=== PATIENT | male | born 1975 ===

== ENCOUNTER 2020-07-14 18:36 | Emergency (ER) | payer MEDICAID, SELFPAY ==
[2020-07-14 19:15] VITALS: BP 135/77; PULSE 78; RESP 18; TEMP 36.6; O2SAT 95; BMI 36.4
[2020-07-14 19:41] VITALS: BP 116/76; PULSE 72; RESP 12; O2SAT 96
[2020-07-14 19:52] LABS: Glucose, Whole Blood 93 mg/dL (60-115)
--- NOTE | 2020-07-14 20:07 | ED.CHESTPAIN ---
HPI - Chest Pain General Chief Complaint: Chest Pain Stated Complaint: MULTIPLE COMPLAINTS Time Seen by Provider: 07/14/20 20:00 Source: patient Mode of arrival: ambulatory Limitations: no limitations History of Present Illness HPI narrative: His room complaining of 1 day dizziness, left arm numbness tingling. Patient states all day today he has been feeling ?dizzy?. Patient describes dizziness as not feeling well, denies near syncope, the room is not spinning. Patient states prior to arrival he checked his glucose which was 97. Patient denies any chest pain, no shortness of breath. Related Data Previous Rx's Medication Instructions Recorded omeprazole 40 mg capsule,delayed 40 mg PO BID #90 cap 07/04/20 release plecanatide 3 mg tablet 3 mg PO DAILY 90 Days #90 tab 07/04/20 Allergies Allergy/AdvReac Type Severity Reaction Status Date / Time Penicillins [PENICILLINS] Allergy Intermediate HIVES Verified 07/14/20 19:39 penicillin V Allergy Unknown Hives Verified 07/14/20 19:39 Review of Systems Review of Systems: Constitutional : No Weight loss, No Fever, occasional Chills, No Night Sweats, No Fatigue, No Malaise ENT/Mouth : No Hearing loss, No Ear Pain, No Nasal Congestion, No Sinus Pain, No Hoarseness, No sore throat, No Rhinorrhea, No Swallowing Difficulty Eyes: No Eye Pain, No Swelling, No Redness, No Foreign Body, No Discharge, No Vision Changes Cardiovascular : No Chest Pain, No SOB, No Dyspnea on Exertion, No Orthopnea, No Edema, No Palpitations. Complaining strange sensation in his chest Respiratory : No Cough, No Sputum, No Wheezing, No Smoke Exposure, No Dyspnea Gastrointestinal : No Nausea, No Vomiting, No Diarrhea, No Constipation, No abdominal Pain, No Hematochezia, No Melena Genitourinary : no irregular bleeding, No Dysuria, No Urinary Frequency, No Hematuria, No Urinary Incontinence, No Urgency, No Flank Pain, No Urinary Flow Changes, No Hesitancy Musculoskeletal : No joint pain, No Myalgias, No Joint Swelling Skin : No Skin Lesions, No rash Neuro : No Weakness, No Numbness, No Paresthesias, No Loss of Consciousness, Mild Dizziness, No Headache Psych : No Anxiety/Panic, No Depression, No SI/HI/AH/VH, No Social Issues, Heme/Lymph: No Bruising, No Bleeding,No Lymphadenopathy Endocrine : No Polyuria, No Polydipsia, No Temperature Intolerance COUNTS INCLUDE 234 BEDS AT THE [facility] Past Medical History Medical History Diabetes Sleep apnea Varicose vein of leg Social History Social History Alcohol intake: never Smoking Status: Never smoker Use of substances other than those prescribed or required for medical reasons: No Advance Directives: No Advance Directives Information Provided: Yes Physical Exam Vital Signs: Vital Signs: Vital Signs Temp Pulse Resp BP Pulse Ox 07/14/20 22:00 98.0 F 64 12 114/66 97 07/14/20 20:08 97.8 F 60 20 113/73 94 07/14/20 19:41 72 12 116/76 96 07/14/20 19:15 98 F 78 18 135/77 95 Body Mass Index 36.4 Appearance: Alert. Oriented X3. No acute distress. Eyes: Pupils equal, round and reactive to light. ENT: Pharynx normal. Neck: Normal inspection. Neck supple. No lymph nodes noted. No crepitus CVS: Normal heart rate and rhythm. Pulses normal. Normal S1 and S2 Respiratory: No respiratory distress. Breath sounds normal. No Wheezing. No rales Abdomen: Soft and nontender. No rigidity. No distention. good BS x4 Skin: Skin warm and dry. Normal skin color. Normal skin turgor. Extremities: No lower extremity edema. No lower extremity edema. No Lacerations. No Rash Neuro: Oriented X 3. No motor deficit. No sensory deficit. Moving all extermities. No slurred speech. Course Course Course Narrative: Patient's troponin is pending, patient denies any chest pain shortness of breath or dizziness at this time. Patient was assessed multiple times, patient stated that each time he was feeling much better and no longer having numbness/tingling in his left arm His prior to discharge, patient stated he felt a bit nauseous but otherwise well, no chest pain or shortness of breath MDM - Chest Pain Lab Data Result diagrams: 07/14/20 23:04 07/14/20 23:04 Labs: Lab Results 07/14/20 07/14/20 07/14/20 Range/Units 19:48 23:04 23:04 WBC 10.2 (4.8-10.8) X10*3/uL RBC 4.40 L (4.60-5.80) X10*6/uL Hgb 12.5 L (14.0-18.0) g/dl Hct 39.2 L (42-52) % MCV 89.1 (80-98) fL MCH 28.4 (27.0-33.0) pg MCHC 31.9 (31.0-36.0) g/dl RDW 12.5 (11.0-16.0) % Plt Count 331 (160-400) X10*3/uL MPV 10.3 (9.4-12.4) fL Immature Gran % (Auto) 0.3 (0.0-0.4) % Neut % (Auto) 69.6 (45-73) % Lymph % (Auto) 22.3 (20-40) % [place] % (Auto) 6.1 (2-11) % Eos % (Auto) 1.3 (0-4) % Baso % (Auto) 0.4 (0-2) % Lymph # (Auto) 2.3 (1.2-4.9) X10*3/uL [place] # (Auto) 0.6 (0.1-1.2) X10*3/uL Eos # (Auto) 0.1 (0.0-0.4) X10*3/uL Baso # (Auto) 0.0 (0.0-0.2) X10*3/uL Abs Immat Gran (auto) 0.03 (0.00-0.03) X10*3/uL Absolute Neuts (auto) 7.1 (2.0-8.3) X10*3/uL Absolute Nucleated RBC 0.000 (0.0-0.012) X10*3/uL Nucleated RBC % (auto) 0.0 (0.0-0.2) /100WBC Sodium 139 (135-145) mmol/L Potassium 4.2 (3.3-5.1) mmol/l Chloride 101 (96-108) mmol/L Carbon Dioxide 31 H (22-29) mmol/L Anion Gap 11 L (12-20) BUN 11 (9-16) mg/dL Creatinine 0.78 (0.5-1.4) mg/dL Estim Creat Clear Calc 156.8 Estimated GFR > 60 POC Glucose 93 (60-115) mg/dL Random Glucose 103 (60-115) mg/dL Calcium 9.6 (8.4-10.2) mg/dL Specimen Comment 07/14/20 Range/Units 23:04 WBC (4.8-10.8) X10*3/uL RBC (4.60-5.80) X10*6/uL Hgb (14.0-18.0) g/dl Hct (42-52) % MCV (80-98) fL MCH (27.0-33.0) pg MCHC (31.0-36.0) g/dl RDW (11.0-16.0) % Plt Count (160-400) X10*3/uL MPV (9.4-12.4) fL Immature Gran % (Auto) (0.0-0.4) % Neut % (Auto) (45-73) % Lymph % (Auto) (20-40) % [place] % (Auto) (2-11) % Eos % (Auto) (0-4) % Baso % (Auto) (0-2) % Lymph # (Auto) (1.2-4.9) X10*3/uL [place] # (Auto) (0.1-1.2) X10*3/uL Eos # (Auto) (0.0-0.4) X10*3/uL Baso # (Auto) (0.0-0.2) X10*3/uL Abs Immat Gran (auto) (0.00-0.03) X10*3/uL Absolute Neuts (auto) (2.0-8.3) X10*3/uL Absolute Nucleated RBC (0.0-0.012) X10*3/uL Nucleated RBC % (auto) (0.0-0.2) /100WBC Sodium (135-145) mmol/L Potassium (3.3-5.1) mmol/l Chloride (96-108) mmol/L Carbon Dioxide (22-29) mmol/L Anion Gap (12-20) BUN (9-16) mg/dL Creatinine (0.5-1.4) mg/dL Estim Creat Clear Calc Estimated GFR POC Glucose (60-115) mg/dL Random Glucose (60-115) mg/dL Calcium (8.4-10.2) mg/dL Specimen Comment DELAY ECG Data ECG #1: Attestation: I personally reviewed and interpreted this ECG as follows: (Sinus rhythm, heart rate 62, QTC 420, nonspecific T-wave inversions in lead 3, no ST segment depression or elevation) Discharge Plan Discharge Clinical Impression: Dizziness Patient Disposition: Home, Self-Care Instructions: Dizziness (ED) Additional Instructions: Please follow-up with your primary care physician tomorrow. If you have any worsening or new symptoms, please return to the emergency room or call 911 Prescriptions: No Action Trulance 3 mg tablet 3 mg PO DAILY 90 Days Qty: 90 RF: 1 omeprazole 40 mg capsule,delayed release(DR/EC) 40 mg PO BID Qty: 90 RF: 1
[2020-07-14 20:08] VITALS: BP 113/73; PULSE 60; RESP 20; TEMP 36.6; O2SAT 94
--- NOTE | 2020-07-14 21:32 | ECG_ITS ---
Test Reason : REPEAT Blood Pressure : / mmHG Vent. Rate : 062 BPM Atrial Rate : 062 BPM P-R Int : 130 ms QRS Dur : 104 ms QT Int : 414 ms P-R-T Axes : 041 -19 001 degrees QTc Int : 420 ms Normal sinus rhythm Incomplete right bundle branch block Nonspecific T wave abnormality Abnormal ECG When compared with ECG of 29-SEP-2019 00:47, Nonspecific T wave abnormality is new Referred By: Lea Alarcon Electronically Signed By:NAHID LEE MD
[2020-07-14 22:00] VITALS: BP 114/66; PULSE 64; RESP 12; TEMP 36.7; O2SAT 97
[2020-07-14 23:09] LABS: Basophils Percent Auto 0.4 % (0-2); Eosinophils Absolute Auto 0.1 X10*3/uL (0.0-0.4); Eosinophils Percent Auto 1.3 % (0-4); Hematocrit 39.2 % (42-52); Hemoglobin 12.5 g/dl (14.0-18.0); Imm Gran Abs Auto 0.03 X10*3/uL (0.00-0.03); Imm Gran Pct Auto 0.3 % (0.0-0.4); Lymphocytes Absolute Auto 2.3 X10*3/uL (1.2-4.9); Lymphocytes Percent Auto 22.3 % (20-40); Mean Corpuscular HGB Conc 31.9 g/dl (31.0-36.0); Mean Corpuscular Hemoglobin 28.4 pg (27.0-33.0); Mean Corpuscular Volume 89.1 fL (80-98); Mean Platelet Volume 10.3 fL (9.4-12.4); Monocytes Absolute Auto 0.6 X10*3/uL (0.1-1.2); Monocytes Percent Auto 6.1 % (2-11); Neutrophils Absolute Auto 7.1 X10*3/uL (2.0-8.3); Neutrophils Percent Auto 69.6 % (45-73); Platelet Count 331 X10*3/uL (160-400); Red Cell Distribution Width 12.5 % (11.0-16.0); White Blood Count 10.2 X10*3/uL (4.8-10.8)
[2020-07-14 23:10] LABS: MANUAL DIFF FLAG NO
[2020-07-14 23:16] LABS: Delay - Chemistry DELAY
[2020-07-14 23:52] LABS: Anion Gap 11 (12-20); Blood Urea Nitrogen 11 mg/dL (9-16); Carbon Dioxide 31 mmol/L (22-29); Chloride 101 mmol/L (96-108); Creatinine Clr Calc Pharmacy 156.8; Estimated Glomerular Filt Rate > 60; Glucose Random 103 mg/dL (60-115); Potassium 4.2 mmol/l (3.3-5.1); Sodium 139 mmol/L (135-145)
[2020-07-15] VITALS: BP 128/68; PULSE 66; RESP 16; TEMP 37.2; O2SAT 97
[2020-07-15 00:41] LABS: Calcium 9.6 mg/dL (8.4-10.2)
[2020-07-15 00:46] LABS: Troponin-I High Sensitivity < 3.5 ng/L (<3.5-35.0)
[2020-07-15] MEDS: Meclizine HCl 25 MG TABLET PO (01:00)
== END 2020-07-15 01:00 | disposition home or self-care (01) ==
PROVIDERS: Emergency Provider Emergency Medicine; PCP Family Medicine
DX: R42 Dizziness and giddiness (principal); E11.9 Type 2 diabetes mellitus without complications; Z79.899 Other long term (current) drug therapy
CPT/HCPCS: 36415; 80048; 82947; 84484; 85025; 93005; 99284; 99285

== ENCOUNTER → 2020-07-23 13:14 | Outpatient (BNVA) | payer MEDICAID, SELFPAY | PROVIDERS: PCP Internal Medicine Transplant Hepatology; Visit Provider Anesthesiology | DX: M17.12 Unilateral primary osteoarthritis, left knee (principal); M47.816 Spondylosis without myelopathy or radiculopathy, lumbar region; G89.4 Chronic pain syndrome | CPT/HCPCS: 99213 ==

== ENCOUNTER → 2020-08-03 13:01 | Outpatient (BNVA) | payer MEDICAID, SELFPAY | PROVIDERS: PCP Family Medicine; Referring Provider Family Medicine; Visit Provider Nurse Practitioner Family | DX: K21.9 Gastro-esophageal reflux disease without esophagitis (principal); E11.43 Type 2 diabetes mellitus with diabetic autonomic (poly)neuropathy; K31.84 Gastroparesis; Z79.84 Long term (current) use of oral hypoglycemic drugs | CPT/HCPCS: 99212 ==

== ENCOUNTER 2020-09-26 17:56 | Emergency (ER) | payer MEDICAID, SELFPAY ==
[2020-09-26 19:50] VITALS: BP 152/94; PULSE 76; RESP 18; TEMP 36.8; O2SAT 96; BMI 35.9
--- NOTE | 2020-09-26 20:06 | ED.EXTPRO ---
HPI - Extremity Problem General Chief complaint: Extremity Problem Stated complaint: hand swelling Time Seen by Provider: 09/26/20 20:06 Source: patient Mode of arrival: ambulatory Limitations: no limitations History of Present Illness MD Complaint: extremity pain and extremity swelling Onset (ago): day(s) (started 1am today) Pain Consistency: constant Location: right and upper extremity Quality: burning and aching Radiation: proximal Relieving factors: nothing Exacerbating factors: nothing Associated symptoms: denies other symptoms Context: history of gout and other (has open area on knuckle) Related Data Home Medications Medication Instructions Recorded Confirmed albuterol sulfate 90 mcg/actuation 2 puff INHALATION Q6H PRN 07/23/20 09/26/20 aerosol inhaler buprenorphine 8 mg-naloxone 2 mg 2 film BUCCAL DAILY 07/23/20 09/26/20 sublingual film fluticasone propionate 50 1 spray INTRANASAL DAILY 07/23/20 09/26/20 mcg/actuation nasal spray,suspension loratadine 10 mg tablet 10 mg PO DAILY 07/23/20 09/26/20 metformin 500 mg tablet 500 mg PO DAILY 07/23/20 09/26/20 metoclopramide HCl 5 mg tablet 5 mg PO QIDACHS 07/23/20 09/26/20 tamsulosin 0.4 mg capsule 0.4 mg PO DAILY 07/23/20 09/26/20 Previous Rx's Medication Instructions Recorded omeprazole 40 mg capsule,delayed 40 mg PO BID #90 cap 07/04/20 release plecanatide 3 mg tablet 3 mg PO DAILY 90 Days #90 tab 07/04/20 cephalexin 500 mg PO BID 7 Days #14 cap 09/26/20 doxycycline hyclate 100 mg PO BID 7 Days #14 tab 09/26/20 mupirocin 1 appl TOPICAL BID 7 Days #15 g 09/26/20 Allergies Allergy/AdvReac Type Severity Reaction Status Date / Time Penicillins [PENICILLINS] Allergy Intermediate HIVES Verified 07/14/20 19:39 Review of Systems Review of Systems: Constitutional : No Fever, No Chills ENT/Mouth : No sore throat, No Rhinorrhea Eyes: No Eye Pain, No Swelling, No Redness Cardiovascular : No Chest Pain, No SOB Respiratory : No Cough, No Sputum Gastrointestinal : No Nausea, No Vomiting, No Diarrhea, No abdominal Pain Genitourinary : No Dysuria, No Hematuria Musculoskeletal : No joint pain, No Myalgias, No Joint Swelling Skin : pos Skin Lesions, positive skin rash Neuro : No Weakness, No Numbness, No Headache Psych : No Anxiety, No Depression Heme/Lymph: No Bruising, No Bleeding,No Lymphadenopathy Endocrine : No Polyuria, No Polydipsia All other systems reviewed and are negative [facility] Past Medical History Attestation statement: The following information was validated with the patient. Medical History Chronic pain syndrome Diabetes Osteoarthritis of left knee Sleep apnea Spondylosis of lumbar region without myelopathy or radiculopathy Varicose vein of leg Surgical History History of back surgery History of colonoscopy Family History Family History (Updated 08/03/20 @ 13:04 by Chuyita Dalal CMA) Father No problems noted. Mother History of cancer Social History Social History Alcohol intake: never Smoking Status: Never smoker Use of substances other than those prescribed or required for medical reasons: No Advance Directives: No Advance Directives Information Provided: Yes Physical Exam Vital Signs: Vital Signs: Last Vital Signs Temp 98.2 F 09/26/20 19:50 Pulse 84 09/26/20 21:46 Resp 16 09/26/20 21:46 BP 140/81 H 09/26/20 21:46 Pulse Ox 97 09/26/20 21:46 Body Mass Index 35.9 Appearance: Alert. Oriented X3. No acute distress. Eyes: Pupils equal, round and reactive to light. ENT: Pharynx normal. Neck: Normal inspection. Neck supple. CVS: Normal heart rate and rhythm. Pulses normal. Respiratory: No respiratory distress. Breath sounds normal. Abdomen: Soft and non-tender. Skin: Skin warm and dry. Normal skin color. Normal skin turgor. Extremities: No lower extremity edema. No calf ttp RUE swelling with warmth and mild erythema from hand to elbow - lymphangitis to AC area, open crack on 3rd MCP no fluctuance, NV intact Neuro: Oriented X 3. No motor deficit. No sensory deficit. Course Course Course Narrative: on recheck the redness has improved, no fevers, no WBC count stable for DC MDM - Extremity (Nontraumatic) MDM Narrative Medical decision making narrative: 44 yo male with DM here with RUE cellulitis - no fluctuance, NV intact, infection likely from open dry knuckle, has lymphangitis to AC area will need labs, cultures, start antibiotics, dispo per findings and recheck of area Lab Data Result diagrams: 09/26/20 20:33 09/26/20 20:32 Labs: Lab Results 09/26/20 09/26/20 09/26/20 Range/Units 20:32 20:32 20:32 WBC 10.2 (4.8-10.8) X10*3/uL RBC 4.56 L (4.60-5.80) X10*6/uL Hgb 13.1 L (14.0-18.0) g/dl Hct 39.9 L (42-52) % MCV 87.5 (80-98) fL MCH 28.7 (27.0-33.0) pg MCHC 32.8 (31.0-36.0) g/dl RDW 12.3 (11.0-16.0) % Plt Count 311 (160-400) X10*3/uL MPV 11.1 (9.4-12.4) fL Immature Gran % (Auto) 0.3 (0.0-0.4) % Neut % (Auto) 77.8 H (45-73) % Lymph % (Auto) 14.9 L (20-40) % [place] % (Auto) 6.0 (2-11) % Eos % (Auto) 0.7 (0-4) % Baso % (Auto) 0.3 (0-2) % Lymph # (Auto) 1.5 (1.2-4.9) X10*3/uL [place] # (Auto) 0.6 (0.1-1.2) X10*3/uL Eos # (Auto) 0.1 (0.0-0.4) X10*3/uL Baso # (Auto) 0.0 (0.0-0.2) X10*3/uL Abs Immat Gran (auto) 0.03 (0.00-0.03) X10*3/uL Absolute Neuts (auto) 7.9 (2.0-8.3) X10*3/uL Absolute Nucleated RBC 0.000 (0.0-0.012) X10*3/uL Nucleated RBC % (auto) 0.0 (0.0-0.2) /100WBC Hold Blue Top Sodium 138 139 (135-145) mmol/L Potassium 4.2 4.3 (3.3-5.1) mmol/l Chloride 102 102 (96-108) mmol/L Carbon Dioxide 30 H 30 H (22-29) mmol/L Anion Gap 10 L 11 L (12-20) BUN 12 12 (9-16) mg/dL Creatinine 0.75 0.76 (0.5-1.4) mg/dL Estim Creat Clear Calc 161.8 159.6 Estimated GFR > 60 > 60 Random Glucose 115 116 H (60-115) mg/dL Lactic Acid (0.5-2.0) mmol/L Uric Acid 5.5 (3.4-7.0) mg/dL Calcium 9.2 9.0 (8.4-10.2) mg/dL Magnesium (1.6-2.6) mg/dL Total Bilirubin (0.0-1.0) mg/dL Direct Bilirubin (0.0-0.5) mg/dL AST (5-37) U/L ALT (0-40) U/L Alkaline Phosphatase (39-117) U/L Total Protein (6.5-8.0) g/dL Albumin (3.5-5.0) g/dL COVID-19 ([facility]) (Negative) COVID-19 Clin Com 09/26/20 09/26/20 09/26/20 Range/Units 20:32 20:32 20:33 WBC 9.8 (4.8-10.8) X10*3/uL RBC 4.60 (4.60-5.80) X10*6/uL Hgb 12.8 L (14.0-18.0) g/dl Hct 40.1 L (42-52) % MCV 87.2 (80-98) fL MCH 27.8 (27.0-33.0) pg MCHC 31.9 (31.0-36.0) g/dl RDW 12.2 (11.0-16.0) % Plt Count 311 (160-400) X10*3/uL MPV 11.0 (9.4-12.4) fL Immature Gran % (Auto) 0.3 (0.0-0.4) % Neut % (Auto) 78.0 H (45-73) % Lymph % (Auto) 14.8 L (20-40) % [place] % (Auto) 6.1 (2-11) % Eos % (Auto) 0.5 (0-4) % Baso % (Auto) 0.3 (0-2) % Lymph # (Auto) 1.5 (1.2-4.9) X10*3/uL [place] # (Auto) 0.6 (0.1-1.2) X10*3/uL Eos # (Auto) 0.1 (0.0-0.4) X10*3/uL Baso # (Auto) 0.0 (0.0-0.2) X10*3/uL Abs Immat Gran (auto) 0.03 (0.00-0.03) X10*3/uL Absolute Neuts (auto) 7.7 (2.0-8.3) X10*3/uL Absolute Nucleated RBC 0.000 (0.0-0.012) X10*3/uL Nucleated RBC % (auto) 0.0 (0.0-0.2) /100WBC Hold Blue Top Sodium (135-145) mmol/L Potassium (3.3-5.1) mmol/l Chloride (96-108) mmol/L Carbon Dioxide (22-29) mmol/L Anion Gap (12-20) BUN (9-16) mg/dL Creatinine (0.5-1.4) mg/dL Estim Creat Clear Calc Estimated GFR Random Glucose (60-115) mg/dL Lactic Acid 1.3 (0.5-2.0) mmol/L Uric Acid (3.4-7.0) mg/dL Calcium (8.4-10.2) mg/dL Magnesium 1.9 (1.6-2.6) mg/dL Total Bilirubin 0.6 (0.0-1.0) mg/dL Direct Bilirubin 0.3 (0.0-0.5) mg/dL AST 26 (5-37) U/L ALT 47 H (0-40) U/L Alkaline Phosphatase 96 (39-117) U/L Total Protein 7.6 (6.5-8.0) g/dL Albumin 4.6 (3.5-5.0) g/dL COVID-19 ([facility]) (Negative) COVID-19 Clin Com 09/26/20 09/26/20 Range/Units 20:33 20:33 WBC (4.8-10.8) X10*3/uL RBC (4.60-5.80) X10*6/uL Hgb (14.0-18.0) g/dl Hct (42-52) % MCV (80-98) fL MCH (27.0-33.0) pg MCHC (31.0-36.0) g/dl RDW (11.0-16.0) % Plt Count (160-400) X10*3/uL MPV (9.4-12.4) fL Immature Gran % (Auto) (0.0-0.4) % Neut % (Auto) (45-73) % Lymph % (Auto) (20-40) % [place] % (Auto) (2-11) % Eos % (Auto) (0-4) % Baso % (Auto) (0-2) % Lymph # (Auto) (1.2-4.9) X10*3/uL [place] # (Auto) (0.1-1.2) X10*3/uL Eos # (Auto) (0.0-0.4) X10*3/uL Baso # (Auto) (0.0-0.2) X10*3/uL Abs Immat Gran (auto) (0.00-0.03) X10*3/uL Absolute Neuts (auto) (2.0-8.3) X10*3/uL Absolute Nucleated RBC (0.0-0.012) X10*3/uL Nucleated RBC % (auto) (0.0-0.2) /100WBC Hold Blue Top SEE NOTE Sodium (135-145) mmol/L Potassium (3.3-5.1) mmol/l Chloride (96-108) mmol/L Carbon Dioxide (22-29) mmol/L Anion Gap (12-20) BUN (9-16) mg/dL Creatinine (0.5-1.4) mg/dL Estim Creat Clear Calc Estimated GFR Random Glucose (60-115) mg/dL Lactic Acid (0.5-2.0) mmol/L Uric Acid (3.4-7.0) mg/dL Calcium (8.4-10.2) mg/dL Magnesium (1.6-2.6) mg/dL Total Bilirubin (0.0-1.0) mg/dL Direct Bilirubin (0.0-0.5) mg/dL AST (5-37) U/L ALT (0-40) U/L Alkaline Phosphatase (39-117) U/L Total Protein (6.5-8.0) g/dL Albumin (3.5-5.0) g/dL COVID-19 ([facility]) Negative (Negative) COVID-19 Clin Com See Note Discharge Plan Discharge Clinical Impression: Cellulitis Qualifiers: Site of cellulitis: extremity Site of cellulitis of extremity: upper extremity Laterality: right Qualified Code(s): L03.113 - Cellulitis of right upper limb Arthralgia Qualifiers: Joint pain location: unspecified Qualified Code(s): M25.50 - Pain in unspecified joint Patient Disposition: Home, Self-Care Instructions: Cellulitis (ED), Arthralgia (ED) Additional Instructions: return to ED for any worsening symptoms or concerns Prescriptions: New doxycycline hyclate 100 mg tablet 100 mg PO BID 7 Days Qty: 14 RF: 0 cephalexin 500 mg capsule 500 mg PO BID 7 Days Qty: 14 RF: 0 mupirocin 2 % ointment 1 appl topical BID 7 Days Qty: 15 RF: 0 No Action Trulance 3 mg tablet 3 mg PO DAILY 90 Days Qty: 90 RF: 1 omeprazole 40 mg capsule,delayed release(DR/EC) 40 mg PO BID Qty: 90 RF: 1 tamsulosin 0.4 mg capsule 0.4 mg PO DAILY RF: 0 fluticasone propionate [Flonase Allergy Relief] 50 mcg/actuation spray,suspension 1 spray intranasal DAILY RF: 0 albuterol sulfate [ProAir HFA] 90 mcg/actuation HFA aerosol inhaler 2 puff inhalation Q6H PRN (Reason: Shortness Of Breath) RF: 0 buprenorphine-naloxone [Suboxone] 8-2 mg film 2 film buccal DAILY RF: 0 loratadine 10 mg tablet 10 mg PO DAILY RF: 0 metoclopramide HCl [Reglan] 5 mg tablet 5 mg PO QIDACHS RF: 0 metformin 500 mg tablet 500 mg PO DAILY RF: 0 Referrals: Daily Lopez MD [Physician] - 1 week
[2020-09-26 20:25] VITALS: BP 129/93; PULSE 84; RESP 16; O2SAT 98
[2020-09-26] MEDS: 0.9 % Sodium Chloride 500 ML IV (20:37)
[2020-09-26 20:42] VITALS: RESP 16
[2020-09-26 20:42] LABS: MANUAL DIFF FLAG NO
[2020-09-26 20:42] LABS: MANUAL DIFF FLAG NO
[2020-09-26] MEDS: Morphine Sulfate 4 MG/ML CARTRIDGE IVPUSH (20:42)
[2020-09-26] MEDS: cefEPime HCl 1 GM in 0.9 % Sodium Chloride 50 ML IV (20:42)
[2020-09-26] MEDS: ondansetron HCL 4 MG/2 ML VIAL IVPUSH (20:43)
[2020-09-26 20:51] LABS: Basophils Percent Auto 0.3 % (0-2); Eosinophils Absolute Auto 0.1 X10*3/uL (0.0-0.4); Eosinophils Percent Auto 0.7 % (0-4); Hematocrit 39.9 % (42-52); Hemoglobin 13.1 g/dl (14.0-18.0); Imm Gran Abs Auto 0.03 X10*3/uL (0.00-0.03); Imm Gran Pct Auto 0.3 % (0.0-0.4); Lymphocytes Absolute Auto 1.5 X10*3/uL (1.2-4.9); Lymphocytes Percent Auto 14.9 % (20-40); Mean Corpuscular HGB Conc 32.8 g/dl (31.0-36.0); Mean Corpuscular Hemoglobin 28.7 pg (27.0-33.0); Mean Corpuscular Volume 87.5 fL (80-98); Mean Platelet Volume 11.1 fL (9.4-12.4); Monocytes Absolute Auto 0.6 X10*3/uL (0.1-1.2); Neutrophils Absolute Auto 7.9 X10*3/uL (2.0-8.3); Neutrophils Percent Auto 77.8 % (45-73); Platelet Count 311 X10*3/uL (160-400); Red Blood Count 4.56 X10*6/uL (4.60-5.80); Red Cell Distribution Width 12.3 % (11.0-16.0); White Blood Count 10.2 X10*3/uL (4.8-10.8)
[2020-09-26 20:51] LABS: Basophils Percent Auto 0.3 % (0-2); Eosinophils Absolute Auto 0.1 X10*3/uL (0.0-0.4); Eosinophils Percent Auto 0.5 % (0-4); Hematocrit 40.1 % (42-52); Hemoglobin 12.8 g/dl (14.0-18.0); Imm Gran Abs Auto 0.03 X10*3/uL (0.00-0.03); Imm Gran Pct Auto 0.3 % (0.0-0.4); Lymphocytes Absolute Auto 1.5 X10*3/uL (1.2-4.9); Lymphocytes Percent Auto 14.8 % (20-40); Mean Corpuscular HGB Conc 31.9 g/dl (31.0-36.0); Mean Corpuscular Hemoglobin 27.8 pg (27.0-33.0); Mean Corpuscular Volume 87.2 fL (80-98); Monocytes Absolute Auto 0.6 X10*3/uL (0.1-1.2); Monocytes Percent Auto 6.1 % (2-11); Neutrophils Absolute Auto 7.7 X10*3/uL (2.0-8.3); Platelet Count 311 X10*3/uL (160-400); Red Cell Distribution Width 12.2 % (11.0-16.0); White Blood Count 9.8 X10*3/uL (4.8-10.8)
[2020-09-26 21:16] LABS: Anion Gap 11 (12-20); Blood Urea Nitrogen 12 mg/dL (9-16); Carbon Dioxide 30 mmol/L (22-29); Chloride 102 mmol/L (96-108); Creatinine Clr Calc Pharmacy 159.6; Estimated Glomerular Filt Rate > 60; Glucose Random 116 mg/dL (60-115); Potassium 4.3 mmol/l (3.3-5.1); Sodium 139 mmol/L (135-145)
[2020-09-26 21:17] LABS: Lactic Acid 1.3 mmol/L (0.5-2.0)
[2020-09-26 21:18] LABS: Alanine Aminotransferase 47 U/L (0-40); Albumin Level 4.6 g/dL (3.5-5.0); Alkaline Phosphatase 96 U/L (39-117); Aspartate Amino Transferase 26 U/L (5-37); Bilirubin Direct 0.3 mg/dL (0.0-0.5); Bilirubin Total 0.6 mg/dL (0.0-1.0); Magnesium 1.9 mg/dL (1.6-2.6); Total Protein 7.6 g/dL (6.5-8.0)
[2020-09-26 21:20] LABS: Anion Gap 10 (12-20); Blood Urea Nitrogen 12 mg/dL (9-16); Calcium 9.2 mg/dL (8.4-10.2); Carbon Dioxide 30 mmol/L (22-29); Chloride 102 mmol/L (96-108); Creatinine Clr Calc Pharmacy 161.8; Estimated Glomerular Filt Rate > 60; Glucose Random 115 mg/dL (60-115); Potassium 4.2 mmol/l (3.3-5.1); Sodium 138 mmol/L (135-145); Uric Acid 5.5 mg/dL (3.4-7.0)
[2020-09-26 21:26] LABS: COVID-19 Test Negative (Negative); IDNOW Serial# 9DD0AD1C
[2020-09-26 21:46] VITALS: BP 140/81; PULSE 84; RESP 16; O2SAT 97
== END 2020-09-26 23:22 | disposition home or self-care (01) ==
PROVIDERS: Emergency Provider Emergency Medicine; PCP Family Medicine
DX: L03.113 Cellulitis of right upper limb (principal); M25.50 Pain in unspecified joint; S60.511A Abrasion of right hand, initial encounter; X58.XXXA Exposure to other specified factors, initial encounter; Z20.828 Contact with and (suspected) exposure to other viral communicable diseases; Y93.9 Activity, unspecified; Y92.9 Unspecified place or not applicable; Y99.9 Unspecified external cause status; E11.9 Type 2 diabetes mellitus without complications; Z79.84 Long term (current) use of oral hypoglycemic drugs; Z79.899 Other long term (current) drug therapy
CPT/HCPCS: 36415; 80048; 80076; 83605; 83735; 84550; 85025; 87040; 87635; 96365; 96366; 96367; 96375; 99284; J0692; J2270; J2405; J3370

== ENCOUNTER → 2020-10-01 13:52 | Outpatient (BNVA) | payer MEDICAID, SELFPAY | PROVIDERS: PCP Family Medicine; Visit Provider Nurse Practitioner Family | DX: Z76.89 Persons encountering health services in other specified circumstances (principal) ==

== ENCOUNTER 2020-10-23 09:31 | Outpatient (REF) | payer MEDICAID, SELFPAY ==
--- NOTE | 2020-10-23 09:38 | US_ITS ---
EXAMINATION: US ABDOMEN COMPLETE CLINICAL INFORMATION: Husain. COMPARISON: Previous exam March 2020 TECHNIQUE: Real-time imaging of the abdominal viscera. FINDINGS: PANCREAS: The head of the pancreas is normal-appearing. The body and tail are not well visualized due to bowel gas. ABDOMINAL AORTA: Not well visualized due to bowel gas INFERIOR VENA CAVA: Not well visualized. LIVER: Liver echotexture is increased probably representing fatty infiltration. There is a hypoechoic area adjacent to the gallbladder, characteristic location of focal fatty sparing. No other focal hepatic lesion. The liver is normal in contour. There is no intrahepatic biliary duct dilatation seen. GALLBLADDER: Normal. The gallbladder is physiologically distended without evidence of stones, sludge, polyps, wall thickening or pericholecystic fluid. COMMON BILE DUCT: Normal in caliber measuring 0.4 cm in diameter. RIGHT KIDNEY: Normal. No hydronephrosis. No renal calculi or focal parenchymal lesions. The kidney measures 11.9 cm in maximum dimension. LEFT KIDNEY: Normal. No hydronephrosis. No renal calculi or focal parenchymal lesions. The kidney measures 12.9 cm in maximum dimension. SPLEEN: Normal. The spleen measures 12.3 cm in maximum dimension. FREE FLUID: None. US/US abdomen complete IMPRESSION: Echogenic liver suggestive of fatty infiltration. No focal liver lesion or evidence of cirrhosis. Limited visualization of the pancreas, aorta and IVC.
== END 2020-10-23 09:32 | disposition home or self-care (01) ==
LOC: HO.US 09:31
PROVIDERS: PCP Family Medicine; Visit Provider Physician Assistant
DX: K75.81 Nonalcoholic steatohepatitis (NASH) (principal)
CPT/HCPCS: 76700

== ENCOUNTER 2020-10-26 16:09 | Emergency (ER) | payer MEDICAID, SELFPAY ==
[2020-10-26 16:41] VITALS: BP 135/82; PULSE 75; RESP 18; TEMP 36.2; O2SAT 95; BMI 35.4
[2020-10-26 18:47] VITALS: BP 144/81; PULSE 80; RESP 16; TEMP 36.3; O2SAT 96
--- NOTE | 2020-10-26 19:01 | XR_ITS ---
EXAMINATION: XR CHEST CLINICAL INFORMATION: Dizziness. Low breath sounds. COMPARISON: Chest x-ray 09/27/2012 TECHNIQUE: 2 views of the chest were obtained. FINDINGS: No significant abnormality is noted involving the heart, lungs, mediastinum, bony thorax or soft tissues. XR/XR chest 2V IMPRESSION: Unremarkable examination.
[2020-10-26 19:02] VITALS: BP 132/70; PULSE 67
--- NOTE | 2020-10-26 19:02 | ECG_ITS ---
Test Reason : DIZZY Blood Pressure : / mmHG Vent. Rate : 067 BPM Atrial Rate : 067 BPM P-R Int : 130 ms QRS Dur : 094 ms QT Int : 410 ms P-R-T Axes : 050 -14 015 degrees QTc Int : 433 ms Normal sinus rhythm Normal ECG When compared with ECG of 14-JUL-2020 22:39, No significant change was found Referred By: Scarlet Quinn Electronically Signed By:Drew Valenzuela
[2020-10-26 20:02] LABS: MANUAL DIFF FLAG NO
[2020-10-26 20:04] LABS: Basophils Percent Auto 0.4 % (0-2); Eosinophils Absolute Auto 0.1 X10*3/uL (0.0-0.4); Eosinophils Percent Auto 0.8 % (0-4); Hematocrit 39.8 % (42-52); Hemoglobin 12.8 g/dl (14.0-18.0); Imm Gran Abs Auto 0.03 X10*3/uL (0.00-0.03); Imm Gran Pct Auto 0.3 % (0.0-0.4); Lymphocytes Absolute Auto 2.2 X10*3/uL (1.2-4.9); Lymphocytes Percent Auto 22.8 % (20-40); Mean Corpuscular HGB Conc 32.2 g/dl (31.0-36.0); Mean Corpuscular Hemoglobin 28.1 pg (27.0-33.0); Mean Corpuscular Volume 87.3 fL (80-98); Mean Platelet Volume 11.1 fL (9.4-12.4); Monocytes Absolute Auto 0.5 X10*3/uL (0.1-1.2); Monocytes Percent Auto 5.5 % (2-11); Neutrophils Absolute Auto 6.8 X10*3/uL (2.0-8.3); Neutrophils Percent Auto 70.2 % (45-73); Platelet Count 314 X10*3/uL (160-400); Red Blood Count 4.56 X10*6/uL (4.60-5.80); Red Cell Distribution Width 12.8 % (11.0-16.0); White Blood Count 9.8 X10*3/uL (4.8-10.8)
[2020-10-26 20:06] LABS: Glucose, Whole Blood 87 mg/dL (60-115)
[2020-10-26 20:17] LABS: INTERNATIONAL NORM RATIO 1.2 (0.9-1.1); Prothrombin Time 13.7 SEC (10.8-13.0)
[2020-10-26 20:28] LABS: Troponin-I High Sensitivity < 3.5 ng/L (<3.5-35.0)
[2020-10-26 20:41] LABS: Influenza A PCR NEGATIVE (Negative); Influenza B PCR NEGATIVE (Negative); Resp Syncy Virus RNA Qual PCR NEGATIVE (Negative); SARS COV2 PCR INHOUSE NEGATIVE (Negative)
[2020-10-26 20:42] LABS: Acetone, serum QL Negative (Negative)
--- NOTE | 2020-10-26 20:49 | ED_ITS ---
HPI - General Adult General Chief complaint: General Medical <JENNIFER Jimenez - Last Filed: 10/26/20 21:11> Stated complaint: low bs <JENNIFER Jimenez Last Filed: 10/26/20 21:11> Time Seen by Provider: 10/26/20 18:52 <JENNIFER Jimenez Last Filed: 10/26/20 21:11> Source: patient <JENNIFER Jimenez Last Filed: 10/26/20 21:11> Mode of arrival: ambulatory <JENNIFER Jimenez Last Filed: 10/26/20 21:11> Limitations: no limitations <JENNIFER Jimenez Last Filed: 10/26/20 21:11> History of Present Illness HPI narrative: 44yoM c PMHX of Type II DM only on 500 mg daily of metformin, HTN, GERD, sleep apnea, arthritis, varicose vein of left, kidney stones, gastroparesis, chronic idiopathic constipation and non alcoholic steatohepatitis presenting to the ED with complaints of low blood sugar this morning in the 80s and dizziness after waking up around 12 noon. He reports he ate breakfast at that time although despite eating breakfast about 15 minutes later he took his blood sugar and it was still in the 80s and then he started to take glucose gel and started to eat some more and his glucose finally went up to the 150s although he reports that he was still feeling dizzy especially with standing. Denies any headaches, changes in vision, nausea/vomiting, chest pain, shortness of breath, dyspnea on exertion, orthopnea, palpitations, weakness, abdominal pain or any symptoms or any other symptoms complaints or concerns at this time. <JENNIFER Jimenez - Last Filed: 10/26/20 21:11> Related Data Home medications: Home Medications Medication Instructions Recorded Confirmed albuterol sulfate 90 mcg/actuation 2 puff INHALATION Q6H PRN 07/23/20 10/01/20 aerosol inhaler buprenorphine 8 mg-naloxone 2 mg 2 film BUCCAL DAILY 07/23/20 10/01/20 sublingual film fluticasone propionate 50 1 spray INTRANASAL DAILY 07/23/20 10/01/20 mcg/actuation nasal spray,suspension loratadine 10 mg tablet 10 mg PO DAILY 10/26/20 01/04/21 metformin 500 mg tablet 500 mg PO DAILY 07/23/20 10/01/20 tamsulosin 0.4 mg capsule 0.4 mg PO DAILY 07/23/20 10/01/20 Previous Rx's Medication Instructions Recorded cephalexin 500 mg PO BID 7 Days #14 cap 09/26/20 doxycycline hyclate 100 mg PO BID 7 Days #14 tab 09/26/20 mupirocin 1 appl TOPICAL BID 7 Days #15 g 09/26/20 metoclopramide HCl 5 mg tablet 5 mg PO QIDACHS #120 tab 10/01/20 omeprazole 40 mg capsule,delayed 40 mg PO BID #90 cap 10/01/20 release plecanatide 3 mg tablet 3 mg PO DAILY 90 Days #90 tab 10/01/20 <JENNIFER Jimenez - Last Filed: 10/26/20 21:11> Allergies/adverse reactions: Allergies Allergy/AdvReac Type Severity Reaction Status Date / Time Penicillins [PENICILLINS] Allergy Intermediate HIVES Verified 07/14/20 19:39 <JENNIFER Jimenez - Last Filed: 10/26/20 21:11> Review of Systems Review of Systems: Constitutional : No Weight loss, No Fever, No Chills, No Night Sweats, No Fatigue, No Malaise ENT/Mouth : No Hearing loss, No Ear Pain, No Nasal Congestion, No Sinus Pain, No Hoarseness, No sore throat, No Rhinorrhea, No Swallowing Difficulty Eyes: No Eye Pain, No Swelling, No Redness, No Foreign Body, No Discharge, No Vision Changes Cardiovascular : No Chest Pain, No SOB, No Dyspnea on Exertion, No Orthopnea, No Edema, No Palpitations Respiratory : No Cough, No Sputum, No Wheezing, No Smoke Exposure, No Dyspnea Gastrointestinal : No Nausea, No Vomiting, No Diarrhea, No Constipation, No abdominal Pain, No Hematochezia, No Melena Genitourinary : no irregular bleeding, No Dysuria, No Urinary Frequency, No Hematuria, No Urinary Incontinence, No Urgency, No Flank Pain, No Urinary Flow Changes, No Hesitancy Musculoskeletal : No joint pain, No Myalgias, No Joint Swelling Skin : No Skin Lesions, No rash Neuro : + Dizziness, No Weakness, No Numbness, No Paresthesias, No Loss of Consciousness, No Headache Psych : No Anxiety/Panic, No Depression, No SI/HI/AH/VH, No Social Issues, Heme/Lymph: No Bruising, No Bleeding,No Lymphadenopathy Endocrine : + Low Blood Sugars, No Polyuria, No Polydipsia, No Temperature Intolerance <JENNIFER Jimenez - Last Filed: 10/26/20 21:11> Yes all other systems are reviewed and are negative <JENNIFER Jimenez - Last Filed: 10/26/20 21:11> [facility] Past Medical History Attestation statement: The following information was validated with the patient. <JENNIFER Jimeenz - Last Filed: 10/26/20 21:11> Medical History: Medical History Chronic pain syndrome Diabetes Osteoarthritis of left knee Sleep apnea Spondylosis of lumbar region without myelopathy or radiculopathy Varicose vein of leg <JENNIFER Jimenez - Last Filed: 10/26/20 21:11> Surgical History: Surgical History History of back surgery History of colonoscopy <JENNIFER Jimenez - Last Filed: 10/26/20 21:11> Family History Family History: Family History Father No problems noted. Mother History of cancer <JENNIFER Jimenez - Last Filed: 10/26/20 21:11> Social History Social History: Social History Alcohol intake: never Smoking Status: Never smoker Use of substances other than those prescribed or required for medical reasons: No Advance Directives: No Advance Directives Information Provided: No <JENNIFER Jimenez - Last Filed: 10/26/20 21:11> Physical Exam Vital Signs: Vital Signs: Last Vital Signs Temp 97.3 F 10/26/20 18:47 Pulse 67 10/26/20 19:02 Resp 16 10/26/20 18:47 BP 132/70 10/26/20 19:02 Pulse Ox 96 10/26/20 18:47 Body Mass Index 35.4 vital signs have been reviewed as normal and appeared to be correct. Blood pr essure normal. Heart rate normal. Respiration rate normal. Temperature normal. Oxygen saturation normal. <JENNIFER Jimenez - Last Filed: 10/26/20 21:11> Vital Signs: Last Vital Signs Temp 97.3 F 10/26/20 18:47 Pulse 67 10/26/20 19:02 Resp 16 10/26/20 18:47 BP 132/70 10/26/20 19:02 Pulse Ox 96 10/26/20 18:47 Body Mass Index 35.4 <Ramos Stone MD - Last Filed: 10/26/20 22:30> Appearance: Alert. Oriented X3. No acute distress. Head: Normal external exam. Normocephalic. Atraumatic. Able to rotate head bilaterally. Eyes: PERRLA. EOMI. No nystagmus noted. Conjunctiva and sclera normal. Eyelids normal. Corneal reflex normal. ENT: EAC normal. TM's Normal. Hearing normal. Pharynx normal. Uvula midline. tongue midline. Moist mucous membranes. Neck: Normal inspection. Neck supple. FROM. No adenopathy. Thyroid Normal. Trachea midline. No meningeal signs. No neck mass noted. CVS: Normal heart rate and rhythm. Heart sound normal. No murmurs noted. Pulses normal throughout. Respiratory: No respiratory distress. Painless inspiration. Breath sounds normal. No wheezes/rales/rhonchi noted. Chest nontender. No accessory muscle usage noted or decreased air movement noted. Back: No CVA tenderness. Full range of motion noted. Skin: Skin warm and dry. Normal skin color. Normal skin turgor. No rashes/lesions/lacerations noted. Extremities: No lower extremity edema. No calf tenderness noted. Extremities exhibit normal range of motion. Extremities nontender. Able to shrug shoulders bilaterally and keep up against resistance. Neuro: Oriented X 3. No motor deficit. No sensory deficit. Reflexes normal. Moving all extremities. No focal motor deficits. Cranial nerves II-XI intact bilaterally. Facial strength normal. Normal cognition. Speech normal. Gait normal. Strength 5/5 throughout. No pronator drift. No tremor noted. No fasciculations noted. Muscle tone normal throughout. No asterixis noted. Wpodct-[id number] test normal. Heel to rivas test normal. Tandem gait normal. Does not sway with eyes open. Romberg test negative. No rigidity noted. NIHSS score 0. <JENNIFER Jimenez - Last Filed: 10/26/20 21:11> Course Course Course Narrative: 19pm - 44yoM c PMHX of Type II DM only on 500 mg daily of metformin, HTN, GERD, sleep apnea, arthritis, varicose vein of left, kidney stones, gastroparesis, chronic idiopathic constipation and non alcoholic steatohepatitis presenting to the ED c c/o low blood sugar earlier today in the 80s and persistent dizziness with standing after waking up around 12 noon. - Concern for CVA vs ACS vs Hypoglycemia vs electrolyte abnormality - Plan: Labs, CXR, EKG, ORTHOSTATIC VITALS, CT SCAN OF BRAIN THEN RE-EVALUATE. <JENNIFER Jimenez - Last Filed: 10/26/20 21:11> Reevaluation(s) Reevaluation #1: - POC 87. - All other labs inclduing Trop WNL - CXR WNL no acute processes noted - EKG normal sinus rhythm no acute ischemic changes noted. - orthostatic vitals negative. - COVID/RSV/flu negative. - awaiting CT scan of brain sign on to [facility] at this time pending CT scan of brain. <JENNIFER Jimenez - Last Filed: 10/26/20 21:11> Time: 21:04 <JENNIFER Jimenez - Last Filed: 10/26/20 21:11> Medical Decision Making Medical Records Medical records reviewed: Yes I reviewed the patient's medical records. <JENNIFER Jimenez - Last Filed: 10/26/20 21:11> Lab Data Lab results reviewed: Yes I reviewed the patient's lab results. <JENNIFER Jimenez - Last Filed: 10/26/20 21:11> Result diagrams: : 10/26/20 19:51 10/26/20 19:51 <JENNIFER Jimenez - Last Filed: 10/26/20 21:11> Labs: Lab Results 10/26/20 10/26/20 10/26/20 Range/Units 19:51 19:51 19:51 WBC 9.8 (4.8-10.8) X10*3/uL RBC 4.56 L (4.60-5.80) X10*6/uL Hgb 12.8 L (14.0-18.0) g/dl Hct 39.8 L (42-52) % MCV 87.3 (80-98) fL MCH 28.1 (27.0-33.0) pg MCHC 32.2 (31.0-36.0) g/dl RDW 12.8 (11.0-16.0) % Plt Count 314 (160-400) X10*3/uL MPV 11.1 (9.4-12.4) fL Immature Gran % (Auto) 0.3 (0.0-0.4) % Neut % (Auto) 70.2 (45-73) % Lymph % (Auto) 22.8 (20-40) % Hinds % (Auto) 5.5 (2-11) % Eos % (Auto) 0.8 (0-4) % Baso % (Auto) 0.4 (0-2) % Lymph # (Auto) 2.2 (1.2-4.9) X10*3/uL Hinds # (Auto) 0.5 (0.1-1.2) X10*3/uL Eos # (Auto) 0.1 (0.0-0.4) X10*3/uL Baso # (Auto) 0.0 (0.0-0.2) X10*3/uL Abs Immat Gran (auto) 0.03 (0.00-0.03) X10*3/uL Absolute Neuts (auto) 6.8 (2.0-8.3) X10*3/uL Absolute Nucleated RBC 0.000 (0.0-0.012) X10*3/uL Nucleated RBC % (auto) 0.0 (0.0-0.2) /100WBC PT 13.7 H (10.8-13.0) SEC INR 1.2 H (0.9-1.1) Sodium 139 (135-145) mmol/L Potassium 4.3 (3.3-5.1) mmol/L Chloride 101 (96-108) mmol/L Carbon Dioxide 30 H (22-29) mmol/L Anion Gap 12 (12-20) BUN 11 (9-16) mg/dL Creatinine 0.71 (0.5-1.4) mg/dL Estim Creat Clear Calc 169.8 Estimated GFR > 60 POC Glucose (60-115) mg/dL Random Glucose 92 (60-115) mg/dL Calcium 9.4 (8.4-10.2) mg/dL Magnesium 2.0 (1.6-2.6) mg/dL Total Bilirubin 0.6 (0.0-1.0) mg/dL Direct Bilirubin 0.2 (0.0-0.5) mg/dL AST 31 (5-37) U/L ALT 48 H (0-40) U/L Alkaline Phosphatase 101 (39-117) U/L Troponin I High Sens (<3.5-35.0) ng/L Total Protein 7.8 (6.5-8.0) g/dL Albumin 4.7 (3.5-5.0) g/dL Urine Color Urine Appearance Urine pH (5.0-8.0) Ur Specific [place] (1.005-1.025) Urine Protein (NEG-TRACE) MG/DL Urine Glucose (UA) (NEG) MG/DL Urine Ketones (NEG) MG/DL Urine Blood (NEG) Urine Nitrite (NEG) Ur Leukocyte Esterase (NEG) Acetone, Qual Negative (Negative) Coronavirus (PCR) (Negative) Influenza Type A (PCR) (Negative) Influenza Type B (PCR) (Negative) RSV RNA Qual (PCR) (Negative) 10/26/20 10/26/20 10/26/20 Range/Units 19:51 19:52 20:01 WBC (4.8-10.8) X10*3/uL RBC (4.60-5.80) X10*6/uL Hgb (14.0-18.0) g/dl Hct (42-52) % MCV (80-98) fL MCH (27.0-33.0) pg MCHC (31.0-36.0) g/dl RDW (11.0-16.0) % Plt Count (160-400) X10*3/uL MPV (9.4-12.4) fL Immature Gran % (Auto) (0.0-0.4) % Neut % (Auto) (45-73) % Lymph % (Auto) (20-40) % Hinds % (Auto) (2-11) % Eos % (Auto) (0-4) % Baso % (Auto) (0-2) % Lymph # (Auto) (1.2-4.9) X10*3/uL [place] # (Auto) (0.1-1.2) X10*3/uL Eos # (Auto) (0.0-0.4) X10*3/uL Baso # (Auto) (0.0-0.2) X10*3/uL Abs Immat Gran (auto) (0.00-0.03) X10*3/uL Absolute Neuts (auto) (2.0-8.3) X10*3/uL Absolute Nucleated RBC (0.0-0.012) X10*3/uL Nucleated RBC % (auto) (0.0-0.2) /100WBC PT (10.8-13.0) SEC INR (0.9-1.1) Sodium (135-145) mmol/L Potassium (3.3-5.1) mmol/L Chloride (96-108) mmol/L Carbon Dioxide (22-29) mmol/L Anion Gap (12-20) BUN (9-16) mg/dL Creatinine (0.5-1.4) mg/dL Estim Creat Clear Calc Estimated GFR POC Glucose 87 (60-115) mg/dL Random Glucose (60-115) mg/dL Calcium (8.4-10.2) mg/dL Magnesium (1.6-2.6) mg/dL Total Bilirubin (0.0-1.0) mg/dL Direct Bilirubin (0.0-0.5) mg/dL AST (5-37) U/L ALT (0-40) U/L Alkaline Phosphatase (39-117) U/L Troponin I High Sens < 3.5 (<3.5-35.0) ng/L Total Protein (6.5-8.0) g/dL Albumin (3.5-5.0) g/dL Urine Color Urine Appearance Urine pH (5.0-8.0) Ur Specific [place] (1.005-1.025) Urine Protein (NEG-TRACE) MG/DL Urine Glucose (UA) (NEG) MG/DL Urine Ketones (NEG) MG/DL Urine Blood (NEG) Urine Nitrite (NEG) Ur Leukocyte Esterase (NEG) Acetone, Qual (Negative) Coronavirus (PCR) NEGATIVE (Negative) Influenza Type A (PCR) NEGATIVE (Negative) Influenza Type B (PCR) NEGATIVE (Negative) RSV RNA Qual (PCR) NEGATIVE (Negative) 10/26/20 Range/Units 20:43 WBC (4.8-10.8) X10*3/uL RBC (4.60-5.80) X10*6/uL Hgb (14.0-18.0) g/dl Hct (42-52) % MCV (80-98) fL MCH (27.0-33.0) pg MCHC (31.0-36.0) g/dl RDW (11.0-16.0) % Plt Count (160-400) X10*3/uL MPV (9.4-12.4) fL Immature Gran % (Auto) (0.0-0.4) % Neut % (Auto) (45-73) % Lymph % (Auto) (20-40) % Hinds % (Auto) (2-11) % Eos % (Auto) (0-4) % Baso % (Auto) (0-2) % Lymph # (Auto) (1.2-4.9) X10*3/uL Hinds # (Auto) (0.1-1.2) X10*3/uL Eos # (Auto) (0.0-0.4) X10*3/uL Baso # (Auto) (0.0-0.2) X10*3/uL Abs Immat Gran (auto) (0.00-0.03) X10*3/uL Absolute Neuts (auto) (2.0-8.3) X10*3/uL Absolute Nucleated RBC (0.0-0.012) X10*3/uL Nucleated RBC % (auto) (0.0-0.2) /100WBC PT (10.8-13.0) SEC INR (0.9-1.1) Sodium (135-145) mmol/L Potassium (3.3-5.1) mmol/L Chloride (96-108) mmol/L Carbon Dioxide (22-29) mmol/L Anion Gap (12-20) BUN (9-16) mg/dL Creatinine (0.5-1.4) mg/dL Estim Creat Clear Calc Estimated GFR POC Glucose (60-115) mg/dL Random Glucose (60-115) mg/dL Calcium (8.4-10.2) mg/dL Magnesium (1.6-2.6) mg/dL Total Bilirubin (0.0-1.0) mg/dL Direct Bilirubin (0.0-0.5) mg/dL AST (5-37) U/L ALT (0-40) U/L Alkaline Phosphatase (39-117) U/L Troponin I High Sens (<3.5-35.0) ng/L Total Protein (6.5-8.0) g/dL Albumin (3.5-5.0) g/dL Urine Color YELLOW Urine Appearance CLEAR Urine pH 7.0 (5.0-8.0) Ur Specific [place] 1.015 (1.005-1.025) Urine Protein NEG (NEG-TRACE) MG/DL Urine Glucose (UA) NEG (NEG) MG/DL Urine Ketones NEG (NEG) MG/DL Urine Blood NEG (NEG) Urine Nitrite NEG (NEG) Ur Leukocyte Esterase NEG (NEG) Acetone, Qual (Negative) Coronavirus (PCR) (Negative) Influenza Type A (PCR) (Negative) Influenza Type B (PCR) (Negative) RSV RNA Qual (PCR) (Negative) <JENNIFER Jimenez - Last Filed: 10/26/20 21:11> Lab Results 10/26/20 10/26/20 10/26/20 Range/Units 19:51 19:51 19:51 WBC 9.8 (4.8-10.8) X10*3/uL RBC 4.56 L (4.60-5.80) X10*6/uL Hgb 12.8 L (14.0-18.0) g/dl Hct 39.8 L (42-52) % MCV 87.3 (80-98) fL MCH 28.1 (27.0-33.0) pg MCHC 32.2 (31.0-36.0) g/dl RDW 12.8 (11.0-16.0) % Plt Count 314 (160-400) X10*3/uL MPV 11.1 (9.4-12.4) fL Immature Gran % (Auto) 0.3 (0.0-0.4) % Neut % (Auto) 70.2 (45-73) % Lymph % (Auto) 22.8 (20-40) % Hinds % (Auto) 5.5 (2-11) % Eos % (Auto) 0.8 (0-4) % Baso % (Auto) 0.4 (0-2) % Lymph # (Auto) 2.2 (1.2-4.9) X10*3/uL Hinds # (Auto) 0.5 (0.1-1.2) X10*3/uL Eos # (Auto) 0.1 (0.0-0.4) X10*3/uL Baso # (Auto) 0.0 (0.0-0.2) X10*3/uL Abs Immat Gran (auto) 0.03 (0.00-0.03) X10*3/uL Absolute Neuts (auto) 6.8 (2.0-8.3) X10*3/uL Absolute Nucleated RBC 0.000 (0.0-0.012) X10*3/uL Nucleated RBC % (auto) 0.0 (0.0-0.2) /100WBC PT 13.7 H (10.8-13.0) SEC INR 1.2 H (0.9-1.1) Sodium 139 (135-145) mmol/L Potassium 4.3 (3.3-5.1) mmol/L Chloride 101 (96-108) mmol/L Carbon Dioxide 30 H (22-29) mmol/L Anion Gap 12 (12-20) BUN 11 (9-16) mg/dL Creatinine 0.71 (0.5-1.4) mg/dL Estim Creat Clear Calc 169.8 Estimated GFR > 60 POC Glucose (60-115) mg/dL Random Glucose 92 (60-115) mg/dL Calcium 9.4 (8.4-10.2) mg/dL Magnesium 2.0 (1.6-2.6) mg/dL Total Bilirubin 0.6 (0.0-1.0) mg/dL Direct Bilirubin 0.2 (0.0-0.5) mg/dL AST 31 (5-37) U/L ALT 48 H (0-40) U/L Alkaline Phosphatase 101 (39-117) U/L Troponin I High Sens (<3.5-35.0) ng/L Total Protein 7.8 (6.5-8.0) g/dL Albumin 4.7 (3.5-5.0) g/dL Urine Color Urine Appearance Urine pH (5.0-8.0) Ur Specific [place] (1.005-1.025) Urine Protein (NEG-TRACE) MG/DL Urine Glucose (UA) (NEG) MG/DL Urine Ketones (NEG) MG/DL Urine Blood (NEG) Urine Nitrite (NEG) Ur Leukocyte Esterase (NEG) Acetone, Qual Negative (Negative) Coronavirus (PCR) (Negative) Influenza Type A (PCR) (Negative) Influenza Type B (PCR) (Negative) RSV RNA Qual (PCR) (Negative) 10/26/20 10/26/20 10/26/20 Range/Units 19:51 19:52 20:01 WBC (4.8-10.8) X10*3/uL RBC (4.60-5.80) X10*6/uL Hgb (14.0-18.0) g/dl Hct (42-52) % MCV (80-98) fL MCH (27.0-33.0) pg MCHC (31.0-36.0) g/dl RDW (11.0-16.0) % Plt Count (160-400) X10*3/uL MPV (9.4-12.4) fL Immature Gran % (Auto) (0.0-0.4) % Neut % (Auto) (45-73) % Lymph % (Auto) (20-40) % Hind[place] % (Auto) (2-11) % Eos % (Auto) (0-4) % Baso % (Auto) (0-2) % Lymph # (Auto) (1.2-4.9) X10*3/uL [place] # (Auto) (0.1-1.2) X10*3/uL Eos # (Auto) (0.0-0.4) X10*3/uL Baso # (Auto) (0.0-0.2) X10*3/uL Abs Immat Gran (auto) (0.00-0.03) X10*3/uL Absolute Neuts (auto) (2.0-8.3) X10*3/uL Absolute Nucleated RBC (0.0-0.012) X10*3/uL Nucleated RBC % (auto) (0.0-0.2) /100WBC PT (10.8-13.0) SEC INR (0.9-1.1) Sodium (135-145) mmol/L Potassium (3.3-5.1) mmol/L Chloride (96-108) mmol/L Carbon Dioxide (22-29) mmol/L Anion Gap (12-20) BUN (9-16) mg/dL Creatinine (0.5-1.4) mg/dL Estim Creat Clear Calc Estimated GFR POC Glucose 87 (60-115) mg/dL Random Glucose (60-115) mg/dL Calcium (8.4-10.2) mg/dL Magnesium (1.6-2.6) mg/dL Total Bilirubin (0.0-1.0) mg/dL Direct Bilirubin (0.0-0.5) mg/dL AST (5-37) U/L ALT (0-40) U/L Alkaline Phosphatase (39-117) U/L Troponin I High Sens < 3.5 (<3.5-35.0) ng/L Total Protein (6.5-8.0) g/dL Albumin (3.5-5.0) g/dL Urine Color Urine Appearance Urine pH (5.0-8.0) Ur Specific [place] (1.005-1.025) Urine Protein (NEG-TRACE) MG/DL Urine Glucose (UA) (NEG) MG/DL Urine Ketones (NEG) MG/DL Urine Blood (NEG) Urine Nitrite (NEG) Ur Leukocyte Esterase (NEG) Acetone, Qual (Negative) Coronavirus (PCR) NEGATIVE (Negative) Influenza Type A (PCR) NEGATIVE (Negative) Influenza Type B (PCR) NEGATIVE (Negative) RSV RNA Qual (PCR) NEGATIVE (Negative) 10/26/20 Range/Units 20:43 WBC (4.8-10.8) X10*3/uL RBC (4.60-5.80) X10*6/uL Hgb (14.0-18.0) g/dl Hct (42-52) % MCV (80-98) fL MCH (27.0-33.0) pg MCHC (31.0-36.0) g/dl RDW (11.0-16.0) % Plt Count (160-400) X10*3/uL MPV (9.4-12.4) fL Immature Gran % (Auto) (0.0-0.4) % Neut % (Auto) (45-73) % Lymph % (Auto) (20-40) % [place] % (Auto) (2-11) % Eos % (Auto) (0-4) % Baso % (Auto) (0-2) % Lymph # (Auto) (1.2-4.9) X10*3/uL [place] # (Auto) (0.1-1.2) X10*3/uL Eos # (Auto) (0.0-0.4) X10*3/uL Baso # (Auto) (0.0-0.2) X10*3/uL Abs Immat Gran (auto) (0.00-0.03) X10*3/uL Absolute Neuts (auto) (2.0-8.3) X10*3/uL Absolute Nucleated RBC (0.0-0.012) X10*3/uL Nucleated RBC % (auto) (0.0-0.2) /100WBC PT (10.8-13.0) SEC INR (0.9-1.1) Sodium (135-145) mmol/L Potassium (3.3-5.1) mmol/L Chloride (96-108) mmol/L Carbon Dioxide (22-29) mmol/L Anion Gap (12-20) BUN (9-16) mg/dL Creatinine (0.5-1.4) mg/dL Estim Creat Clear Calc Estimated GFR POC Glucose (60-115) mg/dL Random Glucose (60-115) mg/dL Calcium (8.4-10.2) mg/dL Magnesium (1.6-2.6) mg/dL Total Bilirubin (0.0-1.0) mg/dL Direct Bilirubin (0.0-0.5) mg/dL AST (5-37) U/L ALT (0-40) U/L Alkaline Phosphatase (39-117) U/L Troponin I High Sens (<3.5-35.0) ng/L Total Protein (6.5-8.0) g/dL Albumin (3.5-5.0) g/dL Urine Color YELLOW Urine Appearance CLEAR Urine pH 7.0 (5.0-8.0) Ur Specific [place] 1.015 (1.005-1.025) Urine Protein NEG (NEG-TRACE) MG/DL Urine Glucose (UA) NEG (NEG) MG/DL Urine Ketones NEG (NEG) MG/DL Urine Blood NEG (NEG) Urine Nitrite NEG (NEG) Ur Leukocyte Esterase NEG (NEG) Acetone, Qual (Negative) Coronavirus (PCR) (Negative) Influenza Type A (PCR) (Negative) Influenza Type B (PCR) (Negative) RSV RNA Qual (PCR) (Negative) <Ramos Stone MD - Last Filed: 10/26/20 22:30> Imaging Data Chest x-ray: Attestation: I personally reviewed and interpreted this imaging study as follows: <JENNIFER Jimenez - Last Filed: 10/26/20 21:11> Radiologist's impression: FINDINGS: No significant abnormality is noted involving the heart, lungs, mediastinum, bony thorax or soft tissues. XR/XR chest 2V IMPRESSION: Unremarkable examination. <JENNIFER Jimenez - Last Filed: 10/26/20 21:11> CT scan - head: Attestation: I personally reviewed and interpreted this imaging study as follows: <Ramos Stone MD - Last Filed: 10/26/20 22:30> Radiologist's impression: EXAMINATION: CT HEAD WITHOUT CONTRAST CLINICAL INFORMATION: Dizziness. COMPARISON: None TECHNIQUE: Contiguous axial imaging was performed from the skull base to vertex without intravenous administration of contrast. This CT examination was performed using dose optimization techniques as appropriate, variously including the following: *Automated exposure control *Adjustment of mA and/or kV according to patient size (this includes techniques or standardized protocols for targeted exams where dose is matched to indication/reason for exam; i.e. extremities or head) *Use of iterative reconstruction technique DLP: 753 mGy-cm FINDINGS: There is no evidence of acute intracranial hemorrhage or territorial infarction. No abnormal mass effect or midline shift is seen. [place] to white matter differentiation is well preserved. No extra-axial fluid collections are identified. The ventricles are normal in size. There are mild, nonspecific patchy areas of low-density change in the subcortical white matter of the frontoparietal lobes which are nonspecific. The osseous structures and soft tissues are normal. The mastoid air cells and visualized portions of the paranasal sinuses are fairly well aerated. CT/CT head/brain wo con IMPRESSION: Nonspecific mild patchy areas of low density change in the subcortical white matter of the frontoparietal lobes in both cerebral hemispheres. No acute territorial infarction or intracranial hemorrhage. <Ramos Stone MD - Last Filed: 10/26/20 22:30> ECG Data Attestation: I personally reviewed and interpreted this ECG as follows: <JENNIFER Jimenez - Last Filed: 10/26/20 21:11> Interpretation: Normal sinus rhythm with a ventricular rate of 67 with a normal TN interval normal QRS duration normal QT/QTC interval. No acute ischemic changes noted. Similar compared to prior EKG on 07/14/2020 <JENNIFER Jimenez - Last Filed: 10/26/20 21:11> Discharge Plan Discharge Clinical Impression: Hypoglycemia, Dizziness <JENNIFER Jimenez - Last Filed: 10/26/20 21:11> Patient Disposition: Home, Self-Care <JENNIFER Jimenez - Last Filed: 10/26/20 21:11> Instructions: Hypoglycemia in a Person with Diabetes (ED), Dizziness (ED) <JENNIFER Jimenez - Last Filed: 10/26/20 21:11> Additional Instructions: You were evaluated for low blood sugar. Please follow-up with your primary care physician for further workup. CT scan shows Nonspecific mild patchy areas of low density change in the subcortical white matter of the frontoparietal lobes in both cerebral hemispheres. No acute territorial infarction or intracranial hemorrhage. Please follow-up with neurology as outpatient. Thank you for seeing this emergency department. Please return immediately having new, concerning, or worsening symptoms. Please follow-up with the primary care physician. <JENNIFER Jimenez - Last Filed: 10/26/20 21:11> Prescriptions: No Action doxycycline hyclate 100 mg tablet 100 mg PO BID 7 Days Qty: 14 RF: 0 cephalexin 500 mg capsule 500 mg PO BID 7 Days Qty: 14 RF: 0 mupirocin 2 % ointment 1 appl topical BID 7 Days Qty: 15 RF: 0 tamsulosin 0.4 mg capsule 0.4 mg PO DAILY RF: 0 fluticasone propionate [Flonase Allergy Relief] 50 mcg/actuation spray,suspension 1 spray intranasal DAILY RF: 0 albuterol sulfate [ProAir HFA] 90 mcg/actuation HFA aerosol inhaler 2 puff inhalation Q6H PRN (Reason: Shortness Of Breath) RF: 0 buprenorphine-naloxone [Suboxone] 8-2 mg film 2 film buccal DAILY RF: 0 loratadine 10 mg tablet 10 mg PO DAILY RF: 0 metformin 500 mg tablet 500 mg PO DAILY RF: 0 omeprazole 40 mg capsule,delayed release(DR/EC) 40 mg PO BID Qty: 90 RF: 2 metoclopramide HCl [Reglan] 5 mg tablet 5 mg PO QIDACHS Qty: 120 RF: 3 Trulance 3 mg tablet 3 mg PO DAILY 90 Days Qty: 90 RF: 1 <JENNIFER Jimenez - Last Filed: 10/26/20 21:11> Referrals: January Love MD [Primary Care Provider] - 2 days Jostin Ortega MD [Physician] - 2 days (Nonspecific mild patchy areas of low density change in the subcortical white matter of the frontoparietal lobes in both cerebral hemispheres. No acute territorial infarction or intracranial hemorrhage.) <JENNIFER Jimenez - Last Filed: 10/26/20 21:11> Stand Alone Forms: Work/School Release <JENNIFER Jimenez - Last Filed: 10/26/20 21:11>
[2020-10-26 20:51] LABS: Alanine Aminotransferase 48 U/L (0-40); Albumin Level 4.7 g/dL (3.5-5.0); Alkaline Phosphatase 101 U/L (39-117); Anion Gap 12 (12-20); Aspartate Amino Transferase 31 U/L (5-37); Bilirubin Direct 0.2 mg/dL (0.0-0.5); Bilirubin Total 0.6 mg/dL (0.0-1.0); Blood Urea Nitrogen 11 mg/dL (9-16); Calcium 9.4 mg/dL (8.4-10.2); Carbon Dioxide 30 mmol/L (22-29); Chloride 101 mmol/L (96-108); Creatinine Clr Calc Pharmacy 169.8; Estimated Glomerular Filt Rate > 60; Glucose Random 92 mg/dL (60-115); Potassium 4.3 mmol/L (3.3-5.1); Sodium 139 mmol/L (135-145); Total Protein 7.8 g/dL (6.5-8.0)
--- NOTE | 2020-10-26 20:58 | CT_ITS ---
EXAMINATION: CT HEAD WITHOUT CONTRAST CLINICAL INFORMATION: Dizziness. COMPARISON: None TECHNIQUE: Contiguous axial imaging was performed from the skull base to vertex without intravenous administration of contrast. This CT examination was performed using dose optimization techniques as appropriate, variously including the following: *Automated exposure control *Adjustment of mA and/or kV according to patient size (this includes techniques or standardized protocols for targeted exams where dose is matched to indication/reason for exam; i.e. extremities or head) *Use of iterative reconstruction technique DLP: 753 mGy-cm FINDINGS: There is no evidence of acute intracranial hemorrhage or territorial infarction. No abnormal mass effect or midline shift is seen. [place] to white matter differentiation is well preserved. No extra-axial fluid collections are identified. The ventricles are normal in size. There are mild, nonspecific patchy areas of low-density change in the subcortical white matter of the frontoparietal lobes which are nonspecific. The osseous structures and soft tissues are normal. The mastoid air cells and visualized portions of the paranasal sinuses are fairly well aerated. CT/CT head/brain wo con IMPRESSION: Nonspecific mild patchy areas of low density change in the subcortical white matter of the frontoparietal lobes in both cerebral hemispheres. No acute territorial infarction or intracranial hemorrhage.
[2020-10-26 21:32] LABS: Glucose Urine UA NEG (NEG); Leukocyte Esterase Urine NEG (NEG); Nitrite Urine NEG (NEG); Specific Gravity - Urine 1.015 (1.005-1.025); Urine Blood NEG (NEG); Urine Ketones NEG (NEG); Urine Protein NEG (NEG-TRACE)
[2020-10-26 21:38] LABS: Appearance Urine CLEAR; Color Urine YELLOW
[2020-10-26 22:00] VITALS: BP 119/84; PULSE 79; RESP 16; TEMP 35.8; O2SAT 96
== END 2020-10-26 22:55 | disposition home or self-care (01) ==
PROVIDERS: Physician Assistant Medical; Emergency Provider Internal Medicine; PCP Family Medicine
DX: E11.649 Type 2 diabetes mellitus with hypoglycemia without coma (principal); R42 Dizziness and giddiness; Z20.822 Contact with and (suspected) exposure to COVID-19; Z79.899 Other long term (current) drug therapy
CPT/HCPCS: 0241U; 36415; 70450; 71046; 80048; 80076; 81003; 82009; 82947; 83735; 84484; 85025; 85610; 93005; 99284

== ENCOUNTER → 2020-11-07 15:36 | Outpatient (BNV) | payer MEDICAID, SELFPAY | PROVIDERS: PCP Family Medicine; Visit Provider Internal Medicine | DX: D64.9 Anemia, unspecified (principal) | CPT/HCPCS: 99212; 99213; 99214 ==

== ENCOUNTER → 2020-12-19 15:25 | Outpatient (BNVA) | payer MEDICAID, SELFPAY | PROVIDERS: PCP Family Medicine; Visit Provider Anesthesiology | DX: M47.816 Spondylosis without myelopathy or radiculopathy, lumbar region (principal); M17.12 Unilateral primary osteoarthritis, left knee; G89.4 Chronic pain syndrome | CPT/HCPCS: 99212 ==

== ENCOUNTER 2021-01-29 06:04 | Outpatient (REF) | payer MEDICAID, SELFPAY ==
--- NOTE | ~2021-01-29 | FL_ITS ---
EXAMINATION: XR FLUOROSCOPY WITH IMAGES CLINICAL INFORMATION: M17.12 - Unilateral primary osteoarthritis, left knee COMPARISON: None. TECHNIQUE: Fluoroscopy performed by Lea Fernandez NP. Fluoroscopy time: 0.1 minutes DAP: 0.830 Gycm2 Images: 1 FINDINGS: There is a needle overlying mid aspect proximal tibia. FL/FL guidance in treatment room IMPRESSION: Fluoroscopy for pain management procedure.
== END 2021-01-29 06:05 | disposition home or self-care (01) ==
LOC: HO.RADIR 06:04
PROVIDERS: Visit Provider Anesthesiology
DX: M17.12 Unilateral primary osteoarthritis, left knee (principal); M47.816 Spondylosis without myelopathy or radiculopathy, lumbar region; G89.4 Chronic pain syndrome
CPT/HCPCS: 64450

== ENCOUNTER → 2021-02-04 12:17 | Outpatient (BNVA) | payer MEDICAID, SELFPAY | PROVIDERS: PCP Family Medicine; Visit Provider Anesthesiology ==

== ENCOUNTER → 2021-03-13 15:39 | Outpatient (BNVA) | payer MEDICAID, SELFPAY | PROVIDERS: PCP Family Medicine; Visit Provider Student in an Organized Health Care Education/Training Program | DX: M47.816 Spondylosis without myelopathy or radiculopathy, lumbar region (principal) | CPT/HCPCS: 99212 ==

== ENCOUNTER → 2021-04-24 08:09 | Outpatient (BNVA) | payer MEDICAID, SELFPAY | PROVIDERS: PCP Family Medicine; Visit Provider Nurse Practitioner Family ==

== ENCOUNTER 2021-05-03 13:13 | Day surgery (SDC) | payer MEDICAID, SELFPAY ==
[2021-04-29 09:47] VITALS: BMI 35.9
--- NOTE | 2021-05-01 13:59 | P.CONAN_ITS ---
Documented by User: Senia Danielsney 05/01/21 14:00 HPI - Anesthesia Eval Consult details Narrative: 45yo M for Bilateral L3-DR-L5 Medial Branch Block RFA Suboxone daily PMFSH Active Problems Active Problems: All Active Problems (Updated 04/29/21 @ 09:53 by Staci Reaves) Chronic idiopathic constipation (Acute) Gastroparesis (Acute) [place] (nonalcoholic steatohepatitis) (Acute) GERD (gastroesophageal reflux disease) (Acute) Hypertension (Acute) Nephrolithiasis (Acute) Arthritis (Acute) Anemia (Chronic) Osteoarthritis of left knee (Acute) History of colonoscopy (Acute) History of back surgery (Acute) Varicose vein of leg (Acute) Sleep apnea (Acute) Diabetes (Acute) Chronic pain syndrome (Acute) Spondylosis of lumbar region without myelopathy or radiculopathy (Acute) Osteoarthritis of left knee (Acute) Past Medical History Medical History (Updated 05/03/21 @ 14:44 by Felicita Luna MD) Anxiety and depression Asthma Chest pain, atypical Chronic pain syndrome COVID-19 vaccine series completed Diabetes H/O head injury Migraines Osteoarthritis of left knee Osteoarthritis of left knee Scoliosis Sleep apnea Spondylosis of lumbar region without myelopathy or radiculopathy Varicose vein of leg Family History Family History Father No problems noted. Mother History of cancer Surgical History Surgical History History of back surgery History of colonoscopy Social History Social History Alcohol intake: never Patient Tobacco Use Status: Former Tobacco user Quit Date: 2011 Cigarettes Per Day: 45 Years Smoked: 10 Are you DNR?: No Advance Directives: No Advance Directives Information Provided: No Advance Directives on File: No Meds Allergies Allergy/AdvReac Type Severity Reaction Status Date / Time Penicillins [PENICILLINS] Allergy Intermediate HIVES Verified 04/24/21 08:10 Home Medications Medication Instructions Recorded Confirmed Last Taken Type albuterol sulfate 90 mcg/actuation 2 puff INHALATION Q6H PRN 07/23/20 04/29/21 05/03/21 06:00 History aerosol inhaler (ProAir HFA) buprenorphine 8 mg-naloxone 2 mg 2 film BUCCAL DAILY 07/23/20 04/29/21 05/03/21 06:00 History sublingual film (Suboxone) fluticasone propionate 50 1 spray INTRANASAL DAILY 07/23/20 04/29/21 09/23/20 History mcg/actuation nasal spray,suspension (Flonase Allergy Relief) loratadine 10 mg tablet 10 mg PO DAILY 07/23/20 04/29/21 09/25/20 History metformin 500 mg tablet 500 mg PO DAILY 07/23/20 04/29/21 09/26/20 History tamsulosin 0.4 mg capsule 0.4 mg PO DAILY 07/23/20 04/29/21 09/25/20 History allopurinol 300 mg tablet 300 mg PO DAILY 11/07/20 04/29/21 05/03/21 06:00 History cetirizine 10 mg chewable tablet 10 mg PO DAILY 03/13/21 04/29/21 Unknown History Exam Exam Date and Time: May 01, 2021 1359 Height,Weight and Vital Signs: Height 5 ft 10 in Weight 113.398 kg Assessment and Plan Assessment Anesthesia Assessment: Chart Reviewed Documented by User: Felicita Luna MD 05/03/21 14:46 REPLACED BY [facility] Past Medical History Medical History (Updated 05/03/21 @ 14:44 by Felicita Luna MD) Anxiety and depression Asthma Chest pain, atypical Chronic pain syndrome COVID-19 vaccine series completed Diabetes H/O head injury Migraines Osteoarthritis of left knee Osteoarthritis of left knee Scoliosis Sleep apnea Spondylosis of lumbar region without myelopathy or radiculopathy Varicose vein of leg Family History Family History Father No problems noted. Mother History of cancer Family history of problems with anesthesia: No Surgical History Surgical History History of back surgery History of colonoscopy History of Problems with Anesthesia: No Social History Social History Alcohol intake: never Patient Tobacco Use Status: Former Tobacco user Quit Date: 2011 Cigarettes Per Day: 45 Years Smoked: 10 Are you DNR?: No Advance Directives: No Advance Directives Information Provided: No Advance Directives on File: No Meds Allergies Allergy/AdvReac Type Severity Reaction Status Date / Time Penicillins [PENICILLINS] Allergy Intermediate HIVES Verified 04/24/21 08:10 Home Medications Medication Instructions Recorded Confirmed Last Taken Type albuterol sulfate 90 mcg/actuation 2 puff INHALATION Q6H PRN 07/23/20 04/29/21 05/03/21 06:00 History aerosol inhaler (ProAir HFA) buprenorphine 8 mg-naloxone 2 mg 2 film BUCCAL DAILY 07/23/20 04/29/21 05/03/21 06:00 History sublingual film (Suboxone) fluticasone propionate 50 1 spray INTRANASAL DAILY 07/23/20 04/29/21 09/23/20 History mcg/actuation nasal spray,suspension (Flonase Allergy Relief) loratadine 10 mg tablet 10 mg PO DAILY 07/23/20 04/29/21 09/25/20 History metformin 500 mg tablet 500 mg PO DAILY 07/23/20 04/29/21 09/26/20 History tamsulosin 0.4 mg capsule 0.4 mg PO DAILY 07/23/20 04/29/21 09/25/20 History allopurinol 300 mg tablet 300 mg PO DAILY 11/07/20 04/29/21 05/03/21 06:00 History cetirizine 10 mg chewable tablet 10 mg PO DAILY 03/13/21 04/29/21 Unknown History Exam Height,Weight and Vital Signs: Height 5 ft 10 in Weight 113.398 kg Vital Signs Temp Pulse Resp BP Pulse Ox 05/03/21 13:56 98.4 F 77 16 122/68 95 Pertinent Lab Results Pertinent Lab Results: Lab Results 05/03/21 Range/Units 13:54 POC Glucose 119 H (60-115) mg/dL Airway Mallampati Class: III (Small mouth) TM Dist: >3cm Neck ROM: Limited Heart: RRR Lungs: CTAB Assessment and Plan Final Anesthetic Review Family History of Problems with Anesthesia: No History of Problems with Anesthesia: No NPO: Yes (Apple juice around 12:30pm) ASA Class: III Final Preanesthetic Review: No Changes in Pt Med Stat, Meds/Allgs Chart Reviewed, Consent Obtained/Reviewed and Anes Risks/Benef Reviewed Patient Risk: Intermediate Procedure Risk: Low Assessment/Block/Sedation in SS: Assess/Block/Sedation-SS Anesthetic Plan Anesthetic Plan: MAC: Disposition: Standard PACU
[2021-05-03] VITALS (7 sets, daily range): BP systolic 97–122; BP diastolic 59–68; PULSE 62–81; RESP 12–17; TEMP 36.2–36.9; O2SAT 95–96
--- NOTE | ~2021-05-03 | FL_ITS ---
EXAMINATION: XR FLUOROSCOPY WITH IMAGES CLINICAL INFORMATION: Medial branch block COMPARISON: September 14, 2020 TECHNIQUE: Fluoroscopy performed by Dr. Guerrier. Fluoroscopy time: 1.1 minutes DAP: 15.9 Gycm2 FINDINGS: These are seen bilaterally adjacent to the L3, L4, and L5 neural foramina. FL/FL guidance in OR IMPRESSION: Bilateral medial branch block.
[2021-05-03 13:58] LABS: Glucose, Whole Blood 119 mg/dL (60-115)
--- NOTE | 2021-05-03 14:17 | PC.NURSE ---
[facility] bed [facility]. report given.
--- NOTE | 2021-05-03 14:39 | MHC.SHP ---
Pre-Procedural Eval Section A Date of Service: 05/03/21 The patient is an INPATIENT: No Changes since office visit: Yes Patient answered all questions Section B Chief Complaint: Spondylosis of Lumbar Region Details of Present Illness: as above Relevant Family History (Specify if Yes): No Relevant Social History: None Medical History: No relevant PMH History of Previous Operations: No relevant previous surgery Allergies: Allergies Allergy/AdvReac Type Severity Reaction Status Date / Time Penicillins [PENICILLINS] Allergy Intermediate HIVES Verified 04/24/21 08:10 Review of Systems Sugical H&P ROS: Negative: Constitution, Cardiovascular, Respiratory, Neurological, Psychiatric, Hem-Onc, Allergic/Immunologic, Gastrointestinal, Genitourinary, Musculoskeletal, Integumentary, Endocrine and Eyes/Ears/Nose/Throat Exam Surgical H&P Exam: Normal: HEENT, Normal: Heart, Normal: Lungs, Normal: Extremities, Normal: Abdomen, Normal: Skin and Normal: Neurological Plan Diagnosis/Plan: Unchanged I have reviewed the history and physical and performed a pertinent physical examination on my patient. No changes have occurred unless specified.
--- NOTE | 2021-05-03 14:40 | MHC.SHP ---
Pre-Procedural Eval Section A Date of Service: 05/03/21 Section B Chief Complaint: Spondylosis of Lumbar Region Details of Present Illness: As above, the patient is coming today for bilateral L3-L4 dorsal ramus L5 radiofrequency ablation Relevant Family History (Specify if Yes): No Relevant Social History: None Present Medications: see Short Stay Collaborative assessment Medical History: No relevant PMH History of Previous Operations: No relevant previous surgery Allergies: Allergies Allergy/AdvReac Type Severity Reaction Status Date / Time Penicillins [PENICILLINS] Allergy Intermediate HIVES Verified 04/24/21 08:10 Review of Systems Sugical H&P ROS: Negative: Constitution, Cardiovascular, Respiratory, Neurological, Psychiatric, Hem-Onc, Allergic/Immunologic, Gastrointestinal, Genitourinary, Musculoskeletal, Integumentary, Endocrine and Eyes/Ears/Nose/Throat Exam Surgical H&P Exam: Normal: HEENT, Normal: Heart, Normal: Lungs, Normal: Extremities, Normal: Abdomen, Normal: Skin and Normal: Neurological Plan Diagnosis/Plan: Unchanged I have reviewed the history and physical and performed a pertinent physical examination on my patient. No changes have occurred unless specified.
--- NOTE | 2021-05-03 15:46 | PM.OP ---
Brief Operative Note Date of Service: 05/03/21 Pre-op diagnosis: Spondylosis lumbar spine Post-op diagnosis: same Procedure: L3-L4 does ramus L5 bilateral medial branch RFA Implants: none Surgeon: Sebastian Haines MD Anesthesia: MAC Was an Paper Wood Cutter used for this Procedure?: No Estimated blood loss (mL): 6 Condition: stable Disposition: PACU
--- NOTE | 2021-05-03 15:47 | P.OP_ITS ---
Operative Note Operative Note Date of Service: 05/03/21 Narrative: Mr. Plata is very pleasant 45 years old gentleman who came to this office with lower back pain secondary to spondylosis of the lumbar spine and facet joint degeneration. He came today for bilateral L3-L4 Dorsal ramus L5 medial branch radiofrequency ablation. Informed consent was obtained and patient was brought to the operating room. He was positioned prone on operating table [place] [employer] monitors were applied and patient was deeply sedated. Time-out was performed delineating correct name and date of . Correct side of the procedure risk of fire need of DVT prophylaxis need of antibiotics were discussed. His lower back was prepped with ChloraPrep and draped with a utility towels. Sterilely draped C-arm was brought over the operating field and sq picture of L4 and L5 vertebra as well as sacral bone were demonstrated on the screen. The point of interest were delineated as connection of the superior articular process of L4 vertebra bilaterally of with transverse process of the same vertebra bilaterally, as well as connection of superior articular process of L5 vertebra bilaterally connected with transverse process bilaterally, as well as connection of superior articular process of S1 bilaterally with bilateral sacral alae. 22 gauge 1/2 inch needle was used to inject projection of the point interest into the skin, 100 mm radiofrequency cannulas were driven to point of interest in tunnel vision fashion 1st on the right and then left. When the radiofrequency cannulas gently contacted the bones the stylets were removed and nitinol electrodes were inserted. After that motor testing was performed at 2 mA on the right and after that on the left. There were no significant motor stimulation demonstrated. After that the cannulas were injected with small am ount of 2 of lidocaine mixture with Marcaine with trace amount of steroids the nitinol electrodes were reinserted and radiofrequency treatment was applied to the right side and then after that to the left side. The energy of application was 90? centigrade the time of the application was 90 seconds. Upon completion of 2nd round of treatment of the cannulas were rotated 180? and the treatment was repeated in the same very fashion. The treatment was performed 1st on the right and then the left. after that the cannulas were removed and sterile Band-Aids were applied. The patient tolerated procedure well, he was awaken and transferred to PACU for the recovery.
--- NOTE | 2021-05-03 15:54 | PM.OP ---
Brief Operative Note Date of Service: 05/03/21 Pre-op diagnosis: Spondylosis lumbar spine Procedure: bilateral L3 L4-5 radiofrequency ablation of the medial branches Implants: none Surgeon: Sebastian Haines MD Anesthesia: MAC Was an Environmental Quality Analyst used for this Procedure?: No Estimated blood loss (mL): 6 Condition: stable Disposition: PACU
== END 2021-05-03 17:12 | disposition home or self-care (01) ==
PROVIDERS: PCP Pediatrics; Visit Provider Anesthesiology
PROC: (CPT 64635; principal; 2021-05-03 14:40)
DX: M47.816 Spondylosis without myelopathy or radiculopathy, lumbar region (principal); M54.5 Low back pain; G89.4 Chronic pain syndrome; M41.9 Scoliosis, unspecified; M17.12 Unilateral primary osteoarthritis, left knee; I10 Essential (primary) hypertension; D64.9 Anemia, unspecified; G47.33 Obstructive sleep apnea (adult) (pediatric); E11.9 Type 2 diabetes mellitus without complications; Z79.84 Long term (current) use of oral hypoglycemic drugs; Z79.51 Long term (current) use of inhaled steroids; Z79.899 Other long term (current) drug therapy; Z88.0 Allergy status to penicillin; Z87.891 Personal history of nicotine dependence
CPT/HCPCS: 64635; 64636 ×2; 82947; J2250; J3010; J3300; Q9967

== ENCOUNTER 2021-05-21 08:14 | Outpatient (REF) | payer MEDICAID, SELFPAY ==
--- NOTE | ~2021-05-21 | US_ITS ---
EXAMINATION: US COMPLETE ABDOMEN WITH LIVER ELASTOGRAPHY CLINICAL INFORMATION: Abnormal LFTs. COMPARISON: 10/23/2020 abdominal ultrasound. TECHNIQUE: Real-time imaging of the abdominal viscera. Noninvasive ultrasound liver fibrosis assessment is performed using Cesar ElastPQ point quantification shear wave elastography (pSWE) with a C5-2 MHz transducer. Multiple elastography samples are obtained. FINDINGS: PANCREAS: Visualized portions unremarkable. ABDOMINAL AORTA: The proximal, middle, and distal aortic segments are normal in caliber. INFERIOR VENA CAVA: Visualized portions are normal. LIVER: Diffuse increased echotexture without focal abnormality. The right lobe measures 19.1 cm in length. The left lobe measures 11.9 cm in length. Portal flow is hepatopedal. Shear wave liver elastography median stiffness is 1.6 m/s (reference: normal median stiffness is 1.3 m/s or less). IQR/median stiffness to assess sampling precision is 0.08 (reference: good quality data set is IQR/median stiffness of 0.15 or less). GALLBLADDER: Unremarkable. COMMON BILE DUCT: Normal in caliber measuring 0.5 cm in diameter. RIGHT KIDNEY: 12.0. An interpolar echogenic focus measures 0.5 cm. LEFT KIDNEY: 12.0 cm. Unremarkable. SPLEEN: Normal. 12.0 cm. Unremarkable. FREE FLUID: None. US/US abdomen comp w elastography IMPRESSION: 1. Hepatic steatosis without focal abnormality. 2. Liver elastography: Compensated advanced chronic liver disease as well without with good sampling. REFERENCE: Society of Radiologists in Ultrasound Liver Stiffness Thresholds (2020): LIVER STIFFNESS THRESHOLDS: *Liver Stiffness equal or less than 1.3 m/s: High probability of being normal. *Liver Stiffness less than 1.7 m/s: In the absence of other known clinical signs, rules out compensated advanced chronic liver disease. *Liver Stiffness 1.7-2.1 m/s: Suggestive of compensated advanced chronic liver disease but need further test for confirmation. *Liver Stiffness over 2.1 m/s: Rules in compensated advanced chronic liver disease. *Liver Stiffness over 2.4 m/s: Suggestive of clinically significant portal hypertension. QUALITY OF DATA SET: *IQR/Median value equal or less than 0.15 implies a quality data set. *IQR/Median value over 0.15 implies a poor quality data set. SIGNIFICANT CHANGE FROM PRIOR EXAM: Significant change if liver stiffness measurement is 10% or greater from prior exam. OTHER CONSIDERATIONS: The stage of liver fibrosis may be overestimated in the setting of acute hepatitis, liver inflammation, elevated liver function tests, hepatic vascular congestion, obstructive cholestasis, non-fasting state, and infiltrative diseases such as amyloidosis and lymphoma. In some patients with NAFLD, the liver stiffness thresholds for compensated advanced chronic liver disease may be lower. In causes other than viral hepatitis and NAFLD, liver stiffness thresholds are not well established.
== END 2021-05-21 08:15 | disposition home or self-care (01) ==
LOC: HO.US 08:14
PROVIDERS: Visit Provider Nurse Practitioner Family
DX: R79.89 Other specified abnormal findings of blood chemistry (principal)
CPT/HCPCS: 76705; 76981

== ENCOUNTER → 2021-06-10 16:54 | Outpatient (BNVA) | payer MEDICAID, SELFPAY | PROVIDERS: PCP Family Medicine; Visit Provider Anesthesiology | DX: M17.12 Unilateral primary osteoarthritis, left knee (principal); M47.816 Spondylosis without myelopathy or radiculopathy, lumbar region; G89.4 Chronic pain syndrome; Z88.0 Allergy status to penicillin | CPT/HCPCS: 99212 ==

== ENCOUNTER → 2021-06-21 14:24 | Outpatient (BNVA) | payer MEDICAID, SELFPAY | PROVIDERS: PCP Family Medicine; Visit Provider Nurse Practitioner Family ==

== ENCOUNTER 2021-08-01 10:34 | Outpatient (REF) | payer MEDICAID, SELFPAY ==
--- NOTE | ~2021-08-01 | XR_ITS ---
EXAMINATION: XR ELBOW, LEFT CLINICAL INFORMATION: Left elbow pain. COMPARISON: None TECHNIQUE: AP, lateral, and oblique views of the left elbow. FINDINGS: No acute fracture or dislocation. No joint space narrowing or marginal osteophytes. No osseous erosion. No significant joint effusion. Small dorsal olecranon enthesophyte. XR/XR elbow LT min 3V IMPRESSION: No acute osseous abnormality. Dorsal olecranon spur.
== END 2021-08-01 10:35 | disposition home or self-care (01) ==
LOC: HO.XRAY 10:34
PROVIDERS: Visit Provider Family Medicine
DX: M25.522 Pain in left elbow (principal)
CPT/HCPCS: 73080

== ENCOUNTER → 2021-08-21 13:24 | Outpatient (BNVA) | payer MEDICAID, SELFPAY | PROVIDERS: PCP Family Medicine; Referring Provider Family Medicine; Visit Provider Nurse Practitioner Family | DX: K59.04 Chronic idiopathic constipation (principal); K75.81 Nonalcoholic steatohepatitis (NASH); K21.9 Gastro-esophageal reflux disease without esophagitis; E11.9 Type 2 diabetes mellitus without complications; F41.8 Other specified anxiety disorders; Z87.891 Personal history of nicotine dependence; Z88.0 Allergy status to penicillin | CPT/HCPCS: 99212 ==

== ENCOUNTER → 2021-08-26 14:48 | Outpatient (BNVA) | payer MEDICAID, SELFPAY | PROVIDERS: PCP Family Medicine; Visit Provider Anesthesiology | DX: M17.12 Unilateral primary osteoarthritis, left knee (principal); M47.816 Spondylosis without myelopathy or radiculopathy, lumbar region; G89.4 Chronic pain syndrome | CPT/HCPCS: 99212; J3300 ==

== ENCOUNTER → 2021-12-25 10:03 | Outpatient (BNVA) | payer MEDICAID, SELFPAY | PROVIDERS: PCP Family Medicine; Visit Provider Anesthesiology | DX: M17.12 Unilateral primary osteoarthritis, left knee (principal); M47.816 Spondylosis without myelopathy or radiculopathy, lumbar region; G89.4 Chronic pain syndrome | CPT/HCPCS: 20610; 99212; J3300 ==

== ENCOUNTER → 2022-02-18 13:09 | Outpatient (BNVA) | payer MEDICAID, SELFPAY | PROVIDERS: PCP Family Medicine; Referring Provider Family Medicine; Visit Provider Nurse Practitioner Family | DX: K59.04 Chronic idiopathic constipation (principal); K21.9 Gastro-esophageal reflux disease without esophagitis; K75.81 Nonalcoholic steatohepatitis (NASH); K31.84 Gastroparesis; Z79.899 Other long term (current) drug therapy | CPT/HCPCS: 99212 ==

== ENCOUNTER → 2022-07-22 13:38 | Outpatient (BNVA) | payer MEDICAID, SELFPAY | PROVIDERS: PCP Family Medicine; Referring Provider Family Medicine; Visit Provider Nurse Practitioner Family | DX: R10.32 Left lower quadrant pain (principal); K58.1 Irritable bowel syndrome with constipation; R14.0 Abdominal distension (gaseous); K21.9 Gastro-esophageal reflux disease without esophagitis | CPT/HCPCS: 99212 ==

== ENCOUNTER 2022-07-23 12:58 | Outpatient (REF) | payer MEDICAID, SELFPAY ==
[2022-07-23 13:53] LABS: MANUAL DIFF FLAG NO
[2022-07-23 14:03] LABS: Basophils Percent Auto 0.6 % (0-2); Eosinophils Absolute Auto 0.2 X10*3/uL (0.0-0.4); Eosinophils Percent Auto 3.7 % (0-4); Hematocrit 38.8 % (42.0-52.0); Hemoglobin 12.4 g/dl (14.0-18.0); Imm Gran Abs Auto 0.02 X10*3/uL (0.00-0.03); Imm Gran Pct Auto 0.3 % (0.0-0.4); Lymphocytes Absolute Auto 1.7 X10*3/uL (1.2-4.9); Lymphocytes Percent Auto 27.1 % (20-40); Mean Corpuscular Hemoglobin 28.1 pg (27.0-33.0); Mean Platelet Volume 10.7 fL (9.4-12.4); Monocytes Absolute Auto 0.5 X10*3/uL (0.1-1.2); Monocytes Percent Auto 8.6 % (2-11); Neutrophils Absolute Auto 3.7 x10*3/uL (2.0-8.3); Neutrophils Percent Auto 59.7 % (45-73); Platelet Count 282 X10*3/uL (160-400); Red Blood Count 4.41 X10*6/uL (4.60-5.80); Red Cell Distribution Width 12.7 % (11.0-16.0); White Blood Count 6.2 X10*3/uL (4.8-10.8)
[2022-07-23 14:26] LABS: Alanine Aminotransferase 52 U/L (0-40); Albumin Level 4.5 g/dL (3.5-5.0); Alkaline Phosphatase 99 U/L (39-117); Anion Gap 14 (12-20); Aspartate Amino Transferase 33 U/L (5-37); Bilirubin Direct 0.2 mg/dL (0.0-0.5); Bilirubin Total 0.4 mg/dL (0.0-1.0); Blood Urea Nitrogen 14 mg/dL (9-16); C Reactive Protein 2.14 mg/dL (< or = 0.50); Calcium 9.6 mg/dL (8.4-10.2); Carbon Dioxide 29 mmol/L (22-29); Chloride 103 mmol/L (96-108); Estimated Glomerular Filt Rate > 60; Glucose Random 93 mg/dL (60-115); Lipase 27 U/L (8-78); Potassium 4.7 mmol/L (3.3-5.1); Sodium 141 mmol/L (135-145); Total Protein 7.4 g/dL (6.5-8.0)
[2022-07-23 14:31] LABS: Uric Acid 3.2 mg/dL (3.4-7.0)
[2022-07-23 14:41] LABS: Erythrocyte Sedimentation Rate 27 MM/HR (0-15)
[2022-07-29 19:06] LABS: HLA B27 Negative (Negative)
== END 2022-07-23 12:59 | disposition home or self-care (01) ==
LOC: HO.10HDL 12:58
PROVIDERS: Nurse Practitioner Family; Visit Provider Student in an Organized Health Care Education/Training Program
DX: M51.36 Other intervertebral disc degeneration, lumbar region (principal); M47.816 Spondylosis without myelopathy or radiculopathy, lumbar region; M1A.09X0 Idiopathic chronic gout, multiple sites, without tophus (tophi); R10.9 Unspecified abdominal pain; Z79.899 Other long term (current) drug therapy
CPT/HCPCS: 36415; 80053; 80076; 82248; 83690; 84550; 85025; 85652; 86140; 86812; 99212

== ENCOUNTER 2022-07-24 12:39 | Outpatient (REF) | payer MEDICAID, SELFPAY ==
[2022-08-02 16:51] LABS: Pancreatic Elastase-1 >500 mcg/g
== END 2022-07-24 12:40 | disposition home or self-care (01) ==
LOC: HO.LNP 12:39
PROVIDERS: Visit Provider Nurse Practitioner Family
DX: R10.9 Unspecified abdominal pain (principal)
CPT/HCPCS: 82656

== ENCOUNTER 2022-08-14 13:16 | Outpatient (REF) | payer MEDICAID, SELFPAY ==
--- NOTE | 2022-08-14 08:15 | EMG_ITS ---
Bilateral median and ulnar motor and sensory studies were performed. Bilateral radial sensory studies were performed. Paraspinal muscles were tested. IMPRESSION: Mild bilateral ulnar neuropathy across cubital tunnel. There is no evidence of median neuropathy or cervical radiculopathy. MD LORETO Frederick/PATRICK / [phone]
== END 2022-08-14 13:17 | disposition home or self-care (01) ==
LOC: HO.NEURO 13:16
PROVIDERS: PCP Family Medicine; Visit Provider Registered Nurse
DX: E11.42 Type 2 diabetes mellitus with diabetic polyneuropathy (principal)
CPT/HCPCS: 95886; 95911

== ENCOUNTER → 2022-08-26 07:46 | Outpatient (REF) | payer MEDICAID, SELFPAY ==
--- NOTE | ~2022-08-26 | NM_ITS ---
EXAMINATION: IN RADIONUCLIDE SOLID FOOD GASTRIC EMPTYING 4-HOUR STUDY CLINICAL INFORMATION: Gastritis, unspecified, without bleeding. COMPARISON: Gastric emptying study done on 09/15/2019. TECHNIQUE: A standard meal consisting of 4 oz of Egg Beaters brand tagged with 900 microcuries Tc-99m Sulfur Colloid, 8 oz water and 2 slices of toast with jelly was administered orally to the patient. Images were obtained using a dual head gamma camera in the anterior and posterior projections over of the stomach immediately post ingestion and at hourly intervals up to 4 hours post ingestion. The anterior and posterior counts at each time interval were averaged using the geometric mean and expressed as percentage of the immediate post ingestion counts. FINDINGS: There is good visualization of activity in the stomach immediately post ingestion. As the study progresses, there is good clearance of activity from the stomach and visualization of progressively increasing small bowel activity. By the end of the study, there is almost no retention noted in the stomach. Retention in the stomach at each time interval was: 1 hour 100% (normal 37%-90%), previously 74%. 2 hours 85% (normal 30%-60%), previously 51%. 3 hours 31%, previously 28%. 4 hours 3% (normal 0%-10%), previously 14%. IN/IN gastric emptying study IMPRESSION: Normal 4-hour solid food gastric emptying study, shows significant interval improvement since the prior abnormal study done on 09/15/2019. (For solid meal, rapid gastric emptying is less than 30% at 60 minutes. Delayed gastric emptying criteria is more than 60% remaining at 120 minutes or more than 10% at 240 minutes. The 4-hour value is the best discriminator of a normal or abnormal result).
== END ==
LOC: HO.NUCMED 07:46
PROVIDERS: Visit Provider Nurse Practitioner Family
DX: K29.70 Gastritis, unspecified, without bleeding (principal); K31.84 Gastroparesis
CPT/HCPCS: 78264; A9541

== ENCOUNTER → 2022-09-02 11:55 | Outpatient (BNVA) | payer MEDICAID, SELFPAY | PROVIDERS: PCP Family Medicine; Referring Provider Family Medicine; Visit Provider Student in an Organized Health Care Education/Training Program | DX: M47.816 Spondylosis without myelopathy or radiculopathy, lumbar region (principal); M1A.09X0 Idiopathic chronic gout, multiple sites, without tophus (tophi); Z79.899 Other long term (current) drug therapy | CPT/HCPCS: 99212 ==

== ENCOUNTER 2022-09-16 16:50 | Outpatient (REF) | payer MEDICAID, SELFPAY | END 2022-09-16 16:51 | disposition home or self-care (01) | LOC: HO.MRI 16:50 | PROVIDERS: Visit Provider Student in an Organized Health Care Education/Training Program | DX: Z13.89 Encounter for screening for other disorder (principal) ==

== ENCOUNTER → 2022-10-10 13:56 | Outpatient (BNVA) | payer MEDICAID, SELFPAY | PROVIDERS: PCP Family Medicine; Visit Provider Student in an Organized Health Care Education/Training Program | DX: L40.50 Arthropathic psoriasis, unspecified (principal); M1A.09X0 Idiopathic chronic gout, multiple sites, without tophus (tophi); Z79.899 Other long term (current) drug therapy | CPT/HCPCS: 99212 ==

== ENCOUNTER → 2022-12-16 11:20 | Outpatient (BNVA) | payer MEDICAID, SELFPAY | PROVIDERS: PCP Family Medicine; Visit Provider Student in an Organized Health Care Education/Training Program | DX: L40.50 Arthropathic psoriasis, unspecified (principal); M1A.09X0 Idiopathic chronic gout, multiple sites, without tophus (tophi); R25.2 Cramp and spasm | CPT/HCPCS: 36415; 80053; 82164; 82550; 82784; 83036; 84165; 84550; 85025; 85652; 86021; 86140; 86200; 86334; 86431; 86481; 86704; 86706; 86709; 86803; 87340; 99212 ==

== ENCOUNTER 2022-12-16 12:09 | Outpatient (REF) | payer MEDICAID, SELFPAY ==
[2022-12-16 12:55] LABS: MANUAL DIFF FLAG NO
[2022-12-16 13:16] LABS: Basophils Percent Auto 0.7 % (0-2); Eosinophils Absolute Auto 0.2 X10*3/uL (0.0-0.4); Eosinophils Percent Auto 3.1 % (0-4); Hematocrit 38.8 % (42.0-52.0); Hemoglobin 12.7 g/dl (14.0-18.0); Imm Gran Abs Auto 0.01 X10*3/uL (0.00-0.03); Imm Gran Pct Auto 0.2 % (0.0-0.4); Lymphocytes Absolute Auto 1.9 X10*3/uL (1.2-4.9); Lymphocytes Percent Auto 30.7 % (20-40); Mean Corpuscular HGB Conc 32.7 g/dl (31.0-36.0); Mean Corpuscular Hemoglobin 28.8 pg (27.0-33.0); Mean Platelet Volume 10.9 fL (9.4-12.4); Monocytes Absolute Auto 0.5 X10*3/uL (0.1-1.2); Monocytes Percent Auto 8.5 % (2-11); Neutrophils Absolute Auto 3.5 x10*3/uL (2.0-8.3); Neutrophils Percent Auto 56.8 % (45-73); Platelet Count 260 X10*3/uL (160-400); Red Blood Count 4.41 X10*6/uL (4.60-5.80); White Blood Count 6.2 X10*3/uL (4.8-10.8)
[2022-12-16 13:48] LABS: Alanine Aminotransferase 51 U/L (0-40); Albumin Level 4.3 g/dL (3.5-5.0); Alkaline Phosphatase 108 U/L (39-117); Anion Gap 12 (12-20); Aspartate Amino Transferase 29 U/L (5-37); Bilirubin Total 0.3 mg/dL (0.0-1.0); Blood Urea Nitrogen 11 mg/dL (9-16); C Reactive Protein 1.22 mg/dL (< or = 0.50); Calcium 9.4 mg/dL (8.4-10.2); Carbon Dioxide 28 mmol/L (22-29); Chloride 106 mmol/L (96-108); Estimated Glomerular Filt Rate > 60; Glucose Random 117 mg/dL (60-115); Potassium 4.2 mmol/L (3.3-5.1); Rheumatoid Factor < 13.0 IU/mL (<15.0); Sodium 142 mmol/L (135-145); Uric Acid 3.3 mg/dL (3.4-7.0)
[2022-12-16 13:55] LABS: Erythrocyte Sedimentation Rate 21 MM/HR (0-15)
[2022-12-16 14:28] LABS: Estimated Average Glucose 140 mg/dL; Hemoglobin A1c % 6.5 %
[2022-12-17 06:04] LABS: HBc Num1 0.09 S/CO (0.00-0.79); Hepatitis A Antibody IgM 0.24 Index (0-0.79); Hepatitis B Core Antibody Nonreactive (Nonreactive); ~HepC Num1 0.17 S/CO (0.00-0.79); ~Hepatitis A Antibody IgM Nonreactive (Nonreactive); ~Hepatitis C Antibody Nonreactive (Nonreactive)
[2022-12-17 06:08] LABS: HBS Num1 > 1000.00 mIU/mL (0-7.99); HBsAGNum1 0.43 S/CO (0.00-0.99); Hepatitis B Surface Antigen Negative (Negative); ~Hepatitis B Surface Antibody REACTIVE (Nonreactive)
[2022-12-18 12:44] LABS: Myeloperoxidase Antibody <1.0 AI; Proteinase 3 PR3 Antibodies <1.0 AI
[2022-12-18 22:38] LABS: TS Negative Control Passed; TS Panel A 0; TS Panel B 0; TS Positive Control Passed; TSpotTB Negative (Negative)
[2022-12-18 23:08] LABS: Prot Elec - Albumin 4.1 g/dL (3.8-4.8); Prot Elec - Alpha1 0.2 g/dL (0.2-0.3); Prot Elec - Alpha2 0.8 g/dL (0.5-0.9); Prot Elec - Beta 1 0.4 g/dL (0.4-0.6); Prot Elec - Beta 2 0.5 g/dL (0.2-0.5); Prot Elec - Gamma 1.1 g/dL (0.8-1.7); Prot Elec - Total Protein 7.1 g/dL (6.1-8.1)
[2022-12-19 10:53] LABS: Cyclic Citrullinated Peptide <16 UNITS
[2022-12-19 12:53] LABS: IgA 298 mg/dL (47-310); IgG 1112 mg/dL (600-1640); IgM 67 mg/dL (50-300)
[2022-12-21 18:19] LABS: Angiotensin Converting Enzyme 48 U/L (9-67)
== END 2022-12-16 12:10 | disposition home or self-care (01) ==
LOC: HO.10HDL 12:09
PROVIDERS: Visit Provider Student in an Organized Health Care Education/Training Program
DX: M06.9 Rheumatoid arthritis, unspecified (principal); M10.9 Gout, unspecified; I77.6 Arteritis, unspecified; G72.9 Myopathy, unspecified; E11.9 Type 2 diabetes mellitus without complications; L40.50 Arthropathic psoriasis, unspecified; E87.8 Other disorders of electrolyte and fluid balance, not elsewhere classified; Z11.59 Encounter for screening for other viral diseases; Z11.7 Encounter for testing for latent tuberculosis infection
CPT/HCPCS: 36415; 80053; 82164; 82550; 82784; 83036; 84165; 84550; 85025; 85652; 86021; 86140; 86200; 86334; 86431; 86481; 86704; 86706; 86709; 86803; 87340

== ENCOUNTER → 2022-12-18 11:11 | Outpatient (BNVA) | payer MEDICAID, SELFPAY | PROVIDERS: PCP Family Medicine; Visit Provider Nurse Practitioner Family | DX: K59.04 Chronic idiopathic constipation (principal); K75.81 Nonalcoholic steatohepatitis (NASH); K21.9 Gastro-esophageal reflux disease without esophagitis | CPT/HCPCS: 99212 ==

== ENCOUNTER → 2023-01-21 11:06 | Outpatient (BNVA) | payer MEDICAID, SELFPAY | PROVIDERS: PCP Family Medicine; Visit Provider Nurse Practitioner Family | DX: K59.04 Chronic idiopathic constipation (principal); K21.9 Gastro-esophageal reflux disease without esophagitis | CPT/HCPCS: 99212 ==

== ENCOUNTER 2023-02-10 13:47 | Outpatient (REF) | payer MEDICAID, SELFPAY ==
[2023-02-10 14:27] LABS: MANUAL DIFF FLAG NO
[2023-02-10 14:38] LABS: Basophils Absolute Auto 0.1 X10*3/uL (0.0-0.2); Basophils Percent Auto 0.9 % (0-2); Eosinophils Absolute Auto 0.1 X10*3/uL (0.0-0.4); Eosinophils Percent Auto 2.6 % (0-4); Hematocrit 37.9 % (42.0-52.0); Hemoglobin 12.3 g/dl (14.0-18.0); Imm Gran Abs Auto 0.01 X10*3/uL (0.00-0.03); Imm Gran Pct Auto 0.2 % (0.0-0.4); Lymphocytes Absolute Auto 1.8 X10*3/uL (1.2-4.9); Lymphocytes Percent Auto 33.1 % (20-40); Mean Corpuscular HGB Conc 32.5 g/dl (31.0-36.0); Mean Corpuscular Hemoglobin 29.1 pg (27.0-33.0); Mean Corpuscular Volume 89.6 fL (80.0-98.0); Mean Platelet Volume 10.7 fL (9.4-12.4); Monocytes Absolute Auto 0.4 X10*3/uL (0.1-1.2); Monocytes Percent Auto 8.3 % (2-11); Neutrophils Absolute Auto 2.9 x10*3/uL (2.0-8.3); Neutrophils Percent Auto 54.9 % (45-73); Platelet Count 273 X10*3/uL (160-400); Red Blood Count 4.23 X10*6/uL (4.60-5.80); Red Cell Distribution Width 13.5 % (11.0-16.0); White Blood Count 5.3 X10*3/uL (4.8-10.8)
[2023-02-10 15:17] LABS: Erythrocyte Sedimentation Rate 21 MM/HR (0-15)
[2023-02-10 17:03] LABS: Alanine Aminotransferase 72 U/L (0-40); Albumin Level 4.4 g/dL (3.5-5.0); Alkaline Phosphatase 101 U/L (39-117); Anion Gap 11 (12-20); Aspartate Amino Transferase 42 U/L (5-37); Bilirubin Total 0.5 mg/dL (0.0-1.0); Blood Urea Nitrogen 13 mg/dL (9-16); C Reactive Protein 0.95 mg/dL (< or = 0.50); Calcium 9.5 mg/dL (8.4-10.2); Carbon Dioxide 28 mmol/L (22-29); Chloride 105 mmol/L (96-108); Estimated Glomerular Filt Rate > 60; Glucose Random 124 mg/dL (60-115); Potassium 4.2 mmol/L (3.3-5.1); Sodium 140 mmol/L (135-145); Total Protein 7.1 g/dL (6.5-8.0)
== END 2023-02-10 13:48 | disposition home or self-care (01) ==
LOC: HO.LAB 13:47
PROVIDERS: PCP Family Medicine; Visit Provider Student in an Organized Health Care Education/Training Program
DX: L40.50 Arthropathic psoriasis, unspecified (principal); M1A.09X0 Idiopathic chronic gout, multiple sites, without tophus (tophi)
CPT/HCPCS: 36415; 80053; 85025; 85652; 86140; 99212

== ENCOUNTER 2023-04-22 14:46 | Outpatient (AMB) | payer MEDICAID, SELFPAY ==
[2023-04-22 14:58] VITALS: BP 141/72; PULSE 73; BMI 33.9
--- NOTE | 2023-04-22 14:58 | MHC.OFFVIS ---
Intake Vital Signs 04/22/23 14:58 Height 5 ft 10 in Weight 236 lb 5.369 oz BMI 33.9 BP 141/72 H Blood Pressure Location Lt brachial Position Sitting Pulse 73 Intake Visit Reasons: 3 month follow up Intake Note: Franci presents in office as a est.patient for a 3month f/u for [facility] PT CC: pt reports having bloated , constipation, and periumbilical pain when pt uses Bathroom pt denies any other GI Issues Pruner Required: No Accompanied by: Self / Same As Patient Allergies Penicillins [PENICILLINS] Allergy (Intermediate, Verified 04/22/23 15:00) HIVES sulfasalazine Adverse Reaction (Intermediate, Verified 04/22/23 15:00) transaminitis HPI 3 month follow up HPI Details LAST VISIT: (1) GERD (gastroesophageal reflux disease): ?Code(s): K21.9 - Gastro-esophageal reflux disease without esophagitis ?Qualifiers: ?Esophagitis presence:?esophagitis presence not specified? Qualified Code(s):?K21.9 - Gastro-esophageal reflux disease without esophagitis ?Plan: Will change PPI to lansoprazole.? Omeprazole is not working (2) Chronic idiopathic constipation: ?Code(s): K59.04 - Chronic idiopathic constipation ?Plan: Increase Linzess 290 mcg daily.? Patient was also encouraged to increase activity and fluid intake to promote better bowel motility.? I will see patient in 3 months, sooner on as needed basis.? Patient is agreeable to this plan and verbalizes understanding of instructions.? He was given the opportunity to ask questions and all questions answered.? TODAY'S VISIT Patient is here today for follow-up and to discuss going for colonoscopy. Patient had colonoscopy in 2018 5 year screening due to family history of colorectal cancer. Patient denies melena, hematochezia, unintentional weight loss or ribbon like stools. Patient reports that he is moving his bowels better now, however occasionally he will have hard stool. Taking Linzess in the morning and Colace at night time. Patient reports that his pharmacy gave him different lansoprazole and he does not feel like it is working as good as his 's. Patient is requesting to have the medication sent to [facility] instead of his pharmacy. Patient denies any issues with anesthesia in the past. No history of sleep apnea. Not on any anticoagulation medication. COUNTS INCLUDE 234 BEDS AT THE [facility] Medical History Anxiety and depression Asthma Chest pain, atypical Chronic pain syndrome COVID-19 vaccine series completed Diabetes Gastroparesis H/O head injury Migraines Osteoarthritis of left knee Osteoarthritis of left knee Scoliosis Sleep apnea Spondylosis of lumbar region without myelopathy or radiculopathy Varicose vein of leg Surgical History History of back surgery History of colonoscopy Family History Father No problems noted. Mother History of cancer Social History Household Members: Spouse and Children Housing: House Are you a primary career resource specialist to a significant other at home: No Do you presently have visiting nurse or other home services: No Alcohol intake: former Patient Tobacco Use Status: Former Tobacco user Quit Date: 2011 Tobacco use type: Cigarette Cigarettes Per Day: 45 Years Smoked: 10 service: No Current occupational status: unemployed Review of Systems Const Denies weight gain and Denies weight loss ENT Reports no additional complaints, Denies dysphagia and Denies odynophagia Card Reports no additional complaints Resp Reports no additional complaints GI Denies abdominal pain, Denies belching, Denies melena, Denies bloating, Denies change in bowel habits, Reports constipation (Occasional), Denies dysphagia, Denies excessive flatus, Denies dyspepsia, Reports heartburn (Occasional), Denies diarrhea, Denies loose stools, Denies nausea, Denies odynophagia and Denies vomiting Reports no additional complaints Musc Reports no additional complaints Neuro Reports no additional complaints Psych Reports no additional complaints Endo Reports no additional complaints Physical Exam Vital Signs: Last Vital Signs Pulse 73 04/22/23 14:58 BP 141/72 H 04/22/23 14:58 BMI result Body Mass Index 33.9 Const General: healthy appearing, no acute distress and well developed Nutritional Appearance: well nourished Orientation/consciousness: patient oriented x3 HEENT Head: Yes normal to inspection, Yes normocephalic and Yes atraumatic Face and sinus: Yes normal facial exam Mouth: Normal oral and palatal mucosa present Throat: Yes posterior oropharynx normal, Yes tonsils normal and Yes uvula midline Eyes General: appearance normal, both eyes and all related structures Neck Neck: Yes normal visual inspection, Yes full ROM and Yes trachea midline Thyroid: Thyroid normal Resp Effort & Inspection: normal respiratory effort, able to speak in complete sentences, no tracheal deviation and symmetric chest movement Auscultation: clear to auscultation bilaterally Cardio Rate: regular rate Heart sounds: S1 normal heart sound present and S2 normal heart sound present GI Inspection: Yes normal to inspection and No distended Palpation (GI): Soft to palpation, not firm, nontender and No hepatosplenomegaly present Auscultation: normal bowel sounds General: Yes no CVA tenderness Back/Spine/Pelvis Back: no CVA tenderness Skin General skin exam: elasticity normal, turgor normal and dry skin Neuro General: patient oriented x3 Psych Appearance: grossly normal Mental Status: mental status grossly normal Speech and movement: Normal speech and movement present Assessment & Plan Assessment & Plan (1) Chronic idiopathic constipation: Code(s): K59.04 - Chronic idiopathic constipation Plan: Continue Linzess, patient can increase Colace to 2 capsule every evening. Patient was encouraged to increase fluid intake and activity to promote better bowel motility. (2) GERD (gastroesophageal reflux disease): Code(s): K21.9 - Gastro-esophageal reflux disease without esophagitis Qualifiers: Esophagitis presence: esophagitis presence not specified Qualified Code(s): K21.9 - Gastro-esophageal reflux disease without esophagitis Plan: Continue lansoprazole. Will send script to [facility] were patient's gets her medication. Patient reports that his 's medication is different and when he tried his 's medication it worked better. (3) Screen for colon cancer: Code(s): Z12.11 - Encounter for screening for malignant neoplasm of colon Plan: Patient will go for colorectal screening, will make appointment today. Family history of colorectal cancer and patient will knee every 5 year screening. Last screening in 2018. Patient denies melena, hematochezia, unintentional weight loss or ribbon like stools. Patient is not on any anticoagulation medication. History of sleep apnea. Discuss at length the importance good bowel prep. Patient will start Dulcolax tablets 7 days before the procedure. He will take 2 of the tablets every night except for the day before procedure he will take them at noon time. Will do split MiraLax prep at 5 and 10. Clear liquid diet explained. Patient is agreeable to plan of care and verbalizes understanding of instructions. He was given the opportunity to ask questions and all questions answered. Thank you for allowing me to participate in his care Medications: New bisacodyl (Dulcolax (bisacodyl)) Start taking 2 tablet every night 7 days before the procedure and 1 day before procedure take 2 tablets at noon time followed by MiraLax prep 10 mg (2 x 5 mg) PO BEDTIME 14 tabs 0RF Z12.11 - Encounter for screening for malignant neoplasm of colon polyethylene glycol 3350 (Miralax) As directed by gastroenterology department at [facility] 238 grams PO ONCE 238 grams 0RF Z12.11 - Encounter for screening for malignant neoplasm of colon bisacodyl (Dulcolax (bisacodyl)) Start taking 2 tablet every night 7 days before the procedure and 1 day before procedure take 2 tablets at noon time followed by MiraLax prep 10 mg (2 x 5 mg) PO BEDTIME 14 tabs 0RF Z12.11 - Encounter for screening for malignant neoplasm of colon Changed From docusate sodium 100 mg PO BEDTIME 90 caps 3RF K59.00 - Constipation, unspecified To docusate sodium 200 mg (2 x 100 mg) PO BEDTIME 180 caps 3RF K59.00 - Constipation, unspecified Refilled lansoprazole 30 mg PO DAILY 30 caps 3RF K21.9 - Gastro-esophageal reflux disease without esophagitis Coding Level of Care Code Est Pt Level 4 (39620) Diagnoses Chronic idiopathic constipation K59.04 GERD (gastroesophageal reflux disease) K21.9 Esophagitis presence: esophagitis presence not specified Screen for colon cancer Z12.11 Time Spent (min) 40 Comment 25 minute spent with patient and additional 15 minutes spent reviewing his records
== END 2023-04-22 15:59 | disposition home or self-care (01) ==
PROVIDERS: PCP Family Medicine; Visit Provider Nurse Practitioner Family
DX: K59.04 Chronic idiopathic constipation (principal); K21.9 Gastro-esophageal reflux disease without esophagitis; Z12.11 Encounter for screening for malignant neoplasm of colon
CPT/HCPCS: 99214

== ENCOUNTER → 2023-04-22 14:46 | Outpatient (BNVA) | payer MEDICAID, SELFPAY | PROVIDERS: PCP Family Medicine; Visit Provider Nurse Practitioner Family | DX: Z12.11 Encounter for screening for malignant neoplasm of colon (principal); K59.04 Chronic idiopathic constipation; K21.9 Gastro-esophageal reflux disease without esophagitis | CPT/HCPCS: 99214 ==

== ENCOUNTER 2023-05-12 14:52 | Outpatient (AMB) | payer MEDICAID, SELFPAY ==
--- NOTE | 2023-05-12 14:57 | MHC.OFFVIS ---
Intake Vital Signs 05/12/23 14:59 Height 5 ft 10 in Weight 236 lb 5 oz BMI 33.9 BP 130/72 Blood Pressure Location Rt brachial Position Sitting Pulse 74 Pulse Source Pulse Oximeter Pulse Oximetry (%) 95 Oxygen Delivery Method Room Air Intake Visit Reasons: PsA Intake Note: Patient presents for follow up Allergies Penicillins [PENICILLINS] Allergy (Intermediate, Verified 05/12/23 14:59) HIVES sulfasalazine Adverse Reaction (Intermediate, Verified 05/12/23 14:59) transaminitis Medication List - Last Reconciled 05/13/23 by Mansi White MD acetaminophen ER 650 mg PO Q8H PRN albuterol sulfate 90 mcg/actuation (ProAir HFA) 2 puffs inhalation Q6H PRN allopurinol 300 mg PO DAILY bisacodyl (Dulcolax (bisacodyl)) 10 mg (2 x 5 mg) PO BEDTIME buprenorphine-naloxone 8-2 mg (Suboxone) 2 film buccal DAILY cetirizine 10 mg PO BEDTIME docusate sodium 200 mg (2 x 100 mg) PO BEDTIME epinephrine (EpiPen) 0.03 mL IM DIRECTED etanercept (Enbrel SureClick) 50 mg subcut QWEEK famotidine 40 mg PO BEDTIME fluticasone propionate 50 mcg/actuation (Flonase Allergy Relief) 1 spray intranasal DAILY fluticasone propionate 110 mcg/actuation (Flovent HFA) 1 puff inhalation BID hydroxyzine HCl 25 mg PO Q6H PRN lansoprazole 30 mg PO DAILY 90 days linaclotide (Linzess) 290 mcg PO QAM loratadine 10 mg PO DAILY meloxicam 15 mg PO DAILY metformin ER 500 mg PO QPM methylcellulose (laxative) (Citrucel) 500 mg PO DAILY 30 days polyethylene glycol 3350 (Miralax) 238 grams PO ONCE tamsulosin 0.4 mg PO DAILY HPI HPI Comments History of Present Illness Details 47-year-old male with psoriatic arthritis returns for follow-up. Has been using Enbrel weekly for the last 2 months. States that Enbrel provide significant relief for 3-4 days then he starts getting pain again. His elbow pain is improved. States that he can do more work around the house now. Recently has been having some left knee pain. Worse with walking. A noticed a patch of skin on his right shoulder that started a few days ago. He thinks it is psoriasis. Initial history: This is a 46-year-old male with a past medical history of anxiety, gout, type 2 diabetes mellitus, degenerative disc disease of his lumbar spine s/p multiple procedures by pain management presents for evaluation of low back pain. Patient was previously evaluated by Dr. Chantelle Geronimo for low back pain. He had MRI of his sacral iliac joints which were negative for sacroiliitis. MRI lumbar spine also showed no signs of spondyloarthropathy. Patient continues to have low back pain, worse in the morning associated with 2 hours of morning stiffness. Pain is also worse with walking improves with sitting down. He states he was diagnosed with gout in 2012. He has pain and swelling of his feet and his hands, he also has intermittent swelling of his ears in lips that he attributes to gout. He has been on allopurinol 300 mg by his PCP. His most recent gout flare was in the summer with swelling of his hands. Denies any history of kidney stones or family history of gout. He states that the last year of high school he had significant psoriasis affecting his legs and his entire body. He was prescribed creams with resolution. Recently he has been having itchy rashes on his ankles, he is being evaluated by an director of respiratory therapy. He also showed me pictures of rashes involving his face, neck and ears.? He is following up with director of respiratory therapy Dr. Garcia he was prescribed hydroxyzine and another antihistaminic and he states that those are helping.? States that as a child he spent a lot of time at the hospital for arthritis [facility] Medical History Anxiety and depression Asthma Chest pain, atypical Chronic pain syndrome COVID-19 vaccine series completed Diabetes Gastroparesis H/O head injury Migraines Osteoarthritis of left knee Osteoarthritis of left knee Scoliosis Sleep apnea Spondylosis of lumbar region without myelopathy or radiculopathy Varicose vein of leg Surgical History History of back surgery History of colonoscopy Family History Father No problems noted. Mother History of cancer Social History Household Members: Spouse and Children Housing: House Are you a primary child care worker to a significant other at home: No Do you presently have visiting nurse or other home services: No Alcohol intake: former Patient Tobacco Use Status: Former Tobacco user Quit Date: 2011 Tobacco use type: Cigarette Cigarettes Per Day: 45 Years Smoked: 10 service: No Current occupational status: unemployed Review of Systems Const All systems reviewed & are unremarkable except as noted in HPI and below Musc Reports back pain, Reports arthralgias and Reports stiffness Neuro Reports no additional complaints Physical Exam Vital Signs: Last Vital Signs Pulse 74 05/12/23 14:59 BP 130/72 05/12/23 14:59 Pulse Ox 95 05/12/23 14:59 Oxygen Delivery Method Room Air 05/12/23 14:59 BMI result Body Mass Index 33.9 Const General: cooperative, healthy appearing, comfortable and no acute distress Nutritional Appearance: obese Orientation/consciousness: patient oriented x3 Limitations: no limitations HEENT Head: Yes normocephalic and Yes atraumatic Resp Effort & Inspection: normal respiratory effort and able to speak in complete sentences Skin Other: A small reddish patch of skin on his right shoulder anteriorly, potentially a psoriasis patch Neuro General: patient oriented x3 Extrem Other: No swelling or tenderness to palpation in both elbows, hands, wrists, MCPs, PIPs Normal range of motion of both elbows without pain Left knee pain with full flexion Some osteoarthritic changes of his hands with Heberden's nodes Normal nailfold capillaroscopy Results Reviewed Results Reviewed: [facility] MRI PELVIS WO CONT 06/2019 [id number] SYMPTOMS,HX? INFLAMMATORY BACK PAIN, EVALUATE FOR SACROILITIS EXAMINATION: MR PELVIS WITHOUT CONTRAST CLINICAL INFORMATION: Inflammatory back pain. Evaluate for sacroiliitis. COMPARISON: Previous CT of the abdomen and pelvis May 2010. TECHNIQUE: Sagittal axial and coronal sequences through the pelvis tailored to the sacroiliac joints. FINDINGS: The sacroiliac joints are normal appearing. No evidence of sacroiliitis is seen. There is a disc-space narrowing and small disc herniation L5-S1. There is reactive endplate signal seen at L5-S1. Bone marrow signal is otherwise normal. No fracture, dislocation or bone lesion is seen. The hip joints are unremarkable. Soft tissues of the pelvis are unremarkable. There is a small left inguinal hernia containing fat. Visualized bowel is unremarkable. The bladder and prostate gland are unremarkable. No ascites or adenopathy is seen. IMPRESSION: Normal-appearing sacroiliac joints. Right elbow MRI? 08/2022? Impression Partial tear/peritendinitis of the proximal common extensor tendon no joint effusion or intra-articular synovitis Labs 08/2022 CMP unremarkable except for ALT 50 (0-41) CBC unremarkable except for mild anemia hemoglobin 12.7 (12.7-17.1) CRP 1.6 (<0.5) ESR 41 RF/CCP negative Zohaib normal? Uric acid 3.6 A1c 6.8% SPEP and immunofixation normal T spot negative Hepatitis panel negative Assessment & Plan Assessment & Plan (1) Psoriatic arthritis: Comment: dx 09/2022 SSZ 12/18 partially effective DC 02/17 due to transaminitis Enbrel 02/17 effective Code(s): L40.50 - Arthropathic psoriasis, unspecified Plan: 47-year-old male with psoriatic arthritis returns for follow-up. Has been on Enbrel last 2 months with significant improvement but it only lasts around 4 days. There is a small patch of a skin rash that is potentially psoriasis on his right shoulder. Patient complaining of left knee pain. Check bilateral knee x-rays. Advised patient to take meloxicam 50 mg as needed for pain. Continue Enbrel 50 mg once weekly. Will re-evaluate patient in 3 months, might consider switching to Humira or switching to an IL 17 inhibitor Infectious screening hepatitis panel and T spot -ve 08/2022 Labs today and before next visit in 3 months (2) Gout: Code(s): M10.9 - Gout, unspecified Qualifiers: Gout site: multiple sites Gout etiology: unspecified cause Chronicity: chronic Qualified Code(s): M1A.09X0 - Idiopathic chronic gout, multiple sites, without tophus (tophi) Plan: Had gout since 2011. He is on allopurinol 300 mg daily by his PCP. Uric acid level is below 6. Continue allopurinol 300 mg daily Plan I spent 26 minutes reviewing patient's chart, evaluating patient, ordering diagnostic workup, counseling patient and documenting in the chart Orders: Orders XR knee standing BI 05/12/23 L40.50 - Arthropathic psoriasis, unspecified Complete Blood Count Auto Diff 3 Months L40.50 - Arthropathic psoriasis, unspecified Comprehensive Met. Panel 3 Months L40.50 - Arthropathic psoriasis, unspecified Erythrocyte Sedimentation Rate 3 Months L40.50 - Arthropathic psoriasis, unspecified C Reactive Protein 3 Months L40.50 - Arthropathic psoriasis, unspecified Complete Blood Count Auto Diff 05/12/23 L40.50 - Arthropathic psoriasis, unspecified Comprehensive Met. Panel 05/12/23 L40.50 - Arthropathic psoriasis, unspecified C Reactive Protein 05/12/23 L40.50 - Arthropathic psoriasis, unspecified Erythrocyte Sedimentation Rate 05/12/23 L40.50 - Arthropathic psoriasis, unspecified Medications: Refilled meloxicam 15 mg PO DAILY 30 tabs 2RF L40.50 - Arthropathic psoriasis, unspecified Coding Level of Care Code Est Pt Level 4 (44754) Diagnoses Psoriatic arthritis L40.50 Gout M1A.09X0 Gout site: multiple sites Gout etiology: unspecified cause Chronicity: chronic
[2023-05-12 14:59] VITALS: BP 130/72; PULSE 74; O2SAT 95; BMI 33.9
== END 2023-05-12 15:21 | disposition home or self-care (01) ==
PROVIDERS: PCP Family Medicine; Visit Provider Student in an Organized Health Care Education/Training Program
DX: L40.50 Arthropathic psoriasis, unspecified (principal); M1A.09X0 Idiopathic chronic gout, multiple sites, without tophus (tophi)
CPT/HCPCS: 99214

== ENCOUNTER 2023-05-12 14:52 | Outpatient (REF) | payer MEDICAID, SELFPAY ==
--- NOTE | ~2023-05-12 | XR_ITS ---
STUDY: Bilateral knees INDICATION: Arthropathic psoriasis COMPARISON: 01/25/2019 TECHNIQUE: 4 views each knee FINDINGS: Right knee: No significant joint space narrowings. No fracture, dislocation or joint effusion. Left knee: No fracture, dislocation or joint effusion. Joint spaces are maintained. Quadriceps enthesopathy. XR/XR knee LT 4V IMPRESSION: No acute bony pathology bilateral knees.
--- NOTE | ~2023-05-12 | XR_ITS ---
STUDY: Bilateral knees INDICATION: Arthropathic psoriasis COMPARISON: 01/25/2019 TECHNIQUE: 4 views each knee FINDINGS: Right knee: No significant joint space narrowings. No fracture, dislocation or joint effusion. Left knee: No fracture, dislocation or joint effusion. Joint spaces are maintained. Quadriceps enthesopathy. XR/XR knee RT 4V IMPRESSION: No acute bony pathology bilateral knees.
[2023-05-12 15:45] LABS: MANUAL DIFF FLAG NO
[2023-05-12 17:17] LABS: Basophils Absolute Auto 0.1 X10*3/uL (0.0-0.2); Basophils Percent Auto 0.9 % (0-2); Eosinophils Absolute Auto 0.2 X10*3/uL (0.0-0.4); Eosinophils Percent Auto 3.7 % (0-4); Hematocrit 38.8 % (42.0-52.0); Hemoglobin 12.5 g/dl (14.0-18.0); Imm Gran Abs Auto 0.01 X10*3/uL (0.00-0.03); Imm Gran Pct Auto 0.2 % (0.0-0.4); Lymphocytes Absolute Auto 2.2 X10*3/uL (1.2-4.9); Lymphocytes Percent Auto 38.9 % (20-40); Mean Corpuscular HGB Conc 32.2 g/dl (31.0-36.0); Mean Corpuscular Hemoglobin 28.5 pg (27.0-33.0); Mean Corpuscular Volume 88.6 fL (80.0-98.0); Monocytes Absolute Auto 0.5 X10*3/uL (0.1-1.2); Monocytes Percent Auto 9.3 % (2-11); Neutrophils Absolute Auto 2.7 x10*3/uL (2.0-8.3); Platelet Count 274 X10*3/uL (160-400); Red Blood Count 4.38 X10*6/uL (4.60-5.80); Red Cell Distribution Width 12.2 % (11.0-16.0); White Blood Count 5.7 X10*3/uL (4.8-10.8)
[2023-05-12 17:54] LABS: Alanine Aminotransferase 51 U/L (0-40); Albumin Level 4.3 g/dL (3.5-5.0); Alkaline Phosphatase 96 U/L (39-117); Anion Gap 10 (12-20); Aspartate Amino Transferase 31 U/L (5-37); Bilirubin Total 0.5 mg/dL (0.0-1.0); Blood Urea Nitrogen 17 mg/dL (9-16); C Reactive Protein 1.29 mg/dL (< or = 0.50); Calcium 9.4 mg/dL (8.4-10.2); Carbon Dioxide 29 mmol/L (22-29); Chloride 106 mmol/L (96-108); Estimated Glomerular Filt Rate > 60; Glucose Random 93 mg/dL (60-115); Potassium 4.1 mmol/L (3.3-5.1); Sodium 141 mmol/L (135-145); Total Protein 7.6 g/dL (6.5-8.0)
[2023-05-12 18:04] LABS: Erythrocyte Sedimentation Rate 16 MM/HR (0-15)
== END 2023-05-12 14:53 | disposition home or self-care (01) ==
LOC: HO.LAB 14:52
PROVIDERS: Absent Provider Student in an Organized Health Care Education/Training Program; PCP Family Medicine; Visit Provider Student in an Organized Health Care Education/Training Program
DX: L40.50 Arthropathic psoriasis, unspecified (principal); M1A.09X0 Idiopathic chronic gout, multiple sites, without tophus (tophi)
CPT/HCPCS: 36415; 73564; 80053; 85025; 85652; 86140; 99212

== ENCOUNTER 2023-06-11 09:48 | Day surgery (SDC) | payer MEDICAID, SELFPAY ==
[2023-06-09 11:40] VITALS: BMI 33.9
--- NOTE | 2023-06-10 12:55 | P.CONAN_ITS ---
Documented by User: Senia Allen NP 06/10/23 12:56 HPI - Anesthesia Eval Consult details Narrative: 47yo M for Upper Endoscopy and Colonoscopy Suboxone daily PMFSH Active Problems Active Problems: All Active Problems (Updated 06/09/23 @ 11:55 by [employer] [place]) Cramp in muscle (Acute) Psoriatic arthritis (Acute) Low back pain, unspecified (Acute) Gout (Acute) H/O head injury (Acute) Migraines (Acute) Scoliosis (Acute) Anxiety and depression (Acute) Asthma (Acute) Chronic idiopathic constipation (Acute) [place] (nonalcoholic steatohepatitis) (Acute) GERD (gastroesophageal reflux disease) (Acute) Hypertension (Acute) Nephrolithiasis (Acute) Arthritis (Acute) Anemia (Chronic) Osteoarthritis of left knee (Acute) History of colonoscopy (Acute) History of back surgery (Acute) Varicose vein of leg (Acute) Sleep apnea (Acute) Diabetes (Acute) Chronic pain syndrome (Acute) Spondylosis of lumbar region without myelopathy or radiculopathy (Acute) Osteoarthritis of left knee (Acute) Past Medical History Medical History Anxiety and depression Asthma Chest pain, atypical Chronic pain syndrome COVID-19 vaccine series completed Diabetes Gastroparesis H/O head injury Migraines Osteoarthritis of left knee Osteoarthritis of left knee Scoliosis Sleep apnea Spondylosis of lumbar region without myelopathy or radiculopathy Varicose vein of leg Family History Family History Father No problems noted. Mother History of cancer Family history of problems with anesthesia: No Surgical History Surgical History History of back surgery History of colonoscopy History of Problems with Anesthesia: No Social History Social History Household Members: Spouse and Children Housing: House Are you a primary critical care rn to a significant other at home: No Do you presently have visiting nurse or other home services: No Alcohol intake: former Patient Tobacco Use Status: Former Tobacco user Quit Date: 2011 Tobacco use type: Cigarette Cigarettes Per Day: 45 Years Smoked: 10 service: No Current occupational status: unemployed Meds Allergies Allergy/AdvReac Type Severity Reaction Status Date / Time Penicillins [PENICILLINS] Allergy Intermediate HIVES Verified 05/12/23 14:59 sulfasalazine AdvReac Intermediate transaminit Verified 05/12/23 14:59 is Home Medications Medication Instructions Recorded Confirmed Last Taken Type albuterol sulfate 90 mcg/actuation 2 puff inhalation Q6H PRN 07/23/20 12/16/22 05/03/21 06:00 History aerosol inhaler (ProAir HFA) Shortness Of Breath buprenorphine 8 mg-naloxone 2 mg 2 film buccal DAILY 07/23/20 12/16/22 06/11/23 05:00 History sublingual film (Suboxone) fluticasone propionate 50 1 spray intranasal DAILY 07/23/20 12/16/22 09/23/20 H istory mcg/actuation nasal spray,suspension (Flonase Allergy Relief) loratadine 10 mg tablet 10 mg PO DAILY 07/23/20 12/16/22 09/25/20 History tamsulosin 0.4 mg capsule 0.4 mg PO DAILY 07/23/20 12/16/22 09/25/20 History allopurinol 300 mg tablet 300 mg PO DAILY 11/07/20 12/16/22 05/03/21 06:00 History acetaminophen 650 mg 650 mg PO Q8H PRN pain 07/23/22 12/16/22 Unknown History tablet,extended release cetirizine 10 mg tablet 10 mg PO BEDTIME 09/02/22 12/16/22 Unknown History fluticasone propionate 110 1 puff inhalation BID 09/02/22 12/16/22 Unknown History mcg/actuation HFA aerosol inhaler (Flovent HFA) hydroxyzine HCl 25 mg tablet 25 mg PO Q6H PRN gout 09/02/22 12/16/22 Unknown History metformin 500 mg tablet,extended 500 mg PO QPM 09/02/22 12/16/22 Unknown History release 24 hr epinephrine 0.3 mg/0.3 mL 0.03 ml IM DIRECTED 11/27/22 12/16/22 Unknown History injection, auto-injector (EpiPen) Exam Exam Date and Time: June 10, 2023 1255 Height,Weight and Vital Signs: Height 5 ft 10 in Weight 107.048 kg Pertinent Lab Results Pertinent Lab Results: Laboratory Tests 05/12/23 15:43 WBC 5.7 Hgb 12.5 L Hct 38.8 L Plt Count 274 Sodium 141 Potassium 4.1 Chloride 106 Carbon Dioxide 29 BUN 17 H Creatinine 0.78 Assessment and Plan Assessment Anesthesia Assessment: Chart Reviewed Final Anesthetic Review Family History of Problems with Anesthesia: No History of Problems with Anesthesia: No Documented by User: Jose Andrews MD 06/11/23 16:38 [facility] Past Medical History Medical History Anxiety and depression Asthma Chest pain, atypical Chronic pain syndrome COVID-19 vaccine series completed Diabetes Gastroparesis H/O head injury Migraines Osteoarthritis of left knee Osteoarthritis of left knee Scoliosis Sleep apnea Spondylosis of lumbar region without myelopathy or radiculopathy Varicose vein of leg Family History Family History Father No problems noted. Mother History of cancer Surgical History Surgical History History of back surgery History of colonoscopy Social History Social History Household Members: Spouse and Children Housing: House Are you a primary critical care rn to a significant other at home: No Do you presently have visiting nurse or other home services: No Alcohol intake: former Patient Tobacco Use Status: Former Tobacco user Quit Date: 2011 Tobacco use type: Cigarette Cigarettes Per Day: 45 Years Smoked: 10 service: No Current occupational status: unemployed Meds Allergies Allergy/AdvReac Type Severity Reaction Status Date / Time Penicillins [PENICILLINS] Allergy Intermediate HIVES Verified 05/12/23 14:59 sulfasalazine AdvReac Intermediate transaminit Verified 05/12/23 14:59 is Home Medications Medication Instructions Recorded Confirmed Last Taken Type albuterol sulfate 90 mcg/actuation 2 puff inhalation Q6H PRN 07/23/20 12/16/22 05/03/21 06:00 History aerosol inhaler (ProAir HFA) Shortness Of Breath buprenorphine 8 mg-naloxone 2 mg 2 film buccal DAILY 07/23/20 12/16/22 06/11/23 05:00 History sublingual film (Suboxone) fluticasone propionate 50 1 spray intranasal DAILY 07/23/20 12/16/22 09/23/20 History mcg/actuation nasal spray,suspension (Flonase Allergy Relief) loratadine 10 mg tablet 10 mg PO DAILY 07/23/20 12/16/22 09/25/20 History tamsulosin 0.4 mg capsule 0.4 mg PO DAILY 07/23/20 12/16/22 09/25/20 History allopurinol 300 mg tablet 300 mg PO DAILY 11/07/20 12/16/22 05/03/21 06:00 History acetaminophen 650 mg 650 mg PO Q8H PRN pain 07/23/22 12/16/22 Unknown History tablet,extended release cetirizine 10 mg tablet 10 mg PO BEDTIME 09/02/22 12/16/22 Unknown History fluticasone propionate 110 1 puff inhalation BID 09/02/22 12/16/22 Unknown History mcg/actuation HFA aerosol inhaler (Flovent HFA) hydroxyzine HCl 25 mg tablet 25 mg PO Q6H PRN gout 09/02/22 12/16/22 Unknown History metformin 500 mg tablet,extended 500 mg PO QPM 09/02/22 12/16/22 Unknown History release 24 hr epinephrine 0.3 mg/0.3 mL 0.03 ml IM DIRECTED 11/27/22 12/16/22 Unknown History injection, auto-injector (EpiPen) Exam Airway Mallampati Class: IV Loose/Missing/Broken Teeth: Yes Assessment and Plan Assessment Anesthesia Assessment: Anesthesia Plan Discussed Final Anesthetic Review NPO: Yes ASA Class: II Final Preanesthetic Review: Meds/Allgs Chart Reviewed, Consent Obtained/Reviewed and Anes Risks/Benef Reviewed Patient Risk: Intermediate Procedure Risk: Intermediate Anesthetic Plan Anesthetic Plan: MAC: and Agree w/ Assess. and Plan Disposition: Standard PACU
[2023-06-11 10:03] VITALS: BP 122/88; PULSE 78; RESP 20; TEMP 36.1; O2SAT 97
[2023-06-11 10:05] LABS: Glucose, Whole Blood 110 mg/dL (60-115)
[2023-06-11] MEDS: Lactated Ringers 1,000 ML 100 ML IVCONT (11:00)
--- NOTE | 2023-06-11 11:31 | MHC.SHP ---
Pre-Procedural Eval Section A Date of Service: 06/11/23 Section B Chief Complaint: GERD, screening for malignant neoplasm of colon Relevant Family History (Specify if Yes): No Relevant Social History: None Present Medications: see Short Stay Collaborative assessment Medical History: Significant History (Anxiety and depression Asthma Chest pain, atypical Chronic pain syndrome COVID-19 vaccine series completed Diabetes Gastroparesis H/O head injury Migraines Osteoarthritis of left knee Osteoarthritis of left knee Scoliosis Sleep apnea Spondylosis of lumbar region without myelopathy or radiculopathy V) History of Previous Operations: Relevant previous surgery/procedure and date(s) (History of back surgery History of colonoscopy) Allergies: Allergies Allergy/AdvReac Type Severity Reaction Status Date / Time Penicillins [PENICILLINS] Allergy Intermediate HIVES Verified 05/12/23 14:59 sulfasalazine AdvReac Intermediate transaminit Verified 05/12/23 14:59 is Review of Systems Sugical H&P ROS: Negative: Constitution, Cardiovascular, Respiratory, Neurological, Psychiatric, Hem-Onc, Allergic/Immunologic, Gastrointestinal, Genitourinary, Musculoskeletal, Integumentary, Endocrine and Eyes/Ears/Nose/Throat Exam Surgical H&P Exam: Normal: HEENT, Normal: Heart, Normal: Lungs, Normal: Extremities, Normal: Abdomen, Normal: Skin and Normal: Neurological Plan Diagnosis/Plan: Unchanged I have reviewed the history and physical and performed a pertinent physical examination on my patient. No changes have occurred unless specified. Time Spent With Patient Time: Total time managing care of this patient today ____ minutes.
--- NOTE | 2023-06-11 11:32 | P.OP_ITS ---
Operative Note Operative Note Date of Service: 06/11/23 Narrative: Operative Information Procedure Description: EGD, Colonoscopy Indication: GERD, screening Anesthesia: MAC FLEXIBLE TRANSORAL UPPER GASTROINTESTINAL ENDOSCOPY AND COLONOSCOPY PROCEDURE NOTE UPPER ENDOSCOPY Consent: Indications for the procedure and potential complications of bleeding, perforation, reaction to medications and missed diagnosis were discussed with the patient and informed consent was obtained. Instrument: Olympus GIF H 190 J mid size upper endoscope Monitoring: Vital signs and clinical assessment, continuous EKG monitoring, Pulse oximetry, Carbon Dioxide monitoring and blood pressure monitoring were done throughout the procedure. Procedure: The patient was placed in the left lateral decubitis position and pre-procedure medications were administered and a bite block was placed. The endoscope was inserted into the mouth and advanced under direct vision to the third part of duodenum. A careful inspection was made as the upper endoscope was withdrawn including a retroflexed examination of the proximal stomach; Findings and interventions are described below. Findings: Larynx:normal Esophagus: GE junction at 40 cm, diaphragm hiatus at 40 cm, normal mucosa--bx taken from GEJ, distal and proximal esophagus Stomach: Patchy erythema. Biopsies were obtained. Grade 2 flap valve on retroflexed examination of the cardia. Duodenum: Normal bulb and descending duodenum, bx taken Intervention: Biopsies as noted above COLONOSCOPY Instrument: Olympus variable stiffness pediatric scope 190L Colonoscopy Monitoring: Vital signs and clinical assessment, continuous EKG monitoring, Pulse oximetry, Carbon Dioxide monitoring and blood pressure monitoring were done throughout the procedure. Colon withdrawal time was 8 minutes. Procedure: The patient was placed in the left lateral decubitis position and pre-procedure medications were administered. After a digital rectal examination of the ano-rectum, the video colonoscope was inserted into the rectum and advanced through the colon to the cecum/TI. The colonoscope was slowly withdrawn in a retrograde panoramic fashion and the colon mucosa was carefully examined including a retroflexed view of the rectum. Findings and interventions are described below. Procedure Difficulty:easy Findings: Terminal Ileum-normal Cecum:normal Ascending Colon: normal Transverse Colon -normal Descending Colon:normal Sigmoid Colon: normal Rectum: Retroflexion with medium sized internal hemorrhoids, grade II Anorectum - normal Colon preparation: [place] Bowel Preparation Scale Right colon; 2 Transverse colon: 2 Left colon; 2 (0 = Unprepared colon segment with mucosa not seen due to solid stool that cannot be cleared. 1 = Portion of mucosa of the colon segment seen, but other areas of the colon segment not well seen due to staining, residual stool and/or opaque liquid. 2 = Minor amount of residual staining, small fragments of stool and/or opaque liquid, but mucosa of colon segment seen well. 3 = Entire mucosa of colon segment seen well with no residual staining, small fragments of stool or opaque liquid) Impression and Post Procedure Diagnosis: Endoscopy Findings: mild gastritis Colonoscopy Findings: internal hemorrhoids Plan: Await Pathology results Repeat Colonoscopy in 5 years due to FH of CRC or earlier if clinically indicated High fiber diet leaflet avoid straining at stool, epsom salts and sitz bath, anusol supps or cream if H pylori pos then treat Above findings were reviewed with the patient and relevant handouts were provided if indicated.
[2023-06-11 12:22] VITALS: BP 105/70; PULSE 88; RESP 16; TEMP 36.2; O2SAT 95
[2023-06-11 12:37] VITALS: BP 102/65; PULSE 79; RESP 16; TEMP 36.2; O2SAT 95
== END 2023-06-11 13:40 | disposition home or self-care (01) ==
PROVIDERS: PCP Family Medicine; Visit Provider Internal Medicine Gastroenterology
PROC: (CPT 45378; principal; 2023-06-11 12:30)
DX: Z12.11 Encounter for screening for malignant neoplasm of colon (principal); K64.1 Second degree hemorrhoids; K21.9 Gastro-esophageal reflux disease without esophagitis; K22.4 Dyskinesia of esophagus; K29.50 Unspecified chronic gastritis without bleeding; K31.84 Gastroparesis; E11.9 Type 2 diabetes mellitus without complications; R07.89 Other chest pain; G89.4 Chronic pain syndrome; J45.909 Unspecified asthma, uncomplicated; F41.8 Other specified anxiety disorders; Z79.84 Long term (current) use of oral hypoglycemic drugs; Z79.51 Long term (current) use of inhaled steroids; Z79.899 Other long term (current) drug therapy; Z88.0 Allergy status to penicillin; Z88.2 Allergy status to sulfonamides; Z87.891 Personal history of nicotine dependence
CPT/HCPCS: 45378; 43239; 82947; 88305; 88342

== ENCOUNTER → 2023-06-11 09:48 | Outpatient (BNV) | payer MEDICAID, SELFPAY | PROVIDERS: PCP Family Medicine; Visit Provider Internal Medicine Gastroenterology | DX: Z12.11 Encounter for screening for malignant neoplasm of colon (principal); K64.8 Other hemorrhoids; K29.70 Gastritis, unspecified, without bleeding; K31.89 Other diseases of stomach and duodenum; K21.9 Gastro-esophageal reflux disease without esophagitis | CPT/HCPCS: 43239; 45378 ==

== ENCOUNTER 2023-08-07 10:12 | Outpatient (AMB) | payer MEDICAID, SELFPAY ==
[2023-08-07 10:17] VITALS: BP 108/62; PULSE 65; TEMP 36.4; O2SAT 95; BMI 35.4
--- NOTE | 2023-08-07 10:17 | MHC.OFFVIS ---
Intake Vital Signs 08/07/23 10:17 Height 5 ft 10 in Weight 246 lb 7.629 oz BMI 35.4 BP 108/62 Blood Pressure Location Rt brachial Position Sitting Pulse 65 Pulse Source Pulse Oximeter Temp 97.5 F Temp Source Skin Pulse Oximetry (%) 95 Intake Visit Reasons: PsA Intake Note: Pt last seen 05/12/23, presents today for follow up and test results. C/o bilateral shoulder pain started approx 3 weeks ago. 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 Required: No Accompanied by: Self / Same As Patient Allergies Penicillins [PENICILLINS] Allergy (Intermediate, Verified 08/07/23 10:21) HIVES sulfasalazine Adverse Reaction (Intermediate, Verified 08/07/23 10:21) transaminitis Medication List - Last Reconciled 08/07/23 by Mansi White MD acetaminophen ER 650 mg PO Q8H PRN albuterol sulfate 90 mcg/actuation (ProAir HFA) 2 puffs inhalation Q6H PRN allopurinol 300 mg PO DAILY bisacodyl (Dulcolax (bisacodyl)) 10 mg (2 x 5 mg) PO BEDTIME buprenorphine-naloxone 8-2 mg (Suboxone) 2 film buccal DAILY cetirizine 10 mg PO BEDTIME docusate sodium 200 mg (2 x 100 mg) PO BEDTIME epinephrine (EpiPen) 0.03 mL IM DIRECTED etanercept (Enbrel SureClick) 50 mg subcut QWEEK famotidine 40 mg PO BEDTIME fluticasone propionate 50 mcg/actuation (Flonase Allergy Relief) 1 spray intranasal DAILY fluticasone propionate 110 mcg/actuation (Flovent HFA) 1 puff inhalation BID hydroxyzine HCl 25 mg PO Q6H PRN lansoprazole 30 mg PO DAILY 90 days linaclotide (Linzess) 290 mcg PO QAM loratadine 10 mg PO DAILY meloxicam 15 mg PO DAILY metformin ER 500 mg PO QPM methylcellulose (laxative) (Citrucel) 500 mg PO DAILY 30 days polyethylene glycol 3350 (Miralax) 238 grams PO ONCE tamsulosin 0.4 mg PO DAILY HPI HPI Comments History of Present Illness Details 47-year-old male with psoriatic arthritis returns for follow-up. Compliant with Enbrel weekly. States that rash on his left arm has resolved. States that he has been getting an itchy skin rash every few days. It self-resolved. States that his joint pain is overall much better since starting the Enbrel. He is able to be much more active around the house. States that has been having bilateral elbow pain, worse on the right, especially with lifting any objects. Recently has been having bilateral shoulder pain, worse on the left. Initial history: This is a 46-year-old male with a past medical history of anxiety, gout, type 2 diabetes mellitus, degenerative disc disease of his lumbar spine s/p multiple procedures by pain management presents for evaluation of low back pain. Patient was previously evaluated by Dr. Chantelle Geronimo for low back pain. He had MRI of his sacral iliac joints which were negative for sacroiliitis. MRI lumbar spine also showed no signs of spondyloarthropathy. Patient continues to have low back pain, worse in the morning associated with 2 hours of morning stiffness. Pain is also worse with walking improves with sitting down. He states he was diagnosed with gout in 2011. He has pain and swelling of his feet and his hands, he also has intermittent swelling of his ears in lips that he attributes to gout. He has been on allopurinol 300 mg by his PCP. His most recent gout flare was in the summer with swelling of his hands. Denies any history of kidney stones or family history of gout. He states that the last year of high school he had significant psoriasis affecting his legs and his entire body. He was prescribed creams with resolution. Recently he has been having itchy rashes on his ankles, he is being evaluated by an glass blowing lathe operator. He also showed me pictures of rashes involving his face, neck and ears.? He is following up with glass blowing lathe operator Dr. Garcia he was prescribed hydroxyzine and another antihistaminic and he states that those are helping.? States that as a child he spent a lot of time at the hospital for arthritis [facility] Medical History H/O head injury Migraines Scoliosis Anxiety and depression Asthma Chest pain, atypical COVID-19 vaccine series completed Osteoarthritis of left knee Chronic pain syndrome Spondylosis of lumbar region without myelopathy or radiculopathy Osteoarthritis of left knee Sleep apnea Varicose vein of leg Diabetes Gastroparesis Surgical History History of back surgery History of colonoscopy Family History Father No problems noted. Mother History of cancer Social History Household Members: Spouse and Children Housing: House Are you a primary respite care provider to a significant other at home: No Do you presently have visiting nurse or other home services: No Alcohol intake: former Patient Tobacco Use Status: Former Tobacco user Quit Date: 2011 Tobacco use type: Cigarette Cigarettes Per Day: 45 Years Smoked: 10 service: No Current occupational status: unemployed Review of Systems Const All systems reviewed & are unremarkable except as noted in HPI and below Musc Reports arthralgias Skin/Breast Reports rash Neuro Reports no additional complaints Physical Exam Vital Signs: Last Vital Signs Temp 97.5 F 08/07/23 10:17 Pulse 65 08/07/23 10:17 BP 108/62 08/07/23 10:17 Pulse Ox 95 08/07/23 10:17 BMI result Body Mass Index 35.4 Const General: cooperative, healthy appearing, comfortable and no acute distress Nutritional Appearance: obese Orientation/consciousness: patient oriented x3 Limitations: no limitations HEENT Head: Yes normocephalic and Yes atraumatic Resp Effort & Inspection: normal respiratory effort and able to speak in complete sentences Skin Other: Erythematous raised rash on extensor surface of left forearm. Likely eczema Neuro General: patient oriented x3 Extrem Other: Tenderness on palpation of the common extensor tendon on the lateral epicondyle bilaterally Normal range of motion of both shoulders without pain. Negative rotator cuff provocative maneuvers bilaterally Neck pain rotation to the left. Taught tender band on the left trapezius muscle, upon palpation the pain radiates to the left shoulder and head Some osteoarthritic changes of his hands with Heberden's nodes Normal nailfold capillaroscopy Office Procedures Joint Injection/Drain Joint Injection/Drain Details: Left trapezius trigger point Prep: site was prepped using sterile technique and ethochloride spray was applied Injected: other (4 mL of 1% lidocaine) Procedure: The patient tolerated the procedure well Coding Details: The area over the myofascial spasm over the left trapezius muscle was prepped with ChloraPrep utilizing sterile technique. After isolating it between two palpating fingertips a 25-gauge needle was placed in the center of the myofascial tenderness and a negative aspiration was performed. Then 4 cc of 1% lidocaine was injected. The patient tolerated the procedure well without any apparent difficulties or complications. Additional procedure code (CPT) needed (Trigger point injection) Results Reviewed Results Reviewed: [facility] MRI PELVIS WO CONT 06/2019 [id number] SYMPTOMS,HX? INFLAMMATORY BACK PAIN, EVALUATE FOR SACROILITIS EXAMINATION: MR PELVIS WITHOUT CONTRAST CLINICAL INFORMATION: Inflammatory back pain. Evaluate for sacroiliitis. COMPARISON: Previous CT of the abdomen and pelvis May 2010. TECHNIQUE: Sagittal axial and coronal sequences through the pelvis tailored to the sacroiliac joints. FINDINGS: The sacroiliac joints are normal appearing. No evidence of sacroiliitis is seen. There is a disc-space narrowing and small disc herniation L5-S1. There is reactive endplate signal seen at L5-S1. Bone marrow signal is otherwise normal. No fracture, dislocation or bone lesion is seen. The hip joints are unremarkable. Soft tissues of the pelvis are unremarkable. There is a small left inguinal hernia containing fat. Visualized bowel is unremarkable. The bladder and prostate gland are unremarkable. No ascites or adenopathy is seen. IMPRESSION: Normal-appearing sacroiliac joints. Right elbow MRI? 08/2022? Impression Partial tear/peritendinitis of the proximal common extensor tendon no joint effusion or intra-articular synovitis Labs 08/2022 CMP unremarkable except for ALT 50 (0-41) CBC unremarkable except for mild anemia hemoglobin 12.7 (12.7-17.1) CRP 1.6 (<0.5) ESR 41 RF/CCP negative Zohaib normal? Uric acid 3.6 A1c 6.8% SPEP and immunofixation normal T spot negative Hepatitis panel negative Assessment & Plan Assessment & Plan (1) Psoriatic arthritis: Comment: dx 09/2022 SSZ 12/18 partially effective DC 02/17 due to transaminitis Enbrel 02/17 effective Code(s): L40.50 - Arthropathic psoriasis, unspecified Plan: 47-year-old male with psoriatic arthritis returns for follow-up. Symptoms much improved since Enbrel was started. He continues to have some pain however in both elbows. Has a known partial tear of the common extensor tendon on the right. Will refer patient to occupational therapy. Continue Enbrel 50 mg weekly. Can use meloxicam 15 mg once daily as needed for joint pain Infectious screening hepatitis panel and T spot -ve 08/2022 Labs today and before next visit in 3 months (2) Gout: Code(s): M10.9 - Gout, unspecified Qualifiers: Gout site: multiple sites Gout etiology: unspecified cause Chronicity: chronic Qualified Code(s): M1A.09X0 - Idiopathic chronic gout, multiple sites, without tophus (tophi) Plan: Had gout since 2011. He is on allopurinol 300 mg daily by his PCP. Uric acid level is below 6. Continue allopurinol 300 mg daily (3) Trigger point of left shoulder region: Code(s): M25.512 - Pain in left shoulder Plan: Injected in clinic today Advised patient that if he does not improved in a couple of days, he can start taking Flexeril. Advised patient that it can cause dizziness/grogginess and he should not drive or operate heavy machinery he feels any side effects (4) Immunization counseling: Code(s): Z71.85 - Encounter for immunization safety counseling Plan: Discussed ACR vaccination guidelines for adults with autoimmune rheumatic disease. Patient is up-to-date with his new COVID booster and flu vaccine for this season. Plan I spent 36 minutes reviewing patient's chart, evaluating patient, ordering diagnostic workup, counseling patient and documenting in the chart Orders: Orders Complete Blood Count Auto Diff 3 Months L40.50 - Arthropathic psoriasis, unspecified Comprehensive Met. Panel 3 Months L40.50 - Arthropathic psoriasis, unspecified Erythrocyte Sedimentation Rate 3 Months L40.50 - Arthropathic psoriasis, unspecified OT Evaluation and Treatment Today M77.11 - Lateral epicondylitis, right elbow AMB Joint Injection/Aspiration Today M25.512 - Pain in left shoulder C Reactive Protein 3 Months L40.50 - Arthropathic psoriasis, unspecified Medications: New cyclobenzaprine Take 1 tab 3 times a day for 3 days then take 1 tab nightly as needed for muscle spasm 20 tabs 0RF hydrocortisone 1% 1 appl topical BEDTIME PRN 28.35 grams 1RF rash Coding Level of Care Code Est Pt Level 5 (22748) Diagnoses Psoriatic arthritis L40.50 Chronic gout of multiple sites, unspecified cause M1A.09X0 Gout site: multiple sites Gout etiology: unspecified cause Chronicity: chronic Trigger point of left shoulder region M25.512 Immunization counseling Z71.85
== END 2023-08-07 10:45 | disposition home or self-care (01) ==
PROVIDERS: PCP Family Medicine; Visit Provider Student in an Organized Health Care Education/Training Program
DX: L40.50 Arthropathic psoriasis, unspecified (principal); M1A.09X0 Idiopathic chronic gout, multiple sites, without tophus (tophi); M25.512 Pain in left shoulder; Z71.85 Encounter for immunization safety counseling
CPT/HCPCS: 99214

== ENCOUNTER → 2023-08-07 10:12 | Outpatient (BNVA) | payer MEDICAID, SELFPAY | PROVIDERS: PCP Family Medicine; Visit Provider Student in an Organized Health Care Education/Training Program | DX: L40.50 Arthropathic psoriasis, unspecified (principal); M1A.09X0 Idiopathic chronic gout, multiple sites, without tophus (tophi); M25.512 Pain in left shoulder; Z71.85 Encounter for immunization safety counseling | CPT/HCPCS: 99212 ==

== ENCOUNTER 2023-08-12 11:39 | Outpatient (AMB) | payer MEDICAID, SELFPAY ==
--- NOTE | 2023-08-12 11:42 | MHC.OFFVIS ---
Intake Vital Signs 08/12/23 11:44 Height 5 ft 10 in Weight 246 lb 0.574 oz BMI 35.3 BP 114/67 Blood Pressure Location Lt brachial Position Sitting Pulse 77 Intake Visit Reasons: s/p egd/kemal- Oneil Intake Note: Franci presents in follow up of EGD and colonoscopy follow up. CC: Patient c/o acid reflux, nausea, upset stomach, constipation, and abdominal sharp stabbing pain. Denies other GI symptoms today. Patient underwent colonoscopy and EGD on 06/11/[address] Riggs. Circulation Tender Required: No Accompanied by: Self / Same As Patient Allergies Penicillins [PENICILLINS] Allergy (Intermediate, Verified 08/12/23 11:46) HIVES sulfasalazine Adverse Reaction (Intermediate, Verified 08/12/23 11:46) transaminitis HPI s/p egd/johnna Riggs HPI Details LAST VISIT: Chronic idiopathic constipation Continue Linzess, patient can increase Colace to 2 capsule every evening. Patient was encouraged to increase fluid intake and activity to promote better bowel motility. GERD (gastroesophageal reflux disease) Continue lansoprazole. Will send script to [facility] were patient's gets her medication. Patient reports that his 's medication is different and when he tried his 's medication it worked better. Screen for colon cancer Patient will go for colorectal screening, will make appointment today. Family history of colorectal cancer and patient will knee every 5 year screening. Last screening in 2018. Patient denies melena, hematochezia, unintentional weight loss or ribbon like stools. Patient is not on any anticoagulation medication. History of sleep apnea. Discuss at length the importance good bowel prep. Patient will start Dulcolax tablets 7 days before the procedure. He will take 2 of the tablets every night except for the day before procedure he will take them at noon time. Will do split MiraLax prep at 5 and 10. Clear liquid diet explained. Patient is agreeable to plan of care and verbalizes understanding of instructions. He was given the opportunity to ask questions and all questions answered. ? Thank you for allowing me to participate in his care Plan Medications New bisacodyl (Dulcolax (bisacodyl)) Start taking 2 tablet every night 7 days before the procedure and 1 day before procedure take 2 tablets at noon time followed by MiraLax prep 10 mg (2 x 5 mg) PO BEDTIME 14 tabs 0RF Z12.11 - Encounter for screening for malignant neoplasm of colon polyethylene glycol 3350 (Miralax) As directed by gastroenterology department at [facility] 238 grams PO ONCE 238 grams 0RF Z12.11 - Encounter for screening for malignant neoplasm of colon bisacodyl (Dulcolax (bisacodyl)) Start taking 2 tablet every night 7 days before the procedure and 1 day before procedure take 2 tablets at noon time followed by MiraLax prep 10 mg (2 x 5 mg) PO BEDTIME 14 tabs 0RF Z12.11 - Encounter for screening for malignant neoplasm of colon Changed From docusate sodium 100 mg PO BEDTIME 90 caps 3RF K59.00 - Constipation, unspecified To docusate sodium 200 mg (2 x 100 mg) PO BEDTIME 180 caps 3RF K59.00 - Constipation, unspecified Refilled lansoprazole 30 mg PO DAILY 30 caps 3RF K21.9 - Gastro-esophageal reflux disease without esophagitis UPPER ENDOSCOPY AND COLONOSCOPY: Findings: Larynx:normal Esophagus: GE junction at 40 cm, diaphragm hiatus at 40 cm, normal mucosa--bx taken from GEJ, distal and proximal esophagus Stomach: Patchy erythema. Biopsies were obtained. Grade 2 flap valve on retroflexed examination of the cardia. Duodenum: Normal bulb and descending duodenum, bx taken Findings: Terminal Ileum-normal Cecum:normal Ascending Colon: normal Transverse Colon -normal Descending Colon:normal Sigmoid Colon: normal Rectum: Retroflexion with medium sized internal hemorrhoids, grade II Anorectum - normal Colon preparation: [place] Bowel Preparation Scale Right colon; 2 Transverse colon: 2 Left colon; 2 (0 = Unprepared colon segment with mucosa not seen due to solid stool that cannot be cleared. 1 = Portion of mucosa of the colon segment seen, but other areas of the colon segment not well seen due to staining, residual stool and/or opaque liquid. 2 = Minor amount of residual staining, small fragments of stool and/or opaque liquid, but mucosa of colon segment seen well. 3 = Entire mucosa of colon segment seen well with no residual staining, small fragments of stool or opaque liquid) Impression and Post Procedure Diagnosis: Endoscopy Findings: mild gastritis Colonoscopy Findings: internal hemorrhoids Plan: Await Pathology results Repeat Colonoscopy in 5 years due to FH of CRC or earlier if clinically indicated High fiber diet leaflet avoid straining at stool, epsom salts and sitz bath, anusol supps or cream if H pylori pos then treat TODAY'S VISIT: Patient is here today for follow-up and to discuss upper endoscopy and colonoscopy results. Patient denies any ill effects from the prep, anesthesia procedure itself. Patient reports that for the most part he has been doing better. Occasional acid reflux, for the most part suppressed with lansoprazole. Patient is also taking famotidine at bedtime with good effect. Patient reports that for the most part he is avoiding eating late at night. Patient reports that Linzess is helping him and he is able to move his bowels better. Patient reports that he is also taking Colace at bedtime. Patient denies any melena, hematochezia, unintentional weight loss or ribbon like stools. Upper endoscopy and colonoscopy results discussed with patient. Patient reports occasional abdominal bloating sometimes no matter what he eats. Patient reports that bloating sometimes even if he feels like he empties his bowels completely. [facility] Medical History H/O head injury Migraines Scoliosis Anxiety and depression Asthma Chest pain, atypical COVID-19 vaccine series completed Osteoarthritis of left knee Chronic pain syndrome Spondylosis of lumbar region without myelopathy or radiculopathy Osteoarthritis of left knee Sleep apnea Varicose vein of leg Diabetes Gastroparesis Surgical History History of back surgery History of colonoscopy Family History Father No problems noted. Mother History of cancer Household Members: Spouse and Children Housing: House Are you a primary manager critical care to a significant other at home: No Do you presently have visiting nurse or other home services: No Alcohol intake: former Patient Tobacco Use Status: Former Tobacco user Quit Date: 2011 Tobacco use type: Cigarette Cigarettes Per Day: 45 Years Smoked: 10 service: No Current occupational status: unemployed Review of Systems Const Denies weight gain and Denies weight loss ENT Reports no additional complaints, Denies dysphagia and Denies odynophagia Card Reports no additional complaints Resp Reports no additional complaints GI Reports abdominal pain, Denies belching, Denies melena, Reports bloating, Denies change in bowel habits, Reports constipation (Occasional), Denies dysphagia, Denies excessive flatus, Denies dyspepsia, Reports heartburn (Occasional), Denies diarrhea, Denies loose stools, Denies nausea, Denies odynophagia and Denies vomiting Reports no additional complaints Musc Reports no additional complaints Neuro Reports no additional complaints Psych Reports no additional complaints Endo Reports no additional complaints Physical Exam Vital Signs: Last Vital Signs Pulse 77 08/12/23 11:44 BP 114/67 08/12/23 11:44 BMI result Body Mass Index 35.3 Const General: healthy appearing, no acute distress and well developed Nutritional Appearance: well nourished and obese Orientation/consciousness: patient oriented x3 HEENT Head: Yes normal to inspection, Yes normocephalic and Yes atraumatic Face and sinus: Yes normal facial exam Mouth: Normal oral and palatal mucosa present Throat: Yes posterior oropharynx normal, Yes tonsils normal and Yes uvula midline Eyes General: appearance normal, both eyes and all related structures Neck Neck: Yes normal visual inspection, Yes full ROM and Yes trachea midline Thyroid: Thyroid normal Resp Effort & Inspection: normal respiratory effort, able to speak in complete sentences, no tracheal deviation and symmetric chest movement Auscultation: clear to auscultation bilaterally Cardio Rate: regular rate Heart sounds: S1 normal heart sound present and S2 normal heart sound present GI Inspection: Yes normal to inspection, No distended and Yes obesity Palpation (GI): Soft to palpation, not firm, nontender and No hepatosplenomegaly present Auscultation: normal bowel sounds General: Yes no CVA tenderness Back/Spine/Pelvis Back: no CVA tenderness Skin General skin exam: elasticity normal, turgor normal and dry skin Neuro General: patient oriented x3 Psych Appearance: grossly normal Mental Status: mental status grossly normal Affect: normal affect Assessment & Plan Assessment & Plan (1) Chronic idiopathic constipation: Code(s): K59.04 - Chronic idiopathic constipation (2) MONTES DE OCA (nonalcoholic steatohepatitis): Code(s): K75.81 - Nonalcoholic steatohepatitis (MONTES DE OCA) (3) GERD (gastroesophageal reflux disease): Code(s): K21.9 - Gastro-esophageal reflux disease without esophagitis Qualifiers: Esophagitis presence: esophagitis presence not specified Qualified Code(s): K21.9 - Gastro-esophageal reflux disease without esophagitis (4) Gastritis: Code(s): K29.70 - Gastritis, unspecified, without bleeding Qualifiers: Gastritis type: superficial Chronicity: chronic Gastritis bleeding: without bleeding Qualified Code(s): K29.30 - Chronic superficial gastritis without bleeding Plan Patient was diagnosed with gastritis, continue taking lansoprazole in the morning and famotidine at bedtime. Patient was also encouraged to avoid dietary triggers and like back pocket. Colonoscopy showed no polyps. Patient does have a family history of CRC and will return for colorectal screening in 5 years. Patient denies any melena, hematochezia, unintentional weight loss or ribbon like stools. Patient to continue taking Linzess daily. Patient also can take stool softener at bedtime. Patient does report occasional postprandial abdominal bloating. Will give him script for Creon to take with meals. Patient was also encouraged to eat smaller meals and more often. I will see him in 6 months, sooner on as needed basis. Patient is agreeable to this plan and verbalizes understanding of instructions. She was given the opportunity to ask questions and all questions answered. Thank you for allowing me to participate in his care Medications: New aajaay-qbhhaemg-qdqobgh 36,000-114,000- 180,000 unit (Creon) administer with meals and/or snacks 1 cap PO QID 120 caps 3RF K86.89 - Other specified diseases of pancreas Refilled famotidine 40 mg PO BEDTIME 90 tabs 3RF K21.9 - Gastro-esophageal reflux disease without esophagitis docusate sodium 200 mg (2 x 100 mg) PO BEDTIME 180 caps 3RF K59.00 - Constipation, unspecified lansoprazole 30 mg PO DAILY 90 caps 3RF 90 days K21.9 - Gastro-esophageal reflux disease without esophagitis linaclotide (Linzess) 290 mcg PO QAM 90 caps 4RF K59.00 - Constipation, unspecified Discontinued bisacodyl Start taking 2 tablet every night 7 days before the procedure with exception 1 day before procedure take 2 tablets at noon time followed by MiraLax prep Discontinued Reason: Doctor's Order 10 mg (2 x 5 mg) PO BEDTIME 14 tabs 0RF Z12.11 - Encounter for screening for malignant neoplasm of colon Coding Level of Care Code Est Pt Level 4 (15840) Diagnoses Chronic idiopathic constipation K59.04 MONTES DE OCA (nonalcoholic steatohepatitis) K75.81 Gastroesophageal reflux disease, unspecified whether esophagitis present K21.9 Esophagitis presence: esophagitis presence not specified Chronic superficial gastritis without bleeding K29.30 Gastritis type: superficial Chronicity: chronic Gastritis bleeding: without bleeding Time Spent (min) 35 Comment 25 minutes spent with patient and additional 10 minutes spent reviewing his records
[2023-08-12 11:44] VITALS: BP 114/67; PULSE 77; BMI 35.3
== END 2023-08-12 12:29 | disposition home or self-care (01) ==
PROVIDERS: PCP Family Medicine; Visit Provider Nurse Practitioner Family
DX: K59.04 Chronic idiopathic constipation (principal); K75.81 Nonalcoholic steatohepatitis (NASH); K21.9 Gastro-esophageal reflux disease without esophagitis; K29.30 Chronic superficial gastritis without bleeding
CPT/HCPCS: 99214

== ENCOUNTER → 2023-08-12 11:39 | Outpatient (BNVA) | payer MEDICAID, SELFPAY | PROVIDERS: PCP Family Medicine; Visit Provider Nurse Practitioner Family | DX: K29.30 Chronic superficial gastritis without bleeding (principal); K21.9 Gastro-esophageal reflux disease without esophagitis; K75.81 Nonalcoholic steatohepatitis (NASH); K59.04 Chronic idiopathic constipation | CPT/HCPCS: 99212 ==

== ENCOUNTER 2023-08-13 13:41 | Outpatient (RCR) | payer MEDICAID, SELFPAY ==
--- NOTE | 2023-08-13 14:57 | MHC.OT.EP ---
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 White. 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 Upon assessment pt reports shooting pain and numbness when sleeping. He has R shoulder/elbow pain with movement; ROM WFL but decreased gross grasp and pain w/ supervisor lens generating, extension and resisted wrist extension. Signs/symptoms consistent w lateral epicondylitis and possible thoracic outlet syndrome. He would benefit from OT services to address pain, sleep, activity modifications and joint protection techniques. Frequency and Duration: The patient will be seen 2xwk/4wks Short Term Goals: Pain <2 with home activities Ind with HEP Ind with heat/ice for pain mgmnt Biomed Tech Goals: QuickDash score<20 Pain free with home activities Pt reported improved sleep Treatment Plan: Therapeutic Exercise Therapeutic Activity Home Exercise Program Splinting Patient Education Edema Control ADL Training Ultrasound Paraffin Fluidotherapy MHP Cold Packs Joint Mobilization Soft Tissue Mobilization Kinesiotaping Electronically Signed By: Genia Anand OT/s Therapist's Signature: Yanelis Samayoa OTR/L CHT Please Sign and return to therapist. Thank you once again for your referral.
--- NOTE | 2023-09-11 08:36 | MHC.OT.DC ---
[address] [phone] F: [phone] Occupational Therapy Discharge Note Patient Name: Franci Plata Provider: Dr Mnasi White Diagnosis: R Tennis Elbow Date of Evaluation: 08/13/23 Date of Discharge: 09/11/23 Treatments to Date: 1 Cancellations to Date: 7 No Shows to Date: 1 Discharge Status: Patient Elected to Stop Visit Non-compliance Discharge Summary: Franci was referred to OT for right tennis elbow. He was seen for initial OT eval but did not follow up for any further appointments. We will be discharging from services at this time. Electronically Signed By: Genia Anand OT/s Reviewed/agree with student documentation: Yes Therapist: JURGEN Ambriz/L CHT Please Sign and return to therapist, thank you for your referral.
== END 2023-09-11 08:36 | disposition home or self-care (01) ==
LOC: HO.OT 13:41
PROVIDERS: PCP Family Medicine; Visit Provider Student in an Organized Health Care Education/Training Program
DX: M77.11 Lateral epicondylitis, right elbow (principal)
CPT/HCPCS: 97110; 97166

== ENCOUNTER 2023-09-01 09:56 | Outpatient (AMB) | payer MEDICAID, SELFPAY ==
[2023-09-01 09:57] VITALS: BP 116/70; PULSE 72; O2SAT 93; BMI 35.1
--- NOTE | 2023-09-01 09:57 | A.OFFVIS_ITS ---
Intake Vital Signs 09/01/23 09:57 Height 5 ft 10 in Weight 244 lb 14.937 oz BMI 35.1 BP 116/70 Blood Pressure Location Rt brachial Position Sitting Pulse 72 Pulse Source Pulse Oximeter Pulse Oximetry (%) 93 Oxygen Delivery Method Room Air Intake Visit Reasons: Joint Pain Intake Note: Patient present today for increase joint pain. Patient was unable to continue with physical therapy due to pain. Police Magistrate Required: No Accompanied by: Self / Same As Patient Allergies Penicillins [PENICILLINS] Allergy (Intermediate, Verified 09/01/23 10:04) HIVES sulfasalazine Adverse Reaction (Intermediate, Verified 09/01/23 10:04) transaminitis Medication List - Last Reconciled 09/01/23 by Mansi White MD acetaminophen ER 650 mg PO Q8H PRN albuterol sulfate 90 mcg/actuation (ProAir HFA) 2 puffs inhalation Q6H PRN allopurinol 300 mg PO DAILY buprenorphine-naloxone 8-2 mg (Suboxone) 2 film buccal DAILY cetirizine 10 mg PO BEDTIME cyclobenzaprine Take 1 tab 3 times a day for 3 days then take 1 tab nightly as needed for muscle spasm docusate sodium 200 mg (2 x 100 mg) PO BEDTIME epinephrine (EpiPen) 0.03 mL IM DIRECTED etanercept (Enbrel SureClick) 50 mg subcut QWEEK famotidine 40 mg PO BEDTIME fluticasone propionate 50 mcg/actuation (Flonase Allergy Relief) 1 spray intranasal DAILY fluticasone propionate 110 mcg/actuation (Flovent HFA) 1 puff inhalation BID hydrocortisone 1% 1 appl topical BEDTIME PRN hydroxyzine HCl 25 mg PO Q6H PRN lansoprazole 30 mg PO DAILY 90 days linaclotide (Linzess) 290 mcg PO QAM geiunn-eivltecr-vfcvioi 36,000-114,000- 180,000 unit (Creon) 1 cap PO QID loratadine 10 mg PO DAILY meloxicam 15 mg PO DAILY metformin ER 500 mg PO QPM methylcellulose (laxative) (Citrucel) 500 mg PO DAILY 30 days polyethylene glycol 3350 (Miralax) 238 grams PO ONCE tamsulosin 0.4 mg PO DAILY HPI HPI Comments History of Present Illness Details 47-year-old male with psoriatic arthriti s returns for follow-up. Compliant with Enbrel weekly. States that over the last 2 weeks has been having increasing joint pain everywhere especially the elbows, wrists, fingers, knees, ankles. Feels that he gets shooting pain from his tendons and joints. He takes the meloxicam daily. He believes his symptoms are due to the cold weather. Initial history: This is a 46-year-old male with a past medical history of anxiety, gout, type 2 diabetes mellitus, degenerative disc disease of his lumbar spine s/p multiple procedures by pain management presents for evaluation of low back pain. Patient was previously evaluated by Dr. Chantelle Geronimo for low back pain. He had MRI of his sacral iliac joints which were negative for sacroiliitis. MRI lumbar spine also showed no signs of spondyloarthropathy. Patient continues to have low back pain, worse in the morning associated with 2 hours of morning stiffness. Pain is also worse with walking improves with sitting down. He states he was diagnosed with gout in 2011. He has pain and swelling of his feet and his hands, he also has intermittent swelling of his ears in lips that he attributes to gout. He has been on allopurinol 300 mg by his PCP. His most recent gout flare was in the summer with swelling of his hands. Denies any history of kidney stones or family history of gout. He states that the last year of high school he had significant psoriasis affecting his legs and his entire body. He was prescribed creams with resolution. Recently he has been having itchy rashes on his ankles, he is being evaluated by an waiter/waitress informal. He also showed me pictures of rashes involving his face, neck and ears.? He is following up with waiter/waitress informal Dr. Garcia he was prescribed hydroxyzine and another antihistaminic and he states that those are helping.? States that as a child he spent a lot of time at the hospital for arthritis [facility] Medical History H/O head injury Migraines Scoliosis Anxiety and depression Asthma Chest pain, atypical COVID-19 vaccine series completed Osteoarthritis of left knee Chronic pain syndrome Spondylosis of lumbar region without myelopathy or radiculopathy Osteoarthritis of left knee Sleep apnea Varicose vein of leg Diabetes Gastroparesis Surgical History History of back surgery History of colonoscopy Family History Father No problems noted. Mother History of cancer Social History Household Members: Spouse and Children Housing: House Are you a primary inpatient care manager rn to a significant other at home: No Do you presently have visiting nurse or other home services: No Alcohol intake: former Patient Tobacco Use Status: Former Tobacco user Quit Date: 2011 Tobacco use type: Cigarette Cigarettes Per Day: 45 Years Smoked: 10 service: No Current occupational status: unemployed Review of Systems Const All systems reviewed & are unremarkable except as noted in HPI and below Musc Reports arthralgias Neuro Reports no additional complaints Physical Exam Vital Signs: Last Vital Signs Pulse 72 09/01/23 09:57 BP 116/70 09/01/23 09:57 Pulse Ox 93 09/01/23 09:57 Oxygen Delivery Method Room Air 09/01/23 09:57 BMI result Body Mass Index 35.1 Const General: cooperative, healthy appearing, comfortable and no acute distress Nutritional Appearance: obese Orientation/consciousness: patient oriented x3 Limitations: no limitations HEENT Head: Yes normocephalic and Yes atraumatic Resp Effort & Inspection: normal respiratory effort and able to speak in complete sentences Auscultation: clear to auscultation bilaterally Cardio Rate: regular rate Rhythm: regular rhythm Neuro General: patient oriented x3 Extrem Other: Tenderness on palpation of the common extensor tendon on the lateral epicondyles bilaterally Bilateral tender wrists and tenderness along the MCPs bilaterally Bilateral ankle tenderness and few tender MTPs bilaterally Some osteoarthritic changes of his hands with Heberden's nodes Normal nailfold capillaroscopy Results Reviewed Results Reviewed: [facility] MRI PELVIS WO CONT 06/2019 72093 SYMPTOMS,HX? INFLAMMATORY BACK PAIN, EVALUATE FOR SACROILITIS EXAMINATION: MR PELVIS WITHOUT CONTRAST CLINICAL INFORMATION: Inflammatory back pain. Evaluate for sacroiliitis. COMPARISON: Previous CT of the abdomen and pelvis May 2010. K TECHNIQUE: Sagittal axial and coronal sequences through the pelvis tailored to the sacroiliac joints. FINDINGS: The sacroiliac joints are normal appearing. No evidence of sacroiliitis is seen. There is a disc-space narrowing and small disc herniation L5-S1. There is reactive endplate signal seen at L5-S1. Bone marrow signal is otherwise normal. No fracture, dislocation or bone lesion is seen. The hip joints are unremarkable. Soft tissues of the pelvis are unremarkable. There is a small left inguinal hernia containing fat. Visualized bowel is unremarkable. The bladder and prostate gland are unremarkable. No ascites or adenopathy is seen. IMPRESSION: Normal-appearing sacroiliac joints. Right elbow MRI? 08/2022? Impression Partial tear/peritendinitis of the proximal common extensor tendon no joint effusion or intra-articular synovitis Labs 08/2022 CMP unremarkable except for ALT 50 (0-41) CBC unremarkable except for mild anemia hemoglobin 12.7 (12.7-17.1) CRP 1.6 (<0.5) ESR 41 RF/CCP negative Zohaib normal? Uric acid 3.6 A1c 6.8% SPEP and immunofixation normal T spot negative Hepatitis panel negative Assessment & Plan Assessment & Plan (1) Psoriatic arthritis: Comment: dx 09/2022 SSZ 12/18 partially effective DC 02/17 due to transaminitis Enbrel 02/17 effective Code(s): L40.50 - Arthropathic psoriasis, unspecified Plan: 47-year-old male with psoriatic arthritis returns for follow-up. Not doing well for the last 2 weeks with increased generalized joint pain. Patient has multiple tender joints on exam. Continue Enbrel 50 mg weekly. Discontinue meloxicam and start naproxen 500 mg Twice daily Infectious screening hepatitis panel and T spot -ve 08/2022 Labs before next visit in 6 weeks (2) Gout: Code(s): M10.9 - Gout, unspecified Qualifiers: Chronicity: chronic Gout etiology: unspecified cause Gout site: multiple sites Qualified Code(s): M1A.09X0 - Idiopathic chronic gout, multiple sites, without tophus (tophi) Plan: Had gout since 2011. He is on allopurinol 300 mg daily by his PCP. Uric acid level is below 6. Continue allopurinol 300 mg daily Plan I spent 26 minutes reviewing patient's chart, evaluating patient, ordering diagnostic workup, counseling patient and documenting in the chart Orders: Orders Complete Blood Count Auto Diff 6 Weeks L40.50 - Arthropathic psoriasis, unspecified Comprehensive Met. Panel 6 Weeks L40.50 - Arthropathic psoriasis, unspecified C Reactive Protein 6 Weeks L40.50 - Arthropathic psoriasis, unspecified Erythrocyte Sedimentation Rate 6 Weeks L40.50 - Arthropathic psoriasis, unspecified Medications: New naproxen 500 mg PO BID PRN 60 tabs 1RF pain Discontinued meloxicam Discontinued Reason: Doctor's Order 15 mg PO DAILY 30 tabs 2RF L40.50 - Arthropathic psoriasis, unspecified Coding Level of Care Code Est Pt Level 4 (59879) Diagnoses Psoriatic arthritis L40.50 Chronic gout of multiple sites, unspecified cause M1A.09X0 Chronicity: chronic Gout etiology: unspecified cause Gout site: multiple sites
== END 2023-09-01 10:18 | disposition home or self-care (01) ==
LOC: HO.RHE 09:56
PROVIDERS: PCP Family Medicine; Visit Provider Student in an Organized Health Care Education/Training Program
DX: L40.50 Arthropathic psoriasis, unspecified (principal); M1A.09X0 Idiopathic chronic gout, multiple sites, without tophus (tophi)
CPT/HCPCS: 99214

== ENCOUNTER → 2023-09-01 09:56 | Outpatient (BNVA) | payer MEDICAID, SELFPAY | PROVIDERS: PCP Family Medicine; Visit Provider Student in an Organized Health Care Education/Training Program | DX: L40.50 Arthropathic psoriasis, unspecified (principal); M1A.09X0 Idiopathic chronic gout, multiple sites, without tophus (tophi) | CPT/HCPCS: 99212 ==

== ENCOUNTER 2023-10-09 15:26 | Outpatient (REF) | payer MEDICAID, SELFPAY ==
[2023-10-09 15:38] LABS: MANUAL DIFF FLAG NO
[2023-10-09 15:57] LABS: Basophils Absolute Auto 0.1 X10*3/uL (0.0-0.2); Eosinophils Absolute Auto 0.3 X10*3/uL (0.0-0.4); Eosinophils Percent Auto 3.7 % (0-4); Hematocrit 39.6 % (42.0-52.0); Hemoglobin 12.9 g/dl (14.0-18.0); Imm Gran Abs Auto 0.02 X10*3/uL (0.00-0.03); Imm Gran Pct Auto 0.3 % (0.0-0.4); Lymphocytes Absolute Auto 1.7 X10*3/uL (1.2-4.9); Lymphocytes Percent Auto 25.2 % (20-40); Mean Corpuscular HGB Conc 32.6 g/dl (31.0-36.0); Mean Corpuscular Hemoglobin 28.7 pg (27.0-33.0); Mean Corpuscular Volume 88.2 fL (80.0-98.0); Mean Platelet Volume 11.2 fL (9.4-12.4); Monocytes Absolute Auto 0.5 X10*3/uL (0.1-1.2); Monocytes Percent Auto 7.8 % (2-11); Neutrophils Absolute Auto 4.2 x10*3/uL (2.0-8.3); Platelet Count 248 X10*3/uL (160-400); Red Blood Count 4.49 X10*6/uL (4.60-5.80); Red Cell Distribution Width 12.6 % (11.0-16.0); White Blood Count 6.7 X10*3/uL (4.8-10.8)
[2023-10-09 16:36] LABS: Erythrocyte Sedimentation Rate 12 MM/HR (0-15)
[2023-10-09 18:09] LABS: Alanine Aminotransferase 35 U/L (0-40); Albumin Level 4.4 g/dL (3.5-5.0); Alkaline Phosphatase 117 U/L (39-117); Anion Gap 11 (12-20); Aspartate Amino Transferase 26 U/L (5-37); Bilirubin Total 0.3 mg/dL (0.0-1.0); Blood Urea Nitrogen 18 mg/dL (9-16); C Reactive Protein 1.04 mg/dL (< or = 0.50); Calcium 9.6 mg/dL (8.4-10.2); Carbon Dioxide 29 mmol/L (22-29); Chloride 105 mmol/L (96-108); Estimated Glomerular Filt Rate > 60; Glucose Random 129 mg/dL (60-115); Potassium 3.6 mmol/L (3.3-5.1); Sodium 141 mmol/L (135-145); Total Protein 7.5 g/dL (6.5-8.0)
== END 2023-10-09 15:27 | disposition home or self-care (01) ==
LOC: HO.LAB 15:26
PROVIDERS: PCP Family Medicine; Visit Provider Student in an Organized Health Care Education/Training Program
DX: L40.50 Arthropathic psoriasis, unspecified (principal)
CPT/HCPCS: 36415; 80053; 85025; 85652; 86140

== ENCOUNTER 2023-11-25 12:58 | Outpatient (AMB) | payer MEDICAID, SELFPAY ==
--- NOTE | 2023-11-25 12:56 | A.OFFVIS_ITS ---
Intake Vital Signs 11/25/23 12:58 Height 5 ft 10 in Weight 246 lb 7.629 oz BMI 35.4 BP 124/76 Blood Pressure Location Rt brachial Position Sitting Pulse 77 Pulse Source Pulse Oximeter Temp Source Skin Pulse Oximetry (%) 97 Oxygen Delivery Method Room Air Intake Visit Reasons: PsA Intake Note: Pt last seen 09/01/23 presents today for follow up and test results. Feels better, states the medication seems to be working. Deoiling Machine Operator Required: No Accompanied by: Self / Same As Patient Allergies Penicillins [PENICILLINS] Allergy (Intermediate, Verified 11/25/23 13:02) HIVES sulfasalazine Adverse Reaction (Intermediate, Verified 11/25/23 13:02) transaminitis Medication List - Last Reconciled 11/25/23 by Mansi White MD acetaminophen ER 650 mg PO Q8H PRN albuterol sulfate 90 mcg/actuation (ProAir HFA) 2 puffs inhalation Q6H PRN allopurinol 300 mg PO DAILY buprenorphine-naloxone 8-2 mg (Suboxone) 2 film buccal DAILY cetirizine 10 mg PO BEDTIME cyclobenzaprine Take 1 tab 3 times a day for 3 days then take 1 tab nightly as needed for muscle spasm docusate sodium 200 mg (2 x 100 mg) PO BEDTIME epinephrine (EpiPen) 0.03 mL IM DIRECTED etanercept (Enbrel SureClick) 50 mg subcut QWEEK famotidine 40 mg PO BEDTIME fluticasone propionate 50 mcg/actuation (Flonase Allergy Relief) 1 spray intranasal DAILY fluticasone propionate 110 mcg/actuation (Flovent HFA) 1 puff inhalation BID hydrocortisone 1% 1 appl topical BEDTIME PRN hydroxyzine HCl 25 mg PO Q6H PRN lansoprazole 30 mg PO DAILY 90 days linaclotide (Linzess) 290 mcg PO QAM [id number] 36,000-114,000- 180,000 unit (Creon) 1 cap PO QID loratadine 10 mg PO DAILY metformin ER 500 mg PO QPM methylcellulose (laxative) (Citrucel) 500 mg PO DAILY 30 days naproxen 500 mg PO BID PRN polyethylene glycol 3350 (Miralax) 238 grams PO ONCE tamsulosin 0.4 mg PO DAILY HPI HPI Comments History of Present Illness Details 48-year-old male with psoriatic arthriti s returns for follow-up. Compliant with Enbrel weekly. Patient started naproxen 500 mg Twice daily last visit and states that it is helping significantly. He continues to have aches and pains but much less than before. Able to do much more around the house. States that last he started having gout flare-ups alternating between both feet. He had significant swelling of both his feet. It resolved in about 2 days. He can not think of any triggering factors such as alcohol consumption. He is compliant with allopurinol 300 mg daily Initial history: This is a 46-year-old male with a past medical history of anxiety, gout, type 2 diabetes mellitus, degenerative disc disease of his lumbar spine s/p multiple procedures by pain management presents for evaluation of low back pain. Patient was previously evaluated by Dr. Chantelle Geronimo for low back pain. He had MRI of his sacral iliac joints which were negative for sacroiliitis. MRI lumbar spine also showed no signs of spondyloarthropathy. Patient continues to have low back pain, worse in the morning associated with 2 hours of morning stiffness. Pain is also worse with walking improves with sitting down. He states he was diagnosed with gout in 2012. He has pain and swelling of his feet and his hands, he also has intermittent swelling of his ears in lips that he attributes to gout. He has been on allopurinol 300 mg by his PCP. His most recent gout flare was in the summer with swelling of his hands. Denies any history of kidney stones or family history of gout. He states that the last year of high school he had significant psoriasis affecting his legs and his entire body. He was prescribed creams with resolution. Recently he has been having itchy rashes on his ankles, he is being evaluated by an technician terminal and repeater. He also showed me pictures of rashes involving his face, neck and ears.? He is following up with technician terminal and repeater Dr. Garica he was prescribed hydroxyzine and another antihistaminic and he states that those are helping.? States that as a child he spent a lot of time at the hospital for arthritis [facility] Medical History H/O head injury Migraines Scoliosis Anxiety and depression Asthma Chest pain, atypical COVID-19 vaccine series completed Osteoarthritis of left knee Chronic pain syndrome Spondylosis of lumbar region without myelopathy or radiculopathy Osteoarthritis of left knee Sleep apnea Varicose vein of leg Diabetes Gastroparesis Surgical History History of back surgery History of colonoscopy Family History Father No problems noted. Mother History of cancer Social History Household Members: Spouse and Children Housing: House Are you a primary director of home care hospice to a significant other at home: No Do you presently have visiting nurse or other home services: No Alcohol intake: former Patient Tobacco Use Status: Former Tobacco user Quit Date: 2011 Tobacco use type: Cigarette Cigarettes Per Day: 45 Years Smoked: 10 service: No Current occupational status: unemployed Review of Systems Const All systems reviewed & are unremarkable except as noted in HPI and below Musc Reports arthralgias Neuro Reports no additional complaints Physical Exam Vital Signs: Last Vital Signs Pulse 77 11/25/23 12:58 BP 124/76 11/25/23 12:58 Pulse Ox 97 11/25/23 12:58 Oxygen Delivery Method Room Air 11/25/23 12:58 BMI result Body Mass Index 35.4 Const General: cooperative, healthy appearing, comfortable and no acute distress Nutritional Appearance: obese Orientation/consciousness: patient oriented x3 Limitations: no limitations HEENT Head: Yes normocephalic and Yes atraumatic Resp Effort & Inspection: normal respiratory effort and able to speak in complete sentences Auscultation: clear to auscultation bilaterally Cardio Rate: regular rate Rhythm: regular rhythm Neuro General: patient oriented x3 Extrem Other: No tender joints today Some osteoarthritic changes of his hands with Heberden's nodes Normal nailfold capillaroscopy Results Reviewed Results Reviewed: MAGNETIC RESONANCE IMAGING MRI PELVIS WO CONT 06/2019 [id number] SYMPTOMS,HX? INFLAMMATORY BACK PAIN, EVALUATE FOR SACROILITIS EXAMINATION: MR PELVIS WITHOUT CONTRAST CLINICAL INFORMATION: Inflammatory back pain. Evaluate for sacroiliitis. COMPARISON: Previous CT of the abdomen and pelvis May 2010. TECHNIQUE: Sagittal axial and coronal sequences through the pelvis tailored to the sacroiliac joints. FINDINGS: The sacroiliac joints are normal appearing. No evidence of sacroiliitis is seen. There is a disc-space narrowing and small disc herniation L5-S1. There is reactive endplate signal seen at L5-S1. Bone marrow signal is otherwise normal. No fracture, dislocation or bone lesion is seen. The hip joints are unremarkable. Soft tissues of the pelvis are unremarkable. There is a small left inguinal hernia containing fat. Visualized bowel is unremarkable. The bladder and prostate gland are unremarkable. No ascites or adenopathy is seen. IMPRESSION: Normal-appearing sacroiliac joints. Right elbow MRI? 08/2022? Impression Partial tear/peritendinitis of the proximal common extensor tendon no joint effusion or intra-articular synovitis Labs 08/2022 CMP unremarkable except for ALT 50 (0-41) CBC unremarkable except for mild anemia hemoglobin 12.7 (12.7-17.1) CRP 1.6 (<0.5) ESR 41 RF/CCP negative Zohaib normal? Uric acid 3.6 A1c 6.8% SPEP and immunofixation normal T spot negative Hepatitis panel negative Assessment & Plan Assessment & Plan (1) Psoriatic arthritis: Comment: dx 09/2022 SSZ 12/18 partially effective DC 02/17 due to transaminitis Enbrel 02/17 effective Code(s): L40.50 - Arthropathic psoriasis, unspecified Plan: 48-year-old male with psoriatic arthritis returns for follow-up. On Enbrel 50 mg weekly. Doing better since naproxen 500 mg Twice daily was added last visit. Advised patient to take naproxen 500 mg daily as a standing dose and take another tablet only as needed Continue Enbrel 50 mg weekly Infectious screening hepatitis panel and T spot -ve 11/2022 Labs before next visit in 10 weeks (2) Gout: Code(s): M10.9 - Gout, unspecified Qualifiers: Gout site: multiple sites Gout etiology: unspecified cause Chronicity: chronic Qualified Code(s): M1A.09X0 - Idiopathic chronic gout, multiple sites, without tophus (tophi) Plan: Had gout since 2011. He is on allopurinol 300 mg daily by his PCP. Has not had any gout flare-ups in a long time. Mentioned an episode of gout flare-up affecting both feet this past weekend that self-resolved. Advised patient to take pictures whenever he has such attacks. Call the office if the pain is unbearable. Continue with allopurinol 200 mg daily. Will check uric acid level before next visit Plan I spent 26 minutes reviewing patient's chart, evaluating patient, ordering diagnostic workup, counseling patient and documenting in the chart Orders: Orders Erythrocyte Sedimentation Rate 10 Weeks L40.50 - Arthropathic psoriasis, unspecified Uric Acid 10 Weeks M10.9 - Gout, unspecified Complete Blood Count Auto Diff 10 Weeks L40.50 - Arthropathic psoriasis, unspecified Comprehensive Met. Panel 10 Weeks L40.50 - Arthropathic psoriasis, unspecified C Reactive Protein 10 Weeks L40.50 - Arthropathic psoriasis, unspecified Medications: Refilled naproxen 500 mg PO BID PRN 135 tabs 0RF pain Coding Level of Care Code Est Pt Level 4 (73912) Diagnoses Psoriatic arthritis L40.50 Chronic gout of multiple sites, unspecified cause M1A.09X0 Gout site: multiple sites Gout etiology: unspecified cause Chronicity: chronic
[2023-11-25 12:58] VITALS: BP 124/76; PULSE 77; O2SAT 97; BMI 35.4
== END 2023-11-25 13:10 | disposition home or self-care (01) ==
LOC: HO.RHE 12:58
PROVIDERS: PCP Family Medicine; Visit Provider Student in an Organized Health Care Education/Training Program
DX: L40.50 Arthropathic psoriasis, unspecified (principal); M1A.09X0 Idiopathic chronic gout, multiple sites, without tophus (tophi)
CPT/HCPCS: 99214

== ENCOUNTER → 2023-11-25 12:58 | Outpatient (BNVA) | payer MEDICAID, SELFPAY | PROVIDERS: PCP Family Medicine; Visit Provider Student in an Organized Health Care Education/Training Program | DX: L40.50 Arthropathic psoriasis, unspecified (principal); M1A.09X0 Idiopathic chronic gout, multiple sites, without tophus (tophi) | CPT/HCPCS: 99212 ==

== ENCOUNTER 2024-01-19 14:32 | Outpatient (REF) | payer MEDICAID, SELFPAY ==
--- NOTE | ~2024-01-19 | US_ITS ---
EXAMINATION: US VENOUS ULTRASOUND WITH DOPPLER LOWER EXTREMITY, LEFT CLINICAL INFORMATION: An with question of superficial thrombophlebitis COMPARISON: None available. TECHNIQUE: Ultrasound of the deep veins is performed from the hip to the calf with compression sonography and color and pulse Doppler assessment. Spectral analysis with color-flow imaging is performed. FINDINGS: There is normal venous compression and respiratory variation and augmented flow. The visualized common femoral vein, superficial femoral vein, profunda femoral vein, popliteal vein, and the trifurcation region shows no evidence of deep venous thrombosis. There is no significant popliteal fossa cyst. There are distal thigh varicosities seen which are compressible and not thrombosed. If the patient's symptoms persist, followup ultrasound in 5 days 7 days might be of value to exclude proximal propagation from a non-visualized calf vein. US/US venous duplex LE IMPRESSION: No DVT demonstrated in the left lower extremity.
== END 2024-01-19 14:33 | disposition home or self-care (01) ==
LOC: HO.US 14:32
PROVIDERS: Visit Provider Internal Medicine
DX: I83.90 Asymptomatic varicose veins of unspecified lower extremity (principal); R52 Pain, unspecified
CPT/HCPCS: 93971

== ENCOUNTER 2024-02-05 14:58 | Outpatient (REF) | payer MEDICAID, SELFPAY ==
[2024-02-05 15:11] LABS: MANUAL DIFF FLAG NO
[2024-02-05 15:46] LABS: Basophils Absolute Auto 0.1 X10*3/uL (0.0-0.2); Basophils Percent Auto 1.2 % (0-2); Eosinophils Absolute Auto 0.2 X10*3/uL (0.0-0.4); Eosinophils Percent Auto 3.7 % (0-4); Hematocrit 36.7 % (42.0-52.0); Hemoglobin 12.2 g/dl (14.0-18.0); Imm Gran Abs Auto 0.01 X10*3/uL (0.00-0.03); Imm Gran Pct Auto 0.2 % (0.0-0.4); Lymphocytes Absolute Auto 2.5 X10*3/uL (1.2-4.9); Lymphocytes Percent Auto 48.1 % (20-40); Mean Corpuscular HGB Conc 33.2 g/dl (31.0-36.0); Mean Corpuscular Volume 87.2 fL (80.0-98.0); Mean Platelet Volume 10.9 fL (9.4-12.4); Monocytes Absolute Auto 0.5 X10*3/uL (0.1-1.2); Monocytes Percent Auto 9.5 % (2-11); Neutrophils Absolute Auto 1.9 x10*3/uL (2.0-8.3); Neutrophils Percent Auto 37.3 % (45-73); Platelet Count 248 X10*3/uL (160-400); Red Blood Count 4.21 X10*6/uL (4.60-5.80); Red Cell Distribution Width 12.8 % (11.0-16.0); White Blood Count 5.2 X10*3/uL (4.8-10.8)
[2024-02-05 16:19] LABS: Alanine Aminotransferase 52 U/L (0-40); Albumin Level 4.3 g/dL (3.5-5.0); Alkaline Phosphatase 98 U/L (39-117); Anion Gap 14 (12-20); Aspartate Amino Transferase 35 U/L (5-37); Bilirubin Total 0.4 mg/dL (0.0-1.0); Blood Urea Nitrogen 16 mg/dL (9-16); C Reactive Protein 0.82 mg/dL (< or = 0.50); Calcium 9.4 mg/dL (8.4-10.2); Carbon Dioxide 26 mmol/L (22-29); Chloride 103 mmol/L (96-108); Estimated Glomerular Filt Rate > 60; Glucose Random 106 mg/dL (60-115); Potassium 4.3 mmol/L (3.3-5.1); Sodium 139 mmol/L (135-145); Total Protein 7.7 g/dL (6.5-8.0); Uric Acid 2.9 mg/dL (3.4-7.0)
[2024-02-05 16:33] LABS: Erythrocyte Sedimentation Rate 16 MM/HR (0-15)
== END 2024-02-05 14:59 | disposition home or self-care (01) ==
LOC: HO.LAB 14:58
PROVIDERS: PCP Family Medicine; Visit Provider Student in an Organized Health Care Education/Training Program
DX: L40.50 Arthropathic psoriasis, unspecified (principal); M10.9 Gout, unspecified
CPT/HCPCS: 36415; 80053; 84550; 85025; 85652; 86140

== ENCOUNTER 2024-02-10 13:44 | Outpatient (AMB) | payer MEDICAID, SELFPAY ==
--- NOTE | 2024-02-10 13:54 | MHC.OFFVIS ---
Vital Signs 02/10/24 14:00 Height 5 ft 10 in Weight 245 lb 5.992 oz BMI 35.2 BP 120/64 Blood Pressure Location Rt brachial Position Sitting Pulse 95 Pulse Source Pulse Oximeter Pulse Oximetry (%) 96 Oxygen Delivery Method Room Air Intake Visit Reasons: PsA Intake Note: Patient last seen 11/25/23 presents today for follow up and test results. Reports flare up in bl feet Beef Ribber Required: No Accompanied by: Self / Same As Patient Allergies Penicillins [PENICILLINS] Allergy (Intermediate, Verified 02/10/24 14:01) HIVES sulfasalazine Adverse Reaction (Intermediate, Verified 02/10/24 14:01) transaminitis Medication List - Last Reconciled 02/10/24 by Mansi White MD acetaminophen ER 650 mg PO Q8H PRN albuterol sulfate 90 mcg/actuation (ProAir HFA) 2 puffs inhalation Q6H PRN allopurinol 300 mg PO DAILY buprenorphine-naloxone 8-2 mg (Suboxone) 2 film buccal DAILY cetirizine 10 mg PO BEDTIME cyclobenzaprine Take 1 tab 3 times a day for 3 days then take 1 tab nightly as needed for muscle spasm docusate sodium 200 mg (2 x 100 mg) PO BEDTIME epinephrine (EpiPen) 0.03 mL IM DIRECTED etanercept (Enbrel SureClick) 50 mg subcut QWEEK famotidine 40 mg PO BEDTIME fluticasone propionate 50 mcg/actuation (Flonase Allergy Relief) 1 spray intranasal DAILY fluticasone propionate 110 mcg/actuation (Flovent HFA) 1 puff inhalation BID hydrocortisone 1% 1 appl topical BEDTIME PRN hydroxyzine HCl 25 mg PO Q6H PRN lansoprazole 30 mg PO DAILY 90 days linaclotide (Linzess) 290 mcg PO QAM [id number] 36,000-114,000- 180,000 unit (Creon) 1 cap PO QID loratadine 10 mg PO DAILY metformin ER 500 mg PO QPM methylcellulose (laxative) (Citrucel) 500 mg PO DAILY 30 days naproxen 500 mg PO BID PRN polyethylene glycol 3350 (Miralax) 238 grams PO ONCE tamsulosin 0.4 mg PO DAILY HPI Comments Details: 48-year-old male with psoriatic arthritis returns for follow-up. Compliant with Enbrel weekly. On naproxen 500 mg Twice daily. States that doing much better overall since Enbrel was started. He is able to do more around the house. States that he had short-lived pain and swelling of both feet that rapidly resolved in 1 day. He said he has been getting intermittent rashes on the back of his scalp and on his right rivas posteriorly. He applies topical [id number]-osk-[id number] cortisone cream with very slow improvement. Initial history: This is a 46-year-old male with a past medical history of anxiety, gout, type 2 diabetes mellitus, degenerative disc disease of his lumbar spine s/p multiple procedures by pain management presents for evaluation of low back pain. Patient was previously evaluated by Dr. Chantelle Geronimo for low back pain. He had MRI of his sacral iliac joints which were negative for sacroiliitis. MRI lumbar spine also showed no signs of spondyloarthropathy. Patient continues to have low back pain, worse in the morning associated with 2 hours of morning stiffness. Pain is also worse with walking improves with sitting down. He states he was diagnosed with gout in 2011. He has pain and swelling of his feet and his hands, he also has intermittent swelling of his ears in lips that he attributes to gout. He has been on allopurinol 300 mg by his PCP. His most recent gout flare was in the summer with swelling of his hands. Denies any history of kidney stones or family history of gout. He states that the last year of high school he had significant psoriasis affecting his legs and his entire body. He was prescribed creams with resolution. Recently he has been having itchy rashes on his ankles, he is being evaluated by an electrical repairer. He also showed me pictures of rashes involving his face, neck and ears.? He is following up with electrical repairer Dr. Garcia he was prescribed hydroxyzine and another antihistaminic and he states that those are helping.? States that as a child he spent a lot of time at the hospital for arthritis [facility] Medical History H/O head injury Migraines Scoliosis Anxiety and depression Asthma Chest pain, atypical COVID-19 vaccine series completed Osteoarthritis of left knee Chronic pain syndrome Spondylosis of lumbar region without myelopathy or radiculopathy Osteoarthritis of left knee Sleep apnea Varicose vein of leg Diabetes Gastroparesis Surgical History History of back surgery History of colonoscopy Family History Father No problems noted. Mother History of cancer Social History Household Members: Spouse and Children Housing: House Are you a primary palliative care coordinator to a significant other at home: No Do you presently have visiting nurse or other home services: No Alcohol intake: former Patient Tobacco Use Status: Former Tobacco user Quit Date: 2011 Tobacco use type: Cigarette Cigarettes Per Day: 45 Years Smoked: 10 service: No Current occupational status: unemployed Review of Systems Const All systems reviewed & are unremarkable except as noted in HPI and below Musc Reports arthralgias Skin/Breast Reports pruritus and Reports rash Neuro Reports no additional complaints Physical Exam Vital Signs: Last Vital Signs Pulse 95 02/10/24 14:00 BP 120/64 02/10/24 14:00 Pulse Ox 96 02/10/24 14:00 Oxygen Delivery Method Room Air 02/10/24 14:00 BMI result Body Mass Index 35.2 Const General: cooperative, healthy appearing, comfortable and no acute distress Nutritional Appearance: obese Orientation/consciousness: patient oriented x3 Limitations: no limitations HEENT Head: Yes normocephalic and Yes atraumatic Resp Effort & Inspection: normal respiratory effort and able to speak in complete sentences Auscultation: clear to auscultation bilaterally Cardio Rate: regular rate Rhythm: regular rhythm Skin Other: Rashes that patient has been complaining of have almost resolved Neuro General: patient oriented x3 Extrem Other: No active synovitis today Some osteoarthritic changes of his hands with Heberden's nodes Normal nailfold capillaroscopy Results Reviewed Results Reviewed: MAGNETIC RESONANCE IMAGING MRI PELVIS WO CONT 06/2019 [id number] SYMPTOMS,HX? INFLAMMATORY BACK PAIN, EVALUATE FOR SACROILITIS EXAMINATION: MR PELVIS WITHOUT CONTRAST CLINICAL INFORMATION: Inflammatory back pain. Evaluate for sacroiliitis. COMPARISON: Previous CT of the abdomen and pelvis May 2010. TECHNIQUE: Sagittal axial and coronal sequences through the pelvis tailored to the sacroiliac joints. FINDINGS: The sacroiliac joints are normal appearing. No evidence of sacroiliitis is seen. There is a disc-space narrowing and small disc herniation L5-S1. There is reactive endplate signal seen at L5-S1. Bone marrow signal is otherwise normal. No fracture, dislocation or bone lesion is seen. The hip joints are unremarkable. Soft tissues of the pelvis are unremarkable. There is a small left inguinal hernia containing fat. Visualized bowel is unremarkable. The bladder and prostate gland are unremarkable. No ascites or adenopathy is seen. IMPRESSION: Normal-appearing sacroiliac joints. Right elbow MRI? 08/2022? Impression Partial tear/peritendinitis of the proximal common extensor tendon no joint effusion or intra-articular synovitis Labs 08/2022 CMP unremarkable except for ALT 50 (0-41) CBC unremarkable except for mild anemia hemoglobin 12.7 (12.7-17.1) CRP 1.6 (<0.5) ESR 41 RF/CCP negative Zohaib normal? Uric acid 3.6 A1c 6.8% SPEP and immunofixation normal T spot negative Hepatitis panel negative Assessment & Plan Assessment & Plan (1) Psoriatic arthritis: Comment: dx 09/2022 SSZ 12/18 partially effective DC 02/17 due to transaminitis Enbrel 02/17 effective Code(s): L40.50 - Arthropathic psoriasis, unspecified Category: Medical Plan: 48-year-old male with psoriatic arthritis returns for follow-up. On Enbrel 50 mg weekly and naproxen 500 mg Twice daily. Doing well overall. Advised patient to take naproxen 500 mg daily as a standing dose and take another tablet only as needed Continue Enbrel 50 mg weekly Infectious screening hepatitis panel and T spot -ve 11/2022 Labs before next visit in 3 months (2) Gout: Code(s): M10.9 - Gout, unspecified Category: Medical Qualifiers: Gout site: multiple sites Gout etiology: unspecified cause Chronicity: chronic Qualified Code(s): M1A.09X0 - Idiopathic chronic gout, multiple sites, without tophus (tophi) Plan: Had gout since 2011. He is on allopurinol 300 mg daily by his PCP. Has not had any gout flare-ups in a long time. Continue with allopurinol 300 mg daily. His uric acid level is 2.9. (3) Psoriasis: Code(s): L40.9 - Psoriasis, unspecified Category: Medical Plan: Patient stated that he was diagnosed with psoriasis since he was a child. Over the last few months he has been having worsening psoriasis especially in the back of his scalp and rivas. He uses [id number] topical steroid cream with slow improvement. I prescribed him triamcinolone cream. This patient not to use it on face, axilla, groin If rashes continue to get worse, can consider switching him to Taltz or Humira Plan I spent 26 minutes reviewing patient's chart, evaluating patient, ordering diagnostic workup, counseling patient and documenting in the chart Orders: Orders C Reactive Protein 3 Months L40.50 - Arthropathic psoriasis, unspecified Erythrocyte Sedimentation Rate 3 Months L40.50 - Arthropathic psoriasis, unspecified Complete Blood Count Auto Diff 3 Months L40.50 - Arthropathic psoriasis, unspecified Comprehensive Met. Panel 3 Months L40.50 - Arthropathic psoriasis, unspecified Medications: New triamcinolone acetonide 0.1% Do not apply on face, axilla, groin 1 appl topical BID 15 grams 1RF Refilled naproxen 500 mg PO BID PRN 180 tabs 0RF pain Discontinued hydrocortisone 1% Discontinued Reason: Doctor's Order 1 appl topical BEDTIME PRN 28.35 grams 1RF rash Coding Level of Care Code Est Pt Level 4 (57240) Diagnoses Psoriatic arthritis L40.50 Chronic gout of multiple sites, unspecified cause M1A.09X0 Gout site: multiple sites Gout etiology: unspecified cause Chronicity: chronic Psoriasis L40.9
[2024-02-10 14:00] VITALS: BP 120/64; PULSE 95; O2SAT 96; BMI 35.2
== END 2024-02-10 14:13 | disposition home or self-care (01) ==
PROVIDERS: PCP Family Medicine; Referring Provider Family Medicine; Visit Provider Student in an Organized Health Care Education/Training Program
DX: L40.50 Arthropathic psoriasis, unspecified (principal); M1A.09X0 Idiopathic chronic gout, multiple sites, without tophus (tophi); L40.9 Psoriasis, unspecified
CPT/HCPCS: 99214

== ENCOUNTER → 2024-02-10 13:44 | Outpatient (BNVA) | payer MEDICAID, SELFPAY | PROVIDERS: PCP Family Medicine; Visit Provider Student in an Organized Health Care Education/Training Program | DX: L40.50 Arthropathic psoriasis, unspecified (principal); L40.9 Psoriasis, unspecified; M1A.09X0 Idiopathic chronic gout, multiple sites, without tophus (tophi) | CPT/HCPCS: 99212 ==

== ENCOUNTER 2024-02-12 11:44 | Outpatient (AMB) | payer MEDICAID, SELFPAY ==
--- NOTE | 2024-02-12 11:48 | MHC.OFFVIS ---
Vital Signs 02/12/24 11:51 Height 5 ft 10 in Weight 243 lb BMI 34.9 BP 120/64 Blood Pressure Location Lt brachial Position Sitting Pulse 70 Intake Visit Reasons: 6 month follow up GERD, IBS, constipation Intake Note: Patient 6 month follow up for GERD, IBS, Constipation. Patient cc: abdominal pain with bloating and air, chronic painful constipation on and off, acid reflex with burning sensation. 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 Patient was also encouraged to avoid dietary triggers and like back pocket. Colonoscopy showed no polyps. Patient does have a family history of CRC and will return for colorectal screening in 5 years. Patient denies any melena, hematochezia, unintentional weight loss or ribbon like stools. Patient to continue taking Linzess daily. Patient also can take stool softener at bedtime. Patient does report occasional postprandial abdominal bloating. Will give him script for Creon to take with meals. Patient was also encouraged to eat smaller meals and more often. I will see him in 6 months, sooner on as needed basis. Patient is agreeable to this plan and verbalizes understanding of instructions. She was given the opportunity to ask questions and all questions answered. ? Thank you for allowing me to participate in his care Medications New [id number]-[id number]-[id number] 36,000-114,000- 180,000 unit (Creon) administer with meals and/or snacks 1 cap PO QID 120 caps 3RF K86.89 Refilled famotidine 40 mg PO BEDTIME 90 tabs 3RF K21.9 docusate sodium 200 mg (2 x 100 mg) PO BEDTIME 180 caps 3RF K59.00 lansoprazole 30 mg PO DAILY 90 caps 3RF 90 days K21.9 linaclotide (Linzess) 290 mcg PO QAM 90 caps 4RF K59.00 Discontinued bisacodyl Start taking 2 tablet every night 7 days before the procedure with exception 1 day before procedure take 2 tablets at noon time followed by MiraLax prep Discontinued Reason: Doctor's Order 10 mg (2 x 5 mg) PO BEDTIME 14 tabs 0RF Z12.11 TODAY'S VISIT: Patient is here today for follow-up. Patient reports that he has good days and bad days. when he is able to have a bowel movement without any trouble after taking Linzess and then when he will feel very constipated and bloated. Patient will experience cramping in the left lower quadrant at that time. Takes Colace in the evening and it has not helping. Patient states that he drinks plenty fluids. Patient is frustrated and wants to get off Suboxone or at least decrease it because he has a feeling that his bowels are like this because of it. Patient denies any melena, hematochezia, unintentional weight loss or ribbon like stools. States that his acid reflux is controlled with lansoprazole in the morning and famotidine at bedtime. Patient denies any nausea or vomiting. Denies any dyspepsia, dysphagia or odynophagia. Patient is trying to eat healthy [facility] Medical History H/O head injury Migraines Scoliosis Anxiety and depression Asthma Chest pain, atypical COVID-19 vaccine series completed Osteoarthritis of left knee Chronic pain syndrome Spondylosis of lumbar region without myelopathy or radiculopathy Osteoarthritis of left knee Sleep apnea Varicose vein of leg Diabetes Gastroparesis Surgical History History of back surgery History of colonoscopy Family History Father No problems noted. Mother History of cancer Social History Household Members: Spouse and Children Housing: House Are you a primary insurance healthcare representative to a significant other at home: No Do you presently have visiting nurse or other home services: No Alcohol intake: former Patient Tobacco Use Status: Former Tobacco user Quit Date: 2011 Tobacco use type: Cigarette Cigarettes Per Day: 45 Years Smoked: 10 service: No Current occupational status: unemployed Review of Systems Const Denies weight gain and Denies weight loss ENT Reports no additional complaints, Denies dysphagia and Denies odynophagia Card Reports no additional complaints Resp Reports no additional complaints GI Reports abdominal pain, Denies belching, Denies melena, Reports bloating, Denies change in bowel habits, Reports constipation, Denies dysphagia, Denies excessive flatus, Denies dyspepsia, Reports heartburn, Denies diarrhea, Denies loose stools, Denies nausea, Denies odynophagia and Denies vomiting Reports no additional complaints Musc Reports no additional complaints Neuro Reports no additional complaints Psych Reports no additional complaints Endo Reports no additional complaints Physical Exam Vital Signs: Last Vital Signs Pulse 70 02/12/24 11:51 BP 120/64 02/12/24 11:51 BMI result Body Mass Index 34.9 Const General: healthy appearing, no acute distress and well developed Nutritional Appearance: well nourished and obese Orientation/consciousness: patient oriented x3 Resp Effort & Inspection: normal respiratory effort, able to speak in complete sentences, no tracheal deviation and symmetric chest movement Auscultation: clear to auscultation bilaterally Cardio Rate: regular rate GI Inspection: Yes normal to inspection, No distended and Yes obesity Palpation (GI): Soft to palpation, not firm, nontender and No hepatosplenomegaly present Auscultation: normal bowel sounds General: Yes no CVA tenderness Back/Spine/Pelvis Back: no CVA tenderness Skin General skin exam: elasticity normal, turgor normal and dry skin Neuro General: patient oriented x3 Psych Appearance: grossly normal Mental Status: mental status grossly normal Affect: normal affect Assessment & Plan Assessment & Plan (1) Chronic idiopathic constipation: Code(s): K59.04 - Chronic idiopathic constipation Category: Medical (2) MONTES DE OCA (nonalcoholic steatohepatitis): Code(s): K75.81 - Nonalcoholic steatohepatitis (MONTES DE OCA) Category: Medical (3) GERD (gastroesophageal reflux disease): Code(s): K21.9 - Gastro-esophageal reflux disease without esophagitis Category: Medical Qualifiers: Esophagitis presence: esophagitis presence not specified Qualified Code(s): K21.9 - Gastro-esophageal reflux disease without esophagitis (4) Gastritis: Code(s): K29.70 - Gastritis, unspecified, without bleeding Qualifiers: Gastritis type: unspecified gastritis Chronicity: chronic Gastritis bleeding: without bleeding Qualified Code(s): K29.50 - Unspecified chronic gastritis without bleeding Plan Patient will continue taking lansoprazole in the morning and famotidine at bedtime. Patient was encouraged to increase fluid intake, continue Linzess in the morning. Will add Dulcolax in the evening, however patient was encouraged to drink plenty fluids. Continue taking Creon. Patient states that he feels like it is helping. Avoid dietary triggers and late night snacking. Continue low FODMAP diet and follow the list that was provided to him in the past. I will see him in 6 months, sooner on as needed basis. He is agreeable to this plan and verbalizes understanding of instructions. He was given the opportunity to ask questions and all questions answered. Thank you for allowing me to participate in his care Medications: New bisacodyl (Dulcolax (bisacodyl)) 10 mg (2 x 5 mg) PO BEDTIME 180 tabs 4RF Refilled famotidine 40 mg PO BEDTIME 90 tabs 3RF K21.9 - Gastro-esophageal reflux disease without esophagitis linaclotide (Linzess) 290 mcg PO QAM 90 caps 4RF K59.00 - Constipation, unspecified lansoprazole 30 mg PO DAILY 90 days 90 caps 3RF K21.9 - Gastro-esophageal reflux disease without esophagitis vutyoi-enopyihv-abafdit 36,000-114,000- 180,000 unit (Creon) administer with meals and/or snacks 1 cap PO QID 120 caps 3RF K86.89 - Other specified diseases of pancreas Coding Level of Care Code Est Pt Level 3 (08611) Diagnoses Chronic idiopathic constipation K59.04 MONTES DE OCA (nonalcoholic steatohepatitis) K75.81 Gastroesophageal reflux disease, unspecified whether esophagitis present K21.9 Esophagitis presence: esophagitis presence not specified Chronic gastritis without bleeding, unspecified gastritis type K29.50 Gastritis type: unspecified gastritis Chronicity: chronic Gastritis bleeding: without bleeding Time Spent (min) 30 Comment 20 minutes spent with patient and additional 10 minutes spent reviewing her records
[2024-02-12 11:51] VITALS: BP 120/64; PULSE 70; BMI 34.9
== END 2024-02-12 12:06 | disposition home or self-care (01) ==
PROVIDERS: PCP Family Medicine; Visit Provider Nurse Practitioner Family
DX: K59.04 Chronic idiopathic constipation (principal); K75.81 Nonalcoholic steatohepatitis (NASH); K21.9 Gastro-esophageal reflux disease without esophagitis; K29.50 Unspecified chronic gastritis without bleeding
CPT/HCPCS: 99213

== ENCOUNTER → 2024-02-12 11:44 | Outpatient (BNVA) | payer MEDICAID, SELFPAY | PROVIDERS: PCP Family Medicine; Visit Provider Nurse Practitioner Family | DX: K59.04 Chronic idiopathic constipation (principal); K75.81 Nonalcoholic steatohepatitis (NASH); K21.9 Gastro-esophageal reflux disease without esophagitis; K29.50 Unspecified chronic gastritis without bleeding | CPT/HCPCS: 99212 ==

== ENCOUNTER 2024-04-06 10:36 | Outpatient (REF) | payer MEDICAID, SELFPAY ==
[2024-04-06 13:42] LABS: Estimated Average Glucose 151 mg/dL; Hemoglobin A1c % 6.9 % (<6.0)
[2024-04-06 14:04] LABS: Ferritin 84 ng/mL (20-250); Iron 64 mcg/dL (45-160); Percent Iron Saturation 24 % (15-50); TSH reflex Free T4 2.51 uIU/mL (0.32-4.0); Total Iron Binding Capacity 264 mcg/dL (228-428); Unsaturated Iron Binding 200 ug/dL
[2024-04-06 14:33] LABS: Folate 9.3 ng/mL (> or = 4.0); Vitamin B12 554 pg/mL (200-900)
[2024-04-07 08:23] LABS: HBS Num1 > 1000.00 mIU/mL (0-7.99); HBc Num1 0.12 S/CO (0.00-0.79); HIV AB/AG Nonreactive (Nonreactive); HIV Num 1 0.05 S/CO (0.00-0.99); Hepatitis B Core Antibody Nonreactive (Nonreactive); ~HepC Num1 0.14 S/CO (0.00-0.79); ~Hepatitis B Surface Antibody REACTIVE (Nonreactive); ~Hepatitis C Antibody Nonreactive (Nonreactive)
[2024-04-07 08:24] LABS: Hepatitis A Antibody IgG REACTIVE (Nonreactive); ~Hepatitis A Antibody IgG 11.84 S/CO (0.00-0.99)
== END 2024-04-06 10:37 | disposition home or self-care (01) ==
LOC: HO.HHCL 10:36
PROVIDERS: Visit Provider Family Medicine
DX: D64.9 Anemia, unspecified (principal); F11.20 Opioid dependence, uncomplicated; E11.9 Type 2 diabetes mellitus without complications
CPT/HCPCS: 36415; 82607; 82728; 82746; 83036; 83540; 84443; 86704; 86706; 86708; 86803; 87389

== ENCOUNTER 2024-05-04 10:38 | Outpatient (REF) | payer MEDICAID, SELFPAY ==
[2024-05-04 10:54] LABS: MANUAL DIFF FLAG NO
[2024-05-04 11:42] LABS: Basophils Absolute Auto 0.1 X10*3/uL (0.0-0.2); Basophils Percent Auto 0.9 % (0-2); Eosinophils Absolute Auto 0.2 X10*3/uL (0.0-0.4); Eosinophils Percent Auto 3.9 % (0-4); Hematocrit 38.7 % (42.0-52.0); Hemoglobin 12.7 g/dl (14.0-18.0); Imm Gran Abs Auto 0.03 X10*3/uL (0.00-0.03); Imm Gran Pct Auto 0.5 % (0.0-0.4); Lymphocytes Absolute Auto 2.4 X10*3/uL (1.2-4.9); Lymphocytes Percent Auto 42.4 % (20-40); Mean Corpuscular HGB Conc 32.8 g/dl (31.0-36.0); Mean Corpuscular Hemoglobin 28.9 pg (27.0-33.0); Mean Corpuscular Volume 88.2 fL (80.0-98.0); Mean Platelet Volume 10.8 fL (9.4-12.4); Monocytes Absolute Auto 0.5 X10*3/uL (0.1-1.2); Monocytes Percent Auto 9.3 % (2-11); Neutrophils Absolute Auto 2.4 x10*3/uL (2.0-8.3); Platelet Count 259 X10*3/uL (160-400); Red Blood Count 4.39 X10*6/uL (4.60-5.80); Red Cell Distribution Width 12.5 % (11.0-16.0); White Blood Count 5.7 X10*3/uL (4.8-10.8)
[2024-05-04 12:12] LABS: Alanine Aminotransferase 47 U/L (0-40); Albumin Level 4.4 g/dL (3.5-5.0); Alkaline Phosphatase 92 U/L (39-117); Anion Gap 11 (12-20); Aspartate Amino Transferase 33 U/L (5-37); Bilirubin Total 0.6 mg/dL (0.0-1.0); Blood Urea Nitrogen 18 mg/dL (9-16); C Reactive Protein 1.17 mg/dL (< or = 0.50); Calcium 9.7 mg/dL (8.4-10.2); Carbon Dioxide 30 mmol/L (22-29); Chloride 102 mmol/L (96-108); Estimated Glomerular Filt Rate > 60; Glucose Random 131 mg/dL (60-115); Potassium 4.1 mmol/L (3.3-5.1); Sodium 139 mmol/L (135-145); Total Protein 7.4 g/dL (6.5-8.0)
[2024-05-04 12:28] LABS: Erythrocyte Sedimentation Rate 14 MM/HR (0-15)
== END 2024-05-04 10:39 | disposition home or self-care (01) ==
LOC: HO.LAB 10:38
PROVIDERS: PCP Family Medicine; Visit Provider Student in an Organized Health Care Education/Training Program
DX: L40.50 Arthropathic psoriasis, unspecified (principal)
CPT/HCPCS: 36415; 80053; 85025; 85652; 86140

== ENCOUNTER 2024-05-12 14:47 | Outpatient (AMB) | payer MEDICAID, SELFPAY ==
--- NOTE | 2024-05-12 14:50 | A.OFFVIS_ITS ---
Vital Signs 05/12/24 14:58 Height 5 ft 10 in Weight 243 lb 9.773 oz BMI 35.0 BP 124/80 Blood Pressure Location Rt brachial Position Sitting Pulse 71 Pulse Source Pulse Oximeter Pulse Oximetry (%) 95 Oxygen Delivery Method Room Air Intake Visit Reasons: PsA/CM Intake Note: Patient presents for PsA. Allergies Penicillins [PENICILLINS] Allergy (Intermediate, Verified 05/12/24 14:57) HIVES sulfasalazine Adverse Reaction (Intermediate, Verified 05/12/24 14:57) transaminitis Medication List - Last Reconciled 05/12/24 by Mansi White MD acetaminophen ER 650 mg PO Q8H PRN albuterol sulfate 90 mcg/actuation (ProAir HFA) 2 puffs inhalation Q6H PRN allopurinol 300 mg PO DAILY bisacodyl (Dulcolax (bisacodyl)) 10 mg (2 x 5 mg) PO BEDTIME buprenorphine-naloxone 8-2 mg (Suboxone) 2 film buccal DAILY cetirizine 10 mg PO BEDTIME cyclobenzaprine Take 1 tab 3 times a day for 3 days then take 1 tab nightly as needed for muscle spasm docusate sodium 200 mg (2 x 100 mg) PO BEDTIME Enbrel SureClick (etanercept) 50 mg subcut QWEEK NS epinephrine (EpiPen) 0.03 mL IM DIRECTED famotidine 40 mg PO BEDTIME fluticasone propionate 50 mcg/actuation (Flonase Allergy Relief) 1 spray intranasal DAILY fluticasone propionate 110 mcg/actuation (Flovent HFA) 1 puff inhalation BID hydroxyzine HCl 25 mg PO Q6H PRN lansoprazole 30 mg PO DAILY 90 days linaclotide (Linzess) 290 mcg PO QAM xxcrmj-grlkgagj-uuyilyj 36,000-114,000- 180,000 unit (Creon) 1 cap PO QID loratadine 10 mg PO DAILY metformin ER 500 mg PO QPM methylcellulose (laxative) (Citrucel) 500 mg PO DAILY 30 days naproxen 500 mg PO BID PRN polyethylene glycol 3350 (Miralax) 238 grams PO ONCE tamsulosin 0.4 mg PO DAILY triamcinolone acetonide 0.1% 1 appl topical BID HPI Comments Details: 48-year-old male with psoriatic arthritis returns for follow-up. Compliant with Enbrel weekly. On naproxen 500 mg Twice daily. He states that for many years he would have episodes of feeling that his body is called on the inside, his bones are cold and painful. He has to wear a jacket at home. He also urinates large amounts and frequently. Despite not drinking much. He states that these episodes happen 3 to 8 times a month and last 24 hours. He states that he was prescribed tamsulosin for that purpose. He takes the tamsulosin daily. He states that even as a child he would drink at least 16 bottles of water daily. As a child he was on multiple medicines for health disorders. He has not been seen for such disorder since. He states that recently has been having rashes on his ankles and feet but they improved with a steroid cream. He denies any swollen joints today. Initial history: This is a 46-year-old male with a past medical history of anxiety, gout, type 2 diabetes mellitus, degenerative disc disease of his lumbar spine s/p multiple procedures by pain management presents for evaluation of low back pain. Patient was previously evaluated by Dr. Chantelle Geronimo for low back pain. He had MRI of his sacral iliac joints which were negative for sacroiliitis. MRI lumbar spine also showed no signs of spondyloarthropathy. Patient continues to have low back pain, worse in the morning associated with 2 hours of morning stiffness. Pain is also worse with walking improves with sitting down. He states he was diagnosed with gout in 2011. He has pain and swelling of his feet and his hands, he also has intermittent swelling of his ears in lips that he attributes to gout. He has been on allopurinol 300 mg by his PCP. His most recent gout flare was in the summer with swelling of his hands. Denies any history of kidney stones or family history of gout. He states that the last year of high school he had significant psoriasis affecting his legs and his entire body. He was prescribed creams with resolution. Recently he has been having itchy rashes on his ankles, he is being evaluated by an director of instrumental music. He also showed me pictures of rashes involving his face, neck and ears.? He is following up with director of instrumental music Dr. Garcia he was prescribed hydroxyzine and another antihistaminic and he states that those are helping.? States that as a child he spent a lot of time at the hospital for arthritis [facility] Medical History H/O head injury Migraines Scoliosis Anxiety and depression Asthma Chest pain, atypical COVID-19 vaccine series completed Osteoarthritis of left knee Chronic pain syndrome Spondylosis of lumbar region without myelopathy or radiculopathy Osteoarthritis of left knee Sleep apnea Varicose vein of leg Diabetes Gastroparesis Surgical History History of back surgery History of colonoscopy Family History Father No problems noted. Mother History of cancer Social History Household Members: Spouse and Children Housing: House Are you a primary healthcare management consultant to a significant other at home: No Do you presently have visiting nurse or other home services: No Alcohol intake: former Patient Tobacco Use Status: Former Tobacco user Tobacco use type: Cigarette Cigarettes Per Day: 45 Years Smoked: 10 service: No Current occupational status: unemployed Review of Systems Const All systems reviewed & are unremarkable except as noted in HPI and below Reports urinary frequency and Reports urinary urgency Musc Reports arthralgias Skin/Breast Reports rash Neuro Reports no additional complaints Physical Exam Vital Signs: Last Vital Signs Pulse 71 05/12/24 14:58 BP 124/80 05/12/24 14:58 Pulse Ox 95 05/12/24 14:58 Oxygen Delivery Method Room Air 05/12/24 14:58 BMI result Body Mass Index 35.0 Const General: cooperative, healthy appearing, comfortable, no acute distress and anxious Nutritional Appearance: obese Orientation/consciousness: patient oriented x3 Limitations: no limitations HEENT Head: Yes normocephalic and Yes atraumatic Resp Effort & Inspection: normal respiratory effort and able to speak in complete sentences Auscultation: clear to auscultation bilaterally Cardio Rate: regular rate Rhythm: regular rhythm Skin Other: Rashes that patient has been complaining of have resolved Neuro General: patient oriented x3 Extrem Other: No active synovitis today Some osteoarthritic changes of his hands with Heberden's nodes Normal nailfold capillaroscopy Results Reviewed Results Reviewed: [facility] MRI PELVIS WO CONT 06/2019 [id number] SYMPTOMS,HX? INFLAMMATORY BACK PAIN, EVALUATE FOR SACROILITIS EXAMINATION: MR PELVIS WITHOUT CONTRAST CLINICAL INFORMATION: Inflammatory back pain. Evaluate for sacroiliitis. COMPARISON: Previous CT of the abdomen and pelvis May 2010. TECHNIQUE: Sagittal axial and coronal sequences through the pelvis tailored to the sacroiliac joints. FINDINGS: The sacroiliac joints are normal appearing. No evidence of sacroiliitis is seen. There is a disc-space narrowing and small disc herniation L5-S1. There is reactive endplate signal seen at L5-S1. Bone marrow signal is otherwise normal. No fracture, dislocation or bone lesion is seen. The hip joints are unremarkable. Soft tissues of the pelvis are unremarkable. There is a small left inguinal hernia containing fat. Visualized bowel is unremarkable. The bladder and prostate gland are unremarkable. No ascites or adenopathy is seen. IMPRESSION: Normal-appearing sacroiliac joints. Right elbow MRI? 08/2022? Impression Partial tear/peritendinitis of the proximal common extensor tendon no joint effusion or intra-articular synovitis Labs 08/2022 CMP unremarkable except for ALT 50 (0-41) CBC unremarkable except for mild anemia hemoglobin 12.7 (12.7-17.1) CRP 1.6 (<0.5) ESR 41 RF/CCP negative Zohaib normal? Uric acid 3.6 A1c 6.8% SPEP and immunofixation normal T spot negative Hepatitis panel negative Assessment & Plan Assessment & Plan (1) Psoriatic arthritis: Comment: dx 09/2022 SSZ 12/18 partially effective DC 02/17 due to transaminitis Enbrel 02/17 effective Code(s): L40.50 - Arthropathic psoriasis, unspecified Category: Medical Plan: 48-year-old male with psoriatic arthritis returns for follow-up. On Enbrel 50 mg weekly and naproxen 500 mg Twice daily. Doing well overall. Advised patient to take naproxen 500 mg daily as a standing dose and take another tablet only as needed Continue Enbrel 50 mg weekly Infectious screening hepatitis panel and T spot -ve 11/2022 Labs before next visit in 3 months (2) Gout: Code(s): M10.9 - Gout, unspecified Category: Medical Qualifiers: Gout site: multiple sites Gout etiology: unspecified cause Chronicity: chronic Qualified Code(s): M1A.09X0 - Idiopathic chronic gout, multiple sites, without tophus (tophi) Plan: Had gout since 2011. He is on allopurinol 300 mg daily by his PCP. Has not had any gout flare-ups in a long time. Continue with allopurinol 300 mg daily. His most recent uric acid level is 2.9. (3) Psoriasis: Code(s): L40.9 - Psoriasis, unspecified Category: Medical Plan: Psoriasis is well controlled with topical creams (4) Anxiety: Code(s): F41.9 - Anxiety disorder, unspecified Category: Medical Plan: Patient states that he had mental health disorders as a child. And was on different meds. They were discontinued. Advised patient to seek evaluation by a psychologist Plan I spent 26 minutes reviewing patient's chart, evaluating patient, ordering diagnostic workup, counseling patient and documenting in the chart Orders: Orders Complete Blood Count Auto Diff 3 Months L40.50 - Arthropathic psoriasis, unspecified Comprehensive Met. Panel 3 Months L40.50 - Arthropathic psoriasis, unspecified C Reactive Protein 3 Months L40.50 - Arthropathic psoriasis, unspecified Erythrocyte Sedimentation Rate 3 Months L40.50 - Arthropathic psoriasis, unspecified T Spot TB 3 Months Z11.7 - Encounter for testing for latent tuberculosis infection Medications: Changed From naproxen 500 mg PO BID PRN 180 tabs 0RF pain To naproxen 500 mg PO DAILY PRN 30 tabs 2RF pain Coding Level of Care Code Est Pt Level 4 (64248) Diagnoses Psoriatic arthritis L40.50 Chronic gout of multiple sites, unspecified cause M1A.09X0 Gout site: multiple sites Gout etiology: unspecified cause Chronicity: chronic Psoriasis L40.9 Anxiety F41.9
[2024-05-12 14:58] VITALS: BP 124/80; PULSE 71; O2SAT 95; BMI 35.0
== END 2024-05-12 15:34 | disposition home or self-care (01) ==
PROVIDERS: PCP Family Medicine; Visit Provider Student in an Organized Health Care Education/Training Program
DX: L40.50 Arthropathic psoriasis, unspecified (principal); M1A.09X0 Idiopathic chronic gout, multiple sites, without tophus (tophi); L40.9 Psoriasis, unspecified; F41.9 Anxiety disorder, unspecified
CPT/HCPCS: 99214

== ENCOUNTER → 2024-05-12 14:47 | Outpatient (BNVA) | payer MEDICAID, SELFPAY | PROVIDERS: PCP Family Medicine; Visit Provider Student in an Organized Health Care Education/Training Program | DX: L40.50 Arthropathic psoriasis, unspecified (principal); M1A.09X0 Idiopathic chronic gout, multiple sites, without tophus (tophi); L40.9 Psoriasis, unspecified; F41.9 Anxiety disorder, unspecified; Z79.899 Other long term (current) drug therapy | CPT/HCPCS: 99212 ==

== ENCOUNTER 2024-08-12 14:08 | Outpatient (REF) | payer MEDICAID, SELFPAY ==
[2024-08-12 14:31] LABS: MANUAL DIFF FLAG NO
[2024-08-12 14:50] LABS: Basophils Absolute Auto 0.1 X10*3/uL (0.0-0.2); Eosinophils Absolute Auto 0.2 X10*3/uL (0.0-0.4); Eosinophils Percent Auto 3.1 % (0-4); Hematocrit 39.2 % (42.0-52.0); Hemoglobin 12.9 g/dl (14.0-18.0); Imm Gran Abs Auto 0.02 X10*3/uL (0.00-0.03); Imm Gran Pct Auto 0.4 % (0.0-0.4); Lymphocytes Percent Auto 40.4 % (20-40); Mean Corpuscular HGB Conc 32.9 g/dl (31.0-36.0); Mean Corpuscular Hemoglobin 28.5 pg (27.0-33.0); Mean Corpuscular Volume 86.5 fL (80.0-98.0); Mean Platelet Volume 10.9 fL (9.4-12.4); Monocytes Absolute Auto 0.4 X10*3/uL (0.1-1.2); Monocytes Percent Auto 7.8 % (2-11); Neutrophils Absolute Auto 2.3 x10*3/uL (2.0-8.3); Neutrophils Percent Auto 47.3 % (45-73); Platelet Count 228 X10*3/uL (160-400); Red Blood Count 4.53 X10*6/uL (4.60-5.80); Red Cell Distribution Width 12.5 % (11.0-16.0); White Blood Count 4.9 X10*3/uL (4.8-10.8)
[2024-08-12 14:53] LABS: Estimated Average Glucose 160 mg/dL; Hemoglobin A1C 191.1078 umol/L; Hemoglobin A1c % 7.2 % (<6.0); Total Hemoglobin (HGBA1C) 3452.7726 umol/L
[2024-08-12 15:10] LABS: Alanine Aminotransferase 50 U/L (0-40); Albumin Level 4.4 g/dL (3.5-5.0); Anion Gap 12 (12-20); Aspartate Amino Transferase 39 U/L (5-37); Bilirubin Total 0.4 mg/dL (0.0-1.0); Blood Urea Nitrogen 16 mg/dL (9-16); C Reactive Protein 1.34 mg/dL (< or = 0.50); Calcium 9.9 mg/dL (8.4-10.2); Carbon Dioxide 28 mmol/L (22-29); Chloride 104 mmol/L (96-108); Cholesterol 141 mg/dL (<200); Estimated Glomerular Filt Rate > 60; Glucose Random 121 mg/dL (60-115); HDL Cholesterol 55 mg/dL (>40); LDL Cholesterol Calculated 77 mg/dL (<100); Potassium 4.2 mmol/L (3.3-5.1); Sodium 140 mmol/L (135-145); Total Protein 7.6 g/dL (6.5-8.0); Triglycerides 48 mg/dL (<150)
[2024-08-12 15:22] LABS: Alkaline Phosphatase 103 U/L (39-117)
[2024-08-12 15:30] LABS: Erythrocyte Sedimentation Rate 14 MM/HR (0-15)
[2024-08-12 15:49] LABS: Creatinine Urine 160.54 mg/dL; Microalbum/Creatinine Ratio Ur 4.9 ug/mg cr (<30)
[2024-08-12 17:21] LABS: Reflex LDLD? No
[2024-08-15 19:39] LABS: TS Negative Control Passed; TS Panel A 0; TS Panel B 0; TS Positive Control Passed; TSpotTB Negative (Negative)
== END 2024-08-12 14:09 | disposition home or self-care (01) ==
LOC: HO.LAB 14:08
PROVIDERS: PCP Family Medicine; Referring Provider Family Medicine; Visit Provider Student in an Organized Health Care Education/Training Program
DX: L40.50 Arthropathic psoriasis, unspecified (principal); E11.9 Type 2 diabetes mellitus without complications; Z11.7 Encounter for testing for latent tuberculosis infection
CPT/HCPCS: 36415; 80053; 80061; 82043; 82570; 83036; 85025; 85652; 86140; 86481

== ENCOUNTER 2024-08-18 16:06 | Outpatient (AMB) | payer MEDICAID, SELFPAY ==
--- NOTE | 2024-08-18 16:08 | A.OFFVIS_ITS ---
Vital Signs 08/18/24 16:12 Height 5 ft 1 in Weight 244 lb 7.882 oz BMI 46.2 BP 115/74 Blood Pressure Location Lt brachial Position Sitting Pulse 71 Pulse Source Pulse Oximeter Pulse Oximetry (%) 98 Oxygen Delivery Method Room Air Intake Visit Reasons: PsA/CM APT Intake Note: Patient presents for PsA. Allergies Penicillins [PENICILLINS] Allergy (Intermediate, Verified 08/18/24 16:11) HIVES sulfasalazine Adverse Reaction (Intermediate, Verified 08/18/24 16:11) transaminitis Medication List - Last Reconciled 08/18/24 by Mansi White MD acetaminophen ER 650 mg PO Q8H PRN albuterol sulfate 90 mcg/actuation (ProAir HFA) 2 puffs inhalation Q6H PRN allopurinol 300 mg PO DAILY bisacodyl (Dulcolax (bisacodyl)) 10 mg (2 x 5 mg) PO BEDTIME buprenorphine-naloxone 8-2 mg (Suboxone) 2 film buccal DAILY cetirizine 10 mg PO BEDTIME cyclobenzaprine Take 1 tab 3 times a day for 3 days then take 1 tab nightly as needed for muscle spasm docusate sodium 200 mg (2 x 100 mg) PO BEDTIME duloxetine Take 1 tab nightly for 2 weeks then remain on 2 tabs nightly Enbrel SureClick (etanercept) 50 mg subcut QWEEK NS epinephrine (EpiPen) 0.03 mL IM DIRECTED famotidine 40 mg PO BEDTIME fluticasone propionate 50 mcg/actuation (Flonase Allergy Relief) 1 spray intranasal DAILY fluticasone propionate 110 mcg/actuation (Flovent HFA) 1 puff inhalation BID hydroxyzine HCl 25 mg PO Q6H PRN lansoprazole 30 mg PO DAILY 90 days linaclotide (Linzess) 290 mcg PO QAM eywxor-qkfqofpa-stwmchw 36,000-114,000- 180,000 unit (Creon) 1 cap PO QID loratadine 10 mg PO DAILY metformin ER 500 mg PO QPM methylcellulose (laxative) (Citrucel) 500 mg PO DAILY 30 days naproxen 500 mg PO DAILY PRN polyethylene glycol 3350 (Miralax) 238 grams PO ONCE tamsulosin 0.4 mg PO DAILY triamcinolone acetonide 0.1% 1 appl topical BID HPI Comments Details: 48-year-old male with psoriatic arthritis returns for follow-up. Compliant with Enbrel weekly. He also takes naproxen 500 mg daily. Sometimes twice daily. He states that he gets joint pains and significant fatigue when he does any work at home. Gets intermittent chill sensation in his bones, this has been worse since it has been colder. He has tingling and numbness of his arms and hands especially at night. Initial history: This is a 46-year-old male with a past medical history of anxiety, gout, type 2 diabetes mellitus, degenerative disc disease of his lumbar spine s/p multiple procedures by pain management presents for evaluation of low back pain. Patient was previously evaluated by Dr. Chantelle Geronimo for low back pain. He had MRI of his sacral iliac joints which were negative for sacroiliitis. MRI lumbar spine also showed no signs of spondyloarthropathy. Patient continues to have low back pain, worse in the morning associated with 2 hours of morning stiffness. Pain is also worse with walking improves with sitting down. He states he was diagnosed with gout in 2011. He has pain and swelling of his feet and his hands, he also has intermittent swelling of his ears in lips that he attributes to gout. He has been on allopurinol 300 mg by his PCP. His most recent gout flare was in the summer with swelling of his hands. Denies any history of kidney stones or family history of gout. He states that the last year of high school he had significant psoriasis affecting his legs and his entire body. He was prescribed creams with resolution. Recently he has been having itchy rashes on his ankles, he is being evaluated by an quality assurance monitor chassis. He also showed me pictures of rashes involving his face, neck and ears.? He is following up with quality assurance monitor [employer] Dr. Garcia he was prescribed hydroxyzine and another antihistaminic and he states that those are helping.? States that as a child he spent a lot of time at the hospital for arthritis [facility] Medical History H/O head injury Migraines Scoliosis Anxiety and depression Asthma Chest pain, atypical COVID-19 vaccine series completed Osteoarthritis of left knee Chronic pain syndrome Spondylosis of lumbar region without myelopathy or radiculopathy Osteoarthritis of left knee Sleep apnea Varicose vein of leg Diabetes Gastroparesis Surgical History History of back surgery History of colonoscopy Family History Father No problems noted. Mother History of cancer Social History Household Members: Spouse and Children Housing: House Are you a primary home care aide to a significant other at home: No Do you presently have visiting nurse or other home services: No Alcohol intake: former Patient Tobacco Use Status: Former Tobacco user Tobacco use type: Cigarette Cigarettes Per Day: 45 Years Smoked: 10 service: No Current occupational status: unemployed Review of Systems Musc Reports arthralgias, Reports muscle weakness, Reports numbness and Reports tingling Neuro Reports no additional complaints, Reports numbness and Reports tingling Physical Exam Vital Signs: Last Vital Signs Pulse 71 08/18/24 16:12 BP 115/74 08/18/24 16:12 Pulse Ox 98 08/18/24 16:12 Oxygen Delivery Method Room Air 08/18/24 16:12 BMI result Body Mass Index 46.2 Const General: cooperative, healthy appearing, comfortable, no acute distress and anxious Nutritional Appearance: obese Orientation/consciousness: patient oriented x3 Limitations: no limitations HEENT Head: Yes normocephalic and Yes atraumatic Resp Effort & Inspection: normal respiratory effort and able to speak in complete sentences Auscultation: clear to auscultation bilaterally Cardio Rate: regular rate Rhythm: regular rhythm Neuro General: patient oriented x3 Extrem Other: No active synovitis today Some osteoarthritic changes of his hands with Heberden's nodes Normal nailfold capillaroscopy Assessment & Plan Assessment & Plan (1) Psoriatic arthritis: Comment: dx 09/2022 SSZ 12/18 partially effective DC 02/17 due to transaminitis Enbrel 02/17 effective Code(s): L40.50 - Arthropathic psoriasis, unspecified Category: Medical Plan: 48-year-old male with psoriatic arthritis returns for follow-up. On Enbrel 50 mg weekly and naproxen 500 mg Twice daily. Doing well overall. Advised patient to take naproxen 500 mg daily as a standing dose and take another tablet only as needed Continue Enbrel 50 mg weekly Infectious screening hepatitis panel and T spot -ve 11/2022 Labs before next visit in 4 months (2) Gout: Code(s): M10.9 - Gout, unspecified Category: Medical Qualifiers: Gout site: multiple sites Gout etiology: unspecified cause Chronicity: chronic Qualified Code(s): M1A.09X0 - Idiopathic chronic gout, multiple sites, without tophus (tophi) Plan: Had gout since 2011. He is on allopurinol 300 mg daily by his PCP. Has not had any gout flare-ups in a long time. Continue with allopurinol 300 mg daily. (3) Psoriasis: Code(s): L40.9 - Psoriasis, unspecified Category: Medical Plan: Psoriasis is well controlled with topical creams (4) Fibromyalgia, primary: Code(s): M79.7 - Fibromyalgia Plan: Start duloxetine 30 mg nightly for 2 weeks then remain on 60 mg nightly (5) Bilateral hand numbness: Code(s): R20.0 - Anesthesia of skin Category: Medical Plan: Bilateral upper extremity EMG/NCV in 2021 showed mild bilateral cubital tunnel syndrome. Referred to hand surgeon Plan I spent 26 minutes reviewing patient's chart, evaluating patient, ordering diagnostic workup, counseling patient and documenting in the chart Orders: Orders C Reactive Protein 4 Months L40.50 - Arthropathic psoriasis, unspecified Erythrocyte Sedimentation Rate 4 Months L40.50 - Arthropathic psoriasis, unspecified Complete Blood Count Auto Diff 4 Months L40.50 - Arthropathic psoriasis, unspecified Comprehensive Met. Panel 4 Months L40.50 - Arthropathic psoriasis, unspecified Referrals Hand Surgery Referral G56.23 - Lesion of ulnar nerve, bilateral upper limbs Medications: New duloxetine Take 1 tab nightly for 2 weeks then remain on 2 tabs nightly 60 caps 0RF Coding Level of Care Code Est Pt Level 4 (98576) Complex EM visit Add On G2211 Diagnoses Psoriatic arthritis L40.50 Chronic gout of multiple sites, unspecified cause M1A.09X0 Gout site: multiple sites Gout etiology: unspecified cause Chronicity: chronic Psoriasis L40.9 Fibromyalgia, primary M79.7 Bilateral hand numbness R20.0
[2024-08-18 16:12] VITALS: BP 115/74; PULSE 71; O2SAT 98; BMI 46.2
== END 2024-08-18 16:36 | disposition home or self-care (01) ==
PROVIDERS: PCP Family Medicine; Visit Provider Student in an Organized Health Care Education/Training Program
DX: L40.50 Arthropathic psoriasis, unspecified (principal); M1A.09X0 Idiopathic chronic gout, multiple sites, without tophus (tophi); L40.9 Psoriasis, unspecified; M79.7 Fibromyalgia; R20.0 Anesthesia of skin
CPT/HCPCS: 99214

== ENCOUNTER → 2024-08-18 16:06 | Outpatient (BNVA) | payer MEDICAID, SELFPAY | PROVIDERS: PCP Family Medicine; Visit Provider Student in an Organized Health Care Education/Training Program | DX: L40.50 Arthropathic psoriasis, unspecified (principal); L40.9 Psoriasis, unspecified; M1A.09X0 Idiopathic chronic gout, multiple sites, without tophus (tophi); M79.7 Fibromyalgia; R20.0 Anesthesia of skin | CPT/HCPCS: 99212 ==

== ENCOUNTER 2024-08-19 11:21 | Outpatient (AMB) | payer MEDICAID, SELFPAY ==
[2024-08-19 11:26] VITALS: BP 140/78; PULSE 64; O2SAT 93; BMI 34.8
--- NOTE | 2024-08-19 11:26 | MHC.OFFVIS ---
Vital Signs 08/19/24 11:26 Height 5 ft 10 in Weight 242 lb 8.136 oz BMI 34.8 BP 140/78 H Blood Pressure Location Rt brachial Position Sitting Pulse 64 Pulse Source Pulse Oximeter Pulse Oximetry (%) 93 Oxygen Delivery Method Room Air Intake Visit Reasons: 6 month follow up Intake Note: PRESCRIPTIONS LAST GENERATED famotidine 40 mg tablet?40 mg PO BEDTIME 90 tabs 3RF Jo,Shannan D 02/12/24 12:03 (Transmitted) lansoprazole 30 mg capsule,delayed release?30 mg PO DAILY 90 caps 3RF 90 days Jo,Shannan D 02/12/24 12:03 (Transmitted) bisacodyl 5 mg tablet,delayed release?(Dulcolax (bisacodyl))?10 mg (2 x 5 mg) PO BEDTIME 180 tabs 4RF Jo,Shannan D 02/12/24 12:03 (Transmitted) linaclotide 290 mcg capsule?(Linzess)?290 mcg PO QAM 90 caps 4RF Jo,Shannan D 02/12/24 12:03 (Transmitted) mefsfi-rrkfjwgc-puaizcr 36,000-114,000-180,000 unit capsule,delay rel?(Creon)?1 cap PO QID 120 caps 3RF Jo,Shannan D 02/12/24 12:03 (Transmitted) Pt is still taking all of the above medications without difficulty. Relevant Flags or Indicators ? 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 Ruma Franci presents in office today for a scheduled 6 mos FUV. CC; No recent labs, diagnostics Relevant GI Sx as reported per pt? Nausea ? Reflux ? Fecal abnormalities o?? Constipation - Pt does report intermittent, mild hematochezia. Pt has not seen it as much over the last 2 mos. ? Abdominal Pain - Cramping o?? Upper B/L ? Early satiety ? Bloating ? Abdominal distention ? Hx of any recent surgeries? None Allergies Penicillins [PENICILLINS] Allergy (Intermediate, Verified 08/19/24 11:26) HIVES sulfasalazine Adverse Reaction (Intermediate, Verified 08/19/24 11:26) transaminitis HPI HPI 6 month follow up: Details: LAST VISIT: Chronic idiopathic constipation MONTES DE OCA (nonalcoholic steatohepatitis) GERD (gastroesophageal reflux disease) Gastritis Plan Patient will continue taking lansoprazole in the morning and famotidine at bedtime. Patient was encouraged to increase fluid intake, continue Linzess in the morning. Will add Dulcolax in the evening, however patient was encouraged to drink plenty fluids. Continue taking Creon. Patient states that he feels like it is helping. Avoid dietary triggers and late night snacking. Continue low FODMAP diet and follow the list that was provided to him in the past. I will see him in 6 months, sooner on as needed basis. He is agreeable to this plan and verbalizes understanding of instructions. He was given the opportunity to ask questions and all questions answered. ? Thank you for allowing me to participate in his care Medications New bisacodyl (Dulcolax (bisacodyl)) 10 mg (2 x 5 mg) PO BEDTIME 180 tabs 4RF Refilled famotidine 40 mg PO BEDTIME 90 tabs 3RF K21.9 linaclotide (Linzess) 290 mcg PO QAM 90 caps 4RF K59.00 lansoprazole 30 mg PO DAILY 90 days 90 caps 3RF K21.9 bpqaar-cmxcpmiv-amogtms 36,000-114,000- 180,000 unit (Creon) administer with meals and/or snacks 1 cap PO QID 120 caps 3RF K86.89 TODAY'S VISIT Patient is here today for follow-up. Patient reports that he has been feeling fairl for the most part, however he does reports that occasionally he will have epigastric pain postprandially, occasional nausea in the morning states that he is moving his bowels better now that he takes Dulcolax in the evening in addition in to the Linzess. He is hoping to wean off Suboxone starting next year. Patient reports that his blood sugars has been well managed, however he reports to me that he is drinking 10-12 bottles of water daily as he is very thirsty. Long discussion with patient about that his thirst is because of not very well managed diabetes and needs to decrease the amount that he is taking. Patient reports feeling very nauseous this morning, no vomiting. Patient admits to be eating chicken for he got last night with fried peppers and onions. Patient reports occasional dyspepsia without dysphagia or odynophagia. Denies melena, hematochezia, unintentional weight loss or ribbon like stools. [facility] Medical History H/O head injury Migraines Scoliosis Anxiety and depression Asthma Chest pain, atypical COVID-19 vaccine series completed Osteoarthritis of left knee Chronic pain syndrome Spondylosis of lumbar region without myelopathy or radiculopathy Osteoarthritis of left knee Sleep apnea Varicose vein of leg Diabetes Gastroparesis Surgical History History of back surgery History of colonoscopy Family History Father No problems noted. Mother History of cancer Social History Household Members: Spouse and Children Housing: House Are you a primary personal care service provider to a significant other at home: No Do you presently have visiting nurse or other home services: No Alcohol intake: former Patient Tobacco Use Status: Former Tobacco user Tobacco use type: Cigarette Cigarettes Per Day: 45 Years Smoked: 10 service: No Current occupational status: unemployed Review of Systems Const Denies weight gain and Denies weight loss ENT Reports no additional complaints, Denies dysphagia and Denies odynophagia Card Reports no additional complaints Resp Reports no additional complaints GI Reports abdominal pain, Denies belching, Denies melena, Reports bloating, Denies change in bowel habits, Reports constipation, Denies dysphagia, Denies excessive flatus, Reports dyspepsia, Reports heartburn, Denies diarrhea, Denies loose stools, Reports nausea, Denies odynophagia and Denies vomiting Reports no additional complaints Musc Reports no additional complaints Neuro Reports no additional complaints Psych Reports no additional complaints Endo Reports no additional complaints Physical Exam Vital Signs: Last Vital Signs Pulse 64 08/19/24 11:26 BP 140/78 H 08/19/24 11:26 Pulse Ox 93 08/19/24 11:26 Oxygen Delivery Method Room Air 08/19/24 11:26 BMI result Body Mass Index 34.8 Const General: healthy appearing and no acute distress Nutritional Appearance: obese Orientation/consciousness: patient oriented x3 Resp Effort & Inspection: normal respiratory effort, able to speak in complete sentences, no tracheal deviation and symmetric chest movement Auscultation: clear to auscultation bilaterally Cardio Rate: regular rate GI Inspection: Yes normal to inspection, No distended and Yes obesity Palpation (GI): Soft to palpation, not firm, nontender and No hepatosplenomegaly present Auscultation: normal bowel sounds General: Yes no CVA tenderness Back/Spine/Pelvis Back: no CVA tenderness Skin General skin exam: elasticity normal, turgor normal and dry skin Neuro General: patient oriented x3 Psych Appearance: grossly normal Mental Status: mental status grossly normal Affect: normal affect Assessment & Plan Assessment & Plan (1) Chronic idiopathic constipation: Code(s): K59.04 - Chronic idiopathic constipation Category: Medical (2) MONTES DE OCA (nonalcoholic steatohepatitis): Code(s): K75.81 - Nonalcoholic steatohepatitis (MONTES DE OCA) Category: Medical (3) GERD (gastroesophageal reflux disease): Code(s): K21.9 - Gastro-esophageal reflux disease without esophagitis Category: Medical Qualifiers: Esophagitis presence: esophagitis presence not specified Qualified Code(s): K21.9 - Gastro-esophageal reflux disease without esophagitis (4) Gastritis: Code(s): K29.70 - Gastritis, unspecified, without bleeding Qualifiers: Gastritis type: unspecified gastritis Chronicity: chronic Gastritis bleeding: without bleeding Qualified Code(s): K29.50 - Unspecified chronic gastritis without bleeding (5) Postprandial epigastric pain: Code(s): R10.13 - Epigastric pain (6) Nausea: Code(s): R11.0 - Nausea Plan Continue lansoprazole. Patient will stop taking famotidine and will start sucralfate at bedtime. Avoid dietary triggers and late night snacking. Avoid anything that is fried continue Linzess and Dulcolax continue Creon. Follow-up in the office in 6 months, sooner on as needed basis. He is agreeable to this plan and verbalizes understanding of instructions. He was given the opportunity to ask questions and all questions answered. Thank you for allowing me to participate in his care Medications: New sucralfate 1 g PO BEDTIME 90 tabs 3RF R19.7 - Diarrhea, unspecified Refilled lansoprazole 30 mg PO DAILY 90 days 90 caps 3RF K21.9 - Gastro-esophageal reflux disease without esophagitis linaclotide (Linzess) 290 mcg PO QAM 90 caps 4RF K59.00 - Constipation, unspecified rzetyi-gwmakifw-gpcczfy 36,000-114,000- 180,000 unit (Creon) administer with meals and/or snacks 1 cap PO QID 120 caps 3RF K86.89 - Other specified diseases of pancreas bisacodyl (Dulcolax (bisacodyl)) 10 mg (2 x 5 mg) PO BEDTIME 180 tabs 4RF On Hold famotidine Hold Comment: Doctor's Order 40 mg PO BEDTIME 90 tabs 3RF K21.9 - Gastro-esophageal reflux disease without esophagitis Coding Level of Care Code Est Pt Level 4 (08162) Complex EM visit Add On G2211 Diagnoses Chronic idiopathic constipation K59.04 MONTES DE OCA (nonalcoholic steatohepatitis) K75.81 Gastroesophageal reflux disease, unspecified whether esophagitis present K21.9 Esophagitis presence: esophagitis presence not specified Chronic gastritis without bleeding, unspecified gastritis type K29.50 Gastritis type: unspecified gastritis Chronicity: chronic Gastritis bleeding: without bleeding Postprandial epigastric pain R10.13 Nausea R11.0 Time Spent (min) 35 Comment 25 minutes spent with patient and additional 10 minutes spent reviewing his records
== END 2024-08-19 12:08 | disposition home or self-care (01) ==
PROVIDERS: PCP Family Medicine; Visit Provider Nurse Practitioner Family
DX: K59.04 Chronic idiopathic constipation (principal); K75.81 Nonalcoholic steatohepatitis (NASH); K21.9 Gastro-esophageal reflux disease without esophagitis; K29.50 Unspecified chronic gastritis without bleeding; R10.13 Epigastric pain; R11.0 Nausea
CPT/HCPCS: 99214

== ENCOUNTER → 2024-08-19 11:21 | Outpatient (BNVA) | payer MEDICAID, SELFPAY | PROVIDERS: PCP Family Medicine; Visit Provider Nurse Practitioner Family | DX: K59.04 Chronic idiopathic constipation (principal); K75.81 Nonalcoholic steatohepatitis (NASH); K21.9 Gastro-esophageal reflux disease without esophagitis; K29.50 Unspecified chronic gastritis without bleeding; R10.13 Epigastric pain; R11.0 Nausea | CPT/HCPCS: 99212 ==

== ENCOUNTER 2024-12-15 16:15 | Outpatient (REF) | payer MEDICAID, SELFPAY ==
[2024-12-15 16:52] LABS: MANUAL DIFF FLAG NO
[2024-12-15 17:16] LABS: Basophils Percent Auto 0.9 % (0-2); Eosinophils Absolute Auto 0.3 X10*3/uL (0.0-0.4); Hematocrit 38.3 % (42.0-52.0); Hemoglobin 12.4 g/dl (14.0-18.0); Imm Gran Abs Auto 0.01 X10*3/uL (0.00-0.03); Imm Gran Pct Auto 0.2 % (0.0-0.4); Lymphocytes Absolute Auto 1.6 X10*3/uL (1.2-4.9); Lymphocytes Percent Auto 35.1 % (20-40); Mean Corpuscular HGB Conc 32.4 g/dl (31.0-36.0); Mean Corpuscular Hemoglobin 28.3 pg (27.0-33.0); Mean Corpuscular Volume 87.4 fL (80.0-98.0); Mean Platelet Volume 10.9 fL (9.4-12.4); Monocytes Absolute Auto 0.5 X10*3/uL (0.1-1.2); Monocytes Percent Auto 10.7 % (2-11); Neutrophils Absolute Auto 2.1 x10*3/uL (2.0-8.3); Neutrophils Percent Auto 47.1 % (45-73); Platelet Count 237 X10*3/uL (160-400); Red Blood Count 4.38 X10*6/uL (4.60-5.80); Red Cell Distribution Width 12.7 % (11.0-16.0); White Blood Count 4.5 X10*3/uL (4.8-10.8)
[2024-12-15 17:40] LABS: Alanine Aminotransferase 58 U/L (0-40); Albumin Level 4.1 g/dL (3.5-5.0); Alkaline Phosphatase 100 U/L (39-117); Anion Gap 9 (12-20); Aspartate Amino Transferase 42 U/L (5-37); Bilirubin Total 0.4 mg/dL (0.0-1.0); Blood Urea Nitrogen 15 mg/dL (9-16); C Reactive Protein 2.08 mg/dL (< or = 0.50); Calcium 9.2 mg/dL (8.4-10.2); Carbon Dioxide 29 mmol/L (22-29); Chloride 104 mmol/L (96-108); Estimated Glomerular Filt Rate > 60; Glucose Random 191 mg/dL (60-115); Potassium 4.1 mmol/L (3.3-5.1); Sodium 138 mmol/L (135-145); Total Protein 7.7 g/dL (6.5-8.0)
[2024-12-15 18:37] LABS: Erythrocyte Sedimentation Rate 21 MM/HR (0-15)
[2024-12-16 10:15] LABS: Cholesterol 137 mg/dL (<200); HDL Cholesterol 52 mg/dL (>40); LDL Cholesterol Calculated 73 mg/dL (<100); Triglycerides 64 mg/dL (<150)
[2024-12-16 10:32] LABS: Reflex LDLD? No
== END 2024-12-15 16:16 | disposition home or self-care (01) ==
LOC: HO.LAB 16:15
PROVIDERS: PCP Family Medicine; Visit Provider Student in an Organized Health Care Education/Training Program
DX: L40.50 Arthropathic psoriasis, unspecified (principal); E11.9 Type 2 diabetes mellitus without complications
CPT/HCPCS: 36415; 80053; 80061; 85025; 85652; 86140

== ENCOUNTER 2024-12-21 13:09 | Outpatient (REF) | payer MEDICAID, SELFPAY ==
--- NOTE | 2024-12-21 13:15 | EMG_ITS ---
Chief complaint: Arm/hand paresthesias. EMG by Dr. Ortega 2021 reported mild bilateral ulnar neuropathy at the elbow, no median neuropathy. Reason for referral: Evaluate for ulnar neuropathy or Carpal Tunnel Syndrome Referred by: Vineet RODRIGUEZ Procedure done: Bilateral upper extremities NCS/EMG Precautions and/or limitations: None The limb temperature was monitored continuously and remained between 32-36 degrees C during the performance of the NCS. Nerve Conduction Studies Anti Sensory Summary Table ?Stim Site NR Onset (ms) Norm Onset (ms) Peak (ms) Norm Peak (ms) O-P Amp (?V) Norm O-P Amp Site1 Site2 Delta-0 (ms) Dist (cm) Naren (m/s) Norm Naren (m/s) Left Median Anti Sensory (2nd Digit) Wrist ? 2.2 2.8 <3.6 42.7 >10 Wrist 2nd Digit 2.2 14.0 64 Right Median Anti Sensory (2nd Digit) Wrist ? 2.4 3.1 <3.6 21.1 >10 Wrist 2nd Digit 2.4 14.0 58 Right Radial Anti Sensory (Thumb) Forearm ? 1.7 2.3 <3.1 26.9 Forearm Thumb 1.7 0.0 Left Ulnar Anti Sensory (5th Digit) Wrist ? 2.5 3.0 <3.7 19.6 >15.0 Wrist 5th Digit 2.5 14.0 56 Right Ulnar Anti Sensory (5th Digit) Wrist ? 2.2 3.0 <3.7 30.0 >15.0 Wrist 5th Digit 2.2 14.0 64 Motor Summary Table ?Stim Site NR Onset (ms) Norm Onset (ms) O-P Amp (mV) Norm O-P Amp iAmp (mV) Amp (1st) (%) Site1 Site2 Delta-0 (ms) Dist (cm) Naren (m/s) Norm Naren (m/s) Left Median Motor (Abd Poll Brev) Wrist ? 2.8 <3.9 13.5 >4.5 15.5 100.0 Elbow Wrist 4.2 21.5 51 >45 Elbow ? 7.0 13.5 15.7 100.0 Right Median Motor (Abd Poll Brev) Wrist ? 3.1 <3.9 15.0 >4.5 17.5 100.0 Elbow Wrist 4.2 22.0 52 >45 Elbow ? 7.3 12.7 15.2 84.7 Left Ulnar Motor (Abd Dig Minimi) Wrist ? 2.5 <3.0 8.1 >5 9.8 100.0 B Elbow Wrist 4.1 22.0 54 >45 B Elbow ? 6.6 7.7 9.2 95.1 A Elbow B Elbow 1.4 10.0 71 >45 A Elbow ? 8.0 7.5 9.0 92.6 Right Ulnar Motor (Abd Dig Minimi) Wrist ? 2.8 <3.0 10.2 >5 12.4 100.0 B Elbow Wrist 4.2 21.0 50 >45 B Elbow ? 7.0 10.1 12.4 99.0 A Elbow B Elbow 1.3 10.0 77 >45 A Elbow ? 8.3 9.6 12.1 94.1 EMG ?Side Muscle Nerve Root Ins Act Fibs Psw Amp Dur Poly Recrt Int Pat Comment Right 1stDorInt Ulnar C8-T1 Nml Nml Nml Nml Nml 0 Nml Complete Right FlexCarRad Median C6-7 Nml Nml Nml Nml Nml 0 Nml Complete Right Biceps Musculocut C5-6 Nml Nml Nml Nml Nml 0 Nml Complete Right Triceps Radial C6-7-8 Nml Nml Nml Nml Nml 0 Nml Complete Right Deltoid Axillary C5-6 Nml Nml Nml Nml Nml 0 Nml Complete Left 1stDorInt Ulnar C8-T1 Nml Nml Nml Nml Nml 0 Nml Complete Left FlexCarRad Median C6-7 Nml Nml Nml Nml Nml 0 Nml Complete Left Biceps Musculocut C5-6 Nml Nml Nml Nml Nml 0 Nml Complete Left Triceps Radial C6-7-8 Nml Nml Nml Nml Nml 0 Nml Complete Left Deltoid Axillary C5-6 Nml Nml Nml Nml Nml 0 Nml Complete Paraspinal EMG ?Side Muscle Nerve Root Ins Act Fibs Psw Comment Right Cervical Upper Rami Nml Nml Nml Right Cervical Mid Rami Nml Nml Nml Right Cervical Lower Rami Nml Nml Nml Left Cervical Upper Rami Nml Nml Nml Left Cervical Mid Rami Nml Nml Nml Left Cervical Lower Rami Nml Nml Nml FINDINGS: All motor and sensory nerves tested showed normal latencies, amplitudes and conduction velocities. Concentric needle EMG was performed in selected muscles of the bilateral upper extremities and cervical paraspinals. Study did not reveal signs of electric abnormalities as shown in the table above. IMPRESSION: 1. This is a normal study. 2. There is no electrodiagnostic evidence for median neuropathy, ulnar neuropathy, brachial plexopathy, or cervical radiculopathy. CLINICAL COMMENT: Normal study today as compared to 2021. Thank you for your kind referral. Carli Wei MD, HOLLY Board Certified, [place] [employer] and Rehabilitation (ABPMR) Board Certified, [place] Board [employer] Electrodiagnostic [employer] (ABEM) CODIN [phone] x 2 MTDD
--- OUTSIDE RECORDS SUMMARY | 2024-12-21 15:38 | XMS_ITS | Encounter Summary ---
Author Organization [employer] Address [address] [place] [address] Care Team Providers Care Director Of Corporate Marketing Name Role Phone January Love MD Primary Care Provider [phone] Encounter Details Date Type Department Care Team (Latest Contact Info) Description 12/06/2024 Travel Social History Tobacco Use Types Packs/Day Years Used Date Smoking Tobacco: Never Smokeless Tobacco: Never Alcohol Use Standard Drinks/Week Comments Not Currently 0 (1 standard drink = 0.6 oz pur e alcohol) Depression Answer Date Recorded Patient Health Questionnaire-9 Score 0 01/13/2024 Patient Health Questionnaire-9 Score 0 01/13/2024 Last PHQ-9: Questionnaire Data Not on file 0 01/13/2024 Housing Stability Answer Date Recorded What is your housing situation today? I have simone beckwith 01/13/[address] you li ve. Do you have problems with any of the following? None of the above 01/13/2024 Food Insecurity Answer Date Recorded Within the past 12 months, y ou worried that your food would run out before you got money to buy more: Never True 01/13/2024 Within the past 12 months,th e food you bought just didn't last and you didn't have enough money to get more: Never True Transportation Answer Date Recorded In the past 12 months, has l ack of transportation kept you from medical appts, meetings, work or from getting things needed for daily living? No 01/13/2024 Utilities Answer Date Recorded In the past 12 months, has t he electric, gas, oil or water company threatened to shut off services in your home? No 01/13/2024 Depression Answer Date Recorded Patient Health Questionnaire-2 Score 0 01/13/2024 Internet Access Answer Date Recorded Internet Access Q1 Yes 05/30/2024 Internet Access Q2 Not on file 05/30/2024 Sex and Gender Information Value Date Recorded Sex Assigned at Male 07/28/2022 10:14 AM EDT Legal Sex Male 10:14 AM EDT Gender Identity Male 07/28/2022 10:14 AM EDT Sexual Orientation Straight 07/28/2022 10 :14 AM EDT documented as of this encounter Plan of Treatment Upcoming Encounters Date Type Department Care Team (Late st Contact Info) Description 01/11/2025 9:15 AM EDT Clinical Support [facility] [address] [place] [address] Nora Ayala RN documented as of this encounter Goals Goal Patient Goal Type Associated Problems Recent Progress Patient-Stated? Author Increase coping skills to promote long-term recovery and improve ability to perform daily activities General No Lei Hendricks RN documented as of this encounter Visit Diagnoses Not on filedocumented in this encounter Additional Health Concerns Assessment Noted Time PHQ-9 Depression Total Score: 0 01/13/20 24 9:56 AM EDT documented as of this encounter Care Teams Director Of Corporate Marketing Relationship Specialty Start Date End Date January Love MD [address] [place] [address] PCP - General Family Medicine 03/28/13 documented as of this encounter
--- OUTSIDE RECORDS SUMMARY | 2024-12-21 15:38 | XMS_ITS | Encounter Summary ---
Author Organization [employer] Address [address] [place] [address] Care Team Providers Care Dupligraph Operator Name Role Phone January Love MD Primary Care Provider [phone] Reason for Visit * Reason Onset Date Comments Med Refill 12/07/2024 Encounter Details Date Type Department Care Team (Late st Contact Info) Description 12/07/2024 Refill [facility] [address] [place] [address] Lei Hendricks, RN [address] [place] [address] Uncomplicated opioid dependence (CMS/HCC) Social History Tobacco Use Types Packs/Day Years [...] Description 01/11/2025 9:15 AM EDT Clinical Support [facility] [address] [place] [address] Nora Ayala RN documented as of this encounter Goals Goal Patient Goal Type Associated Problems Recent Progress Patient-Stated? Author Increase coping skills to promote long-term recovery and improve ability to perform daily activities General No Lei Hendricks, HELIO documented as of this encounter Visit Diagnoses Diagnosis Uncomplicated opioid dependence (CMS/HCC) documented in this encounter Additional Health Concerns Assessment Noted Time PHQ-9 Depression Total Score: 0 01/13/20 24 9:56 AM EDT documented as of this encounter Care Teams Dupligraph Operator Relationship Specialty Start Date End Date January Love MD [address] [place] [address] PCP - General Family Medicine 03/28/13 documented as of this encounter
--- OUTSIDE RECORDS SUMMARY | 2024-12-21 15:38 | XMS_ITS | Encounter Summary ---
Author Organization [employer] Address [address] [place] [id number] Care Team Providers Care Table Maker Name Role Phone January Love MD Primary Care Provider [phone] Reason for Referral * Consultation (Routine) - Authorized Specialty Diagnoses / Procedures Referred By Contsebastian t Referred To Contact Sleep Medicine Diagnoses Obstructive sleep apnea syndrome January Love MD [address] [place] [phone] Phone: tel: fax: Sleep Medicine Service [facility] [address], [address] [place] [address] Phone: tel: fax: Referral ID Status Reason Start Date Expiration Date Visits Requested Visits Authorized [id number] Authorized Specialty Services Required 12/16/2024 12/16/2025 6 6 Encounter Details Date Type Department Care Team (Late st Contact Info) Description 12/13/2024 10:45 AM EDT Office Visit [facility] [address] [place] [address] [phone] January Love MD [address] [place] [address] [phone] Metabolic dysfunction-associate d steatotic liver disease (MASLD) (Primary Dx); Peripheral venous insufficiency; Moderate persistent asthma without complication; Type 2 diabetes mellitus without complication, without long-term current use of insulin (CMS/HCC); Psoriatic arthritis (CMS/HCC); Chronic gout without tophus, unspecified cause, unspecified site; Obstructive sleep apnea syndrome; Constipation, unspecified constipation type; Fibromyalgia; Uncomplicated opioid dependence ([facility]/HCC); Allergic rhinitis, unspecified seasonality, unspecified trigger; Elevated BP without diagnosis of hypertension; Dietary counseling; Exercise counseling; Class 1 obesity due to excess calories with serious comorbidity and body mass index (BMI) of 34.0 to 34.9 in adult; Gastroesophageal reflux disease, unspecified whether esophagitis present; Irritable bowel syndrome with constipation; Right foot pain; Hammertoe of right foot; Anemia, unspecified type; Mixed anxiety and depressive disorder; Chronic bilateral low back pain, unspecified whether sciatica present Social History Tobacco Use Types Packs/Day Years Used Date Smoking Tobacco: Former Cigarettes Smokeless Tobacco: Never Tobacco Cessation:Counseling Given: Not Answered Alcohol Use Standard Drinks/Week Comments Not Currently 0 (1 standard drink = 0.6 oz pur e alcohol) Depression Answer Date Recorded Patient Health Questionnaire-9 Score 10 12/13/2024 Patient Health Questionnaire-9 Score 10 12/13/2024 Last PHQ-9: Questionnaire Data Not on file 0 12/13/2024 Housing Stability Answer Date Recorded What is [...] Answer Date Recorded Patient Health Questionnaire-2 Score 1 12/13/2024 Internet Access Answer Date Recorded Internet Access Q1 Yes 05/30/2024 Internet Access Q2 Not on file 05/30/2024 Sex and Gender Information Value Date Recorded Sex Assigned at Male 07/28/2022 10:14 AM EDT Legal Sex Male 10:14 AM EDT Gender Identity Male 07/28/2022 10:14 AM EDT Sexual Orientation Straight 07/28/2022 10 :14 AM EDT documented as of this encounter Last Filed Vital Signs Vital Sign Reading Time Taken Comments Blood Pressure 146/93 12/13/2024 10:57 AM EDT Pulse 82 12/13/2024 10:57 AM EDT Temperature 35.8 ??C (96.4 ??F) 12/13/2024 10:57 AM E DT Respiratory Rate 17 12/13/2024 10:57 AM EDT Oxygen Saturation 98% 12/13/2024 10:57 AM EDT Inhaled Oxygen Concentration - - Weight 110 kg (243 lb) 12/13/2024 10:57 AM EDT Height 177.8 cm (5' 10 ) 12/13/2024 10:57 AM EDT Body Mass Index 34.87 12/13/2024 10:57 AM EDT documented in this encounter Progress Notes * January Love MD - 12/13/2024 10:45 AM EDT Franci Plata is a 49 y.o. male who has asthma, allergic rhinitis, psoriatic arthritis, and diabetes mellitus type 2, and patient presents for Physical Exam. Subjective Our last encounter was on 07/27/2024 for OBAT. Last primary care visit was on 10/22/22. Interval history: Seen by Dr. White, [facility] Rheum on 08/18/24 for psoriatic arthritis, gout, and fibromyalgia. Patient reported bilateral hand pain. Known carpal tunnel syndrome. Referred to hand surgeon. Rx duloxetine for fibromyalgia. Continue Enbrel and allopurinol for psoriatic arthritis and gout, respectively. Seen by Shannan [facility] GI on 08/19/24 for GERD, IBS, and constipation. Rx sucralfate. Discontinued famotidine. Continue lansoprazole, Linaclotide, Tulance, senna, bisacodyl, fiber, and docusate. Consultants: Rn Angiography: [facility] GI: [facility] Ct Scan Tech: Salina Charles. Composing Room Supervisor: [facility] Today: Pt reports he has been feeling sick and congested. He denies having a fever or any chills other than being slightly cold. Pt notes due to his fibromyalgia, he often feels fatigued and gets exhausted easily, making it difficult to exercise. Pt also states at times after waking up, his back will hurt severely and he can hardly move. He states he had adverse reaction to duloexetine (Cymbalta), thus stopped taking it. Pt reports his glucose is between 120 - 179 when he wakes up. He has noticed it has been higher lately. He states he topped taking metformin because he read some horrible story about metformin side effect. He started taking Coenzyme Q10 instead because he read a positive review on this product. Pt denies drinking soda or juice, confirming he only drinks water. He states he only has 2 meals a day and a snack in between. Pt agrees to go back to using metformin and will try to switch out his sweets for raisins to improve his diet. Pt notes he has not been checking his BP at home but agrees to start. Pt states when he sleeps his mouth gets dry. So much so, it feels like he almost boggs his tongue. Pt confirms he goes to the dentist regularly. Pt notes he needs to make an appointment with his associate school psychologist. Patient has not been using CPAP. He states his machine was taken back because the supplier stated that he was not adherent. He states he needed a help in adjusting pressure or finding a better mask. Past medical history: Patient Active Problem List Diagnosis Date Noted IBS (irritable bowel syndrome) 12/16/2024 Hammertoe of right foot 12/16/2024 Elevated BP without diagnosis of hypertension 12/13/2024 Right foot pain 05/04/2024 Gout 10/22/2022 Opioid dependence ([facility]) 10/22/2022 Fibromyalgia 10/22/2022 Constipation 10/22/2022 Metabolic dysfunction-associated steatotic liver disease (MASLD) 10/22/2022 GERD (gastroesophageal reflux disease) 10/22/2022 Allergic rhinitis 10/22/2022 Chronic back pain 10/22/2022 Chronic pain of left knee 10/22/2022 Psoriatic arthritis ([facility]/HCC) 10/22/2022 Type 2 diabetes mellitus ([facility]) 11/03/2018 Obstructive sleep apnea syndrome 03/24/2018 Mixed anxiety and depressive disorder 09/24/2016 Peripheral venous insufficiency 09/24/2016 Transaminitis 02/27/2016 Anemia 06/29/2012 Asthma 06/29/2012 Perforation of nasal septum 06/29/2012 Obesity 03/08/2012 Past surgical history: History reviewed. No pertinent surgical history. Hospitalizations / major illness: Medications: Current Outpatient Medications Medication Instructions Alcohol Swabs (Alcohol Prep) 70 % pads USE TWICE DAILY allopurinol (ZYLOPRIM) 300 mg, Oral, Daily Arthritis Pain Relief 650 mg, Oral, Every 8 hours PRN bacitracin 500 UNIT/GM ointment APPLY TO THE AFFECTED AREA(S) TOPICALLY ONE OR TWO TIMES DAILY Bisacodyl EC 10 mg, Oral, Nightly Blood Glucose Monitoring Suppl w/Device kit 1 Application., Intradermal, 2 times daily Blood Pressure Monitor misc Check BP daily Buprenorphine HCl-Naloxone HCl (Suboxone) 8-2 MG SL film 1 Film, Sublingual, Every 8 hours cetirizine (ZYRTEC) 10 mg, Oral, Nightly Creon 00160-367351 units capsule delayed-release particles capsule 1 capsule, Oral, 4 times daily with meals and nightly docusate sodium (COLACE) 100 mg, Oral, Nightly Enbrel SureClick 50 mg, Subcutaneous, Weekly EPINEPHrine (Epipen) 0.3 MG/0.3ML injection syringe INJECT INTRAMUSCULARLY DIRECTED ON PACKAGE AND GO TO EMERGENCY ROOM fluticasone (Flonase) 50 MCG/ACT nasal spray 1-2 sprays, Each Nostril, Daily, Shake gently. Before first use, prime pump. After use, clean tip and replace cap. FREESTYLE LITE test strip Check sugar once or twice daily lansoprazole (PREVACID) 30 mg, Oral, Daily Linzess 290 mcg, Oral, Every morning loratadine (CLARITIN) 10 mg, Oral, Daily metFORMIN XR (GLUCOPHAGE-XR) 500 mg, Oral, Daily with evening meal, Do not crush, chew, or split. naproxen (NAPROSYN) 500 mg, Oral, 2 times daily PRN Narcan 4 MG/0.1ML nasal spray FOR SUSPECTED OPIOID OVERDOSE. SPRAY 0.1mL IN ONE NOSTRIL. REPEAT IN ALTERNATE NOSTRIL 2-3 MINUTES IF NEEDED. SEEK MEDICAL ATTENTION IMMEDIATELY EVEN IF PATIENT RESPONDS. Proventil HFA 108 (90 Base) MCG/ACT inhaler 2 puffs, Inhalation, Every 4 hours PRN senna (Senokot) 8.6 MG tablet TAKE 1 TABLET BY MOUTH AT BEDTIME FOR CONSTIPATION SM Fiber Laxative 500 MG tablet TAKE 1 TABLET BY MOUTH TWICE DAILY sucralfate (CARAFATE) 1 g, Nightly tamsulosin (Flomax) 0.4 MG 24 hr capsule TAKE 1 CAPSULE BY MOUTH EVERY DAY triamcinolone (Kenalog) 0.1 % cream APPLY TO THE AFFECTED AREA(S) TWICE DAILY Do not apply on face,axilla, groin TRUEplus [facility]ets [facility] Check sugar once or twice daily Trulance tablet tablet 1 tablet, Oral, Daily valACYclovir (VALTREX) 1,000 mg, Oral, Every morning Allergy: Allergies Allergen Reactions Cymbalta [Duloxetine Hcl] Drowsiness Penicillin V Unknown Family history: No family history on file. Social history: - SDOH screen: Low risk - Occupation / school - Housing: Stable - Household members: AFAB partner; - Pet: [place] - Tobacco: No - Alcohol: No - Drugs: No, on buprenorphine / naloxone (Suboxone). - Sexual history: cisgender AFAB partner Safety - Driving: yes - Firearm: no Immunizations: up to date Dental Care: up to date Cancer screening: Colon: Colonoscopy by Dr. Riggs on 06/11/23. Hemorrhoids. Due to family history of CRC, recommended5 year follow up. Prostate: Hx LUTS and on tamsulosin Skin: no concerning lesion Health Care Proxy MOLST Review of Systems Constitutional: Negative for activity change, appetite change and fever. HENT: Positive for congestion. Respiratory: Negative for shortness of breath. Cardiovascular: Negative for chest pain. Objective Vitals: 12/13/24 1057 BP: (!) 146/93 Pulse: 82 Resp: 17 Temp: 96.4 ??F (35.8 ??C) TempSrc: Temporal SpO2: 98% Weight: 243 lb (110 kg) Height: 5' 10 (1.778 m) Physical Exam Constitutional: General: He is not in acute distress. Appearance: Normal appearance. He is not ill-appearing. HENT: Head: Normocephalic and atraumatic. Mouth/Throat: Mouth: Mucous membranes are moist. Eyes: Extraocular Movements: Extraocular movements intact. Pupils: Pupils are equal, round, and reactive to light. Cardiovascular: Rate and Rhythm: Normal rate and regular rhythm. Heart sounds: No murmur heard. Pulmonary: Effort: Pulmonary effort is normal. No respiratory distress. Breath sounds: Normal breath sounds. No wheezing or rhonchi. Skin: General: Skin is warm. Neurological: Mental Status: He is alert. Mental status is at baseline. Psychiatric: Mood and Affect: Mood normal. Results: Lab Results Component Value Date NA 138 12/15/2024 K 4.1 12/15/2024 CL 104 12/15/2024 CO2 29 12/15/2024 BUN 15 12/15/2024 CREATININE 0.71 12/15/2024 CRCLCALCPH 169.8 10/26/2020 EGFR >60 12/15/2024 GLUCOSE 191 (H) 12/15/2024 TOTALBILIRUB 0.4 12/15/2024 AST 42 (H) 12/15/2024 ALT 58 (H) 12/15/2024 TOTPROTEIN 7.7 12/15/2024 ALB 4.1 12/15/2024 ALP 100 12/15/2024 Lab Results Component Value Date HGBA1C 7.9 (A) 12/13/2024 MICROALBUR 8.0 08/12/2024 CREATUR 160.54 08/12/2024 MICROALBCREU 4.9 08/12/2024 Lab Results Component Value Date WBC 4.5 (L) 12/15/2024 HGB 12.4 (L) 12/15/2024 HCT 38.3 (L) 12/15/2024 PLT 237 12/15/2024 MCV 87.4 12/15/2024 The 10-year ASCVD risk score (Meng DK, et al., 2019) is: 3.2% Values used to calculate the score: Age: 49 years Sex: Male Is Non- : No Diabetic: Yes Tobacco smoker: No Systolic Blood Pressure: 146 mmHg Is BP treated: No HDL Cholesterol: 52 mg/dL Total Cholesterol: 137 mg/dL FIB-4 Calculation: 0.85 at 05/04/2024 10:53 AM Calculated from: SGOT/AST: 33 U/L at 05/04/2024 10:53 AM SGPT/ALT: 47 U/L at 05/04/2024 10:53 AM Platelets: 259 X10*3/uL at 05/04/2024 10:53 AM Age: 48 years Screening and Health Care Maintenance: PHQ-2/9 Score: Patient Health Questionnaire-9 Score: 10 (12/13/2024 10:56 AM) Patient Health Questionnaire-2 Score: 1 (12/13/2024 10:56 AM) Thoughts that you would be better off or hurting yourself in some way: Not at all (12/13/2024 10:56 AM) BRANDON-7 Score: BRANDON-7 Total Score: 2 (12/13/2024 10:57 AM) Assessment/Plan 1. Metabolic dysfunction-associated steatotic liver disease (MASLD) (Primary) Assessment & Plan: Patient is followed by [facility] GI, seen in Jul 2024 Abdominal US in 04/2021: diffuse liver echogenicity consistent with fatty infiltration, no suspicious lesions Continue lifestyle modifications Check the status of abdominal US 2. Peripheral venous insufficiency 3. Moderate persistent asthma without complication Assessment & Plan: -Most recent exacerbation in Oct 2019, s/p prednisone and azithromycin -previously on fluticasone (Flovent), but not using and his symptoms are well-controlled -step-down therapy; discontinue ICS -continue Albuterol HFA prn 4. Type 2 diabetes mellitus without complication, without long-term current use of insulin ([facility]) Assessment & Plan: - A1c 7.9% on 12/13/24 worsened from 04/06/24 -Improve adherence to SMBG and lifestyle modifications -continue metformin 500 mg once daily, started on 07/17/20 Last lipid profile: 12/18/21 A1c 6.8%. TC 140; TG 69; HDL 49; LDL 76 Microalbumin test: 07/2024 UACR 4.9 Foot exam: 05/19/22. Eye exam: 2020 IZ - up to date Consider medication dose adjustement if no improvement by next visit. Orders: - POCT glycosylated hemoglobin (Hgb A1c) - POCT glucose manually resulted - metFORMIN XR (Glucophage-XR) 500 MG 24 hr tablet; Take 1 tablet (500 mg) by mouth with evening meal. Do not crush, chew, or split. 5. Psoriatic arthritis ([facility]) Assessment & Plan: - continue following with [facility] Rhuematology - Continue Enbrel 6. Chronic gout without tophus, unspecified cause, unspecified site Assessment & Plan: Continue Allopurinol 300mg/day -per patient's report he had gout flare 5 times in one month -continue low purine diet -Continue colchicine indomethacin 7. Obstructive sleep apnea syndrome Assessment & Plan: - Last sleep study in 2018. Full face mask pressure 11 cm H2O - Previously had CPAP but it was discontinued due to non-adherence. - Will re-evaluate with new sleep study Orders: - Referral to Sleep Medicine; Future - Referral to Sleep Medicine 8. Constipation, unspecified constipation type Assessment & Plan: - multifactorial - drug-induced, low-fiber diet - continue Trulance, senna, bisacodyl, docusate, Linaclotide, fiber - continue improving dietary fiber intake 9. Fibromyalgia Assessment & Plan: - following with life insurance specialist and final touch up painter - Diagnosed with psoriatic arthritis - continue current treatment plan per life insurance specialist and final touch up painter - tried duloexetine (Cymbalta), but discontinued due to adverse reaction 10. Uncomplicated opioid dependence (CMS/HCC) Assessment & Plan: -Long-term maintenance stage -Last recurrence in February 2016 -Overdose risk: Average. No risk factor. -Initially started on 12/3 mg daily, increased to 16/4 mg in February 2016, increased to 20/5 mg daily in Apr 2020 -Tried Sublocade, discontinued due to side effect -Increased Suboxone to 24/6 mg daily after Sublocade, and doing well -Continue current dose -Continue current recovery support and OD/recurrence prevention effort 11. Allergic rhinitis, unspecified seasonality, unspecified trigger Assessment & Plan: - evaluated and treated by predictive maintenance specialist, Dr. Garcia, last appt in 2020 - continue loratadine and fluticasone nasal - previously on montelukast 12. Elevated BP without diagnosis of hypertension Assessment & Plan: - Goal BP < 130/80 per ACC/AHA guideline - Continue lifestyle modifications - Check BP at home - Return for BP check in 1 month. If persistently elevated, will start Losartan 25 mg daily 13. Dietary counseling 14. Exercise counseling 15. Class 1 obesity due to excess calories with serious comorbidity and body mass index (BMI) of 34.0 to 34.9 in adult Assessment & Plan: Continue working on lifestyle modifications. Generic advice as below. Modify for individualized plan and work on your health goal. Dietary Recommendations: Fruits, vegetables, whole grains, protein foods, and fat-free or low-fat dairy products are healthychoices. Eat different types of protein foods in your diet. This can include seafood, lean meats, poultry, beans, peas, lentils, nuts, seeds, soy products, and eggs. Limit foods and beverages higher in added sugars, saturated fat, and sodium. Exercise Recommendations: At least 150 minutes of moderate-intensity physical activity per week, or an equivalent combinationof moderate- and vigorous-intensity activity 16. Gastroesophageal reflux disease, unspecified whether esophagitis present Assessment & Plan: - following with [facility] GI - continue lansoprazoe 17. Irritable bowel syndrome with constipation Assessment & Plan: - follow recommendations by GI 18. Right foot pain Assessment & Plan: - following with cda teacher - Dx right 5th hammer toe - patient is still undecided about surgery 19. Hammertoe of right foot 20. Anemia, unspecified type Assessment & Plan: - mild - monitor 21. Mixed anxiety and depressive disorder Assessment & Plan: - patient declines behavioral health service referral 22. Chronic bilateral low back pain, unspecified whether sciatica present Assessment & Plan: - following with Vacation [employer]anner, last seen on 12/25/21 - s/p RFA - F/U with final touch up painter Other orders - loratadine (Claritin) 10 MG tablet; Take 1 tablet (10 mg) by mouth Once per day. - fluticasone (Flonase) 50 MCG/ACT nasal spray; Administer 1-2 sprays into each nostril Once per day. Shake gently. Before first use, prime pump. After use, clean tip and replace cap. - Blood Pressure Monitor [facility]; Check BP daily - Proventil HFA 108 (90 Base) MCG/ACT inhaler; Inhale 2 puffs every 4 (four) hours if needed for wheezing or shortness of breath. - Pfizer COVID-19 Vaccine 12+ Follow-up: 3 months or sooner if any problem arises. Scribe Attestation: Linda Luther, am serving as a scribe to document services personally performed by January Love MD, based on the patient's response to questions by provider and provides statements to me. documented in this encounter Miscellaneous Notes * Assessment & Plan Note - January Love MD - 12/16/2024 12:34 PM EDTAssociated Problem(s): Chronic back pain - following with [employer]ation [employer], last seen on 12/25/21 - s/p RFA - F/U with final touch up painter * Assessment & Plan Note - January Love MD - 12/16/2024 12:34 PM EDTAssociated Problem(s): Mixed anxiety and depressive disorder - patient declines behavioral health service referral * Assessment & Plan Note - January Love MD - 12/16/2024 12:34 PM EDTAssociated Problem(s): Anemia - mild - monitor * Assessment & Plan Note - January Love MD - 12/16/2024 12:33 PM EDTAssociated Problem(s): Obesity Continue working on lifestyle modifications. Generic advice as below. Modify for individualized plan and work on your health goal. Dietary Recommendations: Fruits, vegetables, whole grains, protein foods, and fat-free or low-fat dairy products are healthychoices. Eat different types of protein foods in your diet. This can include seafood, lean meats, poultry, beans, peas, lentils, nuts, seeds, soy products, and eggs. Limit foods and beverages higher in added sugars, saturated fat, and sodium. Exercise Recommendations: At least 150 minutes of moderate-intensity physical activity per week, or an equivalent combinationof moderate- and vigorous-intensity activity * Assessment & Plan Note - January Love MD - 12/16/2024 12:31 PM EDTAssociated Problem(s): Right foot pain - following with cda teacher - Dx right 5th hammer toe - patient is still undecided about surgery * Assessment & Plan Note - January Love MD - 12/16/2024 12:30 PM EDTAssociated Problem(s): IBS (irritable bowel syndrome) - follow recommendations by GI * Assessment & Plan Note - January Love MD - 12/16/2024 12:29 PM EDTAssociated Problem(s): GERD (gastroesophageal reflux disease) - following with [facility] - continue lansoprazoe * Assessment & Plan Note - Linda Lui MA - 12/13/2024 12:31 PM EDT Associated Problem(s): Elevated BP without diagnosis of hypertension - Goal BP < 130/80 per ACC/AHA guideline - Continue lifestyle modifications - Check BP at home - Return for BP check in 1 month. If persistently elevated, will start Losartan 25 mg daily * Assessment & Plan Note - Linda Lui MA - 12/13/2024 12:28 PM EDT Associated Problem(s): Allergic rhinitis - evaluated and treated by predictive maintenance specialist, Dr. Garcia, last appt in 2020 - continue loratadine and fluticasone nasal - previously on montelukast * Assessment & Plan Note - Linda Lui MA - 12/13/2024 12:27 PM EDT Associated Problem(s): Opioid dependence (CMS/HCC) -Long-term maintenance stage -Last recurrence in February 2016 -Overdose risk: Average. No risk factor. -Initially started on 12/3 mg daily, increased to 16/4 mg in February 2016, increased to 20/5 mg daily in Apr 2020 -Tried Sublocade, discontinued due to side effect -Increased Suboxone to 24/6 mg daily after Sublocade, and doing well -Continue current dose -Continue current recovery support and OD/recurrence prevention effort * Assessment & Plan Note - Linda Lui MA - 12/13/2024 12:27 PM EDT Associated Problem(s): Gout Continue Allopurinol 300mg/day -per patient's report he had gout flare 5 times in one month -continue low purine diet -Continue colchicine indomethacin * Assessment & Plan Note - Linda Lui MA - 12/13/2024 12:24 PM EDT Associated Problem(s): Psoriatic arthritis (CMS/HCC) - continue following with [facility] Rhuematology - Continue Enbrel * Assessment & Plan Note - Linda Lui MA - 12/13/2024 12:23 PM EDT Associated Problem(s): Fibromyalgia - following with life insurance specialist and final touch up painter - Diagnosed with psoriatic arthritis - continue current treatment plan per life insurance specialist and final touch up painter - tried duloexetine (Cymbalta), but discontinued due to adverse reaction * Assessment & Plan Note - Linda Lui MA - 12/13/2024 12:19 PM EDT Associated Problem(s): Metabolic dysfunction-associated steatotic liver disease (MASLD) Patient is followed by [facility], seen in Jul 2024 Abdominal US in 04/2021: diffuse liver echogenicity consistent with fatty infiltration, no suspicious lesions Continue lifestyle modifications Check the status of abdominal US * Assessment & Plan Note - Linda Lui MA - 12/13/2024 12:17 PM EDT Associated Problem(s): Constipation - multifactorial - drug-induced, low-fiber diet - continue Trulance, senna, bisacodyl, docusate, Linaclotide, fiber - continue improving dietary fiber intake * Assessment & Plan Note - Linda Lui MA - 12/13/2024 12:16 PM EDT Associated Problem(s): Asthma -Most recent exacerbation in Oct 2019, s/p prednisone and azithromycin -previously on fluticasone (Flovent), but not using and his symptoms are well-controlled -step-down therapy; discontinue ICS -continue Albuterol HFA prn * Assessment & Plan Note - Linda Lui MA - 12/13/2024 12:15 PM EDT Associated Problem(s): Obstructive sleep apnea syndrome - Last sleep study in 2018. Full face mask pressure 11 cm H2O - Previously had CPAP but it was discontinued due to non-adherence. - Will re-evaluate with new sleep study * Assessment & Plan Note - Linda Lui MA - 12/13/2024 8:41 AM EDTAssociated Problem(s): Type 2 diabetes mellitus ([facility]) - A1c 7.9% on 12/13/24 worsened from 04/06/24 -Improve adherence to SMBG and lifestyle modifications -continue metformin 500 mg once daily, started on 07/17/20 Last lipid profile: 12/18/21 A1c 6.8%. TC 140; TG 69; HDL 49; LDL 76 Microalbumin test: 07/2024 UACR 4.9 Foot exam: 05/19/22. Eye exam: 2020 IZ - up to date Consider medication dose adjustement if no improvement by next visit. documented in this encounter Plan of Treatment Upcoming Encounters Date Type Department Care Team (Late st Contact Info) Description 01/11/2025 9:15 AM EDT Clinical Support [facility] [address] [place] [address] Nora Ayala, HELIO Scheduled Referrals Name Type Priority Associated Diagnoses Orde r Schedule Referral to Sleep Medicine Outpatient Referral Routine Obstructive sleep apnea syndrome Expected: 12/16/2024 (Approximate), Expires: 12/16/2025 documented as of this encounter Goals Goal Patient Goal Type Associated Problems Recent Progress Patient-Stated? Author Increase coping skills to promote long-term recovery and improve ability to perform daily activities General No Lei Hendricks RN documented as of this encounter Procedures Procedure Name Priority Date/Time Associated Diagnosis Comments POCT GLYCOSYLATED HEMOGLOBIN (HGB A1C) Routine 12/13/2024 10:58 AM EDT Type 2 diabetes mellitus without complication, without long-term current use of insulin ([facility]) POCT GLUCOSE Routine 12/13/2024 10:57 AM EDT Type 2 diabetes mellitus without complication, without long-term current use of insulin ([facility]) documented in this encounter Results * (ABNORMAL) POCT glycosylated hemoglobin (Hgb A1c) (12/13/2024 10:58 AM EDT) Hemoglobin A1C 7.9(A) 4.0 - 6.0 % QC Media Lot # [id number] Lot# Expiration Date ,026 Blood Capillary blood specimen / Unknown 12/13/2024 10:58 AM EDT us January Love MD POINT OF CARE TEST ENTER/EDIT OR DERABLES Final Result * POCT glucose manually resulted (12/13/2024 10:57 AM EDT) Pathologist [facility] Glucose Blood, POC 184 60 - 200 mg/dL QC Media Lot # [id number] Lot# Expiration Date ,025 Blood Capillary blood specimen / Unknown 12/13/2024 10:57 AM EDT us January Sakurai MD POINT OF CARE TEST ENTER/EDIT OR DERABLES Final Result documented in this encounter Visit Diagnoses Diagnosis Metabolic dysfunction-associated steatotic liver disease (MASLD)- Primary Peripheral venous insufficiency Unspecified venous (peripheral) insufficiency Moderate persistent asthma without complication Type 2 diabetes mellitus without complication, without long-term current use of insulin ([facility]) Psoriatic arthritis ([facility]) Psoriatic arthropathy Chronic gout without tophus, unspecified cause, unspecified site Obstructive sleep apnea syndrome Obstructive sleep apnea (adult) (pediatric) Constipation, unspecified constipation type Fibromyalgia Unspecified myalgia and myositis Uncomplicated opioid dependence ([facility]) Allergic rhinitis, unspecified seasonality, unspecified trigger Elevated BP without diagnosis of hypertension Dietary counseling Dietary surveillance and counseling Exercise counseling Class 1 obesity due to excess calories with serious comorbidity and body mass index (BMI) of 34.0 to 34.9 in adult Gastroesophageal reflux disease, unspecified whether esophagitis present Irritable bowel syndrome with constipation Irritable bowel syndrome Right foot pain Pain in soft tissues of limb Hammertoe of right foot Anemia, unspecified type Mixed anxiety and depressive disorder Dysthymic disorder Chronic bilateral low back pain, unspecified whether sciatica present documented in this encounter Additional Health Concerns Assessment Noted Time PHQ-9 Depression Total Score: 10 12/13/ 025 10:56 AM EDT documented as of this encounter Care Teams Table Maker Relationship Specialty Start Date End Date January Love MD [address] [place] [address] PCP - General Family Medicine 03/28/13 documented as of this encounter
--- OUTSIDE RECORDS SUMMARY | 2024-12-21 15:38 | XMS_ITS | Encounter Summary ---
Author Organization [employer] Address [address] [place] [address] [address] [place] [address] Care Team Providers Care Optometric Assistant Name Role Phone January Love MD Primary Care Provider [phone] Encounter Details Date Type Department Care Team (Late st Contact Info) Description 09/16/2022 Orders Only [facility] [address], [place] [phone] Bev Snow LPN Social History Tobacco Use Types Packs/Day Years Used Date Smoking Tobacco: Never Assessed Sex and Gender Information Value Date Recorded Sex Assigned at Male 07/28/2022 10:14 AM EDT Legal Sex Male 10:14 AM EDT Gender Identity Male 07/28/2022 10:14 AM EDT Sexual Orientation Straight 07/28/2022 10 :14 AM EDT documented as of this encounter Plan of Treatment Upcoming Encounters Date Type Department Care Team (Late st Contact Info) Description 01/11/2025 9:15 AM EDT Clinical Support [facility] MEDICINE [address] [place], [place] [phone] Nora Ayala RN documented as of this encounter Procedures Procedure Name Priority Date/Time Associated Diagnosis Comments HEMATOXYLIN AND EOSIN STAIN Routine 06/11/2023 12:13 PM EDT GLUCOSE, WHOLE BLOOD Routine 06/11/2023 10:00 AM EDT CBC WITH AUTO DIFFERENTIAL Routine 05/12/2023 3:43 PM EDT SED RATE BY MODIFIED WESTERGREN Routine 05/12/2023 3:43 PM EDT C-REACTIVE PROTEIN Routine 05/12/2023 3: 43 PM EDT COMPREHENSIVE METABOLIC PANEL Routine 05/12/2023 3:43 PM EDT CBC WITH AUTO DIFFERENTIAL Routine 02/10/2023 2:25 PM EDT SED RATE BY MODIFIED WESTERGREN Routine 02/10/2023 2:25 PM EDT C-REACTIVE PROTEIN Routine 02/10/2023 2: 25 PM EDT COMPREHENSIVE METABOLIC PANEL Routine 02/10/2023 2:25 PM EDT ANCA VASCULITIDES Routine 12/16/2022 12: 54 PM EDT T-SPOT(R).TB Routine 12/16/2022 12:54 PM EDT PROTEIN ELECTROPHORESIS AND KAPPA/LAMBDA LIGHT CHAINS, SERUM Routine 12/16/2022 12:54 PM EDT HEPATITIS PANEL, GENERAL Routine 12/16/2022 12:54 PM EDT CBC WITH AUTO DIFFERENTIAL Routine 12/16/2022 12:54 PM EDT CYCLIC CITRULLINATED PEPTIDE (CCP) AB (IGG) Routine 12/16/2022 12:54 PM EDT SED RATE BY MODIFIED WESTERGREN Routine 12/16/2022 12:54 PM EDT RHEUMATOID FACTOR Routine 12/16/2022 12: 54 PM EDT [id number] G ENZYME Routine 12/16/2022 12:54 PM EDT IMMUNOFIXATION, SERUM Routine 12/16/2022 12:54 PM EDT C-REACTIVE PROTEIN Routine 12/16/2022 12 :54 PM EDT URIC ACID Routine 12/16/2022 12:54 PM EDT HEMOGLOBIN A1C Routine 12/16/2022 12:54 PM EDT CREATINE KINASE, TOTAL Routine 12:54 PM EDT COMPREHENSIVE METABOLIC PANEL Routine 12/16/2022 12:54 PM EDT documented in this encounter Results * Hematoxylin and Eosin Stain (06/11/2023 12:13 PM EDT) 06/11/2023 12:1 3 PM EDT 06/11/2023 1:14 PM EDT [facility] - 06/12/2023 2:30 PM EDT ----- ------- Name: Franci Plata ?Age/Sex: 47/M ? : 1975 Unit#: [id number] ?? Attend Dr: Saurabh Riggs MD ?Re06/11/23 ?Status: DEP SDC ? Location: HO.SSS ?Disch: ? ----- ------- SPEC : [id number] ? RECD: 06/11/23 ? STATUS: ??SOUT ? REQ NUM: [id number] ? ELIAS: 06/11/23-3 ? SUBM DR: Saurabh Riggs MD ? ENTERED: ??06/11/23 ?SP TYPE: Surgical ? OTHR DR: January Love MD ? ORDERED: ??HE Stain/5, Gross Micro L4/5, IHC, H. pylori ? Diagnosis ?? A. ??Duodenum, biopsy: ??Duodenal mucosa within normal limits; preserved villous ?? architecture and no increased intraepithelial lymphocytes seen. ? B. ??Stomach, biopsy: ??Gastric antral mucosa with mild chronic inactive gastritis and ?? features of reactive gastropathy; gastric body mucosa within normal limits; negative for ?? Helicobacter pylori, intestinal metaplasia and dysplasia. ? C. ??Gastroesophageal junction, biopsy: ??Gastric cardia-type mucosa with mild chronic ?? inflammation; no squamous mucosa seen; negative for intestinal metaplasia and dysplasia. ? D. ??Esophagus, distal, biopsy: ??Squamous mucosa within normal limits; detached small ?? fragment of glandular mucosa with goblet cells; negative for inflammation (including ?? intraepithelial eosinophils), fungal organisms, intestinal metaplasia and dysplasia. ? E. ??Esophagus, proximal, biopsy: ??Squamous mucosa within normal limits; negative for ?? inflammation (including intraepithelial eosinophils), fungal organisms, intestinal ?? metaplasia and dysplasia. ?Clinical History Pre-Op Dx: ??GERD, Colon cancer screening Post-Op Dx: Grade 2 internal hemorrhoids, lax LES, gastritis ?Microscopic Description Microscopic sections reviewed. ? Material Received ?? A. Duodenum bx's ?? B. Stomach bx's ?? C. GE junction bx's ?? D. Distal esophagus bx's ?? E. Proximal esophagus bx's ? Gross Description Received in 5 parts. Part A: ??Received in formalin labeled ?duodenum bx's? are 2 glistening, semitranslucent, soft, hyperemic and congested, roldan-pink irregular tissue fragments measuring 0.2 and 0.35 cm in greatest dimension which are submitted in toto in a single cassette labeled A. ? CONTINUED ON NEXT PAGE ----- ------- Name: Franci Plata ?Age/Sex: 47/M ? : 1975 Unit#: [id number] ?? Attend Dr: Saurabh Riggs MD ?Re06/11/23 ?Status: DEP SDC ? Location: HO.SSS ?Disch: ? ----- ------- SPEC : [id number] ? RECD: 06/11/23 ? STATUS: ??SOUT ? REQ NUM: [id number] ? ELIAS: 06/11/23 ? SUBM DR: Saurabh Riggs MD ? ENTERED: ??06/11/23 ?SP TYPE: Surgical ? OTHR DR: January Love MD ? ORDERED: ??HE Stain/5, Gross Micro L4/5, IHC, H. pylori ? Gross Description ?(Continued) Part B: ??Received in formalin labeled ?stomach bx's? are 3 glistening, semitranslucent, soft, roldan-pink irregular tissue fragments ranging from less than 0.1-0.3 cm in greatest dimension which are submitted in toto in a single cassette labeled B. Part C: ??Received in formalin labeled ?GE junction bx's? are 2 glistening, semitranslucent, soft, roldan-pink irregular tissue fragments measuring 0.15 and 0.25 cm in greatest dimension which are submitted in toto in a single cassette labeled C. Part D: ??Received in formalin labeled ?distal esophagus bx's? are 3 glistening, semitranslucent, torres-white irregular tissue fragments ranging from 0.25-0.3 cm in greatest dimension which are submitted in toto in a single cassette labeled D. Part E: ??Received in formalin labeled ?proximal esophagus bx's? are 3 glistening, semitranslucent, torres-white irregular tissue fragments ranging from 0.1-0.3 cm in greatest dimension which are submitted in toto in a single cassette labeled E. CEDS Special stains ordered and performed: ??Immunostain for Helicobacter pylori on B. Copies To: ?? Saurabh Riggs MD ?? [address] [facility] ?? [place] [address] ?? [phone] ?? January Love MD ?? [address] ?? [place] [address] ?? ----- ------- Signed (signature on file) Yahaira Downey MD 06/12/23 [id number] ? ----- ------- ? END OF REPORT ? [facility] External Provider LAB BLO OD ORDERABLES Final Result Performing Organization Address [facility] Co de Phone Number [facility] [address] [place] [address] [phone] * Glucose, Whole Blood (06/11/2023 10:00 AM EDT) Glucose, Whole Blood 110 60 - 115 mg/dL [facility] Comment:METER #: [id number] 06/11/2023 10:0 0 AM EDT 06/11/2023 10:05 AM EDT [facility] External Provider LAB BLO OD ORDERABLES Final Result Performing Organization Address [facility] de Phone Number [facility] [address] [place] [phone] * (ABNORMAL) Sed Rate by Modified Giulia (05/12/2023 3:43 PM EDT) Pathologist [facility] Erythrocyte Sedimentation Rate 16(H) 0 - 15 MM/HR [facility] Comment:Patients with polycy themia and many hemoglobin abnormalitiesmay have depressed sed rates whereas patients with anemiamay have elevated sed rates. 05/12/2023 3:43 PM EDT 05/12/2023 3:43 PM EDT [facility] External Provider LAB BLO OD ORDERABLES Final Result Performing Organization Address [facility] de Phone Number [facility] [address] [place] [address] [phone] * (ABNORMAL) C-reactive Protein (05/12/2023 3:43 PM EDT) C Reactive Protein 1.29(H) < or = 0.50 mg/dL [facility] 05/12/2023 3:43 PM EDT 05/12/2023 3:43 PM EDT us Generic External Data Provider LAB BLOOD ORDERAB LES Final Result [facility] [address] [place] [address] [phone] * (ABNORMAL) Comprehensive Metabolic Panel (05/12/2023 3:43 PM EDT) Sodium 141 135 - 145 mmol/L [facility] Potassium 4.1 3.3 - 5.1 mmol/L [facility] Chloride 106 96 - 108 mmol/L [facility] Carbon Dioxide 29 22 - 29 mmol/L [facility] Anion Gap 10(L) 12 - 20 [facility] Urea Nitrogen (BUN) 17(H) 9 - 16 mg/dL [facility] Creatinine, Serum 0.78 0.5 - 1.4 mg/dL [facility] Estimated Glomerular Filt Rate >60 [facility] Comment:NOTE: For -Am erican individuals, multiply the result by 1.210.Chronic Kidney Disease: Estimated GFR < 60 mL/min/1.07b3Ltippk Kidney Disease: Estimated GFR < 15 mL/min/1.73m2 Glucose 93 60 - 115 mg/dL [facility] Calcium 9.4 8.4 - 10.2 mg/dL [facility] Bilirubin, Total 0.5 0.0 - 1.0 mg/dL [facility] Aspartate Amino Transferase 31 5 - 37 U/L [facility] Alanine Aminotransferase 51(H) 0 - 40 U/L [facility] Total Protein 7.6 6.5 - 8.0 g/dL [facility] Albumin Level 4.3 3.5 - 5.0 g/dL [facility] Alkaline Phosphatase 96 39 - 117 U/L [facility] 05/12/2023 3:43 PM EDT 05/12/2023 3:43 PM EDT [facility] External Provider LAB BLO OD ORDERABLES Final Result [facility] [address] [place] [address] [phone] * (ABNORMAL) CBC auto differential (05/12/2023 3:43 PM EDT) White Blood Count 5.7 4.8 - 10.8 X10*3/uL [facility] Red Blood Count 4.38(L) 4.60 - 5.80 X10*6/uL [facility] Hemoglobin 12.5(L) 14.0 - 18.0 g/dl [facility] Hematocrit 38.8(L) 42.0 - 52.0 % [facility] Mean Corpuscular Volume 88.6 80.0 - 98.0 fL [facility] Mean Corpuscular Hemoglobin 28.5 27.0 - 33.0 pg [facility] Mean Corpuscular HGB Conc 32.2 31.0 - 36.0 g/dl [facility] Red Cell Distribution Width 12.2 11.0 - 16.0 % [facility] Platelet Count 274 160 - 400 X10*3/uL [facility] Mean Platelet Volume 11.0 9.4 - 12.4 fL [facility] Neutrophils Percent Auto 47.0 45 - 73 % [facility] Imm Gran Pct Auto 0.2 0.0 - 0.4 % [facility] Lymphocytes Percent Auto 38.9 20 - 40 % [facility] Monocytes Percent Auto 9.3 2 - 11 % [facility] Eosinophils Percent Auto 3.7 0 - 4 % [facility] Basophils Percent Auto 0.9 0 - 2 % [facility] NRBC Pct Auto 0.0 0.0 - 0.2 /100WBC [facility] Neutrophils Absolute Auto 2.7 2.0 - 8.3 x10*3/uL [facility] Imm Gran Abs Auto 0.01 0.00 - 0.03 X10*3/uL [facility] Lymphocytes Absolute Auto 2.2 1.2 - 4.9 X10*3/uL [facility] Monocytes Absolute Auto 0.5 0.1 - 1.2 X10*3/uL [facility] Eosinophils Absolute Auto 0.2 0.0 - 0.4 X10*3/uL [facility] Basophils Absolute Auto 0.1 0.0 - 0.2 X10*3/uL [facility] NRBC Abs Auto 0.000 0.0 - 0.012 X10*3/uL [facility] 05/12/2023 3:43 PM EDT 05/12/2023 3:43 PM EDT [facility] External Provider LAB BLO OD ORDERABLES Final Result Performing Organization Address City/[facility]/ZIP Co de Phone Number [facility] [address] [place] [phone] * (ABNORMAL) C-reactive Protein (02/10/2023 2:25 PM EDT) Pathologist [facility] C Reactive Protein 0.95(H) < or = 0.50 mg/dL [facility] 02/10/2023 2:25 PM EDT 02/10/2023 2:25 PM EDT [facility] External Provider LAB BLO OD ORDERABLES Final Result Performing Organization Address [facility]/ZIP Co de Phone Number [facility] [address] [place] [phone] * (ABNORMAL) Comprehensive Metabolic Panel (02/10/2023 2:25 PM EDT) Sodium 140 135 - 145 mmol/L [facility] Potassium 4.2 3.3 - 5.1 mmol/L [facility] Chloride 105 96 - 108 mmol/L [facility] Carbon Dioxide 28 22 - 29 mmol/L [facility] Anion Gap 11(L) 12 - 20 [facility] Urea Nitrogen (BUN) 13 9 - 16 mg/dL [facility] Creatinine, Serum 0.74 0.5 - 1.4 mg/dL [facility] Estimated Glomerular Filt Rate >60 [facility] Comment:NOTE: For -Am erican individuals, multiply the result by 1.210.Chronic Kidney Disease: Estimated GFR < 60 mL/min/1.61z0Igyhre Kidney Disease: Estimated GFR < 15 mL/min/1.73m2 Glucose 124(H) 60 - 115 mg/dL [facility] Calcium 9.5 8.4 - 10.2 mg/dL [facility] Bilirubin, Total 0.5 0.0 - 1.0 mg/dL [facility] Aspartate Amino Transferase 42(H) 5 - 37 U/L [facility] Alanine Aminotransferase 72(H) 0 - 40 U/L [facility] Total Protein 7.1 6.5 - 8.0 g/dL [facility] Albumin Level 4.4 3.5 - 5.0 g/dL [facility] Alkaline Phosphatase 101 39 - 117 U/L [facility] 02/10/2023 2:25 PM EDT 02/10/2023 2:25 PM EDT [facility] External Provider LAB BLO OD ORDERABLES Final Result Performing Organization Address [facility] de Phone Number [facility] [address] [place] [phone] * (ABNORMAL) Sed Rate by Modified Giulia (02/10/2023 2:25 PM EDT) Erythrocyte Sedimentation Rate 21(H) 0 - 15 MM/HR [facility] Comment:Patients with polycy themia and many hemoglobin abnormalitiesmay have depressed sed rates whereas patients with anemiamay have elevated sed rates. 02/10/2023 2:25 PM EDT 02/10/2023 2:25 PM EDT [facility] External Provider LAB BLO OD ORDERABLES Final Result Performing Organization Address [facility] Co de Phone Number [facility] [address] [place] [phone] * (ABNORMAL) CBC auto differential (02/10/2023 2:25 PM EDT) White Blood Count 5.3 4.8 - 10.8 X10*3/uL [facility] Red Blood Count 4.23(L) 4.60 - 5.80 X10*6/uL [facility] Hemoglobin 12.3(L) 14.0 - 18.0 g/dl [facility] Hematocrit 37.9(L) 42.0 - 52.0 % [facility] Mean Corpuscular Volume 89.6 80.0 - 98.0 fL [facility] Mean Corpuscular Hemoglobin 29.1 27.0 - 33.0 pg [facility] Mean Corpuscular HGB Conc 32.5 31.0 - 36.0 g/dl [facility] Red Cell Distribution Width 13.5 11.0 - 16.0 % [facility] Platelet Count 273 160 - 400 X10*3/uL [facility] Mean Platelet Volume 10.7 9.4 - 12.4 fL [facility] Neutrophils Percent Auto 54.9 45 - 73 % [facility] Imm Gran Pct Auto 0.2 0.0 - 0.4 % [facility] Lymphocytes Percent Auto 33.1 20 - 40 % [facility] Monocytes Percent Auto 8.3 2 - 11 % [facility] Eosinophils Percent Auto 2.6 0 - 4 % [facility] Basophils Percent Auto 0.9 0 - 2 % [facility] NRBC Pct Auto 0.0 0.0 - 0.2 /100WBC [facility] Neutrophils Absolute Auto 2.9 2.0 - 8.3 x10*3/uL [facility] Imm Gran Abs Auto 0.01 0.00 - 0.03 X10*3/uL [facility] Lymphocytes Absolute Auto 1.8 1.2 - 4.9 X10*3/uL [facility] Monocytes Absolute Auto 0.4 0.1 - 1.2 X10*3/uL [facility] Eosinophils Absolute Auto 0.1 0.0 - 0.4 X10*3/uL [facility] Basophils Absolute Auto 0.1 0.0 - 0.2 X10*3/uL [facility] NRBC Abs Auto 0.000 0.0 - 0.012 X10*3/uL [facility] 02/10/2023 2:25 PM EDT 02/10/2023 2:25 PM EDT [facility] External Provider LAB BLO OD ORDERABLES Final Result Performing Organization Address [facility] Co de Phone Number [facility] [address] [place] [phone] * Angiotensin -1- Converting Enzyme (12/16/2022 12:54 PM EDT) Angiotensin Converting Enzyme 48 9 - 67 U/L [facility] Comment:THIS TEST WAS PERFOR MED AT:[employer] [id number] [place] [address]WYISOGFKATRIN PETE MD,PHD 12/16/2022 12:5 4 PM EDT 12/16/2022 12:54 PM EDT [facility] External Provider LAB BLO OD ORDERABLES Final Result Performing Organization Address [facility] Co de Phone Number [facility] [address] [place] [phone] * Immunofixation, Serum (12/16/2022 12:54 PM EDT) IMMUNOGLOBULIN G 1112 600 - 1640 mg/dL [facility] IMMUNOGLOBULIN A 298 47 - 310 mg/dL [facility] Immunoglobulin M 67 50 - 300 mg/dL [facility] Comment:THIS TEST WAS PERFOR MED AT:[employer] [address] [id number] ZIMMERMAN MD Immunofixation Result [facility] Comment:No monoclonal protei ns detected. 12/16/2022 12:5 4 PM EDT 12/16/2022 12:54 PM EDT [facility] External Provider LAB BLO OD ORDERABLES Final Result Performing Organization Address [facility] de Phone Number [facility] [address] [place] [phone] * Cyclic Citrullinated Peptide (CCP) Antibody (IgG) (12/16/2022 12:54 PM EDT) Cyclic Citrullinated Peptide <16 UNITS [facility] Comment:Reference RangeNegat hema: <20Weak Positive: 20-39Moderate Positive: 40-59Strong Positive: >59THIS TEST WAS PERFORMED AT:[employer] [address] [id number] ZIMMERMAN MD 12/16/2022 12:5 4 PM EDT 12/16/2022 12:54 PM EDT [facility] External Provider LAB BLO OD ORDERABLES Final Result Performing Organization Address [facility] Phone Number [facility] [address] [place] [phone] * Protein Electrophoresis and [place]/Lambda Light Chains (12/16/2022 12:54 PM EDT) Prot Elec - Total Protein 7.1 6.1 - 8.1 g/dL [facility] Prot Elec - Albumin 4.1 3.8 - 4.8 g/dL [facility] Prot Elec - Alpha1 0.2 0.2 - 0.3 g/dL [facility] Prot Elec - Alpha2 0.8 0.5 - 0.9 g/dL [facility] Prot Elec - Beta 1 0.4 0.4 - 0.6 g/dL [facility] Prot Elec - Beta 2 0.5 0.2 - 0.5 g/dL [facility] Prot Elec - Gamma 1.1 0.8 - 1.7 g/dL [facility] PES - Abn Protein Band 1 TNP [facility] PES-Abn Protein Band 2 TNP [facility] PES-Abn Protein Band 3 TNP [facility] Prot Elec - Interpretation SEE NOTE [facility] Comment:Normal Electrophoret ic PatternTHIS TEST WAS PERFORMED AT:[employer] [place] [id number] ZIMMERMAN MD 12/16/2022 12:5 4 PM EDT 12/16/2022 12:54 PM EDT [facility] External Provider LAB BLO OD ORDERABLES Final Result [facility] [address] [place] [address] [phone] * T-SPOT??.TB (12/16/2022 12:54 PM EDT) T Spot TB Negative Negative [facility] Comment:A negative test resu lt does not exclude the possibilityof exposure to or infection with Mycobacteriumtuberculosis (M. tuberculosis). Patients with recentexposure to TB infected individuals exhibiting anegative T-SPOT.TB result should be considered forretesting within 6 weeks or if other relevant clinicalsymptoms indicate. Results from T-SPOT.TB testing mustbe used in conjunction with each individual'sepidemiological history, current medical status,and results of other diagnostic evaluations.The T-SPOT.TB test is qualitative and results arereported as positive, borderline, or negative, giventhat the test controls perform as expected. In linewith the Centers for Disease Control and Prevention's2010 recommendation to report quantitative measurementsalongside the qualitative result, the laboratoryprovides spot counts for informational purposes only.The T-SPOT.TB test should not be interpreted as aquantitative test. TS PANEL A 0 [facility] TS PANEL B 0 [facility] Negative Control Passed [facility] Positive Control Passed [facility] Comment:For additional infor jim, please refer tohttp://education.[employer]/faq/YVJ993(This link is being provided for informational/educational purposes only.)THIS TEST WAS PERFORMED AT:[employer] [id number] [place] [address]ZMLGCXQKATRIN PETE MD,PHD 12/16/2022 12:5 4 PM EDT 12/16/2022 12:54 PM EDT [facility] External Provider LAB BLO OD ORDERABLES Final Result [facility] [address] [place] [phone] * ANCA Vasculitides (12/16/2022 12:54 PM EDT) Myeloperoxidase Antibody <1.0 [facility] Comment:Value Interpretation ----- <1.0 No Antibody Detected > or = 1.0 Antibody DetectedAutoantibodies to myeloperoxidase (MPO) are commonlyassociated with the following small-vesselvasculitides: microscopic polyangiitis,polyarteritis nodosa, Churg-Elena syndrome,necrotizing and crescentic glomerulonephritis andoccasionally granulomatosis with polyangiitis(GPA, Bartolo's). The perinuclear IFA pattern,(p-ANCA) is based largely on autoantibody tomyeloperoxidase which serves as the primary antigen.These autoantibodies are present in active disease. Proteinase-3 Antibody <1.0 [facility] Comment:Value Interpretation ----- <1.0 No Antibody Detected > or = 1.0 Antibody DetectedAutoantibodies to proteinase-3 (MT-3) are accepted ascharacteristic for granulomatosis with polyangiitis(GPA, Bartolo's), and are detectable in 95% of thehistologically proven cases. The cytoplasmic IFApattern, (c-ANCA), is based largely on autoantibody toPR-3 which serves as the primary antigen.These autoantibodies are present in active disease.THIS TEST WAS PERFORMED AT:[employer] [place] [id number] ZIMMERMAN MD 12/16/2022 12:5 4 PM EDT 12/16/2022 12:54 PM EDT [facility] External Provider LAB BLO OD ORDERABLES Final Result Performing Organization Address [facility] Co de Phone Number [facility] [address] [place] [phone] * Hepatitis Panel, General (12/16/2022 12:54 PM EDT) Hepatitis A IgM Nonreactive Nonreactive [facility] Comment:IgM antibodies to WALKER V not detected; does not exclude earlyacute or recovered HAV infection. ~Hepatitis B Surface Antibody REACTIVE Nonreactive [facility] Comment:REACTIVE: > 11.99 mI U/mL Hepatitis B Core Antibody Nonreactive Nonreactive [facility] Hepatitis C Antibody Nonreactive Nonreactive [facility] Comment:Antibodies to HCV no t detected; does not exclude early acuteHCV infection. Hepatitis B Surface Ag Negative Negative [facility] 12/16/2022 12:5 4 PM EDT 12/16/2022 12:54 PM EDT [facility] External Provider LAB BLO OD ORDERABLES Final Result Performing Organization Address [facility] Co de Phone Number [facility] [address] [place] [address] [phone] * Hemoglobin A1c (12/16/2022 12:54 PM EDT) Hemoglobin A1c 6.5 % [facility] Comment:Hemoglobin A1C Refer ence Range Adults: 4.8 - 6.0 % Non diabetic: < 6.0 % Goal: < 7.0 %Additional Action Suggested: > 8.0 %Note: Hemoglobin A1c results are invalid for patients with abnormal amounts of HbF. Blood transfusions may impact the HbA1c concentration in the patient sample. Estimated Average Glucose 140 mg/dL [facility] Comment:eAG = Estimated ave rage glucose which is %A1C expressed asaverage glucose, using the formula of the J1Q-GzdishnTnqlxug Glucose study (ADAG), Diabetes Care, Vol.31,#8,2007 12/16/2022 12:5 4 PM EDT 12/16/2022 12:54 PM EDT [facility] External Provider LAB BLO OD ORDERABLES Final Result Performing Organization Address [facility] Co de Phone Number [facility] [address] [place] [phone] * (ABNORMAL) Sed Rate by Modified Justoren (12/16/2022 12:54 PM EDT) Erythrocyte Sedimentation Rate 21(H) 0 - 15 MM/HR [facility] Comment:Patients with polycy themia and many hemoglobin abnormalitiesmay have depressed sed rates whereas patients with anemiamay have elevated sed rates. 12/16/2022 12:5 4 PM EDT 12/16/2022 12:54 PM EDT [facility] External Provider LAB BLO OD ORDERABLES Final Result Performing Organization Address [facility] Co de Phone Number [facility] [address] [place] [address] [phone] * Rheumatoid Factor (12/16/2022 12:54 PM EDT) Rheumatoid Factor <13.0 <15.0 IU/mL [facility] 12/16/2022 12:5 4 PM EDT 12/16/2022 12:54 PM EDT [facility] External Provider LAB BLO OD ORDERABLES Final Result Performing Organization Address City/[facility]/ZIP Co de Phone Number [facility] [address] [place] [phone] * (ABNORMAL) C-reactive Protein (12/16/2022 12:54 PM EDT) C Reactive Protein 1.22(H) < or = 0.50 mg/dL [facility] 12/16/2022 12:5 4 PM EDT 12/16/2022 12:54 PM EDT [facility] External Provider LAB BLO OD ORDERABLES Final Result Performing Organization Address City/[facility]/ZIP Co de Phone Number [facility] [address] [place] [phone] * Creatine Kinase, Total (12/16/2022 12:54 PM EDT) Creatine Kinase Total 141 38 - 174 U/L [facility] 12/16/2022 12:5 4 PM EDT 12/16/2022 12:54 PM EDT [facility] External Provider LAB BLO OD ORDERABLES Final Result Performing Organization Address [facility]/ZIP Co de Phone Number [facility] [address] [place] [phone] * (ABNORMAL) Uric acid (12/16/2022 12:54 PM EDT) Uric Acid 3.3(L) 3.4 - 7.0 mg/dL [facility] 12/16/2022 12:5 4 PM EDT 12/16/2022 12:54 PM EDT [facility] External Provider LAB BLO OD ORDERABLES Final Result Performing Organization Address City/[facility]/ZIP Co de Phone Number [facility] [address] [place] [phone] * (ABNORMAL) Comprehensive Metabolic Panel (12/16/2022 12:54 PM EDT) Sodium 142 135 - 145 mmol/L [facility] Potassium 4.2 3.3 - 5.1 mmol/L [facility] Chloride 106 96 - 108 mmol/L [facility] Carbon Dioxide 28 22 - 29 mmol/L [facility] Anion Gap 12 12 - 20 [facility] Urea Nitrogen (BUN) 11 9 - 16 mg/dL [facility] Creatinine, Serum 0.75 0.5 - 1.4 mg/dL [facility] Estimated Glomerular Filt Rate >60 [facility] Comment:NOTE: For -Am erican individuals, multiply the result by 1.210.Chronic Kidney Disease: Estimated GFR < 60 mL/min/[id number] Kidney Disease: Estimated GFR < 15 mL/min/1.73m2 Glucose 117(H) 60 - 115 mg/dL [facility] Calcium 9.4 8.4 - 10.2 mg/dL [facility] Bilirubin, Total 0.3 0.0 - 1.0 mg/dL [facility] Aspartate Amino Transferase 29 5 - 37 U/L [facility] Alanine Aminotransferase 51(H) 0 - 40 U/L [facility] Total Protein 7.0 6.5 - 8.0 g/dL [facility] Albumin Level 4.3 3.5 - 5.0 g/dL [facility] Alkaline Phosphatase 108 39 - 117 U/L [facility] 12/16/2022 12:5 4 PM EDT 12/16/2022 12:54 PM EDT [facility] External Provider LAB BLO OD ORDERABLES Final Result [facility] [address] [place] [phone] * (ABNORMAL) CBC auto differential (12/16/2022 12:54 PM EDT) White Blood Count 6.2 4.8 - 10.8 X10*3/uL [facility] Red Blood Count 4.41(L) 4.60 - 5.80 X10*6/uL [facility] Hemoglobin 12.7(L) 14.0 - 18.0 g/dl [facility] Hematocrit 38.8(L) 42.0 - 52.0 % [facility] Mean Corpuscular Volume 88.0 80.0 - 98.0 fL [facility] Mean Corpuscular Hemoglobin 28.8 27.0 - 33.0 pg [facility] Mean Corpuscular HGB Conc 32.7 31.0 - 36.0 g/dl [facility] Red Cell Distribution Width 13.0 11.0 - 16.0 % [facility] Platelet Count 260 160 - 400 X10*3/uL [facility] Mean Platelet Volume 10.9 9.4 - 12.4 fL [facility] Neutrophils Percent Auto 56.8 45 - 73 % [facility] Imm Gran Pct Auto 0.2 0.0 - 0.4 % [facility] Lymphocytes Percent Auto 30.7 20 - 40 % [facility] Monocytes Percent Auto 8.5 2 - 11 % [facility] Eosinophils Percent Auto 3.1 0 - 4 % [facility] Basophils Percent Auto 0.7 0 - 2 % [facility] NRBC Pct Auto 0.0 0.0 - 0.2 /100WBC [facility] Neutrophils Absolute Auto 3.5 2.0 - 8.3 x10*3/uL [facility] Imm Gran Abs Auto 0.01 0.00 - 0.03 X10*3/uL [facility] Lymphocytes Absolute Auto 1.9 1.2 - 4.9 X10*3/uL [facility] Monocytes Absolute Auto 0.5 0.1 - 1.2 X10*3/uL [facility] Eosinophils Absolute Auto 0.2 0.0 - 0.4 X10*3/uL [facility] Basophils Absolute Auto 0.0 0.0 - 0.2 X10*3/uL [facility] NRBC Abs Auto 0.000 0.0 - 0.012 X10*3/uL [facility] 12/16/2022 12:5 4 PM EDT 12/16/2022 12:54 PM EDT [facility] External Provider LAB BLO OD ORDERABLES Final Result [facility] [address] [place] [phone] documented in this encounter Visit Diagnoses Not on filedocumented in this encounter Care Teams Optometric Assistant Relationship Specialty Start Date End Date January Love MD [address] [place] [phone] PCP - General Family Medicine 03/28/13 documented as of this encounter
--- OUTSIDE RECORDS SUMMARY | 2024-12-21 15:38 | XMS_ITS | Encounter Summary ---
Author Organization [employer] Address [address] [facility] 7t [place] [address] Care Team Providers Care Lead Massage Therapist Name Role Phone January Love MD Primary Care Provider Encounter Details Date Type Department Care Team (Latest Contact Info) Description 12/13/2024 Travel Social History Tobacco Use Types Packs/Day Years Used Date Smoking Tobacco: Former Cigarettes Smokeless Tobacco: Never Alcohol Use Standard Drinks/Week [...] Description 01/11/2025 9:15 AM EDT Clinical Support [facility] [address] [place] [address] Nora Ayala RN documented as of this encounter Goals Goal Patient Goal Type Associated Problems Recent Progress Patient-Stated? Author Increase coping skills to promote long-term recovery and improve ability to perform daily activities General No Lei Hendricks RN documented as of this encounter Visit Diagnoses Not on filedocumented in this encounter Additional Health Concerns Assessment Noted Time PHQ-9 Depression Total Score: 10 025 10:56 AM EDT documented as of this encounter Care Teams Lead Massage Therapist Relationship Specialty Start Date End Date January Love MD [address] [place] [address] PCP - General Family Medicine 03/28/13 documented as of this encounter
--- OUTSIDE RECORDS SUMMARY | 2024-12-21 15:38 | XMS_ITS | Encounter Summary ---
Author Organization [employer] [facility] Address [address] [place] [address] 7t [place] [address] Care Team Providers Care Manager Sql Name Role Phone January Love MD Primary Care Provider [phone] Encounter Details Date Type Department Care Team (Latest Contact Info) Description 05/02/2019 Abstract [facility] CONVERSIONS Dental, Provider, DDS Social History Tobacco Use Types Packs/Day Years [...] Description 01/11/2025 9:15 AM EDT Clinical Support [facility] MEDICINE [address] [place] [address] Nora Ayala RN documented as of this encounter Visit Diagnoses Not on filedocumented in this encounter Care Teams Manager Sql Relationship Specialty Start Date End Date January Love MD [address] [place], [place] [phone] PCP - General Family Medicine 03/28/13 documented as of this encounter
--- OUTSIDE RECORDS SUMMARY | 2024-12-21 15:38 | XMS_ITS | Encounter Summary ---
Author Organization [employer] Address [address] [place] [address] 7 [place] [address] Care Team Providers Care Minute Clerk For Basic Traffic Name Role Phone January Love MD Primary Care Provider Reason for Visit * Reason Comments Pre-visit Planning Pre-visit planning - LVM Encounter Details Date Type Department Care Team ([facility] st Contact Info) Description 12/06/2024 Patient Outreach [facility] MEDICINE [address] [place], [place] [phone] January Love MD [address] [place] [address] Pre-visit Planning (Pre-visit planning - LVM ) Social History Tobacco Use Types Packs/Day Years [...] AM EDT documented as of this encounter Progress Notes * Narda Khan - 12/06/2024 10:25 AM EDT GRAHAM Haley placed outbound call to patient to complete pre-visit planning. No answer at this time. Patient name and were not confirmed. CC left voicemail requesting return call. Direct contact information provided. documented in this encounter Plan of Treatment Upcoming Encounters Date Type Department Care Team (Late st Contact Info) Description 01/11/2025 9:15 AM EDT Clinical Support [facility]ICINE [address] [place] [address] Nora Ayala RN documented as of this [...] documented as of this encounter Care Teams Minute Clerk For Basic Traffic Relationship Specialty Start Date End Date January Love MD [address] [place] [address] PCP - General Family Medicine 03/28/13 documented as of this encounter
--- OUTSIDE RECORDS SUMMARY | 2024-12-21 15:38 | XMS_ITS | Encounter Summary ---
Author Organization [employer] [facility] Address [address] [place] [address] 7t [place] [address] Care Team Providers Care Curriculum Facilitator Name Role Phone January Love MD Primary Care Provider [phone] Encounter Details Date Type Department Care Team (Latest Contact Info) Description 01/28/2021 Abstract [facility] CONVERSIONS Dental, Provider, DDS Social History [...] Description 01/11/2025 9:15 AM EDT Clinical Support [facility] MEDICINE [address] [place] [address] Nora Ayala RN documented as of this encounter Visit Diagnoses Not on filedocumented in this encounter Care Teams Curriculum Facilitator Relationship Specialty Start Date End Date January Love MD [address] [place], [place] [phone] PCP - General Family Medicine 03/28/13 documented as of this encounter
--- OUTSIDE RECORDS SUMMARY | 2024-12-21 15:38 | XMS_ITS | Encounter Summary ---
Author Organization [employer] Address [address] [facility] 7 [place] [address] Care Team Providers Care Curtain Roller Assembler Name Role Phone January Love MD Primary Care Provider [phone] Reason for Visit * Reason Onset Date Comments chart prep 12/08/2024 Encounter Details Date Type Department Care Team ([facility] st Contact Info) Description 12/08/2024 Telephone [facility] MEDICINE [address] [place], [place] [phone] January Love MD [address] [place] [address] chart prep Social History Tobacco Use Types Packs/Day Years [...] AM EDT documented as of this encounter Miscellaneous Notes * Telephone Encounter - Ariana Dalal [place] - 12/08/2024 2:46 PM EDT ..chart Prep Labs: not applicable Images: not applicable Vaccines due: Covid Due and Flu Due Referrals: Completed Screenings: Colonoscopy Overdue care gaps: A1C, Glucose, Oral Health, and [id number] screening documented in this encounter Plan of Treatment Upcoming Encounters Date Type Department Care Team (Late st Contact Info) Description 01/11/2025 9:15 AM EDT Clinical Support [facility] MEDICINE [address] [place] [address] Nora Ayala RN documented as of this [...] documented as of this encounter Care Teams Curtain Roller Assembler Relationship Specialty Start Date End Date January Love MD [address] [place] [address] PCP - General Family Medicine 03/28/13 documented as of this encounter
--- OUTSIDE RECORDS SUMMARY | 2024-12-21 15:38 | XMS_ITS | Encounter Summary ---
Author Organization [employer] Address [address] [facility] 7t [place] [address] Care Team Providers Care Gluing Crew Leader Name Role Phone January Love MD Primary Care Provider [phone] Encounter Details Date Type Department Care Team ([facility] st Contact Info) Description 12/09/2024 Population Health Risk Score [facility] (C3) Department [address] [phone] Provider, Population Health Generic Social History Tobacco Use Types Packs/Day Years [...] Description 01/11/2025 9:15 AM EDT Clinical Support [facility] MEDICINE [address] [place] [address] Nora Ayala RN documented as of this [...] documented as of this encounter Care Teams Gluing Crew Leader Relationship Specialty Start Date End Date January Love MD [address] [place] [address] PCP - General Family Medicine 03/28/13 documented as of this encounter
--- OUTSIDE RECORDS SUMMARY | 2024-12-21 15:39 | XMS_ITS | Encounter Summary ---
Author Organization [employer] Address [address] [facility] 7t [place] [address] Care Team Providers Care Wet End Operator Name Role Phone January Love MD Primary Care Provider [phone] Encounter Details Date Type Department Care Team ([facility] st Contact Info) Description 03/11/2024 Telephone [facility] MEDICINE [address] [place], [place] [phone] January Love MD [address] [place], [place] [phone] Social History Tobacco Use Types Packs/Day Years [...] Recorded Patient Health Questionnaire-2 Score 0 01/13/2024 Sex and Gender Information Value Date Recorded Sex Assigned at Male 07/28/2022 10:14 AM EDT Legal Sex Male 10:14 AM EDT Gender Identity Male 07/28/2022 10:14 AM EDT Sexual Orientation Straight 07/28/2022 10 :14 AM EDT documented as of this encounter Plan of Treatment Upcoming Encounters Date Type Department Care Team (Late st Contact Info) Description 01/11/2025 9:15 AM EDT Clinical Support [facility] MEDICINE [address] [place] [phone] Nora Ayala RN documented as of this encounter Visit Diagnoses Not on filedocumented in this encounter Additional Health Concerns Assessment Noted Time PHQ-9 Depression Total Score: 0 01/13/20 24 9:56 AM EDT documented as of this encounter Care Teams Wet End Operator Relationship Specialty Start Date End Date January Love MD [address] [place] [address] PCP - General Family Medicine 03/28/13 documented as of this encounter
--- OUTSIDE RECORDS SUMMARY | 2024-12-21 15:39 | XMS_ITS | Encounter Summary ---
Author Organization [employer] Address [address] [facility] 7t [place] [address] Care Team Providers Care Transmission And Coordination Engineer Name Role Phone January Love MD Primary Care Provider [phone] Encounter Details Date Type Department Care Team (Late st Contact Info) Description 12/14/2024 Abstract [facility] MEDICINE [address] [place], [place] [phone] January Love MD [address] [place], [place] [phone] Social History Tobacco Use Types Packs/Day Years [...] Description 01/11/2025 9:15 AM EDT Clinical Support [facility] MEDICINE [address] [place] [phone] Nora Ayala RN documented as of this encounter Goals Goal Patient Goal Type Associated Problems Recent Progress Patient-Stated? Author Increase coping skills to promote long-term recovery and improve ability to perform daily activities General No Lei Hendricks RN documented as of this encounter Procedures Procedure Name Priority Date/Time Associated Diagnosis Comments COLONOSCOPY Routine 12/14/2024 4:08 PM EDT documented in this encounter Visit Diagnoses Not on filedocumented in this encounter Additional Health Concerns Assessment Noted Time PHQ-9 Depression Total Score: 10 025 10:56 AM EDT documented as of this encounter Care Teams Transmission And Coordination Engineer Relationship Specialty Start Date End Date January Love MD [address] [place] [address] PCP - General Family Medicine 03/28/13 documented as of this encounter
--- OUTSIDE RECORDS SUMMARY | 2024-12-21 15:39 | XMS_ITS | Encounter Summary ---
Author Organization [employer] Address [address] [facility] 7t [place] [address] Care Team Providers Care Aircraft Parts Assembler Name Role Phone January Love MD Primary Care Provider [phone] Reason for Visit * Reason Comments Med Refill Encounter Details Date Type Department Care Team ([facility] st Contact Info) Description 08/18/2024 Refill [facility] MED[facility]INE [address] [place], [place] [phone] January Love MD [address] [place] [address] Social History Tobacco Use Types Packs/Day Years [...] Description 01/11/2025 9:15 AM EDT Clinical Support [facility] MEDICINE [address] [place] [phone] Nora Ayala RN documented as of this encounter Visit Diagnoses Not on filedocumented in this encounter Additional Health Concerns Assessment Noted Time PHQ-9 Depression Total Score: 0 01/13/20 24 9:56 AM EDT documented as of this encounter Care Teams Aircraft Parts Assembler Relationship Specialty Start Date End Date January Love MD [address] [place] [address] PCP - General Family Medicine 03/28/13 documented as of this encounter
--- OUTSIDE RECORDS SUMMARY | 2024-12-21 15:39 | XMS_ITS | Clinical Summary ---
Author Organization [employer] Address [address] [place] [address] 7 [place] [address] Care Team Providers Care Pharmacy Helper Name Role Phone January Love MD Primary Care Provider [phone] Allergies Active Allergy Reactions Criticality Noted Date Comments Duloxetine Hcl Drowsiness 12/16/2024 Penicillin V Unknown 09/17/2022 Medications Blood Glucose Monitoring Suppl w/Device kitIndications: Type 2 diabetes mellitus without complication, without long-term current use of insulin (CMS/[facility]) Inject 1 application into the skin 2 times daily. 1 kit 023 Active bacitracin 500 UNIT/GM ointment APPLY TO THE AFFECTED AREA(S) TOPICALLY ONE OR TWO TIMES DAILY 022 Active Bisacodyl EC 5 MG EC tablet Take 10 mg by mouth at bedtime. 023 Active cetirizine (ZyrTEC) 10 MG tablet Take 10 mg by mouth at bedtime. 022 Active docusate sodium (Colace) 100 MG capsule Take 100 mg by mouth at bedtime. 023 Active Trulance tablet tablet Take 1 tablet by mouth in the morning. 022 Active senna (Senokot) 8.6 MG tablet TAKE 1 TABLET BY MOUTH AT BEDTIME FOR CONSTIPATION 023 Active FREESTYLE LITE test stripIndication s:Type 2 diabetes mellitus without complication, without long-term current use of insulin (CMS/HCC) Check sugar once or twice daily 100 each 11 023 Active Alcohol Swabs (Alcohol Prep) 70 % padsIndications :Type 2 diabetes mellitus without complication, without long-term current use of insulin ([facility]),Type 2 diabetes mellitus without complications ([facility]) USE TWICE DAILY 100 each 11 Active TRUEplus Lancets 33G miscIndications :Type 2 diabetes mellitus without complication, without long-term current use of insulin ([facility]) Check sugar once or twice daily 100 each 11 Active Arthritis Pain Relief 650 MG ER tablet Take 1 tablet (650 mg) by mouth every 8 (eight) hours if needed for mild pain or moderate pain. 90 tablet 3 Active Narcan 4 MG/0.1ML nasal spray FOR SUSPECTED OPIOID OVERDOSE. SPRAY 0.1mL IN ONE NOSTRIL. REPEAT IN ALTERNATE NOSTRIL 2-3 MINUTES IF NEEDED. SEEK MEDICAL ATTENTION IMMEDIATELY EVEN IF PATIENT RESPONDS. 2 each 1 Active tamsulosin (Flomax) 0.4 MG 24 hr capsule TAKE 1 CAPSULE BY MOUTH EVERY DAY 90 capsule 3 Active Enbrel SureClick 50 MG/ML injection Inject 50 mg under the skin 1 (one) time per week. Active lansoprazole (Prevacid) [address] capsule Take 30 mg by mouth Once per day. Active Linzess 290 MCG capsule Take 290 mcg by mouth in the morning. Active naproxen (Naprosyn) 500 MG tablet Take 500 mg by mouth if needed in the morning and at bedtime. Active Creon 04089-207591 units capsule delayed-release particles capsule Take 1 capsule by mouth with breakfast, with lunch, with evening meal, and at bedtime. Active triamcinolone (Kenalog) 0.1 % cream APPLY TO THE AFFECTED AREA(S) TWICE DAILY Do not apply on face, axilla, groin Active EPINEPHrine (Epipen) 0.3 MG/0.3ML injection syringe INJECT INTRAMUSCULARLY DIRECTED ON PACKAGE AND GO TO EMERGENCY ROOM 2 each 1 Active SM Fiber Laxative 500 MG tabletIndicatio ns:Drug-induced constipation TAKE 1 TABLET BY MOUTH TWICE DAILY 180 tablet 3 Active sucralfate (Carafate) 1 g tablet Take 1 g by mouth at bedtime. 024 Active allopurinol (Zyloprim) 300 MG tablet Take 1 tablet (300 mg) by mouth Once per day. 90 tablet 025 Active valACYclovir (Valtrex) 1 g tablet TAKE 1 TABLET BY MOUTH EVERY DAY IN THE MORNING 30 tablet 3 025 Active Buprenorphine HCl-Naloxone HCl (Suboxone) 8-2 MG SL filmIndications :Uncomplicated opioid dependence (CMS/HCC) Place 1 Film under the tongue every 8 (eight) hours for 28 days. 84 Film 025 2024 Active loratadine (Claritin) 10 MG tablet Take 1 tablet (10 mg) by mouth Once per day. 90 tablet 3 025 Active fluticasone (Flonase) 50 MCG/ACT nasal spray Administer 1-2 sprays into each nostril Once per day. Shake gently. Before first use, prime pump. After use, clean tip and replace cap. 16 g 2 025 2025 Active Blood Pressure Monitor [facility] Check BP daily 1 each 025 Active metFORMIN XR (Glucophage-XR) 500 MG 24 hr tabletIndicatio ns:Type 2 diabetes mellitus without complication, without long-term current use of insulin (CMS/[facility]) Take 1 tablet (500 mg) by mouth with evening meal. Do not crush, chew, or split. 90 tablet 3 025 Active Proventil HFA 108 (90 Base) MCG/ACT inhaler Inhale 2 puffs every 4 (four) hours if needed for wheezing or shortness of breath. 18 g 1 025 Active Proventil HFA 108 (90 Base) MCG/ACT inhaler Inhale 2 puffs every 4 (four) hours if needed. 022 2024 Discontinued(R eorder (will not trigger notification to Pharmacy)) colchicine 0.6 MG tablet Take 0.6 mg by mouth 2 times daily. 022 2024 Discontinued(M ed list cleanup (will not trigger notification to Pharmacy)) famotidine (Pepcid) 40 MG tablet Take 40 mg by mouth at bedtime. 023 2024 Discontinued(M ed list cleanup (will not trigger notification to Pharmacy)) hydrOXYzine HCl (Atarax) 25 MG tablet Take 25 mg by mouth every 6 (six) hours if needed. 2024 Discontinued(M ed list cleanup (will not trigger notification to Pharmacy)) indomethacin (Indocin) 50 MG capsule TAKE 1 CAPSULE BY MOUTH 2 OR 3 TIMES DAILY WITH FOOD NEEDED FOR PAIN 2024 Discontinued(M ed list cleanup (will not trigger notification to Pharmacy)) loratadine (Claritin) 10 MG tablet Take 10 mg by mouth in the morning. 2024 Discontinued(R eorder (will not trigger notification to Pharmacy)) meloxicam (Mobic) 15 MG tablet Take 15 mg by mouth in the morning. 2024 Discontinued(M ed list cleanup (will not trigger notification to Pharmacy)) fluticasone (Flovent HFA) 110 MCG/ACT inhaler INHALE 1 PUFF BY MOUTH TWICE DAILY. RINSE MOUTH AFTER USING. 36 g 023 2024 Discontinued(M ed list cleanup (will not trigger notification to Pharmacy)) metFORMIN XR (Glucophage-XR) 500 MG 24 hr tabletIndicatio ns:Type 2 diabetes mellitus without complication, without long-term current use of insulin (CMS/[facility]) TAKE 1 TABLET BY MOUTH EVERY EVENING WITH A MEAL 90 tablet 3 024 2024 Discontinued(R eorder (will not trigger notification to Pharmacy)) DULoxetine (Cymbalta) [address] capsule TAKE 1 CAPSULE BY MOUTH EVERY NIGHT FOR 2 WEEKS THEN INCREASE TO 2 CAPSULES EVERY NIGHT 024 2024 Discontinued(M ed list cleanup (will not trigger notification to Pharmacy)) Buprenorphine HCl-Naloxone HCl (Suboxone) 8-2 MG SL filmIndications :Uncomplicated opioid dependence (CMS/HCC) Place 1 Film under the tongue every 8 (eight) hours for 28 days. 84 Film 025 2024 Discontinued(R eorder (will not trigger notification to Pharmacy)) Active Problems Problem Noted Date Diagnosed Date IBS (irritable bowel syndrome) 12/16/2024 Assessment & Plan (12/16/2024 12:30 PM EDT): - follow recommendations by NITA Padron of right foot 12/16/2024 Elevated BP without diagnosis of hypertension Assessment & Plan (12/16/2024 12:28 PM EDT): - Goal BP < 130/80 per ACC/AHA guideline - Continue lifestyle modifications - Check BP at home - Return for BP check in 1 month. 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 - Dx right 5th hammer toe - patient is still undecided about surgery Gout 10/22/2022 Assessment & Plan (12/13/2024 12:27 PM EDT): Continue Allopurinol 300mg/day -per patient's report he had gout flare 5 times in one month -continue low purine diet -Continue colchicine indomethacin Assessment & Plan (10/22/2022 12:51 PM EST): Continue Allopurinol 300mg/day -per patient's report he had gout flare 5 times in one month -continue low purine diet -Continue colchicine indomethacin Opioid dependence 10/22/2022 Assessment & Plan (12/13/2024 12:27 PM EDT): -Long-term maintenance stage -Last recurrence in February [...] current recovery support and OD/recurrence prevention effort Assessment & Plan (07/27/2024 4:49 AM EDT): -Long-term maintenance stage -Last recurrence in February [...] current recovery support and OD/recurrence prevention effort Assessment & Plan (05/04/2024 11:10 AM EDT): -Long-term maintenance stage -Last recurrence in February [...] current recovery support and OD/recurrence prevention effort Assessment & Plan (04/06/2024 4:50 AM EDT): -Long-term maintenance stage -Last recurrence in February [...] current recovery support and OD/recurrence prevention effort Assessment & Plan (10/21/2023 5:00 AM EST): -Long-term maintenance stage -Last recurrence in February [...] current recovery support and OD/recurrence prevention effort Assessment & Plan (08/25/2023 9:47 PM EST): -Long-term maintenance stage -Last recurrence in February [...] current recovery support and OD/recurrence prevention effort Assessment & Plan (07/01/2023 10:20 AM EDT): -Long-term maintenance stage -Last recurrence in February [...] current recovery support and OD/recurrence prevention effort Assessment & Plan (06/03/2023 12:20 PM EDT): -Long-term maintenance stage -Last recurrence in February 2016 -Initially started on 12/3 mg daily, increased to 16/4 mg in February 2016, increased to 20/5 mg daily in Apr 2020 -Tried Sublocade, discontinued due to side effect -Increased Suboxone to 24/6 mg daily after Sublocade, and doing well -Continue current dose -Continue current recovery support and OD/recurrence prevention effort Assessment & Plan (04/08/2023 12:52 PM EDT): -Long-term maintenance stage -Last recurrence in February 2016 -Initially started on 12/3 mg daily, increased to 16/4 mg in February 2016, increased to 20/5 mg daily in Apr 2020 -Tried Sublocade, discontinued due to side effect -Increased Suboxone to 24/6 mg daily after Sublocade, and doing well -Continue current dose -Continue current recovery support and OD/recurrence prevention effort Assessment & Plan (02/11/2023 12:08 PM EDT): -Long-term maintenance stage -Last recurrence in February 2016 -Initially started on 12/3 mg daily, increased to 16/4 mg in February 2016, increased to 20/5 mg daily in Apr 2020 -Tried Sublocade, discontinued due to side effect -Increased Suboxone to 24/6 mg daily after Sublocade, and doing well -Continue current dose -Continue current recovery support and OD/recurrence prevention effort Assessment & Plan (10/22/2022 12:40 PM EST): -Long-term maintenance stage -Last recurrence in February 2016 -Initially started on 12/3 mg daily, increased to 16/4 mg in February 2016, increased to 20/5 mg daily in Apr 2020 -Tried Sublocade, discontinued due to side effect -Increased Suboxone to 24/6 mg daily after Sublocade, and doing well -Continue current dose -Continue current recovery support and OD/recurrence prevention effort Fibromyalgia 10/22/2022 Assessment & Plan (12/16/2024 12:32 PM EDT): - following with [employer] paint [employer] - Diagnosed with psoriatic arthritis - continue current treatment plan per [employer] [employer] - tried duloexetine (Cymbalta), but discontinued due to adverse reaction Assessment & Plan (10/22/2022 1:02 PM EST): - following with [employer] [employer] paint [employer] - Diagnosed with psoriatic arthritis - continue current treatment plan per [employer] [employer] paint maker Constipation 10/22/2022 Assessment & Plan (12/16/2024 12:30 PM EDT): - multifactorial - drug-induced, low-fiber diet - continue Trulance, senna, bisacodyl, docusate, Linaclotide, fiber - continue improving dietary fiber intake Assessment & Plan (10/22/2022 12:48 PM EST): - multifactorial - drug-induced, low-fiber diet - continue Trulance, senna, bisacodyl, docusate - continue improving dietary fiber intake - add fiber supplement Metabolic dysfunction-associ ated steatotic liver disease (MASLD) 10/22/2022 Assessment & Plan (12/16/2024 12:29 PM EDT): Patient is followed by [facility], seen in Jul 2024 Abdominal US in 04/2021: diffuse liver echogenicity consistent with fatty infiltration, no suspicious lesions Continue lifestyle modifications Check the status of abdominal US Assessment & Plan (10/22/2022 12:50 PM EST): Patient is followed by [facility], seen on 02/18/22 Abdominal US in 04/2021: diffuse liver echogenicity consistent with fatty infiltration, no suspicious lesions Continue lifestyle modifications Abdominal US q6m GERD (gastroesophageal reflux disease) Assessment & Plan (12/16/2024 12:29 PM EDT): - following with [facility] - continue lansoprazoe Assessment & Plan (10/22/2022 12:52 PM EST): - following with [facility] - continue omeprazole and famotidine Allergic rhinitis 10/22/2022 Assessment & Plan (12/13/2024 12:28 PM EDT): - evaluated and treated by group insurance specialist, Dr. Garcia, last appt in 2020 - continue loratadine and fluticasone nasal - previously on montelukast Assessment & Plan (10/22/2022 1:01 PM EST): - evaluated and treated by group insurance specialist, Dr. Garcia, last appt in 2020 - continue loratadine and fluticasone nasal - previously on montelukast Chronic back pain 10/22/2022 Assessment & Plan (12/16/2024 12:34 PM EDT): - following with [facility] [employer], last seen on 12/25/21 - s/p RFA - F/U with paint maker Assessment & Plan (10/22/2022 12:57 PM EST): - following with [employer], last seen on 12/25/21 - s/p RFA - F/U with paint maker Chronic pain of left knee 10/22/2022 Assessment & Plan (10/22/2022 12:58 PM EST): - OA -received injection, did not have good response -continue working on weight reduction Psoriatic arthritis 10/22/2022 Assessment & Plan (12/13/2024 12:24 PM EDT): [facility] Assessment & Plan (10/22/2022 1:03 PM EST): [facility] - continue sulfasalazine Type 2 diabetes mellitus 11/03/2018 Assessment & Plan (12/13/2024 12:26 PM EDT): - A1c 7.9% on 12/13/24 worsened from [...] adjustement if no improvement by next visit. Assessment & Plan (05/04/2024 11:10 AM EDT): - A1C 6.9% on 04/06/24, trending upward -Improve adherence to SMBG and lifestyle modifications -continue metformin 500 mg once daily, started on 07/17/20 Last lipid profile: 12/18/21 A1c 6.8%. TC 140; TG 69; HDL 49; LDL 76 Microalbumin test: 12/18/21 UACR 1. Foot exam: 05/19/22. Eye exam: 2020 IZ - up to date Consider medication dose adjustement if no improvement by next visit. Assessment & Plan (10/22/2022 12:41 PM EST): - A1C 6.3% on 03/2022 , most likely due to steroid injection -Improve adherence to SMBG and lifestyle modifications -continue metformin 500 mg once daily, started on 07/17/20 Last lipid profile: 12/18/21 A1c 6.8%. TC 140; TG 69; HDL 49; LDL 76 Microalbumin test: 12/18/21 UACR 1. Foot exam: 05/19/22. Eye exam: 2020 IZ - up to date Consider medication if no improvement by next visit. Obstructive sleep apnea syndrome 03/24/2018 Assessment & Plan (12/16/2024 12:23 PM EDT): - Last sleep study in 2017. Full face mask pressure 11 cm H2O - Previously had CPAP but it was discontinued due to non-adherence. - Will re-evaluate with new sleep study Assessment & Plan (10/22/2022 1:00 PM EST): - Last sleep study in 2017. Full face mask pressure 11 cm H2O - continue CPAP Mixed anxiety and depressive disorder 09/24/2016 Assessment & Plan (12/16/2024 12:34 PM EDT): - patient declines behavioral health service referral Peripheral venous insufficiency 09/24/2016 Transaminitis 02/27/2016 Anemia 06/29/2012 Assessment & Plan (12/16/2024 12:34 PM EDT): - mild - monitor Asthma 06/29/2012 Assessment & Plan (12/16/2024 12:27 PM EDT): -Most recent exacerbation in Oct 2019, s/p prednisone and azithromycin -previously on fluticasone (Flovent), but not using and his symptoms are well-controlled -step-down therapy; discontinue ICS -continue Albuterol HFA prn Assessment & Plan (10/22/2022 12:55 PM EST): -Most recent exacerbation in Oct 2019, s/p prednisone and azithromycin -JANNA like illness, ?COVID-19 (pt did not get tested for it) -restarted Flovent as maintenance in November 2019 -consider adding Singulair -continue Albuterol HFA prn Perforation of nasal septum 06/29/2012 Obesity 03/08/2012 Assessment & Plan (12/16/2024 12:33 PM EDT): Continue working on lifestyle modifications. Generic advice as below. Modify for individualized plan and work on your health goal. Dietary Recommendations: Fruits, vegetables, whole grains, protein foods, and fat-free or low-fat dairy products are healthy choices. Eat different types of protein foods in your diet. This can include seafood, lean meats, poultry, beans, peas, lentils, nuts, seeds, soy products, and eggs. Limit foods and beverages higher in added sugars, saturated fat, and sodium. Exercise Recommendations: At least 150 minutes of moderate-intensity physical activity per week, or an equivalent combination of moderate- and vigorous-intensity activity Encounters Date Type Department Care Team Description 12/16/2024 Telephone [facility] [address] [place] [phone] January Love MD 12/15/2024 Orders Only GENERIC EXTERNAL DATA DEPARTMENT Provider, Generic External Data 12/14/[address] [id number] January Love MD 12/13/2024 10:45 AM EDT Office Visit [address] [address] January Love MD Metabolic dysfunction-associat ed steatotic liver disease (MASLD) (Primary Dx); Peripheral venous insufficiency; Moderate persistent asthma without complication; Type 2 diabetes mellitus without complication, without long-term current use of insulin ([facility]); Psoriatic arthritis ([facility]); Chronic gout without tophus, unspecified cause, unspecified site; Obstructive sleep apnea syndrome; Constipation, unspecified constipation type; Fibromyalgia; Uncomplicated opioid dependence ([facility]); Allergic rhinitis, unspecified seasonality, unspecified trigger; Elevated [...] low back pain, unspecified whether sciatica present 12/13/2024 Travel 12/09/2024 Population Health Risk Score [facility] ([facility] Department [address] [place] [id number] Provider, Population Health Generic 12/08/2024 Telephone [facility] [address] [place] [address] January Love MD chart prep 12/07/2024 Refill [facility] [address] [place] [address] Lei Hendricks RN Uncomplicated opioid dependence (CMS/HCC) 12/06/2024 Patient Outreach [facility] [address] [place] [phone] January Love MD Pre-visit Planning (Pre-visit planning - LVM ) 12/06/2024 Travel 11/17/2024 Refill [facility] [address] [place] [phone] January Love MD 11/16/2024 9:00 AM EST Clinical Support [facility] [address] [place] [phone] Lei Hendricks RN Opioid type dependence, continuous (CMS/HCC) (Primary Dx) 11/16/2024 Travel 11/09/2024 Refill [facility] [address] [place] [address] Lei Hendricks RN Uncomplicated opioid dependence (CMS/HCC) 11/08/2024 Refill [facility] [address] [place] [address] January Love MD 10/30/2024 Travel 10/26/2024 Telephone [facility] [address] [place] [address] Ariana Dalal MA chart prep 10/19/2024 9:30 AM EST Clinical Support [address] [address] Nora Ayala RN Opioid type dependence, continuous (CMS/HCC) (Primary Dx) 10/19/2024 Travel 10/18/2024 Patient Outreach [facility] [address] [place] [phone] January Love MD Pre-visit Planning (Pre-visit planning - LVM ) 10/12/2024 Refill [facility] [address] [place] [address] Lei Hendricks, RN Uncomplicated opioid dependence (CMS/HCC) 10/03/2024 Telephone [facility] [address] [place] [address] Lei Hendricks, RN OBAT Communication from Last 3 Months Immunizations Name Administration Dates Next Due Hep A, Adult 04/20/2019,09/08/2018 HepB-CpG 06/23/2022,05/19/2022 Influenza Injectable Quadriv alant Preservative Free IIV4 MDCK 06/23/2022,06/27/2019,06/18/2017 Influenza injectable quadriv alent IIV4 with preservative 06/19/2015 Influenza injectable quadriv alent preservative free 07/01/2023,07/25/2021,07/30/2020,2019,06/01/2018,05/30/2016 Influenza, IIV3, injectable 06/20/2014 Influenza, Recombinant, inje ctable, preservative free 09/07/2024 Influenza, Split (incl. cinthya fied surface antigen) 07/05/2013,06/29/2012 Pfizer Covid-19 Vaccine 12+ 12/13/2024, Pfizer Covid-19 Vaccine 12+ Bivalent 11/14/2022 Pneumococcal Conjugate PCV 20 05/19/2022 Tdap 07/17/2016 Social History Tobacco Use Types Packs/Day Years [...] Orientation Straight 07/28/2022 10 :14 AM EDT Last Filed Vital Signs Vital Sign Reading [...] Mass Index 34.87 12/13/2024 10:57 AM EDT Plan of Treatment Upcoming Encounters Date Type Department Care Team (Late st Contact Info) Description 01/11/2025 9:15 AM EDT Clinical Support [address] [address] Nora Ayala, RN Health Maintenance Due Date Last Done Comments CT Colonography 1977 FIT DNA/Cologuard 1977 FIT 1977 FOBT 1977 Sigmoidoscopy 1977 Diabetes: Foot Exam 1987 Family Planning (PISQ) 1992 Alcohol/Substance Use Screening 01/12/2025 01/13/2024 SDOH Screening 01/12/2025 01/13/2024 Eye Exam 02/17/2025 02/18/2024 Diabetes: Hemoglobin A1C 03/15/2025 025, 08/12/2024, 04/06/2024, Additional history exists Depression Monitoring (PHQ-9) 06/15/2025 12/13/2024, 12/13/2024 Diabetes: Urine Protein Screening 08/12/2025 08/12/2024, 12/18/2021, 07/31/2020, Additional history exists Depression Screening 12/13/2025 12/13/2024, 12/14/19 25 Lipid Panel 12/15/2025 12/15/2024, 11/27, 07/31/2020 Tobacco Screening 12/16/2025 12/16/2024 DTaP/Tdap/Td Vaccines (2 - Td or Tdap) 07/17/2026 07/17/2016 Zoster Vaccines (1 of 2) 2027 Colonoscopy 12/14/2034 12/14/2024 Colorectal Cancer Screening 12/14/2034 RSV Patients and Patients Aged 60 years or older (1 - 1-dose 75+ series) 2052 Hepatitis A Vaccines Completed 04/20/2019, 09/08/20 18 Pneumococcal Vaccine: Pediatrics (0 to 5 Years) and At-Risk Patients (6 to 49) Years) Completed 05/19/2022 Hepatitis B Vaccines Completed 06/23/2022, 05/19/20 22 HIV Screening Completed 04/06/2024, 12/18/2021 Hepatitis C Screening Completed 04/06/2024 , 12/16/2022, 12/18/2021, Additional history exists Influenza Vaccine Completed 09/07/2024, , 06/23/2022, Additional history exists COVID-19 Vaccine Completed 12/13/2024, , 11/14/2022, Additional history exists HIB Vaccines Aged Out No longer eligi ble based on patient's age to complete this topic HPV Vaccines Aged Out No longer eligi ble based on patient's age to complete this topic IPV Vaccines Aged Out No longer eligi ble based on patient's age to complete this topic Meningococcal Vaccine Aged Out No genaro johanna eligible based on patient's age to complete this topic RSV under 20 months Aged Out No longe r eligible based on patient's age to complete this topic Rotavirus Vaccines Aged Out No longer eligible based on patient's age to complete this topic Goals Goal Patient Goal Type Associated Problems Recent Progress Patient-Stated? Author Increase coping skills to promote long-term recovery and improve ability to perform daily activities General No Lei Hendricks, sales manager Procedure Name Priority Date/Time Associated Diagnosis Comments LIPID PANEL WITH REFLEX TO DIRECT LDL Routine 12/15/2024 4:50 PM EDT SED RATE BY MODIFIED WESTERGREN Routine 12/15/2024 4:50 PM EDT C-REACTIVE PROTEIN Routine 12/15/2024 4: 50 PM EDT COMPREHENSIVE METABOLIC PANEL Routine 12/15/2024 4:50 PM EDT CBC WITH AUTO DIFFERENTIAL Routine 12/15/2024 4:50 PM EDT HM COLONOSCOPY Routine 12/14/2024 4:08 PM EDT POCT GLYCOSYLATED HEMOGLOBIN (HGB A1C) Routine 12/13/2024 10:58 AM EDT Type 2 diabetes mellitus without complication, without long-term current use of insulin (CMS/HCC) POCT GLUCOSE Routine 12/13/2024 10:57 AM EDT Type 2 diabetes mellitus without complication, without long-term current use of insulin (CMS/HCC) POCT ANTHONY-14 URINE DRUG SCREEN Routine 11/16/2024 9:56 AM EST Opioid type dependence, continuous (CMS/HCC) POCT ANTHONY-14 URINE DRUG SCREEN Routine 10/19/2024 10:18 AM EST Opioid type dependence, continuous (CMS/HCC) ALBUMIN, RANDOM URINE W/CREATININE Routine 08/12/2024 2:22 PM EST Type 2 diabetes mellitus without complication, without long-term current use of insulin (CMS/HCC) HEPATITIS C AB W/REFL TO HCV RNA, QN, PCR Routine 04/06/2024 10:39 AM EDT Uncomplicated opioid dependence (CMS/HCC) HIV 1/2 ANTIGEN/ANTIBODY, FOURTH GENERATION W/RFL Routine 04/06/2024 10:39 AM EDT Uncomplicated opioid dependence (CMS/HCC) from Last 3 Months or Most Recently Relevant to Health Maintenance Results * Lipid Panel with Reflex to Direct LDL (12/15/2024 4:50 PM EDT) Triglycerides 64 <150 mg/dL [facility] Comment:Desirable Triglyceri de: less than 150 mg/dLBorderline High Triglyceride 150-199 mg/dLHigh Triglyceride: 200-499 mg/dLVery High Triglyceride: greater than or equal to 5OO mg/dL Cholesterol 137 <200 mg/dL [facility] Comment:Desirable Cholestero l: less than 200 mg/dLBorderline High Cholesterol: 200-239 mg/dLHigh Cholesterol: greater than 239 mg/dL LDL Cholesterol Calculated 73 <100 mg/dL [facility] Comment:Desirable LDL: less than 100 mg/dLNear Optimal/Above Optimal LDL: 110- 129 mg/dLBorderline High LDL: 130-159 mg/dLHigh LDL: 160-189 mg/dLVery High LDL: greater than or equal to 190 mg/dL HDL Cholesterol 52 >40 mg/dL [facility] Comment:Desirable HDL: great er than 40 mg/dL Note: This HDL assay may give artificially low results in patients with liver disease. 12/15/2024 4:50 PM EDT 12/15/2024 4:50 PM EDT us Generic External Data Provider LAB BLOOD ORDERAB LES Final Result [facility] [address] [place], [place] [phone] * (ABNORMAL) CBC auto differential (12/15/2024 4:50 PM EDT) White Blood Count 4.5(L) 4.8 - 10.8 X10*3/uL [facility] Red Blood Count 4.38(L) 4.60 - 5.80 X10*6/uL [facility] Hemoglobin 12.4(L) 14.0 - 18.0 g/dl [facility] Hematocrit 38.3(L) 42.0 - 52.0 % [facility] Mean Corpuscular Volume 87.4 80.0 - 98.0 fL [facility] Mean Corpuscular Hemoglobin 28.3 27.0 - 33.0 pg [facility] Mean Corpuscular HGB Conc 32.4 31.0 - 36.0 g/dl [facility] Red Cell Distribution Width 12.7 11.0 - 16.0 % [facility] Platelet Count 237 160 - 400 X10*3/uL [facility] Mean Platelet Volume 10.9 9.4 - 12.4 fL [facility] Neutrophils Percent Auto 47.1 45 - 73 % [facility] Imm Gran Pct Auto 0.2 0.0 - 0.4 % [facility] Lymphocytes Percent Auto 35.1 20 - 40 % [facility] Monocytes Percent Auto 10.7 2 - 11 % [facility] Eosinophils Percent Auto 6.0(H) 0 - 4 % [facility] Basophils Percent Auto 0.9 0 - 2 % [facility] NRBC Pct Auto 0.0 0.0 - 0.2 /100WBC [facility] Neutrophils Absolute Auto 2.1 2.0 - 8.3 x10*3/uL [facility] Imm Gran Abs Auto 0.01 0.00 - 0.03 X10*3/uL [facility] Lymphocytes Absolute Auto 1.6 1.2 - 4.9 X10*3/uL [facility] Monocytes Absolute Auto 0.5 0.1 - 1.2 X10*3/uL [facility] Eosinophils Absolute Auto 0.3 0.0 - 0.4 X10*3/uL [facility] Basophils Absolute Auto 0.0 0.0 - 0.2 X10*3/uL [facility] NRBC Abs Auto 0.000 0.0 - 0.012 X10*3/uL [facility] 12/15/2024 4:50 PM EDT 12/15/2024 4:50 PM EDT Generic External Data Provider LAB BLOOD ORDERAB LES Final Result Performing Organization Address [facility]/ZIP Co de Phone Number [facility] [address] [place] [address] [phone] * (ABNORMAL) Sed Rate by Modified Westergren (12/15/2024 4:50 PM EDT) Erythrocyte Sedimentation Rate 21(H) 0 - 15 MM/HR [facility] Comment:Patients with polycy themia and many hemoglobin abnormalitiesmay have depressed sed rates whereas patients with anemiamay have elevated sed rates. 12/15/2024 4:50 PM EDT 12/15/2024 4:50 PM EDT us Generic External Data Provider LAB BLOOD ORDERAB LES Final Result Performing Organization Address [facility]/ZIP Co de Phone Number [facility] [address] [place] [address] [phone] * (ABNORMAL) C-reactive Protein (12/15/2024 4:50 PM EDT) C Reactive Protein 2.08(H) < or = 0.50 mg/dL [facility] 12/15/2024 4:50 PM EDT 12/15/2024 4:50 PM EDT us Generic External Data Provider LAB BLOOD ORDERAB LES Final Result Performing Organization Address City/[facility]/ZIP Co de Phone Number [facility] [address] [place] [address] [phone] * (ABNORMAL) Comprehensive Metabolic Panel (12/15/2024 4:50 PM EDT) Sodium 138 135 - 145 mmol/L [facility] Potassium 4.1 3.3 - 5.1 mmol/L [facility] Chloride 104 96 - 108 mmol/L [facility] Carbon Dioxide 29 22 - 29 mmol/L [facility] Anion Gap 9(L) 12 - 20 [facility] Urea Nitrogen (BUN) 15 9 - 16 mg/dL [facility] Creatinine, Serum 0.71 0.5 - 1.4 mg/dL [facility] Estimated Glomerular Filt Rate >60 [facility] Comment:Chronic Kidney Disea se: Estimated GFR < 60 mL/min/[id number] Kidney Disease: Estimated GFR < 15 mL/min/1.73m2 Glucose 191(H) 60 - 115 mg/dL [facility] Calcium 9.2 8.4 - 10.2 mg/dL [facility] Bilirubin, Total 0.4 0.0 - 1.0 mg/dL [facility] Aspartate Amino Transferase 42(H) 5 - 37 U/L [facility] Alanine Aminotransferase 58(H) 0 - 40 U/L [facility] Total Protein 7.7 6.5 - 8.0 g/dL [facility] Albumin Level 4.1 3.5 - 5.0 g/dL [facility] Alkaline Phosphatase 100 39 - 117 U/L [facility] 12/15/2024 4:50 PM EDT 12/15/2024 4:50 PM EDT us Generic External Data Provider LAB BLOOD ORDERAB LES Final Result Performing Organization Address City/[facility]/ZIP Co de Phone Number [facility] [address] [place] [phone] * (ABNORMAL) POCT glycosylated hemoglobin (Hgb A1c) (12/13/2024 10:58 AM EDT) Pathologist [facility] Hemoglobin A1C 7.9(A) 4.0 - 6.0 % QC Media Lot # [id number] Lot# Expiration Date ,340 Blood Capillary blood specimen / Unknown 12/13/2024 10:58 AM EDT January Love MD POINT OF CARE TEST ENTER/EDIT OR DERABLES Final Result * POCT glucose manually resulted (12/13/2024 10:57 AM EDT) Pathologist [facility] Glucose Blood, POC 184 60 - 200 mg/dL QC Media Lot # [id number] Lot# Expiration Date [id number] Blood Capillary blood specimen / Unknown 12/13/2024 10:57 AM EDT January Love MD POINT OF CARE TEST ENTER/EDIT OR DERABLES Final Result * POCT ANTHONY-14 Urine Drug Screen (11/16/2024 9:56 AM EST) Only the most recent of2 resultswithin the time period is included. [facility] THC Negative Cocaine Screen, Urine Negative Opiate Screen, Urine Negative Methamphetamine Screen Urine Negative Amphetamine Screen, Urine Negative Benzodiazepines Screen, Urine Negative Barbiturate Screen, Urine Negative Methadone Screen, Urine Negative Buprenophine Screen, Urine Positive TCA, Urine Negative MDMA Urine Negative ng/mL Oxycodone Screen, Urine Negative Phencyclidine (PCP), Urine Negative Propoxyphene, Urine Negative Fentanyl, Urine Negative Urine Urine specimen obtained by clean catch procedure / Unknown 11/16/2024 9:56 AM EST us January Love MD POINT OF CARE TEST ENTER/EDIT OR DERABLES Final Result * Albumin, Random Urine W/Creatinine (08/12/2024 2:22 PM EST) Creatinine, Urine 160.54 mg/dL [facility] Microalbumin Urine 8.0 mg/L [facility] Microalbum Creatinine Ratio Ur 4.9 <30 ug/mg cr [facility] Comment:Albumin/Creatinine R atio Reference Ranges: Normal: < 30 ug/mg creatinine Microalbuminuria: 30 - 300 ug/mg creatinineClinical Albuminuria: > 300 ug/mg creatinine Urine 08/12/2024 2:22 PM EST 08/12/2024 2:40 PM EST January Love MD LAB URINE ORDERABLES Final Resul t Performing Organization Address [facility] Co de Phone Number [facility] [address] [place] [phone] * Hepatitis C Antibody with Reflex to HCV, RNA, Quantitative, Real-Time PCR (04/06/2024 10:39 AM EDT) Hepatitis C Antibody Nonreactive Nonreactive [facility] Comment:Antibodies to HCV no t detected; does not exclude early acuteHCV infection. Blood Venous blood specimen / Unknown 04/06/2024 10:39 AM EDT 04/06/2024 12:54 PM EDT us January Love MD LAB BLOOD ORDERABLES Final Resul t Performing Organization Address City/[facility] Co de Phone Number [facility] [address] [place] [phone] * HIV-1/2 Antigen and Antibodies, Fourth Generation, with Reflexes (04/06/2024 10:39 AM EDT) HIV AB/AG Nonreactive Nonreactive [facility] Comment:HIV-1 p24 Ag and/or HIV-1/HIV-2 Ab not detected.A test result that is nonreactive does not exclude thepossibility of exposure to or infection with HIV-1 and/orHIV-2. Nonreactive results in this assay for individualswith prior exposure to HIV-1 and/or HIV-2 may be due toantigen and antibody levels that are below the limit ofdetection of this assay.The D4P Alinity HIV Ag/Ab Combo assay result andsupplemental assay results should be interpreted inconjunction with the patient's clinical presentation,history and other laboratory results. If the results areinconsistent with clinical evidence, additional testing issuggested to confirm the result. Blood Venous blood specimen / Unknown 04/06/2024 10:39 AM EDT 04/06/2024 12:54 PM EDT us January Love MD LAB BLOOD ORDERABLES Final Resul t [facility] [address] [place] [phone] from Last 3 Months or Most Recently Relevant to Health Maintenance Insurance [employer] Care Teams Pharmacy Helper Relationship Specialty Start Date End Date January Love MD [address] [place] [phone] PCP - General Family Medicine 03/28/13
--- OUTSIDE RECORDS SUMMARY | 2024-12-21 15:39 | XMS_ITS | Encounter Summary ---
Author Organization [facility] Address [address] [place] [address] [address] [address] Care Team Providers Care Adzing And Boring Machine Helper Name Role Phone January Love MD Primary Care Provider [phone] Reason for Visit * Reason Comments Med Refill Encounter Details Date Type Department Care Team (Late st Contact Info) Description 10/21/2023 Refill [facility] [address] [place] [phone] January Love MD [address] [place] [phone] Social History Tobacco Use Types Packs/Day Years [...] Description 01/11/2025 9:15 AM EDT Clinical Support [facility] [address] [place] [address] [phone] Nora Ayala RN documented as of this encounter Visit Diagnoses Not on filedocumented in this encounter Care Teams Adzing And Boring Machine Helper Relationship Specialty Start Date End Date January Love MD [address] [place] [address] [phone] PCP - General Family Medicine 03/28/13 documented as of this encounter
--- OUTSIDE RECORDS SUMMARY | 2024-12-21 15:39 | XMS_ITS | Encounter Summary ---
Author Organization [employer] Address [address] [facility] [address] [place] [address] Care Team Providers Care Die Reamer Name Role Phone January Love MD Primary Care Provider [phone] Encounter Details Date Type Department Care Team ([facility] st Contact Info) Description 12/16/2024 Telephone [facility] [address] [place], [place] [phone] January Love MD [address] [place], [place] [phone] Social History Tobacco Use Types Packs/Day Years [...] encounter Miscellaneous Notes * Telephone Encounter - Saima Gong RN - 12/16/2024 9:17 AM EDT Telephone call to [facility], lab says they can run lipid panel. Faxed order from 05/04/24 to [facility] [phone]. Confirmation received. * Telephone Encounter - Saima Gong RN - 12/16/2024 9:10 AM EDT ----- Message from January Love MD sent at 12/16/2024 5:20 AM EDT ----- Please ask [facility] [place] if they did lipid profile (ordered in Apr). If they haven't, ask if they can runon the specimen then got. Thank you. documented in this encounter Plan of Treatment Upcoming Encounters Date Type Department Care Team (Late st Contact Info) Description 01/11/2025 9:15 AM EDT Clinical Support [facility]INE [address] [place] [phone] Nora Ayala RN documented as of this [...] documented as of this encounter Care Teams Die Reamer Relationship Specialty Start Date End Date January Love MD [address] [place] [phone] PCP - General Family Medicine 03/28/13 documented as of this encounter
--- OUTSIDE RECORDS SUMMARY | 2024-12-21 15:39 | XMS_ITS | Encounter Summary ---
Author Organization [employer] Address [address] [facility] [address] [place] [address] Care Team Providers Care Fitness/Wellness Director Name Role Phone January Love MD Primary Care Provider [phone] Encounter Details Date Type Department Care Team ([facility] st Contact Info) Description 12/15/2024 Orders Only GENERIC EXTERNAL DATA DEPARTMENT Provider, Generic External Data Social History Tobacco Use Types Packs/Day Years [...] Description 01/11/2025 9:15 AM EDT Clinical Support [address] [address] Nora Ayala, HELIO documented as of this encounter Goals Goal Patient Goal Type Associated Problems Recent Progress Patient-Stated? Author Increase coping skills to promote long-term recovery and improve ability to perform daily activities General No Lei Hendricks, HELIO documented as of this encounter Procedures Procedure Name Priority Date/Time Associated Diagnosis Comments LIPID PANEL WITH REFLEX TO DIRECT LDL Routine 12/15/2024 4:50 PM EDT CBC WITH AUTO DIFFERENTIAL Routine 12/15/2024 4:50 PM EDT SED RATE BY MODIFIED WESTERGREN Routine 12/15/2024 4:50 PM EDT C-REACTIVE PROTEIN Routine 12/15/2024 4: 50 PM EDT COMPREHENSIVE METABOLIC PANEL Routine 12/15/2024 4:50 PM EDT documented in this encounter Results * Lipid Panel with Reflex to Direct LDL (12/15/2024 4:50 PM EDT) Triglycerides 64 <150 mg/dL [facility] Comment:Desirable Triglyceri de: less than 150 mg/dLBorderline High Triglyceride 150-199 mg/dLHigh Triglyceride: 200-499 mg/dLVery High Triglyceride: greater than or equal to 5OO mg/dL Cholesterol 137 <200 mg/dL [facility] Comment:Desirable Cholestero l: less than 200 mg/dLBorderline High Cholesterol: 200-239 mg/dLHigh Cholesterol: greater than 239 mg/dL LDL Cholesterol Calculated 73 <100 mg/dL [facility] Comment:Desirable LDL: less than 100 mg/dLNear Optimal/Above Optimal LDL: 110- 129 mg/dLBorderline High LDL: 130-159 mg/dLHigh LDL: 160-189 mg/dLVery High LDL: greater than or equal to 190 mg/dL HDL Cholesterol 52 >40 mg/dL [facility] Comment:Desirable HDL: great er than 40 mg/dL Note: This HDL assay may give artificially low results in patients with liver disease. 12/15/2024 4:50 PM EDT 12/15/2024 4:50 PM EDT Generic External Data Provider LAB BLOOD ORDERAB LES Final Result Performing Organization Address [facility] Co de Phone Number [facility] [address] [place] [phone] * (ABNORMAL) Sed Rate by Modified Westergren (12/15/2024 4:50 PM EDT) Erythrocyte Sedimentation Rate 21(H) 0 - 15 MM/HR [facility] Comment:Patients with polycy themia and many hemoglobin abnormalitiesmay have depressed sed rates whereas patients with anemiamay have elevated sed rates. 12/15/2024 4:50 PM EDT 12/15/2024 4:50 PM EDT us Generic External Data Provider LAB BLOOD ORDERAB LES Final Result Performing Organization Address [facility] Co de Phone Number [facility] [address] [place] [phone] * (ABNORMAL) C-reactive Protein (12/15/2024 4:50 PM EDT) C Reactive Protein 2.08(H) < or = 0.50 mg/dL [facility] 12/15/2024 4:50 PM EDT 12/15/2024 4:50 PM EDT us Generic External Data Provider LAB BLOOD ORDERAB LES Final Result [facility] [address] [place] [phone] * (ABNORMAL) Comprehensive Metabolic Panel (12/15/2024 4:50 PM EDT) Sodium 138 135 - 145 mmol/L [facility] Potassium 4.1 3.3 - 5.1 mmol/L [facility] Chloride 104 96 - 108 mmol/L [facility] Carbon Dioxide 29 22 - 29 mmol/L [facility] Anion Gap 9(L) 12 - 20 [facility] Urea Nitrogen (BUN) 15 9 - 16 mg/dL [facility] Creatinine, Serum 0.71 0.5 - 1.4 mg/dL [facility] Estimated Glomerular Filt Rate >60 [facility] Comment:Chronic Kidney Disea se: Estimated GFR < 60 mL/min/[id number] Kidney Disease: Estimated GFR < 15 mL/min/1.73m2 Glucose 191(H) 60 - 115 mg/dL [facility] Calcium 9.2 8.4 - 10.2 mg/dL [facility] Bilirubin, Total 0.4 0.0 - 1.0 mg/dL [facility] Aspartate Amino Transferase 42(H) 5 - 37 U/L [facility] Alanine Aminotransferase 58(H) 0 - 40 U/L [facility] Total Protein 7.7 6.5 - 8.0 g/dL [facility] Albumin Level 4.1 3.5 - 5.0 g/dL [facility] Alkaline Phosphatase 100 39 - 117 U/L [facility] 12/15/2024 4:50 PM EDT 12/15/2024 4:50 PM EDT us Generic External Data Provider LAB BLOOD ORDERAB LES Final Result [facility] [address] [place], [place] [phone] * (ABNORMAL) CBC auto differential (12/15/2024 4:50 PM EDT) White Blood Count 4.5(L) 4.8 - 10.8 X10*3/uL [facility] Red Blood Count 4.38(L) 4.60 - 5.80 X10*6/uL [facility] Hemoglobin 12.4(L) 14.0 - 18.0 g/dl [facility] Hematocrit 38.3(L) 42.0 - 52.0 % [facility] Mean Corpuscular Volume 87.4 80.0 - 98.0 fL [facility] Mean Corpuscular Hemoglobin 28.3 27.0 - 33.0 pg [facility] Mean Corpuscular HGB Conc 32.4 31.0 - 36.0 g/dl [facility] Red Cell Distribution Width 12.7 11.0 - 16.0 % [facility] Platelet Count 237 160 - 400 X10*3/uL [facility] Mean Platelet Volume 10.9 9.4 - 12.4 fL [facility] Neutrophils Percent Auto 47.1 45 - 73 % [facility] Imm Gran Pct Auto 0.2 0.0 - 0.4 % [facility] Lymphocytes Percent Auto 35.1 20 - 40 % [facility] Monocytes Percent Auto 10.7 2 - 11 % [facility] Eosinophils Percent Auto 6.0(H) 0 - 4 % [facility] Basophils Percent Auto 0.9 0 - 2 % [facility] NRBC Pct Auto 0.0 0.0 - 0.2 /100WBC [facility] Neutrophils Absolute Auto 2.1 2.0 - 8.3 x10*3/uL [facility] Imm Gran Abs Auto 0.01 0.00 - 0.03 X10*3/uL [facility] Lymphocytes Absolute Auto 1.6 1.2 - 4.9 X10*3/uL [facility] Monocytes Absolute Auto 0.5 0.1 - 1.2 X10*3/uL [facility] Eosinophils Absolute Auto 0.3 0.0 - 0.4 X10*3/uL [facility] Basophils Absolute Auto 0.0 0.0 - 0.2 X10*3/uL [facility] NRBC Abs Auto 0.000 0.0 - 0.012 X10*3/uL [facility] 12/15/2024 4:50 PM EDT 12/15/2024 4:50 PM EDT us Generic External Data Provider LAB BLOOD ORDERAB LES Final Result [facility] [address] [place] [phone] documented in this encounter Visit Diagnoses Not on filedocumented in this encounter Additional Health Concerns Assessment Noted Time PHQ-9 Depression Total Score: 10 12/13/ 025 10:56 AM EDT documented as of this encounter Care Teams Fitness/Wellness Director Relationship Specialty Start Date End Date January Love MD [address] [place] [phone] PCP - General Family Medicine 03/28/13 documented as of this encounter
== END 2024-12-21 13:10 | disposition home or self-care (01) ==
LOC: HO.NEURO 13:09
PROVIDERS: PCP Family Medicine
DX: R20.0 Anesthesia of skin (principal); R20.2 Paresthesia of skin
CPT/HCPCS: 95886; 95911

== ENCOUNTER → 2024-12-21 13:15 | Outpatient (BNV) | payer MEDICAID, SELFPAY | PROVIDERS: PCP Family Medicine; Visit Provider Physical Medicine & Rehabilitation | DX: R20.2 Paresthesia of skin (principal); R20.0 Anesthesia of skin | CPT/HCPCS: 95886; 95911 ==

== ENCOUNTER 2025-01-10 08:47 | Outpatient (AMB) | payer MEDICAID, SELFPAY ==
--- NOTE | 2025-01-10 08:56 | MHC.OFFVIS ---
Vital Signs 01/10/25 09:00 Height 5 ft 10 in Weight 244 lb 7.882 oz BMI 35.1 BP 130/80 Blood Pressure Location Rt brachial Position Sitting Pulse 76 Pulse Source Pulse Oximeter Pulse Oximetry (%) 98 Oxygen Delivery Method Room Air Intake Visit Reasons: PsA/ discuss labs Intake Note: Patient presents today for PsA follow up and test results. Allergies Penicillins [PENICILLINS] Allergy (Intermediate, Verified 01/10/25 09:49) HIVES sulfasalazine Adverse Reaction (Intermediate, Verified 01/10/25 09:49) transaminitis Medication List - Last Reconciled 01/10/25 by Frannie Ford MD acetaminophen ER 650 mg PO Q8H PRN albuterol sulfate 90 mcg/actuation (ProAir HFA) 2 puffs inhalation Q6H PRN allopurinol 300 mg PO DAILY bisacodyl (Dulcolax (bisacodyl)) 10 mg (2 x 5 mg) PO BEDTIME buprenorphine-naloxone 8-2 mg (Suboxone) 2 film buccal DAILY cetirizine 10 mg PO BEDTIME cyclobenzaprine Take 1 tab 3 times a day for 3 days then take 1 tab nightly as needed for muscle spasm docusate sodium 200 mg (2 x 100 mg) PO BEDTIME epinephrine (EpiPen) 0.03 mL IM DIRECTED etanercept (Enbrel SureClick) 50 mg subcut QWEEK famotidine 40 mg PO BEDTIME fluticasone propionate 50 mcg/actuation (Flonase Allergy Relief) 1 spray intranasal DAILY fluticasone propionate 110 mcg/actuation (Flovent HFA) 1 puff inhalation BID hydroxyzine HCl 25 mg PO Q6H PRN lansoprazole 30 mg PO DAILY 90 days linaclotide (Linzess) 290 mcg PO QAM [id number]-ncahrloi-cqobxcs 36,000-114,000- 180,000 unit (Creon) 1 cap PO QID loratadine 10 mg PO DAILY metformin ER 500 mg PO QPM methylcellulose (laxative) (Citrucel) 500 mg PO DAILY 30 days naproxen 500 mg PO DAILY PRN polyethylene glycol 3350 (Miralax) 238 grams PO ONCE sucralfate 1 g PO BEDTIME tamsulosin 0.4 mg PO DAILY triamcinolone acetonide 0.1% 1 appl topical BID HPI Comments Details: Patient is a 49-year-old male with anxiety and depression, asthma, nonalcoholic steatohepatitis, GERD, hypertension, diabetes, non crystal proven chronic gout, psoriasis complicated by psoriatic arthritis and fibromyalgia here today for follow up Interval History: Patient last seen 08/18/[address] White. At that time he was following up for his psoriatic arthritis on Enbrel weekly as well as naproxen 500 mg 1 to 2 times a day. Since then patient states that he has been stable Gout flares: x 2 involving the feet. Self resolved Also reported an episode of swelling to his lips Started the duloxetine but had side effects and stopped it after one dose, interested in try savella Rheumatologic History: This is a 46-year-old male with a past medical history of anxiety, gout, type 2 diabetes mellitus, degenerative disc disease of his lumbar spine s/p multiple procedures by pain management presents for evaluation of low back pain. Patient was previously evaluated by Dr. Chantelle Geronimo for low back pain. He had MRI of his sacral iliac joints which were negative for sacroiliitis. MRI lumbar spine also showed no signs of spondyloarthropathy. Patient continues to have low back pain, worse in the morning associated with 2 hours of morning stiffness. Pain is also worse with walking improves with sitting down. He states he was diagnosed with gout in 2011. He has pain and swelling of his feet and his hands, he also has intermittent swelling of his ears in lips that he attributes to gout. He has been on allopurinol 300 mg by his PCP. His most recent gout flare was in the summer with swelling of his hands. Denies any history of kidney stones or family history of gout. He states that the last year of high school he had significant psoriasis affecting his legs and his entire body. He was prescribed creams with resolution. Recently he has been having itchy rashes on his ankles, he is being evaluated by an tablet making machine operator helper. He also showed me pictures of rashes involving his face, neck and ears.? He is following up with tablet making machine operator helper Dr. Garcia he was prescribed hydroxyzine and another antihistaminic and he states that those are helping.? States that as a child he spent a lot of time at the hospital for arthritis dx 09/2022 SSZ 12/18 partially effective DC 02/17 due to transaminitis Enbrel 02/17 effective Current Rheumatology Medication(s): Enbrel 50mg SC every week Allopurinol 300mg daily Cyclobenzaprine 5mg nightly Naproxen 500mg bid [facility] Medical History (Updated 01/10/25 @ 09:21 by Frannie Ford MD) Fibromyalgia H/O head injury Migraines Scoliosis Anxiety and depression Asthma Chest pain, atypical COVID-19 vaccine series completed Osteoarthritis of left knee Chronic pain syndrome Spondylosis of lumbar region without myelopathy or radiculopathy Osteoarthritis of left knee Sleep apnea Varicose vein of leg Diabetes Gastroparesis Surgical History History of back surgery History of colonoscopy Family History Father No problems noted. Mother History of cancer Social History Household Members: Spouse and Children Housing: House Are you a primary child care specialist to a significant other at home: No Do you presently have visiting nurse or other home services: No Alcohol intake: former Patient Tobacco Use Status: Former Tobacco user Tobacco use type: Cigarette Cigarettes Per Day: 45 Years Smoked: 10 service: No Current occupational status: unemployed Review of Systems Const Details: Review of Systems Constitutional: Denies fever, chills, weight loss ENT: Denies vision changes, eye pain or eye redness, dental caries, dry mouth GI: Denies nausea, vomiting, diarrhea, abdominal pain, change in BM Pulm: Denies SOB, ELENA, hemoptysis, wheezing Cards: Denies chest pain, palpitations Skin: Denies Raynaud's, rash, nail changes, photosensitivity, WATER/WASTEWATER PROJECT ENGINEER: Denies headaches, weakness, paresthesias, recurrent falls MSK: as per HPI All other systems reviewed and are unremarkable except noted above Physical Exam Vital Signs: Last Vital Signs Pulse 76 01/10/25 09:00 BP 130/80 01/10/25 09:00 Pulse Ox 98 01/10/25 09:00 Oxygen Delivery Method Room Air 01/10/25 09:00 BMI result Body Mass Index 35.1 Vital signs reviewed Physical Examination CONSTITUITIONAL Patient alert and cooperative. Well appearing and in no apparent painful distress HEENT Conjunctiva and sclera clear. ?Pupils equal round and reactive to light. ?No lymphadenopathy. ? CHEST/RESPIRATORY SYSTEM Normal respiratory effort and able to speak in complete sentences. ?Clear to auscultation bilaterally. ?No crackles, rales, rhonchi, wheezes heard. CARDIAC SYSTEM Regular rate and rhythm. ?S1 and S2 heard no murmurs. ?Radial pulses intact bilaterally MSK Hands: ?Good jewel bearing polisher strength bilaterally. No deformities noted. ?No synovitis noted to the MCPs, PIPs or DIPs. ?No tenderness to palpation of these joints. Herbedens nodes Wrists: ?Full range of motion at the wrists without pain. ?No tenderness to palpation or synovitis noted to the wrists. Elbows: Full range of motion without pain. No tenderness, weakness, swelling, increased warmth or erythema. Shoulders: Full range of motion. Positive Garcia-Freddy R>L Knees: ?Full range of motion. ?No tenderness, swelling, increased warmth or erythema.?No effusion or crepitations Ankles: Full range of motion. ?No tenderness, swelling, increased warmth or erythema.? Feet: ?Negative squeeze test. ?No tenderness to palpation or swelling of the MTPs. Tender points:?No tenderness to palpation of the bilateral trapezius, supraspinatus, greater trochanters, anterior costochondral junctions, bilateral gluteal areas, bilateral suboccipital muscle insertions SKIN healed psoriatic inflammatory rash on the bilateral lower legs Results Reviewed Results Reviewed: Laboratory Tests 12/15/24 16:50 WBC 4.5 L RBC 4.38 L Hgb 12.4 L Hct 38.3 L Plt Count 237 ESR 21 H Sodium 138 Potassium 4.1 Chloride 104 Carbon Dioxide 29 BUN 15 Creatinine 0.71 AST 42 H ALT 58 H C-Reactive Protein 2.08 H 12/16/22 02/05/24 12:54 15:09 Uric Acid 3.3 L 2.9 L Immunology Labs 07/23/22 12/16/22 13:10 12:54 Rheumatoid Factor < 13.0 Cycl Citrul Peptide IgG <16 HLA-B27 Negative Infectious serologies 04/06/24 08/12/24 10:39 14:30 Hep Bs Antibody REACTIVE Hep B Core Total Ab Nonreactive Hepatitis C Ab (EIA) Nonreactive HIV 1&2 Ab/P24 Ag 4thGn Nonreactive TB Test (T-Spot) Com Negative Assessment & Plan Assessment & Plan (1) Psoriatic arthritis: Comment: dx 09/2022 SSZ 12/18 partially effective DC 02/17 due to transaminitis Enbrel 02/17 effective Code(s): L40.50 - Arthropathic psoriasis, unspecified Category: Medical Plan: #PsA Patient is a 49-year-old male with psoriasis complicated by psoriatic arthritis here today for follow up. Patient currently in remission on Enbrel 50 mg weekly and naproxen 500 mg 1 to 2 times a day. Plan - Continue Enbrel 50mg SC weekly - Continue naproxen 500mg 1-2 times per day - RTC 4 months - Labs before visit: CBC, CMP, ESR, CRP, hepatitis panel, T spot (2) Gout: Code(s): M10.9 - Gout, unspecified Category: Medical Qualifiers: Chronicity: chronic Gout etiology: unspecified cause Gout site: multiple sites Qualified Code(s): M1A.09X0 - Idiopathic chronic gout, multiple sites, without tophus (tophi) Plan: #Gout Patient with non crystal proven gout on allopurinol. Reports that he had 2 gout flares but his last UA done 1 year ago showed UA very much at goal. No escalation of therapy at this time, we will need to check his UA Plan - Check UA - Continue allopurinol 300mg daily - UA goal <6 (3) Psoriasis: Code(s): L40.9 - Psoriasis, unspecified Category: Medical Plan: #PsO Still with some mild PsO patches but currently using topical steroids to manage Can consider escalating therapy if this worsens (4) Fibromyalgia: Code(s): M79.7 - Fibromyalgia Category: Medical Plan: #Fibromyalgia Patient with fibromyalgia. Did not tolerate gabapentin or duloxetine Requesting to try Savella (5) MONTES DE OCA (nonalcoholic steatohepatitis): Code(s): K75.81 - Nonalcoholic steatohepatitis (MONTES DE OCA) Category: Medical Plan: #MONTES DE OCA Hx of MONTES DE OCA based on US done in 2021. Continues to have transaminitis Will recheck US today (6) Encounter for monitoring of etanercept therapy: Code(s): Z51.81 - Encounter for therapeutic drug level monitoring; Z79.620 - predatory animal exterminator (current) use of immunosuppressive biologic Plan: #Long-term Use of TNF Inhibitors: Enbrel Discussed with the patient the benefits and risks of TNF inhibitors for the management of the rheumatic condition Benefits include reduce pain, maintenance of remission and reduction of flares as well as ?progression of the disease Risks include injection sites/infusion reactions, serious infections (such as bacterial infections, opportunistic infections), malignancy, delaminating syndromes, autoimmune phenomena, CHF exacerbations, palmar plantar psoriasis and cytopenias Recommended rotating injection sites, and holding medication during and for up to 1 week after resolution of a febrile illness or open skin wound Plan I spent 36 minutes reviewing the record and labs, taking a history, examining the patient, discussing the treatment plan, ordering diagnostic work up and documenting in the medical record Orders: Orders Complete Blood Count Auto Diff 4 Months L40.50 - Arthropathic psoriasis, unspecified, M1A.09X0 - Idiopathic chronic gout, multiple sites, without tophus (tophi) C Reactive Protein 4 Months L40.50 - Arthropathic psoriasis, unspecified, M1A.09X0 - Idiopathic chronic gout, multiple sites, without tophus (tophi) Hepatitis A,B,C Profile 4 Months L40.50 - Arthropathic psoriasis, unspecified, M1A.09X0 - Idiopathic chronic gout, multiple sites, without tophus (tophi) T Spot TB 4 Months L40.50 - Arthropathic psoriasis, unspecified, M1A.09X0 - Idiopathic chronic gout, multiple sites, without tophus (tophi) US abdomen comp w elastography Today K75.81 - Nonalcoholic steatohepatitis (MONTES DE OCA) Comprehensive Met. Panel 4 Months L40.50 - Arthropathic psoriasis, unspecified, M1A.09X0 - Idiopathic chronic gout, multiple sites, without tophus (tophi) Erythrocyte Sedimentation Rate 4 Months L40.50 - Arthropathic psoriasis, unspecified, M1A.09X0 - Idiopathic chronic gout, multiple sites, without tophus (tophi) Uric Acid 4 Months L40.50 - Arthropathic psoriasis, unspecified, M1A.09X0 - Idiopathic chronic gout, multiple sites, without tophus (tophi) Medications: New allopurinol 300 mg PO DAILY 90 tabs 1RF M1A.09X0 - Idiopathic chronic gout, multiple sites, without tophus (tophi) milnacipran (Savella) PO PER PKG DIR 55 ea 0RF M79.7 - Fibromyalgia Changed From cyclobenzaprine Take 1 tab 3 times a day for 3 days then take 1 tab nightly as needed for muscle spasm 20 tabs 0RF M79.7 - Fibromyalgia To cyclobenzaprine 5 mg PO BEDTIME 90 tabs 1RF M79.7 - Fibromyalgia Refilled etanercept (Enbrel SureClick) 50 mg subcut QWEEK 4 mL 4RF L40.50 - Arthropathic psoriasis, unspecified naproxen 500 mg PO DAILY PRN 30 tabs 2RF for pain Coding Level of Care Code Est Pt Level 4 (23822) Complex EM visit Add On G2211 Diagnoses Psoriatic arthritis L40.50 Chronic gout of multiple sites, unspecified cause M1A.09X0 Chronicity: chronic Gout etiology: unspecified cause Gout site: multiple sites Psoriasis L40.9 Fibromyalgia M79.7 MONTES DE OCA (nonalcoholic steatohepatitis) K75.81 Encounter for monitoring of etanercept therapy Z51.81; Z79.620
[2025-01-10 09:00] VITALS: BP 130/80; PULSE 76; O2SAT 98; BMI 35.1
--- OUTSIDE RECORDS SUMMARY | 2025-01-10 09:12 | XMS_ITS | Encounter Summary ---
Author Organization [employer] [facility] Address [address] [place] [address] 7 [place] [address] Care Team Providers Care Softball Player Name Role Phone January Love MD Primary Care Provider [phone] Encounter Details Date Type Department Care Team (Latest Contact Info) Description 01/28/2021 Abstract [facility] CONVERSIONS Dental, Provider, DDS Social History Tobacco [...] Description 01/11/2025 9:15 AM EDT Clinical Support [facility] MEDICINE [address] [place] [phone] Nora Ayala RN 02/08/2025 9:00 AM EDT Clinical Support [facility] MEDICINE [address] [place] [phone] Lei Hendricks, RN [address] [place] [phone] documented as of this encounter Visit Diagnoses Not on filedocumented in this encounter Care Teams Softball Player Relationship Specialty Start Date End Date January Love MD [address] [place] [id number] PCP - General Family Medicine 03/28/13 documented as of this encounter
--- OUTSIDE RECORDS SUMMARY | 2025-01-10 09:12 | XMS_ITS | Encounter Summary ---
Author Organization [facility] Address [address] [facility] 7t [place] [address] Care Team Providers Care Instrument Specialist Name Role Phone January Love MD Primary Care Provider [phone] Encounter Details Date Type Department Care Team ([facility] st Contact Info) Description 03/11/2024 Telephone [facility] MEDICINE [address] [place], [place] [phone] January Love MD [address] [place], [place] [phone] Social History Tobacco Use Types Packs/Day Years [...] Description 01/11/2025 9:15 AM EDT Clinical Support [address] [address] Nora Ayala, HELIO 02/08/2025 9:00 AM EDT Clinical Support [address] [address] Lei Hendricks, RN [address] [place] [phone] documented as of this encounter Visit Diagnoses Not on filedocumented in this encounter Additional Health Concerns Assessment Noted Time PHQ-9 Depression Total Score: 0 01/13/20 24 9:56 AM EDT documented as of this encounter Care Teams Instrument Specialist Relationship Specialty Start Date End Date January Love MD [address] [place] [phone] PCP - General Family Medicine 03/28/13 documented as of this encounter
--- OUTSIDE RECORDS SUMMARY | 2025-01-10 09:12 | XMS_ITS | Encounter Summary ---
Author Organization [employer] [facility] Address [address] [place] [address] [address], [place] [address] Care Team Providers Care Student Finance Specialist Name Role Phone January Love MD Primary Care Provider [phone] Reason for Visit * Reason Comments Med Refill Encounter Details Date Type Department Care Team (Late st Contact Info) Description 10/21/2023 Refill [facility] MEDICINE [address] [place] [phone] January Love MD [address] [place] [phone] Social History Tobacco Use Types Packs/Day Years [...] Description 01/11/2025 9:15 AM EDT Clinical Support [facility] MEDICINE [address] [place] [phone] Nora Ayala, HELIO 02/08/2025 9:00 AM EDT Clinical Support [facility] MEDICINE [address] [place] [phone] Lei Hendricks, HELIO [address] [place] [address] documented as of this encounter Visit Diagnoses Not on filedocumented in this encounter Care Teams Student Finance Specialist Relationship Specialty Start Date End Date January Love MD [address] [place] [address] PCP - General Family Medicine 03/28/13 documented as of this encounter
--- OUTSIDE RECORDS SUMMARY | 2025-01-10 09:12 | XMS_ITS | Encounter Summary ---
Author Organization [employer] Address [address] [facility] 7t [place] [address] Care Team Providers Care Freight Forwarder Name Role Phone January Love MD Primary Care Provider [phone] Reason for Visit * Reason Comments Med Refill Encounter Details Date Type Department Care Team ([facility] st Contact Info) Description 08/18/2024 Refill [facility] MEDICINE [address] [place], [place] [phone] January Love MD [address] [place] [address] Social History Tobacco Use Types Packs/Day Years [...] Description 01/11/2025 9:15 AM EDT Clinical Support [facility] MEDICINE [address] [place] [phone] Nora Ayala RN 02/08/2025 9:00 AM EDT Clinical Support [address] [address] Lei Hendricks, RN [address] [place] [phone] documented as of this encounter Visit Diagnoses Not on filedocumented in this encounter Additional Health Concerns Assessment Noted Time PHQ-9 Depression Total Score: 0 01/13/20 24 9:56 AM EDT documented as of this encounter Care Teams Freight Forwarder Relationship Specialty Start Date End Date January Love MD [address] [place] [phone] PCP - General Family Medicine 03/28/13 documented as of this encounter
--- OUTSIDE RECORDS SUMMARY | 2025-01-10 09:12 | XMS_ITS | Encounter Summary ---
Author Organization [facility] Address [address] [place] [address] 7 [place] [address] Care Team Providers Care Cap Cutter Name Role Phone January Love MD Primary Care Provider [phone] Encounter Details Date Type Department Care Team (Late st Contact Info) Description 09/16/2022 Orders Only [facility] [address] [place] [address] [phone] Bev Snow LPN Social History Tobacco Use [...] Description 01/11/2025 9:15 AM EDT Clinical Support [facility] [address] [place] [phone] oNra Ayala, HELIO 02/08/2025 9:00 AM EDT Clinical Support [facility] [address] [place] [phone] Lei Hendricks, RN [address] [place] [phone] documented as of this encounter Procedures Procedure [...] FACTOR Routine 12/16/2022 12: 54 PM EDT [id number] G ENZYME Routine 12/16/2022 12:54 PM EDT [...] 3 PM EDT 06/11/2023 1:14 PM EDT [facility]S - 06/12/2023 2:30 PM EDT ----- ------- Name: Franci Plata ?Age/Sex: 47/M ? : 1975 Unit#: [id number] ?? Attend Dr: Saurabh Riggs MD ?Re06/11/23 ?Status: DEP SDC ? Location: HO.SSS ?Disch: ? ----- ------- SPEC : [id number] ? RECD: 06/11/23 ? STATUS: ??SOUT ? REQ NUM: [id number] ? ELIAS: 06/11/23 ? SUBM DR: Saurabh [...] Plata ?Age/Sex: 47/M ? : 1975 Unit#: [id number] ?? Attend Dr: Saurabh Riggs MD ?Re06/11/23 ?Status: DEP SDC ? Location: HO.SSS ?Disch: ? ----- ------- SPEC : [id number] ? RECD: 06/11/23-1313 ? STATUS: ??SOUT ? REQ NUM: [id number] ? ELIAS: 06/11/23-3 ? SUBM DR: Saurabh [...] To: ?? Saurabh Riggs MD ?? [address] [facility] [address] ?? [place] [address] ?? [phone] ?? January Love MD ?? [address] ?? [place] [address] ?? ----- ------- Signed (signature on file) Yahaira Downey MD 06/12/23 [id number] ? ----- ------- ? END OF REPORT ? Result [facility] External Provider LAB BLO OD ORDERABLES Final Result Performing Organization Address [facility] de Phone Number [facility] [address] [place] [address] [phone] * Glucose, Whole Blood (06/11/2023 10:00 AM EDT) Glucose, Whole Blood 110 60 - 115 mg/dL [facility] Comment:METER #: [id number] 06/11/2023 10:0 0 AM EDT 06/11/2023 10:05 AM EDT Result [facility] External Provider LAB BLO OD ORDERABLES Final Result Performing Organization Address [facility] de Phone Number [facility] [address] [place] [address] [phone] * (ABNORMAL) Sed Rate by Modified Justoren (05/12/2023 3:43 PM EDT) [facility] Erythrocyte Sedimentation Rate 16(H) 0 - 15 MM/HR [facility] Comment:Patients with polycy themia and many hemoglobin abnormalitiesmay have depressed sed rates whereas patients with anemiamay have elevated sed rates. 05/12/2023 3:43 PM EDT 05/12/2023 3:43 PM EDT Result [facility] External Provider LAB BLO OD ORDERABLES Final Result Performing Organization Address [facility] de Phone Number [facility] [address] [place] [address] [phone] * (ABNORMAL) C-reactive Protein (05/12/2023 3:43 PM EDT) C Reactive Protein 1.29(H) < or = 0.50 mg/dL [facility] 05/12/2023 3:43 PM EDT 05/12/2023 3:43 PM EDT us Generic External Data Provider LAB BLOOD ORDERAB LES Final Result [facility] [address] [place] [phone] * (ABNORMAL) Comprehensive Metabolic Panel (05/12/2023 3:43 PM EDT) Sodium 141 135 - 145 mmol/L [facility] Potassium 4.1 3.3 - 5.1 mmol/L [facility] Chloride 106 96 - 108 mmol/L [facility] Carbon Dioxide 29 22 - 29 mmol/L [facility] Anion Gap 10(L) 12 - 20 [facility] Urea Nitrogen (BUN) 17(H) 9 - 16 mg/dL [facility] Creatinine, Serum 0.78 0.5 - 1.4 mg/dL [facility] Estimated Glomerular Filt Rate >60 [facility] Comment:NOTE: For -Am erican individuals, multiply the result by 1.210.Chronic Kidney Disease: Estimated GFR < 60 mL/min/1.85e0Osyeyv Kidney Disease: Estimated GFR < 15 mL/min/1.73m2 Glucose 93 60 - 115 mg/dL [facility] Calcium 9.4 8.4 - 10.2 mg/dL [facility] Bilirubin, Total 0.5 0.0 - 1.0 mg/dL [facility] Aspartate Amino Transferase 31 5 - 37 U/L [facility] Alanine Aminotransferase 51(H) 0 - 40 U/L [facility] Total Protein 7.6 6.5 - 8.0 g/dL [facility] Albumin Level 4.3 3.5 - 5.0 g/dL [facility] Alkaline Phosphatase 96 39 - 117 U/L [facility] 05/12/2023 3:43 PM EDT 05/12/2023 3:43 PM EDT us [facility] External Provider LAB BLO OD ORDERABLES Final Result [facility] [address] [place] [address] [phone] * (ABNORMAL) CBC auto differential (05/12/2023 3:43 PM EDT) White Blood Count 5.7 4.8 - 10.8 X10*3/uL [facility] Red Blood Count 4.38(L) 4.60 - 5.80 X10*6/uL [facility] Hemoglobin 12.5(L) 14.0 - 18.0 g/dl [facility] Hematocrit 38.8(L) 42.0 - 52.0 % [facility] Mean Corpuscular Volume 88.6 80.0 - 98.0 fL [facility] Mean Corpuscular Hemoglobin 28.5 27.0 - 33.0 pg [facility] Mean Corpuscular HGB Conc 32.2 31.0 - 36.0 g/dl [facility] Red Cell Distribution Width 12.2 11.0 - 16.0 % [facility] Platelet Count 274 160 - 400 X10*3/uL [facility] Mean Platelet Volume 11.0 9.4 - 12.4 fL [facility] Neutrophils Percent Auto 47.0 45 - 73 % [facility] Imm Gran Pct Auto 0.2 0.0 - 0.4 % [facility] Lymphocytes Percent Auto 38.9 20 - 40 % [facility] Monocytes Percent Auto 9.3 2 - 11 % [facility] Eosinophils Percent Auto 3.7 0 - 4 % [facility] Basophils Percent Auto 0.9 0 - 2 % [facility] NRBC Pct Auto 0.0 0.0 - 0.2 /100WBC [facility] Neutrophils Absolute Auto 2.7 2.0 - 8.3 x10*3/uL [facility] Imm Gran Abs Auto 0.01 0.00 - 0.03 X10*3/uL [facility] Lymphocytes Absolute Auto 2.2 1.2 - 4.9 X10*3/uL [facility] Monocytes Absolute Auto 0.5 0.1 - 1.2 X10*3/uL [facility] Eosinophils Absolute Auto 0.2 0.0 - 0.4 X10*3/uL [facility] Basophils Absolute Auto 0.1 0.0 - 0.2 X10*3/uL [facility] NRBC Abs Auto 0.000 0.0 - 0.012 X10*3/uL [facility] 05/12/2023 3:43 PM EDT 05/12/2023 3:43 PM EDT [facility] External Provider LAB BLO OD ORDERABLES Final Result Performing Organization Address [facility] Co de Phone Number [facility] [address] [place] [phone] * (ABNORMAL) C-reactive Protein (02/10/2023 2:25 PM EDT) [facility] C Reactive Protein 0.95(H) < or = 0.50 mg/dL [facility] 02/10/2023 2:25 PM EDT 02/10/2023 2:25 PM EDT [facility] External Provider LAB BLO OD ORDERABLES Final Result Performing Organization Address [facility]/ZIP Co de Phone Number [facility] [address] [place] [address] [phone] * (ABNORMAL) Comprehensive Metabolic Panel (02/10/2023 2:25 PM EDT) Pathologist [facility] Sodium 140 135 - 145 mmol/L [facility] Potassium 4.2 3.3 - 5.1 mmol/L [facility] Chloride 105 96 - 108 mmol/L [facility] Carbon Dioxide 28 22 - 29 mmol/L [facility] Anion Gap 11(L) 12 - 20 [facility] Urea Nitrogen (BUN) 13 9 - 16 mg/dL [facility] Creatinine, Serum 0.74 0.5 - 1.4 mg/dL [facility] Estimated Glomerular Filt Rate >60 [facility] Comment:NOTE: For -Am erican individuals, multiply the result by 1.210.Chronic Kidney Disease: Estimated GFR < 60 mL/min/1.42n2Zwndrn Kidney Disease: Estimated GFR < 15 mL/min/1.73m2 Glucose 124(H) 60 - 115 mg/dL [facility] Calcium 9.5 8.4 - 10.2 mg/dL [facility] Bilirubin, Total 0.5 0.0 - 1.0 mg/dL [facility] Aspartate Amino Transferase 42(H) 5 - 37 U/L [facility] Alanine Aminotransferase 72(H) 0 - 40 U/L [facility] Total Protein 7.1 6.5 - 8.0 g/dL [facility] Albumin Level 4.4 3.5 - 5.0 g/dL [facility] Alkaline Phosphatase 101 39 - 117 U/L [facility] 02/10/2023 2:25 PM EDT 02/10/2023 2:25 PM EDT [facility] External Provider LAB BLO OD ORDERABLES Final Result [facility] [address] [place] [phone] * (ABNORMAL) Sed Rate by Modified Giulia (02/10/2023 2:25 PM EDT) Erythrocyte Sedimentation Rate 21(H) 0 - 15 MM/HR [facility] Comment:Patients with polycy themia and many hemoglobin abnormalitiesmay have depressed sed rates whereas patients with anemiamay have elevated sed rates. 02/10/2023 2:25 PM EDT 02/10/2023 2:25 PM EDT us [facility] External Provider LAB BLO OD ORDERABLES Final Result [facility] [address] [place] [address] [phone] * (ABNORMAL) CBC auto differential (02/10/2023 2:25 PM EDT) White Blood Count 5.3 4.8 - 10.8 X10*3/uL [facility] Red Blood Count 4.23(L) 4.60 - 5.80 X10*6/uL [facility] Hemoglobin 12.3(L) 14.0 - 18.0 g/dl [facility] Hematocrit 37.9(L) 42.0 - 52.0 % [facility] Mean Corpuscular Volume 89.6 80.0 - 98.0 fL [facility] Mean Corpuscular Hemoglobin 29.1 27.0 - 33.0 pg [facility] Mean Corpuscular HGB Conc 32.5 31.0 - 36.0 g/dl [facility] Red Cell Distribution Width 13.5 11.0 - 16.0 % [facility] Platelet Count 273 160 - 400 X10*3/uL [facility] Mean Platelet Volume 10.7 9.4 - 12.4 fL [facility] Neutrophils Percent Auto 54.9 45 - 73 % [facility] Imm Gran Pct Auto 0.2 0.0 - 0.4 % [facility] Lymphocytes Percent Auto 33.1 20 - 40 % [facility] Monocytes Percent Auto 8.3 2 - 11 % [facility] Eosinophils Percent Auto 2.6 0 - 4 % [facility] Basophils Percent Auto 0.9 0 - 2 % [facility] NRBC Pct Auto 0.0 0.0 - 0.2 /100WBC [facility] Neutrophils Absolute Auto 2.9 2.0 - 8.3 x10*3/uL [facility] Imm Gran Abs Auto 0.01 0.00 - 0.03 X10*3/uL [facility] Lymphocytes Absolute Auto 1.8 1.2 - 4.9 X10*3/uL [facility] Monocytes Absolute Auto 0.4 0.1 - 1.2 X10*3/uL [facility] Eosinophils Absolute Auto 0.1 0.0 - 0.4 X10*3/uL [facility] Basophils Absolute Auto 0.1 0.0 - 0.2 X10*3/uL [facility] NRBC Abs Auto 0.000 0.0 - 0.012 X10*3/uL [facility] 02/10/2023 2:25 PM EDT 02/10/2023 2:25 PM EDT [facility] External Provider LAB BLO OD ORDERABLES Final Result Performing Organization Address [facility] Co de Phone Number [facility] [address] [place] [phone] * Angiotensin -1- Converting Enzyme (12/16/2022 12:54 PM EDT) Pathologist [facility] Angiotensin Converting Enzyme 48 9 - 67 U/L [facility] Comment:THIS TEST WAS PERFOR MED AT:[employer]/[id number] [place] [phone] W. MASON,MD,PHD 12/16/2022 12:5 4 PM EDT 12/16/2022 12:54 PM EDT [facility] External Provider LAB BLO OD ORDERABLES Final Result Performing Organization Address [facility] Co de Phone Number [facility] [address] [place] [address] [phone] * Immunofixation, Serum (12/16/2022 12:54 PM EDT) IMMUNOGLOBULIN G 1112 600 - 1640 mg/dL [facility] IMMUNOGLOBULIN A 298 47 - 310 mg/dL [facility] Immunoglobulin M 67 50 - 300 mg/dL [facility] Comment:THIS TEST WAS PERFOR MED AT:[facility] [place] [id number] ZIMMERMAN MD Immunofixation Result [facility] Comment:No monoclonal protei ns detected. 12/16/2022 12:5 4 PM EDT 12/16/2022 12:54 PM EDT [facility] External Provider LAB BLO OD ORDERABLES Final Result Performing Organization Address [facility] Co de Phone Number [facility] [address] [place] [phone] * Cyclic Citrullinated Peptide (CCP) Antibody (IgG) (12/16/2022 12:54 PM EDT) Pathologist [facility] Cyclic Citrullinated Peptide <16 UNITS [facility] Comment:Reference RangeNegat hema: <20Weak Positive: 20-39Moderate Positive: 40-59Strong Positive: >59THIS TEST WAS PERFORMED AT:[employer] [address] [id number] ZIMMERMAN MD 12/16/2022 12:5 4 PM EDT 12/16/2022 12:54 PM EDT [facility] External Provider LAB BLO OD ORDERABLES Final Result Performing Organization Address [facility] Co de Phone Number [facility] [address] [place] [phone] * Protein Electrophoresis and [place]/[employer] (12/16/2022 12:54 PM EDT) Prot Elec - Total Protein 7.1 6.1 - 8.1 g/dL [facility] Prot Elec - Albumin 4.1 3.8 - 4.8 g/dL [facility] Prot Elec - Alpha1 0.2 0.2 - 0.3 g/dL [facility] Prot Elec - Alpha2 0.8 0.5 - 0.9 g/dL [facility] Prot Elec - Beta 1 0.4 0.4 - 0.6 g/dL [facility] Prot Elec - Beta 2 0.5 0.2 - 0.5 g/dL [facility] Prot Elec - Gamma 1.1 0.8 - 1.7 g/dL [facility] PES - Abn Protein Band 1 TNP [facility] PES-Abn Protein Band 2 TNP [facility] PES-Abn Protein Band 3 TNP [facility] Prot Elec - Interpretation SEE NOTE [facility] Comment:Normal Electrophoret ic PatternTHIS TEST WAS PERFORMED AT:[facility] [place] [id number] ZIMMERMAN MD 12/16/2022 12:5 4 PM EDT 12/16/2022 12:54 PM EDT [facility] External Provider LAB BLO OD ORDERABLES Final Result [facility] [address] [place] [phone] * T-SPOT??.TB (12/16/2022 12:54 PM EDT) Pathologist [facility] T Spot TB Negative Negative [facility] Comment:A negative test resu lt [...] as aquantitative test. TS PANEL A 0 [facility] TS PANEL B 0 [facility] Negative Control Passed [facility] Positive Control Passed [facility] Comment:For additional infor jim, please refer tohttp://education.Nayatek/faq/HBC386(This link is being provided for informational/educational purposes only.)THIS TEST WAS PERFORMED AT:[employer] [id number] [place] [phone] PETE MD,PHD 12/16/2022 12:5 4 PM EDT 12/16/2022 12:54 PM EDT [facility] External Provider LAB BLO OD ORDERABLES Final Result Performing Organization Address City/State/[facility] Co de Phone Number [facility] [address] [place] [phone] * ANCA Vasculitides (12/16/2022 12:54 PM EDT) Myeloperoxidase Antibody <1.0 [facility] Comment:Value Interpretation ----- <1.0 No Antibody Detected > or = 1.0 Antibody DetectedAutoantibodies to myeloperoxidase (MPO) are commonlyassociated with the following small-vesselvasculitides: microscopic polyangiitis,polyarteritis nodosa, Churg-Elena syndrome,necrotizing and crescentic glomerulonephritis andoccasionally granulomatosis with polyangiitis(GPA, Bartolo's). The perinuclear IFA pattern,(p-ANCA) is based largely on autoantibody tomyeloperoxidase which serves as the primary antigen.These autoantibodies are present in active disease. Proteinase-3 Antibody <1.0 [facility] Comment:Value Interpretation ----- <1.0 No Antibody Detected > or = 1.0 Antibody DetectedAutoantibodies to proteinase-3 (NJ-3) are accepted ascharacteristic for granulomatosis with polyangiitis(GPA, Bartolo's), and are detectable in 95% of thehistologically proven cases. The cytoplasmic IFApattern, (c-ANCA), is based largely on autoantibody toPR-3 which serves as the primary antigen.These autoantibodies are present in active disease.THIS TEST WAS PERFORMED AT:[facility] [place] [phone] ZIMMERMAN MD 12/16/2022 12:5 4 PM EDT 12/16/2022 12:54 PM EDT [facility] External Provider LAB BLO OD ORDERABLES Final Result Performing Organization Address [facility] Co de Phone Number [facility] [address] [place] [phone] * Hepatitis Panel, General (12/16/2022 12:54 PM EDT) Pathologist [facility] Hepatitis A IgM Nonreactive Nonreactive [facility] Comment:IgM antibodies to WALKER V not detected; does not exclude earlyacute or recovered HAV infection. ~Hepatitis B Surface Antibody REACTIVE Nonreactive [facility] Comment:REACTIVE: > 11.99 mI U/mL Hepatitis B Core Antibody Nonreactive Nonreactive [facility] Hepatitis C Antibody Nonreactive Nonreactive [facility] Comment:Antibodies to HCV no t detected; does not exclude early acuteHCV infection. Hepatitis B Surface Ag Negative Negative [facility] 12/16/2022 12:5 4 PM EDT 12/16/2022 12:54 PM EDT [facility] External Provider LAB BLO OD ORDERABLES Final Result Performing Organization Address [facility] Co de Phone Number [facility] [address] [place] [phone] * Hemoglobin A1c (12/16/2022 12:54 PM EDT) Hemoglobin A1c 6.5 % [facility] Comment:Hemoglobin A1C Refer ence Range Adults: 4.8 - 6.0 % Non diabetic: < 6.0 % Goal: < 7.0 %Additional Action Suggested: > 8.0 %Note: Hemoglobin A1c results are invalid for patients with abnormal amounts of HbF. Blood transfusions may impact the HbA1c concentration in the patient sample. Estimated Average Glucose 140 mg/dL [facility] Comment:eAG = Estimated ave rage glucose which is %A1C expressed asaverage glucose, using the formula of the X7Q-UuwdjbuJcxhqlk Glucose study (ADAG), Diabetes Care, Vol.31,#8,2007 12/16/2022 12:5 4 PM EDT 12/16/2022 12:54 PM EDT [facility] External Provider LAB BLO OD ORDERABLES Final Result Performing Organization Address [facility] Co de Phone Number [facility] [address] [place] [phone] * (ABNORMAL) Sed Rate by Modified Westergren (12/16/2022 12:54 PM EDT) Erythrocyte Sedimentation Rate 21(H) 0 - 15 MM/HR [facility] Comment:Patients with polycy themia and many hemoglobin abnormalitiesmay have depressed sed rates whereas patients with anemiamay have elevated sed rates. 12/16/2022 12:5 4 PM EDT 12/16/2022 12:54 PM EDT [facility] External Provider LAB BLO OD ORDERABLES Final Result Performing Organization Address [facility] Co de Phone Number [facility] [address] [place] [phone] * Rheumatoid Factor (12/16/2022 12:54 PM EDT) Rheumatoid Factor <13.0 <15.0 IU/mL [facility] 12/16/2022 12:5 4 PM EDT 12/16/2022 12:54 PM EDT [facility] External Provider LAB BLO OD ORDERABLES Final Result Performing Organization Address [facility] Co de Phone Number [facility] [address] [place] [phone] * (ABNORMAL) C-reactive Protein (12/16/2022 12:54 PM EDT) C Reactive Protein 1.22(H) < or = 0.50 mg/dL [facility] 12/16/2022 12:5 4 PM EDT 12/16/2022 12:54 PM EDT [facility] External Provider LAB BLO OD ORDERABLES Final Result Performing Organization Address [facility] Co de Phone Number [facility] [address] [place] [phone] * Creatine Kinase, Total (12/16/2022 12:54 PM EDT) Creatine Kinase Total 141 38 - 174 U/L [facility] 12/16/2022 12:5 4 PM EDT 12/16/2022 12:54 PM EDT [facility] External Provider LAB BLO OD ORDERABLES Final Result Performing Organization Address [facility] de Phone Number [facility] [address] [place] [phone] * (ABNORMAL) Uric acid (12/16/2022 12:54 PM EDT) Uric Acid 3.3(L) 3.4 - 7.0 mg/dL [facility] 12/16/2022 12:5 4 PM EDT 12/16/2022 12:54 PM EDT [facility] External Provider LAB BLO OD ORDERABLES Final Result [facility] [address] [place] [phone] * (ABNORMAL) Comprehensive Metabolic Panel (12/16/2022 12:54 PM EDT) Sodium 142 135 - 145 mmol/L [facility] Potassium 4.2 3.3 - 5.1 mmol/L [facility] Chloride 106 96 - 108 mmol/L [facility] Carbon Dioxide 28 22 - 29 mmol/L [facility] Anion Gap 12 12 - 20 [facility] Urea Nitrogen (BUN) 11 9 - 16 mg/dL [facility] Creatinine, Serum 0.75 0.5 - 1.4 mg/dL [facility] Estimated Glomerular Filt Rate >60 [facility] Comment:NOTE: For -Am erican individuals, multiply the result by 1.210.Chronic Kidney Disease: Estimated GFR < 60 mL/min/1.64a0Klrjcd Kidney Disease: Estimated GFR < 15 mL/min/1.73m2 Glucose 117(H) 60 - 115 mg/dL [facility] Calcium 9.4 8.4 - 10.2 mg/dL [facility] Bilirubin, Total 0.3 0.0 - 1.0 mg/dL [facility] Aspartate Amino Transferase 29 5 - 37 U/L [facility] Alanine Aminotransferase 51(H) 0 - 40 U/L [facility] Total Protein 7.0 6.5 - 8.0 g/dL [facility] Albumin Level 4.3 3.5 - 5.0 g/dL [facility] Alkaline Phosphatase 108 39 - 117 U/L [facility] 12/16/2022 12:5 4 PM EDT 12/16/2022 12:54 PM EDT [facility] External Provider LAB BLO OD ORDERABLES Final Result [facility] [address] [place] [phone] * (ABNORMAL) CBC auto differential (12/16/2022 12:54 PM EDT) White Blood Count 6.2 4.8 - 10.8 X10*3/uL [facility] Red Blood Count 4.41(L) 4.60 - 5.80 X10*6/uL [facility] Hemoglobin 12.7(L) 14.0 - 18.0 g/dl [facility] Hematocrit 38.8(L) 42.0 - 52.0 % [facility] Mean Corpuscular Volume 88.0 80.0 - 98.0 fL [facility] Mean Corpuscular Hemoglobin 28.8 27.0 - 33.0 pg [facility] Mean Corpuscular HGB Conc 32.7 31.0 - 36.0 g/dl [facility] [facility] Red Cell Distribution Width 13.0 11.0 - 16.0 % [facility] Platelet Count 260 160 - 400 X10*3/uL [facility] Mean Platelet Volume 10.9 9.4 - 12.4 fL [facility] Neutrophils Percent Auto 56.8 45 - 73 % [facility] Imm Gran Pct Auto 0.2 0.0 - 0.4 % [facility] Lymphocytes Percent Auto 30.7 20 - 40 % [facility] Monocytes Percent Auto 8.5 2 - 11 % [facility] Eosinophils Percent Auto 3.1 0 - 4 % [facility] Basophils Percent Auto 0.7 0 - 2 % [facility] NRBC Pct Auto 0.0 0.0 - 0.2 /100WBC [facility] Neutrophils Absolute Auto 3.5 2.0 - 8.3 x10*3/uL [facility] Imm Gran Abs Auto 0.01 0.00 - 0.03 X10*3/uL [facility] Lymphocytes Absolute Auto 1.9 1.2 - 4.9 X10*3/uL [facility] Monocytes Absolute Auto 0.5 0.1 - 1.2 X10*3/uL [facility] Eosinophils Absolute Auto 0.2 0.0 - 0.4 X10*3/uL [facility] Basophils Absolute Auto 0.0 0.0 - 0.2 X10*3/uL [facility] NRBC Abs Auto 0.000 0.0 - 0.012 X10*3/uL [facility] 12/16/2022 12:5 4 PM EDT 12/16/2022 12:54 PM EDT us [facility] External Provider LAB BLO OD ORDERABLES Final Result Performing Organization Address City/State/[facility] Co de Phone Number [facility] [address] [place] [address] [phone] documented in this encounter Visit Diagnoses Not on filedocumented in this encounter Care Teams Cap Cutter Relationship Specialty Start Date End Date January Love MD [address] [place] [phone] PCP - General Family Medicine 03/28/13 documented as of this encounter
--- OUTSIDE RECORDS SUMMARY | 2025-01-10 09:12 | XMS_ITS | Clinical Summary ---
Author Organization [employer] Address [address] [place] [address] [address] [place] [address] Care Team Providers Care Sewer Name Role Phone January Love MD Primary Care Provider [phone] Allergies Active Allergy Reactions Criticality Noted Date Comments Duloxetine Hcl Drowsiness 12/16/2024 Penicillin V Unknown 09/17/2022 Medications Blood Glucose Monitoring Suppl w/Device kitIndications: Type 2 diabetes mellitus without complication, without long-term current use of insulin ([facility]) Inject 1 application into the skin 2 [...] MOUTH AT BEDTIME FOR CONSTIPATION 023 Active Arthritis Pain Relief 650 MG ER tablet Take 1 tablet (650 mg) by mouth every 8 (eight) hours if needed for mild pain or moderate pain. 90 tablet 3 023 Active Narcan 4 MG/0.1ML nasal spray FOR SUSPECTED OPIOID OVERDOSE. SPRAY 0.1mL IN ONE NOSTRIL. REPEAT IN ALTERNATE NOSTRIL 2-3 MINUTES IF NEEDED. SEEK MEDICAL ATTENTION IMMEDIATELY EVEN IF PATIENT RESPONDS. 2 each 1 024 Active tamsulosin (Flomax) 0.4 MG 24 hr capsule TAKE 1 CAPSULE BY MOUTH EVERY DAY 90 capsule 3 024 Active Enbrel SureClick 50 MG/ML injection Inject 50 mg under the skin 1 (one) time per week. 024 Active lansoprazole (Prevacid) [address] capsule Take 30 mg by mouth Once per day. 024 Active Linzess 290 MCG capsule Take 290 mcg by mouth in the morning. 024 Active naproxen (Naprosyn) 500 MG tablet Take 500 mg by mouth if needed in the morning and at bedtime. 024 Active Creon 41579-030510 units capsule delayed-release particles capsule Take 1 capsule by mouth with breakfast, with lunch, with evening meal, and at bedtime. 024 Active triamcinolone (Kenalog) 0.1 % cream APPLY TO THE AFFECTED AREA(S) TWICE DAILY Do not apply on face, axilla, groin 024 Active EPINEPHrine (Epipen) 0.3 MG/0.3ML injection syringe INJECT INTRAMUSCULARLY DIRECTED ON PACKAGE AND GO TO EMERGENCY ROOM 2 each 1 024 Active SM Fiber Laxative 500 MG tabletIndicatio ns:Drug-induced constipation TAKE 1 TABLET BY MOUTH TWICE DAILY 180 tablet 3 024 Active sucralfate (Carafate) 1 g tablet Take 1 g by mouth at bedtime. 024 Active allopurinol (Zyloprim) 300 MG tablet Take 1 tablet (300 mg) by mouth Once per day. 90 tablet 025 Active valACYclovir (Valtrex) 1 g tablet TAKE 1 TABLET BY MOUTH EVERY DAY IN THE MORNING 30 tablet 3 025 Active loratadine (Claritin) 10 MG tablet Take 1 tablet (10 mg) by mouth Once per day. 90 tablet 3 025 Active fluticasone (Flonase) 50 MCG/ACT nasal spray Administer 1-2 sprays into each nostril Once per day. Shake gently. Before first use, prime pump. After use, clean tip and replace cap. 16 g 2 025 2025 Active Blood Pressure Monitor misc Check BP daily 1 each Active metFORMIN XR (Glucophage-XR) 500 MG 24 hr tabletIndicatio ns:Type 2 diabetes mellitus without complication, without long-term current use of insulin ([facility]) Take 1 tablet (500 mg) by mouth with evening meal. Do not crush, chew, or split. 90 tablet 3 Active Proventil HFA 108 (90 Base) MCG/ACT inhaler Inhale 2 puffs every 4 (four) hours if needed for wheezing or shortness of breath. 18 g 1 Active Alcohol Swabs (Alcohol Prep) 70 % padsIndications :Type 2 diabetes mellitus without complication, without long-term current use of insulin ([facility]),Type 2 diabetes mellitus without complications ([facility]) USE TWICE DAILY 100 each Active TRUEplus Lancets 33G miscIndications :Type 2 diabetes mellitus without complication, without long-term current use of insulin ([facility]) Check sugar once or twice daily 100 each Active FREESTYLE LITE test stripIndication s:Type 2 diabetes mellitus without complication, without long-term current use of insulin ([facility]) Check sugar once or twice daily 100 each Active Buprenorphine HCl-Naloxone HCl (Suboxone) 8-2 MG SL filmIndications :Uncomplicated opioid dependence ([facility]) Place 1 Film under the tongue every 8 (eight) hours for 28 days. 84 Film 025 2024 Active Proventil HFA 108 (90 Base) MCG/ACT [...] DAILY. RINSE MOUTH AFTER USING. 36 g 2024 Discontinued(M ed list cleanup (will not trigger notification to Pharmacy)) FREESTYLE LITE test stripIndication s:Type 2 diabetes mellitus without complication, without long-term current use of insulin ([facility]) Check sugar once or twice daily 100 each 11 023 2024 Discontinued(R eorder (will not trigger notification to Pharmacy)) Alcohol Swabs (Alcohol Prep) 70 % padsIndications :Type 2 diabetes mellitus without complication, without long-term current use of insulin ([facility]),Type 2 diabetes mellitus without complications ([facility]) USE TWICE DAILY 100 each 11 023 2024 Discontinued(R eorder (will not trigger notification to Pharmacy)) TRUEplus Lancets 33G miscIndications :Type 2 diabetes mellitus without complication, without long-term current use of insulin ([facility]) Check sugar once or twice daily 100 each 11 023 2024 Discontinued(R eorder (will not trigger notification to Pharmacy)) metFORMIN XR (Glucophage-XR) 500 MG 24 hr tabletIndicatio ns:Type 2 diabetes mellitus without complication, without long-term current use of insulin (CMS/HCC) TAKE 1 TABLET BY MOUTH EVERY EVENING [...] (12/16/2024 12:31 PM EDT): - following with corporate human resources manager - Dx right 5th hammer toe - [...] (12/16/2024 12:32 PM EDT): - following with water/wastewater project engineer and body painter - Diagnosed with psoriatic arthritis - continue current treatment plan per water/wastewater project engineer and body painter - tried duloexetine (Cymbalta), but discontinued due to adverse reaction Assessment & Plan (10/22/2022 1:02 PM EST): - following with water/wastewater project engineer and body painter - Diagnosed with psoriatic arthritis - continue current treatment plan per water/wastewater project engineer and body painter Constipation 10/22/2022 Assessment & Plan (12/16/2024 12:30 [...] 12:29 PM EDT): Patient is followed by [facility], seen in Jul 2024 Abdominal US in 04/2021: diffuse liver echogenicity consistent with fatty infiltration, no suspicious lesions Continue lifestyle modifications Check the status of abdominal US Assessment & Plan (10/22/2022 12:50 PM EST): Patient is followed by [facility], seen on 02/18/22 Abdominal US in 04/2021: diffuse liver echogenicity consistent with fatty infiltration, no suspicious lesions Continue lifestyle modifications Abdominal US q6m GERD (gastroesophageal reflux disease) Assessment & Plan (12/16/2024 12:29 PM EDT): - following with [facility] - continue lansoprazoe Assessment & Plan (10/22/2022 12:52 PM EST): - following with [facility] - continue omeprazole and famotidine Allergic rhinitis 10/22/2022 Assessment & Plan (12/13/2024 12:28 PM EDT): - evaluated and treated by public transit specialist, Dr. Garcia, last appt in 2020 - continue loratadine and fluticasone nasal - previously on montelukast Assessment & Plan (10/22/2022 1:01 PM EST): - evaluated and treated by public transit specialist, Dr. Garcia, last appt in 2020 - continue loratadine and fluticasone nasal - previously on montelukast Chronic back pain 10/22/2022 Assessment & Plan (12/16/2024 12:34 PM EDT): - following with Registered Dental Hygienist, last seen on 12/25/21 - s/p RFA - F/U with body painter Assessment & Plan (10/22/2022 12:57 PM EST): - following with Registered Dental Hygienist, last seen on 12/25/21 - s/p RFA - F/U with body painter Chronic pain of left knee 10/22/2022 Assessment & Plan (10/22/2022 12:58 PM EST): - OA -received injection, did not have good response -continue working on weight reduction Psoriatic arthritis 10/22/2022 Assessment & Plan (12/13/2024 12:24 PM EDT): - continue following with [facility] - Continue Enbrel Assessment & Plan (10/22/2022 1:03 PM EST): - continue following with [facility], Dr. White - continue sulfasalazine Type 2 [...] PM EDT): - Last sleep study in 2018. Full face mask pressure 11 cm H2O - Previously had CPAP but it was discontinued due to non-adherence. - Will re-evaluate with new sleep study Assessment & Plan (10/22/2022 1:00 PM EST): - Last sleep study in 2018. Full [...] Encounters Date Type Department Care Team Description 01/04/2025 Refill [facility] [address] [place] [phone] Lei Hendricks RN Uncomplicated opioid dependence ([facility]) 12/23/2024 Refill [facility] [address], [place] [phone] January Love MD Type 2 diabetes mellitus without complication, without long-term current use of insulin ([facility]); Type 2 diabetes mellitus without complications ([facility]) 12/16/2024 Telephone [facility] [place] [address] January Love MD 12/15/2024 Orders Only GENERIC EXTERNAL DATA DEPARTMENT Provider, Generic External Data 12/14/2024 Abstract [facility] [place] [address] January Love MD 12/13/2024 10:45 AM EDT Office Visit [facility] [place] [address] January Love MD Metabolic dysfunction-associat ed steatotic liver disease (MASLD) (Primary Dx); Peripheral venous insufficiency; Moderate persistent asthma without complication; Type 2 diabetes mellitus without complication, without long-term current use of insulin ([facility]); Psoriatic arthritis ([facility]); Chronic gout without tophus, unspecified cause, unspecified site; Obstructive sleep apnea syndrome; Constipation, unspecified constipation type; Fibromyalgia; Uncomplicated opioid dependence ([facility]); Allergic rhinitis, unspecified seasonality, unspecified trigger; Elevated [...] 12/13/2024 Travel 12/09/2024 Population Health Risk Score [facility] () [address] [phone] Provider, Population Health Generic 12/08/2024 Telephone [facility] [place] [phone] January Love MD chart prep 12/07/2024 Refill [facility] [address] [place], [place] [phone] Lei Hendricks, HELIO Uncomplicated opioid dependence (CMS/HCC) 12/06/2024 Patient Outreach [address] [phone] January Love MD Pre-visit Planning (Pre-visit planning - LVM ) 12/06/2024 Travel 11/17/2024 Refill [facility] [address] [place] [address] January Love MD 11/16/2024 9:00 AM EST Clinical Support [address] [address] Lei Hendricks, HELIO Opioid type dependence, continuous (CMS/HCC) (Primary Dx) 11/16/2024 Travel 11/09/2024 Refill [facility] [address] [place] [address] Lei Hendricks RN Uncomplicated opioid dependence (CMS/HCC) 11/08/2024 Refill [facility] [address] [place] [address] January Love MD 10/30/2024 Travel 10/26/2024 Telephone [facility] [address] [place] [phone] Ariana Dlaal MA chart prep 10/19/2024 9:30 AM EST Clinical Support [address] [address] Nora Ayala RN Opioid type dependence, continuous (CMS/HCC) (Primary Dx) 10/19/2024 Travel 10/18/2024 Patient Outreach [address] [phone] January Love MD Pre-visit Planning (Pre-visit planning - LVM ) 10/12/2024 Refill [facility] [address] [place] [phone] Lei Hendricks, HELIO Uncomplicated opioid dependence (CMS/HCC) from Last 3 Months Immunizations Name Administration [...] your housing situation today? I have simone amena 01/13/[address] you li [...] 9:15 AM EDT Clinical Support [facility] [address] [place] [phone] Nora Ayala, HELIO 02/08/2025 9:00 AM EDT Clinical Support [facility] [address] [place] [phone] Lei Hendricks, RN [address] [place] [phone] Health Maintenance Due Date Last Done Comments CT Colonography 1977 FIT DNA/Cologuard 1977 FIT 1977 FOBT 1977 Sigmoidoscopy 1977 Diabetes: Foot Exam 1987 Family Planning (PISQ) 1992 Alcohol/Substance Use Screening 01/12/2025 01/13/2024 SDOH Screening 01/12/2025 01/13/2024 Eye Exam 02/17/2025 02/18/2024 Diabetes: Hemoglobin A1C 03/15/202512/13/ 025, 08/12/2024, 04/06/2024, Additional history exists Depression Monitoring 06/15/2025 12/13/2024, 025 Diabetes: Urine Protein Screening 08/12/2025 08/12/2024, 12/18/2021, [...] perform daily activities General No Lei Hendricks, director of email marketing Procedure Name Priority Date/Time Associated Diagnosis Comments [...] 4:50 PM EDT) Triglycerides 64 <150 mg/dL [facility] Comment:Desirable Triglyceri de: less than 150 mg/dLBorderline High Triglyceride 150-199 mg/dLHigh Triglyceride: 200-499 mg/dLVery High Triglyceride: greater than or equal to 5OO mg/dL Cholesterol 137 <200 mg/dL [facility] Comment:Desirable Cholestero l: less than 200 mg/dLBorderline High Cholesterol: 200-239 mg/dLHigh Cholesterol: greater than 239 mg/dL LDL Cholesterol Calculated 73 <100 mg/dL [facility] Comment:Desirable LDL: less than 100 mg/dLNear Optimal/Above Optimal LDL: 110- 129 mg/dLBorderline High LDL: 130-159 mg/dLHigh LDL: 160-189 mg/dLVery High LDL: greater than or equal to 190 mg/dL HDL Cholesterol 52 >40 mg/dL [facility] Comment:Desirable HDL: great er than 40 mg/dL Note: This HDL assay may give artificially low results in patients with liver disease. 12/15/2024 4:50 PM EDT 12/15/2024 4:50 PM EDT us Generic External Data Provider LAB BLOOD ORDERAB LES Final Result [facility] [address] [place] [phone] * (ABNORMAL) CBC auto differential (12/15/2024 4:50 PM EDT) White Blood Count 4.5(L) 4.8 - 10.8 X10*3/uL [facility] Red Blood Count 4.38(L) 4.60 - 5.80 X10*6/uL [facility] Hemoglobin 12.4(L) 14.0 - 18.0 g/dl [facility] Hematocrit 38.3(L) 42.0 - 52.0 % [facility] Mean Corpuscular Volume 87.4 80.0 - 98.0 fL [facility] Mean Corpuscular Hemoglobin 28.3 27.0 - 33.0 pg [facility] Mean Corpuscular HGB Conc 32.4 31.0 - 36.0 g/dl [facility] Red Cell Distribution Width 12.7 11.0 - 16.0 % [facility] Platelet Count 237 160 - 400 X10*3/uL [facility] Mean Platelet Volume 10.9 9.4 - 12.4 fL [facility] Neutrophils Percent Auto 47.1 45 - 73 % [facility] Imm Gran Pct Auto 0.2 0.0 - 0.4 % [facility] Lymphocytes Percent Auto 35.1 20 - 40 % [facility] Monocytes Percent Auto 10.7 2 - 11 % [facility] Eosinophils Percent Auto 6.0(H) 0 - 4 % [facility] Basophils Percent Auto 0.9 0 - 2 % [facility] NRBC Pct Auto 0.0 0.0 - 0.2 /100WBC [facility] Neutrophils Absolute Auto 2.1 2.0 - 8.3 x10*3/uL [facility] Imm Gran Abs Auto 0.01 0.00 - 0.03 X10*3/uL [facility] Lymphocytes Absolute Auto 1.6 1.2 - 4.9 X10*3/uL [facility] Monocytes Absolute Auto 0.5 0.1 - 1.2 X10*3/uL [facility] Eosinophils Absolute Auto 0.3 0.0 - 0.4 X10*3/uL [facility] Basophils Absolute Auto 0.0 0.0 - 0.2 X10*3/uL [facility] NRBC Abs Auto 0.000 0.0 - 0.012 X10*3/uL [facility] 12/15/2024 4:50 PM EDT 12/15/2024 4:50 PM EDT Generic External Data Provider LAB BLOOD ORDERAB LES Final Result Performing Organization Address [facility] Co de Phone Number [facility] [address] [place] [phone] * (ABNORMAL) Sed Rate by Modified Westergren (12/15/2024 4:50 PM EDT) [facility] Erythrocyte Sedimentation Rate 21(H) 0 - 15 MM/HR [facility] Comment:Patients with polycy themia and many hemoglobin abnormalitiesmay have depressed sed rates whereas patients with anemiamay have elevated sed rates. 12/15/2024 4:50 PM EDT 12/15/2024 4:50 PM EDT Generic External Data Provider LAB BLOOD ORDERAB LES Final Result Performing Organization Address [facility] de Phone Number [facility] [address] [place] [phone] * (ABNORMAL) C-reactive Protein (12/15/2024 4:50 PM EDT) [facility] C Reactive Protein 2.08(H) < or = 0.50 mg/dL [facility] 12/15/2024 4:50 PM EDT 12/15/2024 4:50 PM EDT Generic External Data Provider LAB BLOOD ORDERAB LES Final Result Performing Organization Address [facility] Co de Phone Number [facility] [address] [place] [phone] * (ABNORMAL) Comprehensive Metabolic Panel (12/15/2024 4:50 PM EDT) [facility] Sodium 138 135 - 145 mmol/L [facility] Potassium 4.1 3.3 - 5.1 mmol/L [facility] Chloride 104 96 - 108 mmol/L [facility] Carbon Dioxide 29 22 - 29 mmol/L [facility] Anion Gap 9(L) 12 - 20 [facility] Urea Nitrogen (BUN) 15 9 - 16 mg/dL [facility] Creatinine, Serum 0.71 0.5 - 1.4 mg/dL [facility] Estimated Glomerular Filt Rate >60 [facility] Comment:Chronic Kidney Disea se: Estimated GFR < 60 mL/min/1.71q3Ehryer Kidney Disease: Estimated GFR < 15 mL/min/1.73m2 Glucose 191(H) 60 - 115 mg/dL [facility] Calcium 9.2 8.4 - 10.2 mg/dL [facility] Bilirubin, Total 0.4 0.0 - 1.0 mg/dL [facility] Aspartate Amino Transferase 42(H) 5 - 37 U/L [facility] Alanine Aminotransferase 58(H) 0 - 40 U/L [facility] Total Protein 7.7 6.5 - 8.0 g/dL [facility] Albumin Level 4.1 3.5 - 5.0 g/dL [facility] Alkaline Phosphatase 100 39 - 117 U/L [facility] 12/15/2024 4:5 0 PM EDT 12/15/2024 4:50 PM EDT us Generic External Data Provider LAB BLOOD ORDERAB LES Final Result [facility] [address] [place] [phone] * (ABNORMAL) POCT glycosylated hemoglobin (Hgb A1c) (12/13/2024 10:58 AM EDT) Hemoglobin A1C 7.9(A) 4.0 - 6.0 % [employer] Media Lot # [id number] Lot# Expiration Date Blood Capillary blood specimen / Unknown 12/13/2024 10:58 AM EDT us January Love MD POINT OF CARE TEST ENTER/EDIT OR DERABLES Final Result * POCT glucose manually resulted (12/13/2024 10:57 AM EDT) Glucose Blood, POC 184 60 - 200 mg/dL [employer] Lot # [id number] Lot# Expiration Date [id number] Blood Capillary blood specimen / Unknown 12/13/2024 10:57 AM EDT January Love MD POINT OF CARE TEST ENTER/EDIT OR DERABLES Final Result * POCT ANTHONY-14 Urine Drug Screen (11/16/2024 9:56 AM EST) Only the most recent of2 resultswithin the time period is included. THC Negative Cocaine Screen, Urine Negative Opiate [...] procedure / Unknown 11/16/2024 9:56 AM EST January Love MD POINT OF CARE TEST ENTER/EDIT OR DERABLES Final Result * Albumin, Random Urine W/Creatinine (08/12/2024 2:22 PM EST) Creatinine, Urine 160.54 mg/dL [facility] Microalbumin Urine 8.0 mg/L [facility] Microalbum Creatinine Ratio Ur 4.9 <30 ug/mg cr [facility] Comment:Albumin/Creatinine R at Reference Ranges: Normal: < 30 ug/mg creatinine Microalbuminuria: 30 - 300 ug/mg creatinineClinical Albuminuria: > 300 ug/mg creatinine Urine 08/12/2024 2:22 PM EST 08/12/2024 2:40 PM EST January Love MD LAB URINE ORDERABLES Final Resul t Performing Organization Address [facility] Co de Phone Number [facility] [address] [place] [phone] * Hepatitis C Antibody with Reflex to HCV, RNA, Quantitative, Real-Time PCR (04/06/2024 10:39 AM EDT) Hepatitis C Antibody Nonreactive Nonreactive [facility] Comment:Antibodies to HCV no t detected; does not exclude early acuteHCV infection. Blood Venous blood specimen / Unknown 04/06/2024 10:39 AM EDT 04/06/2024 12:54 PM EDT January Love MD LAB BLOOD ORDERABLES Final Resul t Performing Organization Address [facility] Co de Phone Number [facility] [address] [place] [phone] * HIV-1/2 Antigen and Antibodies, Fourth Generation, with Reflexes (04/06/2024 10:39 AM EDT) HIV AB/AG Nonreactive Nonreactive [facility] Comment:HIV-1 p24 Ag and/or HIV-1/HIV-2 Ab not detected.A test result that is nonreactive does not exclude thepossibility of exposure to or infection with HIV-1 and/orHIV-2. Nonreactive results in this assay for individualswith prior exposure to HIV-1 and/or HIV-2 may be due toantigen and antibody levels that are below the limit ofdetection of this assay.[facility] HIV Ag/Ab Combo assay result andsupplemental assay results should be interpreted inconjunction with the patient's clinical presentation,history and other laboratory results. If the results areinconsistent with clinical evidence, additional testing issuggested to confirm the result. Blood Venous blood specimen / Unknown 04/06/2024 10:39 AM EDT 04/06/2024 12:54 PM EDT January Love MD LAB BLOOD ORDERABLES Final Resul t [facility] [address] [place] [phone] [phone] from Last 3 Months or Most Recently Relevant to Health Maintenance Insurance [employer] Care Teams Sewer Relationship Specialty Start Date End Date January Love MD [address] [place] [phone] PCP - General Family Medicine 03/28/13
--- OUTSIDE RECORDS SUMMARY | 2025-01-10 09:12 | XMS_ITS | Encounter Summary ---
Author Organization [facility] Address [address] [place] [address] 7 [place] [address] Care Team Providers Care Rv Body Mechanic Name Role Phone January Love MD Primary Care Provider [phone] Encounter Details Date Type Department Care Team (Latest Contact Info) Description 05/02/2019 Abstract [facility] CONVERSIONS Dental, Provider, DDS Social History [...] 9:15 AM EDT Clinical Support [facility] MEDICINE [address] [place] [id number] Nora Ayala RN 02/08/2025 9:00 AM EDT Clinical Support [facility] MEDICINE [address] [place] [id number] Lei Hendricks, RN [address] [place] [id number] documented as of this encounter Visit Diagnoses Not on filedocumented in this encounter Care Teams Rv Body Mechanic Relationship Specialty Start Date End Date January Love MD [address] [place] [id number] PCP - General Family Medicine 03/28/13 documented as of this encounter
--- OUTSIDE RECORDS SUMMARY | 2025-01-10 09:12 | XMS_ITS | Encounter Summary ---
Author Organization [employer] Address [address] [facility] [address] [place] [address] Care Team Providers Care Incoming Inspector Name Role Phone January Love MD Primary Care Provider [phone] Encounter Details Date Type Department Care Team (Late st Contact Info) Description 12/14/2024 Abstract [facility] [address] [place], [place] [phone] January Love MD [address] [place], [place] [phone] Social History Tobacco Use Types Packs/Day Years [...] Description 01/11/2025 9:15 AM EDT Clinical Support [address] [address] Nora Ayala RN 02/08/2025 9:00 AM EDT Clinical Support [address] [address] Lei Hendricks, HELIO [address] [place] [phone] documented as of this encounter Goals Goal Patient Goal Type Associated Problems Recent Progress Patient-Stated? Author Increase coping skills to promote long-term recovery and improve ability to perform daily activities General No Lei Hendricks, RN documented as of this encounter Procedures Procedure Name Priority Date/Time Associated Diagnosis Comments COLONOSCOPY Routine 12/14/2024 4:08 PM EDT documented in this encounter Visit Diagnoses Not on filedocumented in this encounter Additional Health Concerns Assessment Noted Time PHQ-9 Depression Total Score: 10 025 10:56 AM EDT documented as of this encounter Care Teams Incoming Inspector Relationship Specialty Start Date End Date January Love MD [address] [place] [id number] PCP - General Family Medicine 03/28/13 documented as of this encounter
== END 2025-01-10 09:37 | disposition home or self-care (01) ==
LOC: HO.RHE 08:48
PROVIDERS: PCP Family Medicine; Visit Provider Student in an Organized Health Care Education/Training Program
DX: L40.50 Arthropathic psoriasis, unspecified (principal); M1A.09X0 Idiopathic chronic gout, multiple sites, without tophus (tophi); L40.9 Psoriasis, unspecified; M79.7 Fibromyalgia; K75.81 Nonalcoholic steatohepatitis (NASH); Z51.81 Encounter for therapeutic drug level monitoring; Z79.620 Long term (current) use of immunosuppressive biologic
CPT/HCPCS: 99214

== ENCOUNTER → 2025-01-10 08:47 | Outpatient (BNVA) | payer MEDICAID, SELFPAY | PROVIDERS: PCP Family Medicine; Visit Provider Student in an Organized Health Care Education/Training Program | DX: M79.7 Fibromyalgia (principal); M1A.09X0 Idiopathic chronic gout, multiple sites, without tophus (tophi); L40.50 Arthropathic psoriasis, unspecified; R20.0 Anesthesia of skin; K75.81 Nonalcoholic steatohepatitis (NASH); Z51.81 Encounter for therapeutic drug level monitoring; Z79.620 Long term (current) use of immunosuppressive biologic | CPT/HCPCS: 99212 ==

== ENCOUNTER 2025-01-10 09:44 | Outpatient (AMB) | payer MEDICAID, SELFPAY ==
[2025-01-10 09:48] VITALS: BMI 35.0
--- NOTE | 2025-01-10 09:48 | MHC.OFFVIS ---
Vital Signs 01/10/25 09:48 Height 5 ft 10 in Weight 244 lb BMI 35.0 Intake Visit Reasons: OV- EMG review Intake Note: Franci is a 49 year old male who presents to the office today for visit for an EMG review of is bilateral upper extremities. EMG/NCS done on 12/21/24 IMPRESSION: 1. This is a normal study. 2. There is no electrodiagnostic evidence for median neuropathy, ulnar neuropathy, brachial plexopathy, or cervical radiculopathy. Allergies Penicillins [PENICILLINS] Allergy (Intermediate, Verified 01/10/25 09:49) HIVES sulfasalazine Adverse Reaction (Intermediate, Verified 01/10/25 09:49) transaminitis HPI HPI OV- EMG review: Details: Franci is a 49 year old male who presents to the office today for visit for an EMG review of is bilateral upper extremities. EMG/NCS done on 12/21/24 IMPRESSION: 1. This is a normal study. 2. There is no electrodiagnostic evidence for median neuropathy, ulnar neuropathy, brachial plexopathy, or cervical radiculopathy. [facility] Medical History (Updated 01/10/25 @ 09:21 by Frannie Ford MD) Fibromyalgia H/O head injury Migraines Scoliosis Anxiety and depression Asthma Chest pain, atypical COVID-19 vaccine series completed Osteoarthritis of left knee Chronic pain syndrome Spondylosis of lumbar region without myelopathy or radiculopathy Osteoarthritis of left knee Sleep apnea Varicose vein of leg Diabetes Gastroparesis Surgical History History of back surgery History of colonoscopy Family History Father No problems noted. Mother History of cancer Social History Household Members: Spouse and Children Housing: House Are you a primary customer care associate to a significant other at home: No Do you presently have visiting nurse or other home services: No Alcohol intake: former Patient Tobacco Use Status: Former Tobacco user Tobacco use type: Cigarette Cigarettes Per Day: 45 Years Smoked: 10 service: No Current occupational status: unemployed Review of Systems Const All systems reviewed & are unremarkable except as noted in HPI and below Physical Exam Vital Signs: BMI result Body Mass Index 35.0 Extrem Other: Neuro: Normal sensation of the tips of all digits of bilateral hands in the office today No thenar or intrinsic wasting. Good APB muscle firing and good finger cross. Vascular: Capillary refill brisk. ROM: Patient can make a fist and extend all their digits. Skin: No lacerations or abrasions noted. General: No ecchymosis. No erythema or evidence of infection. Assessment & Plan Assessment & Plan (1) Bilateral hand numbness: Code(s): R20.0 - Anesthesia of skin Category: Medical Plan 1. Numbness and tingling of both hands Negative EMG Patient was educated that due to the fact that he has no findings on his EMG, there is no acute surgical intervention indicated at this time Patient was advised that if 6 months from now he is still experiencing numbness and tingling, he should call us for referral for repeat EMG Patient was amenable to this plan Follow-up as needed Coding Level of Care Code Est Pt Level 3 (79340) Diagnoses Bilateral hand numbness R20.0
--- OUTSIDE RECORDS SUMMARY | 2025-01-10 11:04 | XMS_ITS | Encounter Summary ---
Author Organization [facility] Address [address] [place] [address] 7 [place] [address] Care Team Providers Care Dining Host Name Role Phone January Love MD Primary Care Provider [phone] Encounter Details Date Type Department Care Team (Late st Contact Info) Description 09/16/2022 Orders Only [facility] [address] [place] [address] [phone] Bev Snow LPN Social History Tobacco Use [...] AM EDT Clinical Support [facility] MEDICINE [address] [place] [address] [phone] Nora Ayala, HELIO 02/08/2025 9:00 AM EDT Clinical Support [facility] [address] [place] [phone] Lei Hendricks, RN [address] [place] [phone] documented as of this encounter Procedures Procedure [...] FACTOR Routine 12/16/2022 12: 54 PM EDT [id number] Routine 12/16/2022 12:54 PM EDT [...] 3 PM EDT 06/11/2023 1:14 PM EDT [facility]S - 06/12/2023 2:30 PM EDT ----- ------- Name: Franci Plata ?Age/Sex: 47/M ? : 1975 Unit#: [id number] ?? Attend Dr: Saurabh Riggs MD ?Re06/11/23 ?Status: DEP SDC ? Location: HO.SSS ?Disch: ? ----- ------- SPEC : [id number] ? RECD: 06/11/23 ? STATUS: ??SOUT ? REQ NUM: [id number] ? ELIAS: 06/11/23 ? SUBM DR: Saurabh [...] Plata ?Age/Sex: 47/M ? : 1975 Unit#: [id number] ?? Attend Dr: Saurabh Riggs MD ?Re06/11/23 ?Status: DEP SDC ? Location: HO.SSS ?Disch: ? ----- ------- SPEC : [id number] ? RECD: 06/11/23-1313 ? STATUS: ??SOUT ? REQ NUM: [id number] ? ELIAS: 06/11/23-3 ? SUBM DR: Saurabh [...] To: ?? Saurabh Riggs MD ?? [address] [facility] [address] ?? [place] [address] ?? [phone] ?? January Love MD ?? [address] ?? [place] [phone] ?? ----- ------- Signed (signature on file) Yahaira Downey MD 06/12/23 [id number] ? ----- ------- ? END OF REPORT ? Result [facility] External Provider LAB BLO OD ORDERABLES Final Result Performing Organization Address [facility] de Phone Number [facility] [address] [place] [address] [phone] * Glucose, Whole Blood (06/11/2023 10:00 AM EDT) Glucose, Whole Blood 110 60 - 115 mg/dL [facility] Comment:METER #: [id number] 06/11/2023 10:0 0 AM EDT 06/11/2023 10:05 AM EDT Result [facility] External Provider LAB BLO OD ORDERABLES Final Result Performing Organization Address [facility] de Phone Number [facility] [address] [place] [address] [phone] * (ABNORMAL) Sed Rate by Modified Justoren (05/12/2023 3:43 PM EDT) [facility] Erythrocyte Sedimentation Rate 16(H) 0 - 15 MM/HR [facility] Comment:Patients with polycy themia and many hemoglobin abnormalitiesmay have depressed sed rates whereas patients with anemiamay have elevated sed rates. 05/12/2023 3:43 PM EDT 05/12/2023 3:43 PM EDT Result [facility] External Provider LAB BLO OD ORDERABLES Final Result Performing Organization Address [facility] de Phone Number [facility] [address] [place] [address] [phone] * (ABNORMAL) C-reactive Protein (05/12/2023 3:43 PM EDT) C Reactive Protein 1.29(H) < or = 0.50 mg/dL [facility] 05/12/2023 3:43 PM EDT 05/12/2023 3:43 PM EDT us Generic External Data Provider LAB BLOOD ORDERAB LES Final Result [facility] [address] [place] [address] [phone] * (ABNORMAL) Comprehensive Metabolic Panel (05/12/2023 3:43 PM EDT) Sodium 141 135 - 145 mmol/L [facility] Potassium 4.1 3.3 - 5.1 mmol/L [facility] Chloride 106 96 - 108 mmol/L [facility] Carbon Dioxide 29 22 - 29 mmol/L [facility] Anion Gap 10(L) 12 - 20 [facility] Urea Nitrogen (BUN) 17(H) 9 - 16 mg/dL [facility] Creatinine, Serum 0.78 0.5 - 1.4 mg/dL [facility] Estimated Glomerular Filt Rate >60 [facility] Comment:NOTE: For -Am erican individuals, multiply the result by 1.210.Chronic Kidney Disease: Estimated GFR < 60 mL/min/[id number] Kidney Disease: Estimated GFR < 15 mL/min/1.73m2 Glucose 93 60 - 115 mg/dL [facility] Calcium 9.4 8.4 - 10.2 mg/dL [facility] Bilirubin, Total 0.5 0.0 - 1.0 mg/dL [facility] Aspartate Amino Transferase 31 5 - 37 U/L [facility] Alanine Aminotransferase 51(H) 0 - 40 U/L [facility] Total Protein 7.6 6.5 - 8.0 g/dL [facility] Albumin Level 4.3 3.5 - 5.0 g/dL [facility] Alkaline Phosphatase 96 39 - 117 U/L [facility] 05/12/2023 3:43 PM EDT 05/12/2023 3:43 PM EDT us [facility] External Provider LAB BLO OD ORDERABLES Final Result [facility] [address] [place] [address] [phone] * (ABNORMAL) CBC auto differential (05/12/2023 3:43 PM EDT) White Blood Count 5.7 4.8 - 10.8 X10*3/uL [facility] Red Blood Count 4.38(L) 4.60 - 5.80 X10*6/uL [facility] Hemoglobin 12.5(L) 14.0 - 18.0 g/dl [facility] Hematocrit 38.8(L) 42.0 - 52.0 % [facility] Mean Corpuscular Volume 88.6 80.0 - 98.0 fL [facility] Mean Corpuscular Hemoglobin 28.5 27.0 - 33.0 pg [facility] Mean Corpuscular HGB Conc 32.2 31.0 - 36.0 g/dl [facility] Red Cell Distribution Width 12.2 11.0 - 16.0 % [facility] Platelet Count 274 160 - 400 X10*3/uL [facility] Mean Platelet Volume 11.0 9.4 - 12.4 fL [facility] Neutrophils Percent Auto 47.0 45 - 73 % [facility] Imm Gran Pct Auto 0.2 0.0 - 0.4 % [facility] Lymphocytes Percent Auto 38.9 20 - 40 % [facility] Monocytes Percent Auto 9.3 2 - 11 % [facility] Eosinophils Percent Auto 3.7 0 - 4 % [facility] Basophils Percent Auto 0.9 0 - 2 % [facility] NRBC Pct Auto 0.0 0.0 - 0.2 /100WBC [facility] Neutrophils Absolute Auto 2.7 2.0 - 8.3 x10*3/uL [facility] Imm Gran Abs Auto 0.01 0.00 - 0.03 X10*3/uL [facility] Lymphocytes Absolute Auto 2.2 1.2 - 4.9 X10*3/uL [facility] Monocytes Absolute Auto 0.5 0.1 - 1.2 X10*3/uL [facility] Eosinophils Absolute Auto 0.2 0.0 - 0.4 X10*3/uL [facility] Basophils Absolute Auto 0.1 0.0 - 0.2 X10*3/uL [facility] NRBC Abs Auto 0.000 0.0 - 0.012 X10*3/uL [facility] 05/12/2023 3:43 PM EDT 05/12/2023 3:43 PM EDT [facility] External Provider LAB BLO OD ORDERABLES Final Result Performing Organization Address [facility] Co de Phone Number [facility] [address] [place] [phone] * (ABNORMAL) C-reactive Protein (02/10/2023 2:25 PM EDT) [facility] C Reactive Protein 0.95(H) < or = 0.50 mg/dL [facility] 02/10/2023 2:25 PM EDT 02/10/2023 2:25 PM EDT [facility] External Provider LAB BLO OD ORDERABLES Final Result Performing Organization Address [facility]/ZIP Co de Phone Number [facility] [address] [place] [address] [phone] * (ABNORMAL) Comprehensive Metabolic Panel (02/10/2023 2:25 PM EDT) Pathologist [facility] Sodium 140 135 - 145 mmol/L [facility] Potassium 4.2 3.3 - 5.1 mmol/L [facility] Chloride 105 96 - 108 mmol/L [facility] Carbon Dioxide 28 22 - 29 mmol/L [facility] Anion Gap 11(L) 12 - 20 [facility] Urea Nitrogen (BUN) 13 9 - 16 mg/dL [facility] Creatinine, Serum 0.74 0.5 - 1.4 mg/dL [facility] Estimated Glomerular Filt Rate >60 [facility] Comment:NOTE: For -Am erican individuals, multiply the result by 1.210.Chronic Kidney Disease: Estimated GFR < 60 mL/min/1.81p1Naktnr Kidney Disease: Estimated GFR < 15 mL/min/1.73m2 Glucose 124(H) 60 - 115 mg/dL [facility] Calcium 9.5 8.4 - 10.2 mg/dL [facility] Bilirubin, Total 0.5 0.0 - 1.0 mg/dL [facility] Aspartate Amino Transferase 42(H) 5 - 37 U/L [facility] Alanine Aminotransferase 72(H) 0 - 40 U/L [facility] Total Protein 7.1 6.5 - 8.0 g/dL [facility] Albumin Level 4.4 3.5 - 5.0 g/dL [facility] Alkaline Phosphatase 101 39 - 117 U/L [facility] 02/10/2023 2:25 PM EDT 02/10/2023 2:25 PM EDT [facility] External Provider LAB BLO OD ORDERABLES Final Result [facility] [address] [place] [phone] * (ABNORMAL) Sed Rate by Modified Giulia (02/10/2023 2:25 PM EDT) Erythrocyte Sedimentation Rate 21(H) 0 - 15 MM/HR [facility] Comment:Patients with polycy themia and many hemoglobin abnormalitiesmay have depressed sed rates whereas patients with anemiamay have elevated sed rates. 02/10/2023 2:25 PM EDT 02/10/2023 2:25 PM EDT us [facility] External Provider LAB BLO OD ORDERABLES Final Result [facility] [address] [place] [address] [phone] * (ABNORMAL) CBC auto differential (02/10/2023 2:25 PM EDT) White Blood Count 5.3 4.8 - 10.8 X10*3/uL [facility] Red Blood Count 4.23(L) 4.60 - 5.80 X10*6/uL [facility] Hemoglobin 12.3(L) 14.0 - 18.0 g/dl [facility] Hematocrit 37.9(L) 42.0 - 52.0 % [facility] Mean Corpuscular Volume 89.6 80.0 - 98.0 fL [facility] Mean Corpuscular Hemoglobin 29.1 27.0 - 33.0 pg [facility] Mean Corpuscular HGB Conc 32.5 31.0 - 36.0 g/dl [facility] Red Cell Distribution Width 13.5 11.0 - 16.0 % [facility] Platelet Count 273 160 - 400 X10*3/uL [facility] Mean Platelet Volume 10.7 9.4 - 12.4 fL [facility] Neutrophils Percent Auto 54.9 45 - 73 % [facility] Imm Gran Pct Auto 0.2 0.0 - 0.4 % [facility] Lymphocytes Percent Auto 33.1 20 - 40 % [facility] Monocytes Percent Auto 8.3 2 - 11 % [facility] Eosinophils Percent Auto 2.6 0 - 4 % [facility] Basophils Percent Auto 0.9 0 - 2 % [facility] NRBC Pct Auto 0.0 0.0 - 0.2 /100WBC [facility] Neutrophils Absolute Auto 2.9 2.0 - 8.3 x10*3/uL [facility] Imm Gran Abs Auto 0.01 0.00 - 0.03 X10*3/uL [facility] Lymphocytes Absolute Auto 1.8 1.2 - 4.9 X10*3/uL [facility] Monocytes Absolute Auto 0.4 0.1 - 1.2 X10*3/uL [facility] Eosinophils Absolute Auto 0.1 0.0 - 0.4 X10*3/uL [facility] Basophils Absolute Auto 0.1 0.0 - 0.2 X10*3/uL [facility] NRBC Abs Auto 0.000 0.0 - 0.012 X10*3/uL [facility] 02/10/2023 2:25 PM EDT 02/10/2023 2:25 PM EDT [facility] External Provider LAB BLO OD ORDERABLES Final Result Performing Organization Address [facility] Co de Phone Number [facility] [address] [place] [phone] * Angiotensin -1- Converting Enzyme (12/16/2022 12:54 PM EDT) Pathologist [facility] Angiotensin Converting Enzyme 48 9 - 67 U/L [facility] Comment:THIS TEST WAS PERFOR MED AT:[employer] [place] [address]DESUPUI W. MASON,MD,PHD 12/16/2022 12:5 4 PM EDT 12/16/2022 12:54 PM EDT [facility] External Provider LAB BLO OD ORDERABLES Final Result Performing Organization Address [facility] Co de Phone Number [facility] [address] [place] [address] [phone] * Immunofixation, Serum (12/16/2022 12:54 PM EDT) IMMUNOGLOBULIN G 1112 600 - 1640 mg/dL [facility] IMMUNOGLOBULIN A 298 47 - 310 mg/dL [facility] Immunoglobulin M 67 50 - 300 mg/dL [facility] Comment:THIS TEST WAS PERFOR MED AT:[employer] [place] [id number] ZIMMERMAN MD Immunofixation Result [facility] Comment:No monoclonal protei ns detected. 12/16/2022 12:5 4 PM EDT 12/16/2022 12:54 PM EDT [facility] External Provider LAB BLO OD ORDERABLES Final Result Performing Organization Address [facility] Co de Phone Number [facility] [address] [place] [phone] * Cyclic Citrullinated Peptide (CCP) Antibody (IgG) (12/16/2022 12:54 PM EDT) Pathologist [facility] Cyclic Citrullinated Peptide <16 UNITS [facility] Comment:Reference RangeNegat hema: <20Weak Positive: 20-39Moderate Positive: 40-59Strong Positive: >59THIS TEST WAS PERFORMED AT:[employer] [address] [id number] ZIMMERMAN MD 12/16/2022 12:5 4 PM EDT 12/16/2022 12:54 PM EDT [facility] External Provider LAB BLO OD ORDERABLES Final Result Performing Organization Address [facility] Co de Phone Number [facility] [address] [place] [phone] * Protein Electrophoresis and Babb/Lambda Light Chains (12/16/2022 12:54 PM EDT) Prot Elec - Total Protein 7.1 6.1 - 8.1 g/dL [facility] Prot Elec - Albumin 4.1 3.8 - 4.8 g/dL [facility] Prot Elec - Alpha1 0.2 0.2 - 0.3 g/dL [facility] Prot Elec - Alpha2 0.8 0.5 - 0.9 g/dL [facility] Prot Elec - Beta 1 0.4 0.4 - 0.6 g/dL [facility] Prot Elec - Beta 2 0.5 0.2 - 0.5 g/dL [facility] Prot Elec - Gamma 1.1 0.8 - 1.7 g/dL [facility] PES - Abn Protein Band 1 TNP [facility] PES-Abn Protein Band 2 TNP [facility] PES-Abn Protein Band 3 TNP [facility] Prot Elec - Interpretation SEE NOTE [facility] Comment:Normal Electrophoret ic PatternTHIS TEST WAS PERFORMED AT:[employer] [place] [id number] ZIMMERMAN MD 12/16/2022 12:5 4 PM EDT 12/16/2022 12:54 PM EDT [facility] External Provider LAB BLO OD ORDERABLES Final Result [facility] [address] [place] [address] [phone] * T-SPOT??.TB (12/16/2022 12:54 PM EDT) Pathologist [facility] T Spot TB Negative Negative [facility] Comment:A negative test resu lt [...] as aquantitative test. TS PANEL A 0 [facility] TS PANEL B 0 [facility] Negative Control Passed [facility] Positive Control Passed [facility] Comment:For additional infor jim, please refer [email or web address](This link is being provided for informational/educational purposes only.)THIS TEST WAS PERFORMED AT:[employer] [id number] [place] [id number] PETE MD,PHD 12/16/2022 12:5 4 PM EDT 12/16/2022 12:54 PM EDT [facility] External Provider LAB BLO OD ORDERABLES Final Result Performing Organization Address City/State/[facility] Co de Phone Number [facility] [address] [place] [phone] * ANCA Vasculitides (12/16/2022 12:54 PM EDT) Myeloperoxidase Antibody <1.0 [facility] Comment:Value Interpretation ----- <1.0 No Antibody Detected > or = 1.0 Antibody DetectedAutoantibodies to myeloperoxidase (MPO) are commonlyassociated with the following small-vesselvasculitides: microscopic polyangiitis,polyarteritis nodosa, Churg-Elena syndrome,necrotizing and crescentic glomerulonephritis andoccasionally granulomatosis with polyangiitis(GPA, Bartolo's). The perinuclear IFA pattern,(p-ANCA) is based largely on autoantibody tomyeloperoxidase which serves as the primary antigen.These autoantibodies are present in active disease. Proteinase-3 Antibody <1.0 [facility] Comment:Value Interpretation ----- <1.0 No Antibody Detected > or = 1.0 Antibody DetectedAutoantibodies to proteinase-3 (GA-3) are accepted ascharacteristic for granulomatosis with polyangiitis(GPA, Bartolo's), and are detectable in 95% of thehistologically proven cases. The cytoplasmic IFApattern, (c-ANCA), is based largely on autoantibody toPR-3 which serves as the primary antigen.These autoantibodies are present in active disease.THIS TEST WAS PERFORMED AT:[employer] [place] [id number] ZIMMERMAN MD 12/16/2022 12:5 4 PM EDT 12/16/2022 12:54 PM EDT [facility] External Provider LAB BLO OD ORDERABLES Final Result Performing Organization Address [facility] Co de Phone Number [facility] [address] [place] [phone] * Hepatitis Panel, General (12/16/2022 12:54 PM EDT) Pathologist [facility] Hepatitis A IgM Nonreactive Nonreactive [facility] Comment:IgM antibodies to WALKER V not detected; does not exclude earlyacute or recovered HAV infection. ~Hepatitis B Surface Antibody REACTIVE Nonreactive [facility] Comment:REACTIVE: > 11.99 mI U/mL Hepatitis B Core Antibody Nonreactive Nonreactive [facility] Hepatitis C Antibody Nonreactive Nonreactive [facility] Comment:Antibodies to HCV no t detected; does not exclude early acuteHCV infection. Hepatitis B Surface Ag Negative Negative [facility] 12/16/2022 12:5 4 PM EDT 12/16/2022 12:54 PM EDT [facility] External Provider LAB BLO OD ORDERABLES Final Result Performing Organization Address [facility] Co de Phone Number [facility] [address] [place] [phone] * Hemoglobin A1c (12/16/2022 12:54 PM EDT) Hemoglobin A1c 6.5 % [facility] Comment:Hemoglobin A1C Refer ence Range Adults: 4.8 - 6.0 % Non diabetic: < 6.0 % Goal: < 7.0 %Additional Action Suggested: > 8.0 %Note: Hemoglobin A1c results are invalid for patients with abnormal amounts of HbF. Blood transfusions may impact the HbA1c concentration in the patient sample. Estimated Average Glucose 140 mg/dL [facility] Comment:eAG = Estimated ave rage glucose which is %A1C expressed asaverage glucose, using the formula of the M6D-SpmtrscDtzbgnr Glucose study (ADAG), Diabetes Care, Vol.31,#8,2007 12/16/2022 12:5 4 PM EDT 12/16/2022 12:54 PM EDT [facility] External Provider LAB BLO OD ORDERABLES Final Result Performing Organization Address [facility] Co de Phone Number [facility] [address] [place] [phone] * (ABNORMAL) Sed Rate by Modified Westergren (12/16/2022 12:54 PM EDT) Erythrocyte Sedimentation Rate 21(H) 0 - 15 MM/HR [facility] Comment:Patients with polycy themia and many hemoglobin abnormalitiesmay have depressed sed rates whereas patients with anemiamay have elevated sed rates. 12/16/2022 12:5 4 PM EDT 12/16/2022 12:54 PM EDT [facility] External Provider LAB BLO OD ORDERABLES Final Result Performing Organization Address [facility] Co de Phone Number [facility] [address] [place] [phone] * Rheumatoid Factor (12/16/2022 12:54 PM EDT) Rheumatoid Factor <13.0 <15.0 IU/mL [facility] 12/16/2022 12:5 4 PM EDT 12/16/2022 12:54 PM EDT [facility] External Provider LAB BLO OD ORDERABLES Final Result Performing Organization Address [facility] Co de Phone Number [facility] [address] [place] [phone] * (ABNORMAL) C-reactive Protein (12/16/2022 12:54 PM EDT) C Reactive Protein 1.22(H) < or = 0.50 mg/dL [facility] 12/16/2022 12:5 4 PM EDT 12/16/2022 12:54 PM EDT [facility] External Provider LAB BLO OD ORDERABLES Final Result Performing Organization Address [facility] Co de Phone Number [facility] [address] [place] [phone] * Creatine Kinase, Total (12/16/2022 12:54 PM EDT) Creatine Kinase Total 141 38 - 174 U/L [facility] 12/16/2022 12:5 4 PM EDT 12/16/2022 12:54 PM EDT [facility] External Provider LAB BLO OD ORDERABLES Final Result Performing Organization Address [facility] de Phone Number [facility] [address] [place] [phone] * (ABNORMAL) Uric acid (12/16/2022 12:54 PM EDT) Uric Acid 3.3(L) 3.4 - 7.0 mg/dL [facility] 12/16/2022 12:5 4 PM EDT 12/16/2022 12:54 PM EDT [facility] External Provider LAB BLO OD ORDERABLES Final Result [facility] [address] [place] [phone] [phone] * (ABNORMAL) Comprehensive Metabolic Panel (12/16/2022 12:54 PM EDT) Sodium 142 135 - 145 mmol/L [facility] Potassium 4.2 3.3 - 5.1 mmol/L [facility] Chloride 106 96 - 108 mmol/L [facility] Carbon Dioxide 28 22 - 29 mmol/L [facility] Anion Gap 12 12 - 20 [facility] Urea Nitrogen (BUN) 11 9 - 16 mg/dL [facility] Creatinine, Serum 0.75 0.5 - 1.4 mg/dL [facility] Estimated Glomerular Filt Rate >60 [facility] Comment:NOTE: For -Am erican individuals, multiply the result by 1.210.Chronic Kidney Disease: Estimated GFR < 60 mL/min/1.44c2Ujbkkw Kidney Disease: Estimated GFR < 15 mL/min/1.73m2 Glucose 117(H) 60 - 115 mg/dL [facility] Calcium 9.4 8.4 - 10.2 mg/dL [facility] Bilirubin, Total 0.3 0.0 - 1.0 mg/dL [facility] Aspartate Amino Transferase 29 5 - 37 U/L [facility] Alanine Aminotransferase 51(H) 0 - 40 U/L [facility] Total Protein 7.0 6.5 - 8.0 g/dL [facility] Albumin Level 4.3 3.5 - 5.0 g/dL [facility] Alkaline Phosphatase 108 39 - 117 U/L [facility] 12/16/2022 12:5 4 PM EDT 12/16/2022 12:54 PM EDT [facility] External Provider LAB BLO OD ORDERABLES Final Result [facility] [address] [place] [phone] [phone] * (ABNORMAL) CBC auto differential (12/16/2022 12:54 PM EDT) White Blood Count 6.2 4.8 - 10.8 X10*3/uL [facility] Red Blood Count 4.41(L) 4.60 - 5.80 X10*6/uL [facility] Hemoglobin 12.7(L) 14.0 - 18.0 g/dl [facility] Hematocrit 38.8(L) 42.0 - 52.0 % [facility] Mean Corpuscular Volume 88.0 80.0 - 98.0 fL [facility] Mean Corpuscular Hemoglobin 28.8 27.0 - 33.0 pg [facility] Mean Corpuscular HGB Conc 32.7 31.0 - 36.0 g/dl [facility] Red Cell Distribution Width 13.0 11.0 - 16.0 % [facility] Platelet Count 260 160 - 400 X10*3/uL [facility] Mean Platelet Volume 10.9 9.4 - 12.4 fL [facility] Neutrophils Percent Auto 56.8 45 - 73 % [facility] Imm Gran Pct Auto 0.2 0.0 - 0.4 % [facility] Lymphocytes Percent Auto 30.7 20 - 40 % [facility] Monocytes Percent Auto 8.5 2 - 11 % [facility] Eosinophils Percent Auto 3.1 0 - 4 % [facility] Basophils Percent Auto 0.7 0 - 2 % [facility] NRBC Pct Auto 0.0 0.0 - 0.2 /100WBC [facility] Neutrophils Absolute Auto 3.5 2.0 - 8.3 x10*3/uL [facility] Imm Gran Abs Auto 0.01 0.00 - 0.03 X10*3/uL [facility] Lymphocytes Absolute Auto 1.9 1.2 - 4.9 X10*3/uL [facility] Monocytes Absolute Auto 0.5 0.1 - 1.2 X10*3/uL [facility] Eosinophils Absolute Auto 0.2 0.0 - 0.4 X10*3/uL [facility] Basophils Absolute Auto 0.0 0.0 - 0.2 X10*3/uL [facility] NRBC Abs Auto 0.000 0.0 - 0.012 X10*3/uL [facility] 12/16/2022 12:5 4 PM EDT 12/16/2022 12:54 PM EDT us [facility] External Provider LAB BLO OD ORDERABLES Final Result Performing Organization Address City/State/[facility] Co de Phone Number [facility] [address] [place] [address] [phone] documented in this encounter Visit Diagnoses Not on filedocumented in this encounter Care Teams Dining Host Relationship Specialty Start Date End Date January Love MD [address] [place] [phone] PCP - General Family Medicine 03/28/13 documented as of this encounter
--- OUTSIDE RECORDS SUMMARY | 2025-01-10 11:04 | XMS_ITS | Encounter Summary ---
Author Organization [employer] [facility] Address [address] [place] [address] 7 [place] [address] Care Team Providers Care Certified Bench Jeweler Technician Name Role Phone January Love MD Primary Care Provider [phone] Encounter Details Date Type Department Care Team (Latest Contact Info) Description 05/02/2019 Abstract [facility] CONVERSIONS Dental, Provider, DDS Social History [...] [facility] MEDICINE [address] [place] [address] Nora Ayala RN 02/08/2025 9:00 AM EDT Clinical Support [facility] MEDICINE [address] [place] [phone] Lei Hendricks, RN [address] [place] [phone] documented as of this encounter Visit Diagnoses Not on filedocumented in this encounter Care Teams Certified Bench Jeweler Technician Relationship Specialty Start Date End Date January Love MD [address] [place] [phone] PCP - General Family Medicine 03/28/13 documented as of this encounter
--- OUTSIDE RECORDS SUMMARY | 2025-01-10 11:04 | XMS_ITS | Clinical Summary ---
Author Organization [employer] Address [address] [place] [address] 7t [place] [address] Care Team Providers Care Combat Information Center Officer Name Role Phone January Love MD Primary Care Provider [phone] Allergies Active Allergy Reactions Criticality Noted Date Comments Duloxetine Hcl Drowsiness 12/16/2024 Penicillin V Unknown 09/17/2022 Medications Blood Glucose Monitoring Suppl w/Device kitIndications: Type 2 diabetes mellitus without complication, without long-term current use of insulin ([facility]) Inject 1 application into the skin 2 [...] morning and at bedtime. 024 Active Creon 13686-904926 units capsule delayed-release particles capsule Take 1 [...] complication, without long-term current use of insulin ([facility]) Take 1 tablet (500 mg) by mouth [...] complication, without long-term current use of insulin ([facility]),Type 2 diabetes mellitus without complications ([facility]) USE TWICE DAILY 100 each Active TRUEplus Lancets 33G miscIndications :Type 2 diabetes mellitus without complication, without long-term current use of insulin ([facility]) Check sugar once or twice daily 100 each Active FREESTYLE LITE test stripIndication s:Type 2 diabetes mellitus without complication, without long-term current use of insulin ([facility]) Check sugar once or twice daily 100 each Active Buprenorphine HCl-Naloxone HCl (Suboxone) 8-2 MG SL filmIndications :Uncomplicated opioid dependence ([facility]) Place 1 Film under the tongue every [...] complication, without long-term current use of insulin ([facility]) Check sugar once or twice daily 100 each 11 023 2024 Discontinued(R eorder (will not trigger notification to Pharmacy)) Alcohol Swabs (Alcohol Prep) 70 % padsIndications :Type 2 diabetes mellitus without complication, without long-term current use of insulin ([facility]),Type 2 diabetes mellitus without complications ([facility]) USE TWICE DAILY 100 each 11 023 2024 Discontinued(R eorder (will not trigger notification to Pharmacy)) TRUEplus Lancets 33G miscIndications :Type 2 diabetes mellitus without complication, without long-term current use of insulin ([facility]) Check sugar once or twice daily 100 [...] (12/16/2024 12:31 PM EDT): - following with line o scribe operator - Dx right 5th hammer toe - [...] (12/16/2024 12:32 PM EDT): - following with wrapping clerk and paint line production supervisor - Diagnosed with psoriatic arthritis - continue current treatment plan per wrapping clerk and paint line production supervisor - tried duloexetine (Cymbalta), but discontinued due to adverse reaction Assessment & Plan (10/22/2022 1:02 PM EST): - following with wrapping clerk and paint line production supervisor - Diagnosed with psoriatic arthritis - continue current treatment plan per wrapping clerk and paint line production supervisor Constipation 10/22/2022 Assessment & Plan (12/16/2024 12:30 [...] 12:29 PM EDT): Patient is followed by [facility], seen in Jul 2024 Abdominal US in 04/2021: diffuse liver echogenicity consistent with fatty infiltration, no suspicious lesions Continue lifestyle modifications Check the status of abdominal US Assessment & Plan (10/22/2022 12:50 PM EST): Patient is followed by [facility], seen on 02/18/22 Abdominal US in 04/2021: diffuse liver echogenicity consistent with fatty infiltration, no suspicious lesions Continue lifestyle modifications Abdominal US q6m GERD (gastroesophageal reflux disease) Assessment & Plan (12/16/2024 12:29 PM EDT): - following with [facility] - continue lansoprazoe Assessment & Plan (10/22/2022 12:52 PM EST): - following with [facility] - continue omeprazole and famotidine Allergic rhinitis 10/22/2022 Assessment & Plan (12/13/2024 12:28 PM EDT): - evaluated and treated by volunteer services specialist, Dr. Garcia, last appt in 2020 - continue loratadine and fluticasone nasal - previously on montelukast Assessment & Plan (10/22/2022 1:01 PM EST): - evaluated and treated by volunteer services specialist, Dr. Garcia, last appt in 2020 - continue loratadine and fluticasone nasal - previously on montelukast Chronic back pain 10/22/2022 Assessment & Plan (12/16/2024 12:34 PM EDT): - following with Sn[employer] Handle Assembler, last seen on 12/25/21 - s/p RFA - F/U with paint line production supervisor Assessment & Plan (10/22/2022 12:57 PM EST): - following with [employer], last seen on 12/25/21 - s/p RFA - F/U with paint line production supervisor Chronic pain of left knee 10/22/2022 Assessment & Plan (10/22/2022 12:58 PM EST): - OA -received injection, did not have good response -continue working on weight reduction Psoriatic arthritis 10/22/2022 Assessment & Plan (12/13/2024 12:24 PM EDT): - continue following with [facility] - Continue Enbrel Assessment & Plan (10/22/2022 1:03 PM EST): - continue following with [facility], Dr. White - continue sulfasalazine Type [...] Type Department Care Team Description 01/04/2025 Refill [facility] MEDICINE [address] [place] [address] Lei Hendricks RN Uncomplicated opioid dependence ([facility]) 12/23/2024 Refill [facility] MED & PEDS [address] [place], [place] [phone] January Love MD Type 2 diabetes mellitus without complication, without long-term current use of insulin ([facility]); Type 2 diabetes mellitus without complications ([facility]) 12/16/2024 Telephone [facility] [place] [address] January Love MD 12/15/2024 Orders Only GENERIC EXTERNAL DATA DEPARTMENT Provider, Generic External Data 12/14/[address] [facility] [place] [address] January Love MD 12/13/2024 10:45 AM EDT Office Visit [facility] [place] [address] January Love MD Metabolic dysfunction-associat ed steatotic liver disease (MASLD) (Primary Dx); Peripheral venous insufficiency; Moderate persistent asthma without complication; Type 2 diabetes mellitus without complication, without long-term current use of insulin ([facility]); Psoriatic arthritis ([facility]); Chronic gout without tophus, unspecified cause, unspecified site; Obstructive sleep apnea syndrome; Constipation, unspecified constipation type; Fibromyalgia; Uncomplicated opioid dependence ([facility]); Allergic rhinitis, unspecified seasonality, unspecified trigger; Elevated [...] 12/13/2024 Travel 12/09/2024 Population Health Risk Score [facility] () [address] [phone] Provider, Population Health Generic 12/08/2024 Telephone [facility] [place] [address] January Love MD chart prep 12/07/[address] [facility] [address] [place], [place] [phone] Lei Hendricks, HELIO Uncomplicated opioid dependence (CMS/HCC) 12/06/2024 Patient Outreach [address] [phone] January Love MD Pre-visit Planning (Pre-visit planning - LVM ) 12/06/2024 Travel 11/17/2024 Refill [facility] MED[facility]INE [address] [place] [address] January Love MD 11/16/2024 9:00 AM EST Clinical Support [address] [address] Lei Hendricks, HELIO Opioid type dependence, continuous (CMS/HCC) (Primary Dx) 11/16/2024 Travel 11/09/2024 Refill [facility] MEDICINE [address] [place] [address] Lei Hendricks RN Uncomplicated opioid dependence (CMS/HCC) 11/08/2024 Refill [facility] MED & PEDS [address] [place] [address] January Love MD 10/30/2024 Travel 10/26/2024 Telephone [facility] MEDICINE [address] [place] [phone] Ariana Dalal MA chart prep 10/19/2024 9:30 AM EST Clinical Support [address] [address] Nora Ayala RN Opioid type dependence, continuous (CMS/HCC) (Primary Dx) 10/19/2024 Travel 10/18/2024 Patient Outreach [address] [address] January Love MD Pre-visit Planning (Pre-visit planning - LVM ) 10/12/2024 Refill [facility] MEDICINE [address] [place] [phone] Lei Hendricks, HELIO Uncomplicated opioid dependence (CMS/HCC) [...] Description 01/11/2025 9:15 AM EDT Clinical Support [facility] MEDICINE [address] [place] [phone] Nora Ayala, HELIO 02/08/2025 9:00 AM EDT Clinical Support [facility] MEDICINE [address] [place] [phone] Lei Hendricks, RN [address] [place] [phone] Health Maintenance Due Date Last Done Comments [...] perform daily activities General No Lei Hendricks, mat packer Procedure Name Priority Date/Time Associated Diagnosis Comments [...] 4:50 PM EDT) Triglycerides 64 <150 mg/dL [facility] Comment:Desirable Triglyceri de: less than 150 mg/dLBorderline High Triglyceride 150-199 mg/dLHigh Triglyceride: 200-499 mg/dLVery High Triglyceride: greater than or equal to 5OO mg/dL Cholesterol 137 <200 mg/dL [facility] Comment:Desirable Cholestero l: less than 200 mg/dLBorderline High Cholesterol: 200-239 mg/dLHigh Cholesterol: greater than 239 mg/dL LDL Cholesterol Calculated 73 <100 mg/dL [facility] Comment:Desirable LDL: less than 100 mg/dLNear Optimal/Above Optimal LDL: 110- 129 mg/dLBorderline High LDL: 130-159 mg/dLHigh LDL: 160-189 mg/dLVery High LDL: greater than or equal to 190 mg/dL HDL Cholesterol 52 >40 mg/dL [facility] Comment:Desirable HDL: great er than 40 mg/dL Note: This HDL assay may give artificially low results in patients with liver disease. 12/15/2024 4:50 PM EDT 12/15/2024 4:50 PM EDT us Generic External Data Provider LAB BLOOD ORDERAB LES Final Result [facility] [address] [place] [phone] * (ABNORMAL) CBC auto differential (12/15/2024 4:50 PM EDT) White Blood Count 4.5(L) 4.8 - 10.8 X10*3/uL [facility] Red Blood Count 4.38(L) 4.60 - 5.80 X10*6/uL [facility] Hemoglobin 12.4(L) 14.0 - 18.0 g/dl [facility] Hematocrit 38.3(L) 42.0 - 52.0 % [facility] Mean Corpuscular Volume 87.4 80.0 - 98.0 fL [facility] Mean Corpuscular Hemoglobin 28.3 27.0 - 33.0 pg [facility] Mean Corpuscular HGB Conc 32.4 31.0 - 36.0 g/dl [facility] Red Cell Distribution Width 12.7 11.0 - 16.0 % [facility] Platelet Count 237 160 - 400 X10*3/uL [facility] Mean Platelet Volume 10.9 9.4 - 12.4 fL [facility] Neutrophils Percent Auto 47.1 45 - 73 % [facility] Imm Gran Pct Auto 0.2 0.0 - 0.4 % [facility] Lymphocytes Percent Auto 35.1 20 - 40 % [facility] Monocytes Percent Auto 10.7 2 - 11 % [facility] Eosinophils Percent Auto 6.0(H) 0 - 4 % [facility] Basophils Percent Auto 0.9 0 - 2 % [facility] NRBC Pct Auto 0.0 0.0 - 0.2 /100WBC [facility] Neutrophils Absolute Auto 2.1 2.0 - 8.3 x10*3/uL [facility] Imm Gran Abs Auto 0.01 0.00 - 0.03 X10*3/uL [facility] Lymphocytes Absolute Auto 1.6 1.2 - 4.9 X10*3/uL [facility] Monocytes Absolute Auto 0.5 0.1 - 1.2 X10*3/uL [facility] Eosinophils Absolute Auto 0.3 0.0 - 0.4 X10*3/uL [facility] Basophils Absolute Auto 0.0 0.0 - 0.2 X10*3/uL [facility] NRBC Abs Auto 0.000 0.0 - 0.012 X10*3/uL [facility] 12/15/2024 4:50 PM EDT 12/15/2024 4:50 PM EDT Generic External Data Provider LAB BLOOD ORDERAB LES Final Result Performing Organization Address [facility] Co de Phone Number [facility] [address] [place] [phone] * (ABNORMAL) Sed Rate by Modified Westergren (12/15/2024 4:50 PM EDT) [facility] Erythrocyte Sedimentation Rate 21(H) 0 - 15 MM/HR [facility] Comment:Patients with polycy themia and many hemoglobin abnormalitiesmay have depressed sed rates whereas patients with anemiamay have elevated sed rates. 12/15/2024 4:50 PM EDT 12/15/2024 4:50 PM EDT Generic External Data Provider LAB BLOOD ORDERAB LES Final Result Performing Organization Address [facility] de Phone Number [facility] [address] [place] [phone] * (ABNORMAL) C-reactive Protein (12/15/2024 4:50 PM EDT) [facility] C Reactive Protein 2.08(H) < or = 0.50 mg/dL [facility] 12/15/2024 4:50 PM EDT 12/15/2024 4:50 PM EDT Generic External Data Provider LAB BLOOD ORDERAB LES Final Result Performing Organization Address [facility] Co de Phone Number [facility] [address] [place] [phone] * (ABNORMAL) Comprehensive Metabolic Panel (12/15/2024 4:50 PM EDT) [facility] Sodium 138 135 - 145 mmol/L [facility] Potassium 4.1 3.3 - 5.1 mmol/L [facility] Chloride 104 96 - 108 mmol/L [facility] Carbon Dioxide 29 22 - 29 mmol/L [facility] Anion Gap 9(L) 12 - 20 [facility] Urea Nitrogen (BUN) 15 9 - 16 mg/dL [facility] Creatinine, Serum 0.71 0.5 - 1.4 mg/dL [facility] Estimated Glomerular Filt Rate >60 [facility] Comment:Chronic Kidney Disea se: Estimated GFR < 60 mL/min/[id number] Kidney Disease: Estimated GFR < 15 mL/min/1.73m2 Glucose 191(H) 60 - 115 mg/dL [facility] Calcium 9.2 8.4 - 10.2 mg/dL [facility] Bilirubin, Total 0.4 0.0 - 1.0 mg/dL [facility] Aspartate Amino Transferase 42(H) 5 - 37 U/L [facility] Alanine Aminotransferase 58(H) 0 - 40 U/L [facility] Total Protein 7.7 6.5 - 8.0 g/dL [facility] Albumin Level 4.1 3.5 - 5.0 g/dL [facility] Alkaline Phosphatase 100 39 - 117 U/L [facility] 12/15/2024 4:5 0 PM EDT 12/15/2024 4:50 PM EDT us Generic External Data Provider LAB BLOOD ORDERAB LES Final Result [facility] [address] [place] [phone] * (ABNORMAL) POCT glycosylated hemoglobin (Hgb [...] Media Lot # [id number] Lot# Expiration Date [id number] Blood Capillary blood specimen / Unknown 12/13/2024 [...] 2:22 PM EST) Creatinine, Urine 160.54 mg/dL [facility] Microalbumin Urine 8.0 mg/L [facility] Microalbum Creatinine Ratio Ur 4.9 <30 ug/mg cr [facility] Comment:Albumin/Creatinine R at Reference Ranges: Normal: < 30 ug/mg creatinine Microalbuminuria: 30 - 300 ug/mg creatinineClinical Albuminuria: > 300 ug/mg creatinine Urine 08/12/2024 2:22 PM EST 08/12/2024 2:40 PM EST January Love MD LAB URINE ORDERABLES Final Resul t Performing Organization Address [facility] Co de Phone Number [facility] [address] [place] [phone] * Hepatitis C Antibody with Reflex to HCV, RNA, Quantitative, Real-Time PCR (04/06/2024 10:39 AM EDT) Hepatitis C Antibody Nonreactive Nonreactive [facility] Comment:Antibodies to HCV no t detected; does not exclude early acuteHCV infection. Blood Venous blood specimen / Unknown 04/06/2024 10:39 AM EDT 04/06/2024 12:54 PM EDT January Love MD LAB BLOOD ORDERABLES Final Resul t Performing Organization Address [facility] Co de Phone Number [facility] [address] [place] [phone] * HIV-1/2 Antigen and Antibodies, Fourth Generation, with Reflexes (04/06/2024 10:39 AM EDT) HIV AB/AG Nonreactive Nonreactive [facility] Comment:HIV-1 p24 Ag and/or HIV-1/HIV-2 Ab not detected.A test result that is nonreactive does not exclude thepossibility of exposure to or infection with HIV-1 and/orHIV-2. Nonreactive results in this assay for individualswith prior exposure to HIV-1 and/or HIV-2 may be due toantigen and antibody levels that are below the limit ofdetection of this assay.The [employer] HIV Ag/Ab Combo assay result andsupplemental assay results should be interpreted inconjunction with the patient's clinical presentation,history and other laboratory results. If the results areinconsistent with clinical evidence, additional testing issuggested to confirm the result. Blood Venous blood specimen / Unknown 04/06/2024 10:39 AM EDT 04/06/2024 12:54 PM EDT January Love MD LAB BLOOD ORDERABLES Final Resul t [facility] [address] [place] [address] [phone] from Last 3 Months or Most Recently Relevant to Health Maintenance Insurance [employer] Care Teams Combat Information Center Officer Relationship Specialty Start Date End Date January Love MD [address] [place] [phone] PCP - General Family Medicine 03/28/13
--- OUTSIDE RECORDS SUMMARY | 2025-01-10 11:04 | XMS_ITS | Encounter Summary ---
Author Organization [employer] Address [address] [facility] 7t [place] [address] Care Team Providers Care Painting Manager Name Role Phone January Love MD Primary Care Provider Encounter Details Date Type Department Care Team ([facility] st Contact Info) Description 03/11/2024 Telephone [facility] MEDICINE [address] [place], [place] [phone] January Love MD [address] [place], [place] [phone] Social History Tobacco Use Types Packs/Day Years [...] Description 01/11/2025 9:15 AM EDT Clinical Support [address] [address] Nora Ayala, HELIO 02/08/2025 9:00 AM EDT Clinical Support [address] [address] Lei Hendricks, RN [address] [place] [phone] documented as of this encounter Visit Diagnoses Not on filedocumented in this encounter Additional Health Concerns Assessment Noted Time PHQ-9 Depression Total Score: 0 01/13/20 24 9:56 AM EDT documented as of this encounter Care Teams Painting Manager Relationship Specialty Start Date End Date January Love MD [address] [place] [phone] PCP - General Family Medicine 03/28/13 documented as of this encounter
--- OUTSIDE RECORDS SUMMARY | 2025-01-10 11:04 | XMS_ITS | Encounter Summary ---
Author Organization [employer] Address [address] [facility] 7t [place] [address] Care Team Providers Care Cnc Cutting Operator Name Role Phone January Love MD Primary Care Provider [phone] Reason for Visit * Reason Comments Med Refill Encounter Details Date Type Department Care Team ([facility] st Contact Info) Description 08/18/2024 Refill [facility] MEDICINE [address] [place], [place] [phone] January Love MD [address] [place] [address] Social History Tobacco Use Types Packs/Day Years [...] Description 01/11/2025 9:15 AM EDT Clinical Support [facility] MEDICINE [address] [place] [phone] Nora Ayala RN 02/08/2025 9:00 AM EDT Clinical Support [address] [address] Lei Hendricks, RN [address] [place] [phone] documented as of this encounter Visit Diagnoses Not on filedocumented in this encounter Additional Health Concerns Assessment Noted Time PHQ-9 Depression Total Score: 0 01/13/20 24 9:56 AM EDT documented as of this encounter Care Teams Cnc Cutting Operator Relationship Specialty Start Date End Date January Love MD [address] [place] [phone] PCP - General Family Medicine 03/28/13 documented as of this encounter
--- OUTSIDE RECORDS SUMMARY | 2025-01-10 11:04 | XMS_ITS | Encounter Summary ---
Author Organization [employer] [facility] Address [address] [place] [address] [place], [place] [address] Care Team Providers Care Counter Caser Name Role Phone January Love MD Primary Care Provider [phone] Reason for Visit * Reason Comments Med Refill Encounter Details Date Type Department Care Team (Late st Contact Info) Description 10/21/2023 Refill [facility] [address] [place] [phone] January Love MD [address] [place] [address] Social History Tobacco Use Types Packs/Day Years [...] Description 01/11/2025 9:15 AM EDT Clinical Support [facility] [address] [place] [address] Nora Ayala, HELIO 02/08/2025 9:00 AM EDT Clinical Support [facility] [address] [place] [address] Lei Hendricks, HLEIO [address] [place] [address] documented as of this encounter Visit Diagnoses Not on filedocumented in this encounter Care Teams Counter Caser Relationship Specialty Start Date End Date January Love MD [address] [place] [address] PCP - General Family Medicine 03/28/13 documented as of this encounter
--- OUTSIDE RECORDS SUMMARY | 2025-01-10 11:04 | XMS_ITS | Encounter Summary ---
Author Organization [employer] Address [address] [facility] 7t [place] [address] Care Team Providers Care Windows Architect Name Role Phone January Love MD Primary Care Provider [phone] Encounter Details Date Type Department Care Team (Late st Contact Info) Description 12/14/2024 Abstract [facility] [address], [place] [phone] January Love MD [address] [place], [place] [phone] Social History Tobacco Use Types Packs/Day Years [...] 01/11/2025 9:15 AM EDT Clinical Support [address] [address] Nora Ayala RN 02/08/2025 9:00 AM EDT Clinical Support [address] [address] Lei Hendricks, HELIO [address] [place] [address] documented as of this encounter Goals Goal [...] documented as of this encounter Care Teams Windows Architect Relationship Specialty Start Date End Date January Love MD [address] [place] [address] PCP - General Family Medicine 03/28/13 documented as of this encounter
--- OUTSIDE RECORDS SUMMARY | 2025-01-10 11:04 | XMS_ITS | Encounter Summary ---
Author Organization [facility] [facility] Address [address] [place] [address] 7 [place] [address] Care Team Providers Care Dye Reel Operator Helper Name Role Phone January Love MD Primary Care Provider [phone] Encounter Details Date Type Department Care Team (Latest Contact Info) Description 01/28/2021 Abstract [facility] CONVERSIONS Dental, Provider, DDS Social [...] Description 01/11/2025 9:15 AM EDT Clinical Support [facility] MEDICINE [address] [place] [address] Nora Ayala RN 02/08/2025 9:00 AM EDT Clinical Support [facility] [address] [place] [address] Lei Hendricks, RN [address] [place] [address] documented as of this encounter Visit Diagnoses Not on filedocumented in this encounter Care Teams Dye Reel Operator Helper Relationship Specialty Start Date End Date January Love MD [address] [place] [address] PCP - General Family Medicine 03/28/13 documented as of this encounter
== END 2025-01-10 09:58 | disposition home or self-care (01) ==
LOC: HO.HOS 09:44
PROVIDERS: PCP Family Medicine
DX: R20.0 Anesthesia of skin (principal); R20.2 Paresthesia of skin
CPT/HCPCS: 99213

== ENCOUNTER 2025-02-28 08:44 | Outpatient (REF) | payer MEDICAID, SELFPAY ==
--- NOTE | ~2025-02-28 | US_ITS ---
EXAMINATION: US ABDOMEN COMPLETE WITH LIVER ELASTOGRAPHY HISTORY: K75.81 - Nonalcoholic steatohepatitis (MONTES [place] OCA) TECHNIQUE: Real-time grayscale ultrasound imaging of the abdomen was performed and images were reviewed. COMPARISON: Comparison is made with the prior examination dated 05/21/2021. FINDINGS: Liver: The right lobe of the liver measures 17.5 cm in size. The left lobe of the liver measures 8.7 cm in size. The liver demonstrates increased echotexture, consistent with steatosis. There is focal fatty sparing adjacent to the gallbladder. No focal mass or intrahepatic biliary ductal dilatation is identified. There is normal hepatopedal flow in the portal vein. Ultrasound elastography of the liver was performed with 10 separate measurements of the liver parenchyma with the patient in the supine position. Measurements were obtained approximately 2 cm below Leti's capsule and perpendicular to the capsule. Images are of satisfactory quality. The median shear wave velocity is 1.67 m/s (previously 1.60 m/s). The interquartile range/median (IQR/median) is 0.07. Gallbladder and biliary tree: The gallbladder is unremarkable, without evidence of calculi, wall thickening, or pericholecystic fluid. There is no sonographic Merritt sign. The common bile duct is normal in caliber measuring 3 mm. Kidneys: The right kidney measures 12.6 cm in length and demonstrates a 6 mm nonobstructing calculus in the interpolar region. There is no hydronephrosis or mass. The left kidney measures 11.7 cm in length and is unremarkable in appearance. Pancreas: The pancreatic head, neck, and body are unremarkable. The pancreatic tail is obscured by bowel gas. Spleen: The spleen is normal in size and contour, measuring 11.1 cm in length. Abdominal aorta and inferior vena cava: The visualized portions of the abdominal aorta and inferior vena cava are normal in caliber. There is no free fluid in the abdomen. US/US abdomen comp w elastography IMPRESSION: 1. Hepatic steatosis. 2. 6 mm nonobstructing right renal calculus. The median shear wave velocity in the liver is 1.67 m/s, corresponding to a median liver stiffness of 8.57 kPa. The IQR/median value is 0.07. This is indicative of a quality data set. Findings are indicative of a low elastography value which rules out advanced chronic liver disease in asymptomatic patients. REFERENCE: Society of Radiologists in Ultrasound Liver Stiffness Thresholds (2020): LIVER STIFFNESS THRESHOLDS: *Shear wave velocity less than 1.3 m/s (Liver Stiffness equal or less than 5 kPa): High probability of being normal. *Shear wave velocity less than 1.7 m/s (Liver Stiffness less than 9 kPa): In the absence of other known clinical signs, rules out compensated advanced chronic liver disease. *Shear wave velocity between 1.7-2.1 m/s (Liver Stiffness 9-13 kPa): Suggestive of compensated advanced chronic liver disease but need further test for confirmation. *Shear wave velocity between 2.1-2.4 m/s (Liver Stiffness 13-17 kPa): Rules in compensated advanced chronic liver disease. *Shear wave velocity greater than 2.4 m/s (Liver Stiffness over 17 kPa): Suggestive of clinically significant portal hypertension. QUALITY OF DATA SET: SIGNIFICANT CHANGE FROM PRIOR EXAM: Significant change if liver stiffness measurement is 10% or greater from prior exam. OTHER CONSIDERATIONS: The stage of liver fibrosis may be overestimated in the setting of acute hepatitis, liver inflammation, elevated liver function tests, hepatic vascular congestion, obstructive cholestasis, non-fasting state, and infiltrative diseases such as amyloidosis and lymphoma. In some patients with NAFLD, the liver stiffness thresholds for compensated advanced chronic liver disease may be lower. In causes other than viral hepatitis and NAFLD, liver stiffness thresholds are not well established. Electronically signed by: Kumar Mejia MD 02/28/2025 10:35 AM EDT
--- OUTSIDE RECORDS SUMMARY | 2025-02-28 09:14 | XMS_ITS | Encounter Summary ---
Author Organization [facility] Address [address] [place] [address] 7 [place] [address] Care Team Providers Care Discharge Planner Name Role Phone January Love MD Primary Care Provider [phone] Encounter Details Date Type Department Care Team (Latest Contact Info) Description 05/02/2019 Abstract [facility] CONVERSIONS Dental, Provider, DDS Social History [...] Upcoming Encounters Date Type Department Care Team ( st Contact Info) Description 03/07/2025 11:15 AM EDT Office Visit [facility] [address] [place] [address] January Love MD [address] [place] [address] 03/08/2025 9:15 AM EDT Office Visit [facility] [address] [place] [address] January Love MD [address] [place] [address] documented as of this encounter Visit Diagnoses Not on filedocumented in this encounter Care Teams Discharge Planner Relationship Specialty Start Date End Date January Love MD [address] [place] [address] PCP - General Family Medicine 03/28/13 documented as of this encounter
== END 2025-02-28 08:45 | disposition home or self-care (01) ==
LOC: HO.US 08:44
PROVIDERS: PCP Family Medicine; Visit Provider Student in an Organized Health Care Education/Training Program
DX: K75.81 Nonalcoholic steatohepatitis (NASH) (principal)
CPT/HCPCS: 76700; 76981

== ENCOUNTER → 2025-02-28 08:48 | Outpatient (BNV) | payer MEDICAID, SELFPAY | PROVIDERS: PCP Family Medicine; Visit Provider Radiology Diagnostic Radiology | DX: N20.0 Calculus of kidney (principal); K76.0 Fatty (change of) liver, not elsewhere classified | CPT/HCPCS: 76700; 76981 ==

== ENCOUNTER 2025-04-28 14:42 | Outpatient (AMB) | payer MEDICAID, SELFPAY ==
--- NOTE | 2025-04-28 14:44 | MHC.OFFVIS ---
Vital Signs 04/28/25 14:53 Height 5 ft 10 in Weight 235 lb BMI 33.7 BP 140/74 H Blood Pressure Location Rt brachial Position Sitting Pulse 76 Pulse Source Pulse Oximeter Pulse Oximetry (%) 96 Oxygen Delivery Method Room Air Intake Visit Reasons: martinez cic gerd Intake Note: Est pt for mgmt of GERD, CIC, + MARTINEZ. CC; C.O. chronic sx persistence despite current tx. Pt states sx are still significant in severity but are less frequent. Pt still complaining of bloating and lower abd discomfort. 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 Patient will stop taking famotidine and will start sucralfate at bedtime. Avoid dietary triggers and late night snacking. Avoid anything that is fried continue Linzess and Dulcolax continue Creon. Follow-up in the office in 6 months, sooner on as needed basis. He is agreeable to this plan and verbalizes understanding of instructions. He was given the opportunity to ask questions and all questions answered. ? Thank you for allowing me to participate in his care New sucralfate 1 g PO BEDTIME 90 tabs 3RF R19.7 Refilled lansoprazole 30 mg PO DAILY 90 days 90 caps 3RF K21.9 linaclotide (Linzess) 290 mcg PO QAM 90 caps 4RF K59.00 utkbnr-agxeuqzh-iygnimm 36,000-114,000- 180,000 unit (Creon) administer with meals and/or snacks 1 cap PO QID 120 caps 3RF K86.89 bisacodyl (Dulcolax (bisacodyl)) 10 mg (2 x 5 mg) PO BEDTIME 180 tabs 4RF On Hold famotidine Hold Comment: Doctor's Order 40 mg PO BEDTIME 90 tabs 3RF K21.9 TODAY'S VISIT: Patient is here today for follow-up. Patient reports to be feeling fairly well, however still experiences occasionally episode of abdominal pain and cramping just before having a bowel movement. Patient currently is taking Linzess every day. Does not have Dulcolax at home anymore. Reports that he is drinking fluids. 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 Patient denies melena, hematochezia. Symptoms of acid reflux are suppressed for the most part. Patient is trying to be good when it comes to choices of his meals. Patient is taking lansoprazole in the morning. No longer has sucralfate at home. Denies dyspepsia, dysphagia or odynophagia. He is still taking Creon with meals and states that he is less bloated. His liver enzymes are elevated. He has lost few lb since last visit. [facility] Medical History Fibromyalgia H/O head injury Migraines Scoliosis Anxiety and depression Asthma Chest pain, atypical COVID-19 vaccine series completed Osteoarthritis of left knee Chronic pain syndrome Spondylosis of lumbar region without myelopathy or radiculopathy Osteoarthritis of left knee Sleep apnea Varicose vein of leg Diabetes Gastroparesis Surgical History History of back surgery History of colonoscopy Family History Father No problems noted. Mother History of cancer Social History Household Members: Spouse and Children Housing: House Are you a primary patient care to a significant other at home: No Do you presently have visiting nurse or other home services: No Alcohol intake: former Patient Tobacco Use Status: Former Tobacco user Tobacco use type: Cigarette Cigarettes Per Day: 45 Years Smoked: 10 service: No Current occupational status: unemployed Review of Systems Const Denies weight gain and Denies weight loss ENT Reports no additional complaints, Denies dysphagia and Denies odynophagia Card Reports no additional complaints Resp Reports no additional complaints GI Reports abdominal pain, Denies belching, Denies melena, Reports bloating, Denies change in bowel habits, Reports constipation, Denies dysphagia, Denies excessive flatus, Reports dyspepsia, Reports heartburn, Denies diarrhea, Denies loose stools, Reports nausea, Denies odynophagia and Denies vomiting Reports no additional complaints Musc Reports no additional complaints Neuro Reports no additional complaints Psych Reports no additional complaints Endo Reports no additional complaints Physical Exam Vital Signs: Last Vital Signs Pulse 76 04/28/25 14:53 BP 140/74 H 04/28/25 14:53 Pulse Ox 96 04/28/25 14:53 Oxygen Delivery Method Room Air 04/28/25 14:53 BMI result Body Mass Index 33.7 Const General: healthy appearing and no acute distress Nutritional Appearance: obese Orientation/consciousness: patient oriented x3 Resp Effort & Inspection: normal respiratory effort, able to speak in complete sentences, no tracheal deviation and symmetric chest movement Auscultation: clear to auscultation bilaterally Cardio Rate: regular rate GI Inspection: Yes normal to inspection, No distended and Yes obesity Palpation (GI): Soft to palpation, not firm, nontender and No hepatosplenomegaly present Auscultation: normal bowel sounds General: Yes no CVA tenderness Back/Spine/Pelvis Back: no CVA tenderness Skin General skin exam: elasticity normal, turgor normal and dry skin Neuro General: patient oriented x3 Psych Appearance: grossly normal Mental Status: mental status grossly normal Affect: normal affect Results Reviewed Results Reviewed: Laboratory Tests 12/15/24 16:50 AST 42 H ALT 58 H ABDOMINAL ULTRASOUND WITH ELASTOGRAPHY FINDINGS: Liver: The right lobe of the liver measures 17.5 cm in size. The left lobe of the liver measures 8.7 cm in size. The liver demonstrates increased echotexture, consistent with steatosis. There is focal fatty sparing adjacent to the gallbladder. No focal mass or intrahepatic biliary ductal dilatation is identified. There is normal hepatopedal flow in the portal vein. Ultrasound elastography of the liver was performed with 10 separate measurements of the liver parenchyma with the patient in the supine position. Measurements were obtained approximately 2 cm below Leti's capsule and perpendicular to the capsule. Images are of satisfactory quality. The median shear wave velocity is 1.67 m/s (previously 1.60 m/s). The interquartile range/median (IQR/median) is 0.07. Gallbladder and biliary tree: The gallbladder is unremarkable, without evidence of calculi, wall thickening, or pericholecystic fluid. There is no sonographic Merritt sign. The common bile duct is normal in caliber measuring 3 mm. Kidneys: The right kidney measures 12.6 cm in length and demonstrates a 6 mm nonobstructing calculus in the interpolar region. There is no hydronephrosis or mass. The left kidney measures 11.7 cm in length and is unremarkable in appearance. Pancreas: The pancreatic head, neck, and body are unremarkable. The pancreatic tail is obscured by bowel gas. Spleen: The spleen is normal in size and contour, measuring 11.1 cm in length. Abdominal aorta and inferior vena cava: The visualized portions of the abdominal aorta and inferior vena cava are normal in caliber. There is no free fluid in the abdomen. US/US abdomen comp w elastography IMPRESSION: 1. Hepatic steatosis. 2. 6 mm nonobstructing right renal calculus. The median shear wave velocity in the liver is 1.67 m/s, corresponding to a median liver stiffness of 8.57 kPa. The IQR/median value is 0.07. This is indicative of a quality data set. Findings are indicative of a low elastography value which rules out advanced chronic liver disease in asymptomatic patients. Assessment & Plan Assessment & Plan (1) Chronic idiopathic constipation: Code(s): K59.04 - Chronic idiopathic constipation Category: Medical (2) MARTINEZ (nonalcoholic steatohepatitis): Code(s): K75.81 - Nonalcoholic steatohepatitis (MARTINEZ) Category: Medical (3) GERD (gastroesophageal reflux disease): Code(s): K21.9 - Gastro-esophageal reflux disease without esophagitis Category: Medical Qualifiers: Esophagitis presence: esophagitis presence not specified Qualified Code(s): K21.9 - Gastro-esophageal reflux disease without esophagitis (4) Gastritis: Code(s): K29.70 - Gastritis, unspecified, without bleeding Qualifiers: Gastritis type: unspecified gastritis Chronicity: chronic Gastritis bleeding: without bleeding Qualified Code(s): K29.50 - Unspecified chronic gastritis without bleeding (5) Postprandial epigastric pain: Code(s): R10.13 - Epigastric pain (6) Nausea: Code(s): R11.0 - Nausea Plan Elevated liver enzymes. We will workup autoimmune disorders. We will recheck liver panel again and liver fibrosis panel. Ultrasound ruled out advanced compensated liver disease. Will check transglutaminase is well. Patient will continue taking Linzess and can take Dulcolax as needed if he has no bowel movement for 2-3 days. Increase fluid intake and activity to promote better bowel motility. Patient will continue taking lansoprazole in the morning and sucralfate at bedtime. Continue Creon with meals. Patient was encouraged to eat low-fat, low-salt, low carb and high-protein diet. He will call our office if he will have any GI concerning symptoms. Patient will report back in 6 months, sooner on as needed basis. Patient is agreeable to current plan of care and verbalizes understanding of instructions. He was given the opportunity to ask questions and all questions answered. Thank you for allowing me to participate in his care Orders: Orders Alpha Fetoprotein Today R79.89 - Other specified abnormal findings of blood chemistry Smooth Muscle Antibody Today R79.89 - Other specified abnormal findings of blood chemistry Ferritin Today R74.8 - Abnormal levels of other serum enzymes Gamma Glutamyl Transpeptidase Today R74.8 - Abnormal levels of other serum enzymes Liver Panel Today R74.01 - Elevation of levels of liver transaminase levels Liver Fibrosis Pnl Today K76.0 - Fatty (change of) liver, not elsewhere classified Prothrombin Time INR Today R74.8 - Abnormal levels of other serum enzymes Ceruloplasmin Today R79.89 - Other specified abnormal findings of blood chemistry Transglutaminase IgA Today R10.9 - Unspecified abdominal pain Mitochondrial Antibody Today R79.89 - Other specified abnormal findings of blood chemistry Medications: New epinephrine (EpiPen) 0.03 mL IM DIRECTED 1 ea 2RF Refilled bisacodyl (Dulcolax (bisacodyl)) 10 mg (2 x 5 mg) PO BEDTIME 180 tabs 4RF linaclotide (Linzess) 290 mcg PO QAM 90 caps 4RF K59.00 - Constipation, unspecified [id number]-afqfryt 36,000-114,000- 180,000 unit (Creon) administer with meals and/or snacks 1 cap PO QID 120 caps 3RF K86.89 - Other specified diseases of pancreas sucralfate 1 g PO BEDTIME 90 tabs 3RF R19.7 - Diarrhea, unspecified lansoprazole 30 mg PO DAILY 90 caps 3RF 90 days K21.9 - Gastro-esophageal reflux disease without esophagitis Coding Level of Care Code Est Pt Level 4 (21918) Complex EM visit Add On G2211 Diagnoses Chronic idiopathic constipation K59.04 MARTINEZ (nonalcoholic steatohepatitis) K75.81 Gastroesophageal reflux disease, unspecified whether esophagitis present K21.9 Esophagitis presence: esophagitis presence not specified Chronic gastritis without bleeding, unspecified gastritis type K29.50 Gastritis type: unspecified gastritis Chronicity: chronic Gastritis bleeding: without bleeding Postprandial epigastric pain R10.13 Nausea R11.0 Time Spent (min) 40 Comment 25 minutes spent with patient and additional 15 minutes spent reviewing his records
--- OUTSIDE RECORDS SUMMARY | 2025-04-28 14:45 | XMS_ITS | Encounter Summary ---
Author Organization [employer] [facility] Address [address] [place] [address] 7 [place] [address] Care Team Providers Care Humane Officer Name Role Phone January Love MD Primary Care Provider [phone] Encounter Details Date Type Department Care Team (Latest Contact Info) Description 05/02/2019 Abstract [facility] CONVERSIONS Dental, Provider, DDS Social [...] Care Team ( st Contact Info) Description 05/03/2025 9:15 AM EDT Clinical Support [address] [address] Lei Hendricks RN [address] [place] [address] 05/31/2025 9:15 AM EDT Clinical Support [address] [address] Lei Hendricks RN [address] [place] [address] documented as of this encounter Visit Diagnoses Not on filedocumented in this encounter Care Teams Humane Officer Relationship Specialty Start Date End Date January Love MD [address] [place] [address] PCP - General Family Medicine 03/28/13 documented as of this encounter
[2025-04-28 14:53] VITALS: BP 140/74; PULSE 76; O2SAT 96; BMI 33.7
== END 2025-04-28 15:08 | disposition home or self-care (01) ==
LOC: HO.HGI 14:43
PROVIDERS: PCP Family Medicine; Visit Provider Nurse Practitioner Family
DX: K59.04 Chronic idiopathic constipation (principal); K75.81 Nonalcoholic steatohepatitis (NASH); K21.9 Gastro-esophageal reflux disease without esophagitis; K29.50 Unspecified chronic gastritis without bleeding; R10.13 Epigastric pain; R11.0 Nausea
CPT/HCPCS: 99214

== ENCOUNTER → 2025-04-28 14:42 | Outpatient (BNVA) | payer MEDICAID, SELFPAY | PROVIDERS: PCP Family Medicine; Visit Provider Nurse Practitioner Family | DX: K21.9 Gastro-esophageal reflux disease without esophagitis (principal); K59.04 Chronic idiopathic constipation; K75.81 Nonalcoholic steatohepatitis (NASH); K29.50 Unspecified chronic gastritis without bleeding; R10.13 Epigastric pain; R11.0 Nausea | CPT/HCPCS: 99212 ==

== ENCOUNTER 2025-05-12 16:34 | Outpatient (REF) | payer MEDICAID, SELFPAY ==
--- OUTSIDE RECORDS SUMMARY | 2025-05-12 16:36 | XMS_ITS | Encounter Summary ---
Author Organization [employer] [facility] Address [address] [place] [address] 7t [place] [address] Care Team Providers Care Crook Operator Name Role Phone January Love MD Primary Care Provider [phone] Encounter Details Date Type Department Care Team (Latest Contact Info) Description 05/02/2019 Abstract [facility] CONVERSIONS Dental, Provider, DDS Social [...] Care Team (Late st Contact Info) Description 05/31/2025 9:15 AM EDT Clinical Support [facility] MEDICINE [address] [place] [address] Lei Hendricks RN [address] [place] [address] documented as of this encounter Visit Diagnoses Not on filedocumented in this encounter Care Teams Crook Operator Relationship Specialty Start Date End Date January Love MD [address] [place] [address] PCP - General Family Medicine 03/28/13 documented as of this encounter
[2025-05-12 16:54] LABS: MANUAL DIFF FLAG NO
[2025-05-12 17:10] LABS: Hematocrit 39.1 % (42.0-52.0); Hemoglobin 12.6 g/dl (14.0-18.0); Imm Gran Abs Auto 0.02 X10*3/uL (0.00-0.03); Imm Gran Pct Auto 0.4 % (0.0-0.4); Lymphocytes Absolute Auto 1.9 X10*3/uL (1.2-4.9); Mean Corpuscular HGB Conc 32.2 g/dl (31.0-36.0); Mean Corpuscular Hemoglobin 28.4 pg (27.0-33.0); Mean Corpuscular Volume 88.1 fL (80.0-98.0); NRBC Abs Auto 0.000 X10*3/uL (0.0-0.012); NRBC Pct Auto 0.0 /100WBC (0.0-0.2); Platelet Count 236 X10*3/uL (160-400); Red Blood Count 4.44 X10*6/uL (4.60-5.80); White Blood Count 4.5 X10*3/uL (4.8-10.8)
[2025-05-12 17:19] LABS: INTERNATIONAL NORM RATIO 1.0 (0.9-1.1); Prothrombin Time 11.8 SEC (10.9-12.4)
[2025-05-12 17:39] LABS: Uric Acid 3.3 mg/dL (3.4-7.0)
[2025-05-12 17:45] LABS: Alanine Aminotransferase 53 U/L (0-40); Albumin Level 4.6 g/dL (3.5-5.0); Alkaline Phosphatase 99 U/L (39-117); Anion Gap 13 (12-20); Aspartate Amino Transferase 36 U/L (5-37); Blood Urea Nitrogen 18 mg/dL (9-16); Calcium 9.5 mg/dL (8.4-10.2); Carbon Dioxide 27 mmol/L (22-29); Chloride 106 mmol/L (96-108); Estimated Glomerular Filt Rate > 60; Gamma Glutamyl Transpeptidase 24 U/L (11-51); Potassium 3.8 mmol/L (3.3-5.1); Sodium 142 mmol/L (135-145); Total Protein 7.6 g/dL (6.5-8.0)
[2025-05-12 17:59] LABS: Ferritin 82 ng/mL (20-250)
[2025-05-13 08:22] LABS: HBS Num1 > 1000.00 mIU/mL (0-7.99); HBc Num1 0.07 S/CO (0.00-0.79); HBsAGNum1 0.34 S/CO (0.00-0.99); Hepatitis A Antibody IgM 0.32 Index (0-0.79); Hepatitis B Surface Antigen Negative (Negative); ~HepC Num1 0.15 S/CO (0.00-0.79); ~Hepatitis A Antibody IgM Nonreactive (Nonreactive); ~Hepatitis B Surface Antibody REACTIVE (Nonreactive); ~Hepatitis C Antibody Nonreactive (Nonreactive)
[2025-05-15 13:38] LABS: TS Negative Control Passed; TS Panel A 0; TS Panel B 0; TS Positive Control Passed; TSpotTB Negative (Negative)
[2025-05-18 14:18] LABS: FIB-ALT 35 U/L (9-46); FIB-Alpha-2-Macroglobulin 134 mg/dL (106-279); FIB-Apolipoprotein A1 177 mg/dL (94-176); FIB-GGT 19 U/L (3-95); FIB-Haptoglobin 237 mg/dL (43-212); FIB-Total Bilirubin 0.4 mg/dL (0.2-1.2); Liver Fibrosis Score 0.04; Liver Fibrosis Stage F0; Nec Inflam Act Grade A0; Nec Inflam Act Score 0.13
== END 2025-05-12 16:35 | disposition home or self-care (01) ==
LOC: HO.LAB 16:34
PROVIDERS: Absent Provider Student in an Organized Health Care Education/Training Program; PCP Family Medicine; Visit Provider Nurse Practitioner Family
DX: Z01.84 Encounter for antibody response examination (principal); Z11.59 Encounter for screening for other viral diseases; Z11.1 Encounter for screening for respiratory tuberculosis; M1A.09X0 Idiopathic chronic gout, multiple sites, without tophus (tophi); K76.0 Fatty (change of) liver, not elsewhere classified; L40.50 Arthropathic psoriasis, unspecified; R74.8 Abnormal levels of other serum enzymes; R74.01 Elevation of levels of liver transaminase levels; R10.9 Unspecified abdominal pain; R79.89 Other specified abnormal findings of blood chemistry
CPT/HCPCS: 36415; 80053; 80076; 81596; 82105; 82248; 82390; 82728; 82977; 84550; 85025; 85610; 85652; 86015; 86140; 86364; 86381; 86481; 86704; 86706; 86709; 86803; 87340

== ENCOUNTER 2025-05-16 09:44 | Outpatient (AMB) | payer MEDICAID, SELFPAY ==
[2025-05-16 09:55] VITALS: BP 132/78; PULSE 82; O2SAT 96; BMI 34.3
--- NOTE | 2025-05-16 09:55 | A.OFFVIS_ITS ---
Vital Signs 05/16/25 09:55 Height 5 ft 10 in Weight 239 lb 2 oz BMI 34.3 BP 132/78 Blood Pressure Location Lt brachial Position Sitting Pulse 82 Pulse Source Pulse Oximeter Pulse Oximetry (%) 96 Oxygen Delivery Method Room Air Intake Visit Reasons: 4 month f/u Intake Note: Patient presents for PSA and gout follow up. Patient has been having gout flares, and excema(?) rash on both legs since he has been taking his Enbrel. Allergies Penicillins (PENICILLINS) Allergy (Intermediate, Verified 05/16/25 09:59) HIVES sulfasalazine Adverse Reaction (Intermediate, Verified 05/16/25 09:59) transaminitis Medication List - Last Reconciled 05/16/25 by Frannie Ford MD acetaminophen ER 650 mg PO Q8H PRN albuterol sulfate 90 mcg/actuation (ProAir HFA) 2 puffs inhalation Q6H PRN allopurinol 300 mg PO DAILY bisacodyl (Dulcolax (bisacodyl)) 10 mg (2 x 5 mg) PO BEDTIME buprenorphine-naloxone 8-2 mg (Suboxone) 2 film buccal DAILY cetirizine 10 mg PO BEDTIME cyclobenzaprine 5 mg PO BEDTIME docusate sodium 200 mg (2 x 100 mg) PO BEDTIME epinephrine (EpiPen) 0.03 mL IM DIRECTED etanercept (Enbrel SureClick) 50 mg subcut QWEEK famotidine 40 mg PO BEDTIME Held on 08/19/24. Instructions: Doctor's Order fluticasone propionate 50 mcg/actuation (Flonase Allergy Relief) 1 spray intranasal DAILY fluticasone propionate 110 mcg/actuation (Flovent HFA) 1 puff inhalation BID hydroxyzine HCl 25 mg PO Q6H PRN lansoprazole 30 mg PO DAILY 90 days linaclotide (Linzess) 290 mcg PO QAM knblik-zbbwstef-vutvkbr 36,000-114,000- 180,000 unit (Creon) 1 cap PO QID loratadine 10 mg PO DAILY metformin ER 500 mg PO QPM methylcellulose (laxative) (Citrucel) 500 mg PO DAILY 30 days milnacipran (Savella) 50 mg PO BID naproxen 500 mg PO DAILY PRN sucralfate 1 g PO BEDTIME tamsulosin 0.4 mg PO DAILY triamcinolone acetonide 0.1% 1 appl topical BID valacyclovir 1,000 mg PO QAM HPI Comments Details: Patient is a 49-year-old male with anxiety and depression, asthma, nonalcoholic steatohepatitis, GERD, hypertension, diabetes, non crystal proven chronic gout, psoriasis complicated by psoriatic arthritis and fibromyalgia here today for follow up Interval History: Patient last seen 01/10/25 with me - On Enbrel, Allopurinol, Cyclobenzarine, naproxen - Joints in remission, had some PsO patches but responding to topical steroids - No changes made to medication Today, - On Enbrel, Allopurinol, Cyclobenzarine, naproxen - Has been having a rash affecting bilateral lower extremities (pictures seen on phone - appears to be discrete, ?nodular, erythematous lesions) - Also reports having weekly gout flares affecting his feet - Also complains of numbness involving his hands and feet exepcially when he wakes up in the AM Rheumatologic History: This is a 46-year-old male with a past medical history of anxiety, gout, type 2 diabetes mellitus, degenerative disc disease of his lumbar spine s/p multiple procedures by pain management presents for evaluation of low back pain. Patient was previously evaluated by Dr. Du for low back pain. He had MRI of his sacral iliac joints which were negative for sacroiliitis. MRI lumbar spine also showed no signs of spondyloarthropathy. Patient continues to have low back pain, worse in the morning associated with 2 hours of morning stiffness. Pain is also worse with walking improves with s itting down. He states he was diagnosed with gout in 2011. He has pain and swelling of his feet and his hands, he also has intermittent swelling of his ears in lips that he attributes to gout. He has been on allopurinol 300 mg by his PCP. His most recent gout flare was in the summer with swelling of his hands. Denies any history of kidney stones or family history of gout. He states that the last year of high school he had significant psoriasis affecting his legs and his entire body. He was prescribed creams with resolution. Recently he has been having itchy rashes on his ankles, he is being evaluated by an teleradiologist. He also showed me pictures of rashes involving his face, neck and ears.? He is following up with teleradiologist Dr. Garcia he was prescribed hydroxyzine and another antihistaminic and he states that those are helping.? States that as a child he spent a lot of time at the hospital for arthritis dx 09/2022 SSZ 12/18 partially effective DC 02/17 due to transaminitis Enbrel 02/17 effective Current Rheumatology Medication(s): Enbrel 50mg SC every week Allopurinol 300mg daily Cyclobenzaprine 5mg nightly Naproxen 500mg bid PFSH Medical History Fibromyalgia H/O head injury Migraines Scoliosis Anxiety and depression Asthma Chest pain, atypical COVID-19 vaccine series completed Osteoarthritis of left knee Chronic pain syndrome Spondylosis of lumbar region without myelopathy or radiculopathy Osteoarthritis of left knee Sleep apnea Varicose vein of leg Diabetes Gastroparesis Surgical History History of back surgery History of colonoscopy Family History Father No problems noted. Mother History of cancer Social History Household Members: Spouse and Children Housing: House Are you a primary residential caregiver to a significant other at home: No Do you presently have visiting nurse or other home services: No Alcohol intake: former Patient Tobacco Use Status: Former Tobacco user Tobacco use type: Cigarette Cigarettes Per Day: 45 Years Smoked: 10 service: No Current occupational status: unemployed Review of Systems Const Details: Review of Systems Constitutional: Denies fever, chills, weight loss ENT: Denies vision changes, eye pain or eye redness, dental caries, dry mouth GI: Denies nausea, vomiting, diarrhea, abdominal pain, change in BM Pulm: Denies SOB, ELENA, hemoptysis, wheezing Cards: Denies chest pain, palpitations Skin: Denies Raynaud's, nail changes, photosensitivity, CREDIT OPERATIONS SPECIALIST: Denies headaches, weakness, paresthesias, recurrent falls MSK: as per HPI All other systems reviewed and are unremarkable except noted above Physical Exam Exam Exam: Vital signs reviewed Physical Examination CONSTITUITIONAL Patient alert and cooperative. Well appearing and in no apparent painful distress HEENT Conjunctiva and sclera clear. No lymphadenopathy. MSK Hands * Right Hand: Able to make a fist. No swelling or tenderness to palpation of these joints. * Left Hand: Able to make a fist. No swelling or tenderness to palpation of these joints. * Herbedens nodes noted bilaterally Wrists * Right Wrist: Full ROM. 70 degrees of wrist flexion, 80 degrees of wrist extension. No swelling or TTP * Left Wrist: Full ROM. 70 degrees of wrist flexion, 80 degrees of wrist ext ension. No swelling or TTP Elbows * Right Elbow: Full ROM. No swelling or TTP. No TTP of the medial and lateral epicondyles * Left Elbow: Full ROM. No swelling or TTP. No TTP of the medial and lateral epicondyles Shoulders * Right shoulder: Full ROM. No swelling noted. No TTP of the AC joint, subacromial bursa * Left shoulder: Full ROM. No swelling noted. No TTP of the AC joint, subacromial bursa * TTP of the posterior shoulder bilaterally Knees * Right knee: Full ROM. No swelling noted. No TTP of the knee joint lie or pes anserine bursa * Left knee: Full ROM. No swelling noted. No TTP of the knee joint lie or pes anserine bursa. Ankles * Right ankle: Good ankle dorsiflexion and plantar flexion. No swelling. No TTP of the ankle joint * Left ankle: Good ankle dorsiflexion and plantar flexion. No swelling. No TTP of the ankle joint Feet * Right foot: Negative squeeze test * Left foot: Negative squeeze test Tender points? * No tenderness to palpation of the bilateral trapezius, supraspinatus, anterior costochondral junctions, bilateral suboccipital muscle insertions SKIN Post inflammatory rash noted on the legs Vital Signs: Last Vital Signs Pulse 82 05/16/25 09:55 BP 132/78 05/16/25 09:55 Pulse Ox 96 05/16/25 09:55 Oxygen Delivery Method Room Air 05/16/25 09:55 BMI result Body Mass Index 34.3 Results Reviewed Results Reviewed: Laboratory Tests 12/15/24 05/12/25 16:50 16:48 WBC 4.5 L RBC 4.44 L Hgb 12.6 L Hct 39.1 L Plt Count 236 ESR 25 H Sodium 142 Potassium 3.8 Chloride 106 Carbon Dioxide 27 BUN 18 H Creatinine 0.68 Uric Acid 3.3 L AST 36 ALT 53 H C-Reactive Protein 2.08 H 0.84 H Infectious serologies 05/12/25 16:48 Hepatitis A IgM Ab Nonreactive Hep Bs Antigen Negative Hep Bs Antibody REACTIVE Hep B Core Total Ab Nonreactive Hepatitis C Ab (EIA) Nonreactive TB Test (T-Spot) Com Negative Assessment & Plan Assessment & Plan (1) Psoriatic arthritis: Comment: dx 09/2022 SSZ 12/18 partially effective DC 02/17 due to transaminitis Enbrel 02/17 effective Code(s): L40.50 - Arthropathic psoriasis, unspecified Category: Medical Plan: #PsA Patient is a 49-year-old male with psoriasis complicated by psoriatic arthritis here today for follow up. Patient having intermittent discrete rashes vs nodules on his legs concerning for EN. Enbrel is not known to cause this but we will try a course of colchicine to see if this helps. If not we will switch to his medication My new concern is he may not have PsA. He has never had a formal diagnosis of PsO. There was no hx of dactylitis or nail pitting on exam. Will consider that in future appointments Plan - Continue Enbrel 50mg SC weekly - Continue naproxen 500mg 1-2 times per day - Derm referral - RTC 3 months - Labs before visit: CBC, CMP, ESR, CRP (2) Gout: Code(s): M10.9 - Gout, unspecified Category: Medical Qualifiers: Gout site: multiple sites Gout etiology: unspecified cause Chronicity: chronic Qualified Code(s): M1A.09X0 - Idiopathic chronic gout, multiple sites, without tophus (tophi) Plan: #Gout Patient with non crystal proven gout on allopurinol. Reports that he has been having weekly gout flares UA is 3.3, unsure if this is truly a gout flare Plan - Continue allopurinol 300mg daily - UA goal <6 - Adding colchicine will cover for gout (3) Fibromyalgia: Code(s): M79.7 - Fibromyalgia Category: Medical Plan: #Fibromyalgia Patient with fibromyalgia. Did not tolerate gabapentin or duloxetine Continue savella (4) MONTES DE OCA (nonalcoholic steatohepatitis): Code(s): K75.81 - Nonalcoholic steatohepatitis (MONTES DE OCA) Category: Medical Plan: #MONTES DE OCA Hx of MONTES DE OCA based on US done in 2021. Continues to have transaminitis. Improved US without any evidence of advanced liver disease (5) Encounter for monitoring of etanercept therapy: Code(s): Z51.81 - Encounter for therapeutic drug level monitoring; Z79.620 - long term care phlebotomist (current) use of immunosuppressive biologic Plan: #Long-term Use of TNF Inhibitors: Enbrel Discussed with the patient the benefits and risks of TNF inhibitors for the management of the rheumatic condition Benefits include reduce pain, maintenance of remission and reduction of flares as well as ?progression of the disease Risks include injection sites/infusion reactions, serious infections (such as bacterial infections, opportunistic infections), malignancy, delaminating syndromes, autoimmune phenomena, CHF exacerbations, palmar plantar psoriasis and cytopenias Recommended rotating injection sites, and holding medication during and for up to 1 week after resolution of a febrile illness or open skin wound Plan I spent 36 minutes reviewing the record and labs, taking a history, examining the patient, discussing the treatment plan, ordering diagnostic work up and documenting in the medical record Orders: Referrals Dermatology Referral L52 - Erythema nodosum Medications: New colchicine 0.6 mg PO BID 180 tabs 1RF 90 days M1A.09X0 - Idiopathic chronic gout, multiple sites, without tophus (tophi) Coding Level of Care Code Est Pt Level 4 (90072) Complex EM visit Add On G2211 Diagnoses Psoriatic arthritis L40.50 Chronic gout of multiple sites, unspecified cause M1A.09X0 Gout site: multiple sites Gout etiology: unspecified cause Chronicity: chronic Fibromyalgia M79.7 MONTES DE OCA (nonalcoholic steatohepatitis) K75.81 Encounter for monitoring of etanercept therapy Z51.81; Z79.620
--- OUTSIDE RECORDS SUMMARY | 2025-05-16 10:51 | XMS_ITS | Encounter Summary ---
Author Organization [employer] [facility] Address [address] [place] [address] [address] [place] [address] Care Team Providers Care Biology Faculty Member Name Role Phone January Love MD Primary Care Provider [phone] Encounter Details Date Type Department Care Team (Latest Contact Info) Description 05/02/2019 Abstract [facility] CONVERSIONS Dental, Provider, DDS Social History [...] Description 05/31/2025 9:15 AM EDT Clinical Support [facility] [address] [place] [address] Lei Hendricks RN [address] [place] [address] documented as of this encounter Visit Diagnoses Not on filedocumented in this encounter Care Teams Biology Faculty Member Relationship Specialty Start Date End Date January Love MD [address] [place] [address] PCP - General Family Medicine 03/28/13 documented as of this encounter
== END 2025-05-16 10:36 | disposition home or self-care (01) ==
LOC: HO.RHES 09:44
PROVIDERS: PCP Family Medicine; Visit Provider Student in an Organized Health Care Education/Training Program
DX: L40.50 Arthropathic psoriasis, unspecified (principal); M1A.09X0 Idiopathic chronic gout, multiple sites, without tophus (tophi); M79.7 Fibromyalgia; K75.81 Nonalcoholic steatohepatitis (NASH); Z51.81 Encounter for therapeutic drug level monitoring; Z79.620 Long term (current) use of immunosuppressive biologic
CPT/HCPCS: 99214

== ENCOUNTER → 2025-05-16 09:44 | Outpatient (BNVA) | payer MEDICAID, SELFPAY | PROVIDERS: PCP Family Medicine; Visit Provider Student in an Organized Health Care Education/Training Program | DX: M1A.09X0 Idiopathic chronic gout, multiple sites, without tophus (tophi) (principal); K75.81 Nonalcoholic steatohepatitis (NASH); M79.7 Fibromyalgia; Z51.81 Encounter for therapeutic drug level monitoring; Z79.620 Long term (current) use of immunosuppressive biologic; L40.50 Arthropathic psoriasis, unspecified | CPT/HCPCS: 99212 ==

== ENCOUNTER 2025-08-18 10:35 | Outpatient (REF) | payer MEDICAID, SELFPAY ==
[2025-08-18 13:19] LABS: MANUAL DIFF FLAG NO
[2025-08-18 13:27] LABS: Hematocrit 39.0 % (42.0-52.0); Hemoglobin 12.5 g/dl (14.0-18.0); Imm Gran Abs Auto 0.02 X10*3/uL (0.00-0.03); Imm Gran Pct Auto 0.3 % (0.0-0.4); Lymphocytes Absolute Auto 2.5 X10*3/uL (1.2-4.9); Mean Corpuscular HGB Conc 32.1 g/dl (31.0-36.0); Mean Corpuscular Hemoglobin 28.5 pg (27.0-33.0); Mean Corpuscular Volume 88.8 fL (80.0-98.0); NRBC Abs Auto 0.000 X10*3/uL (0.0-0.012); NRBC Pct Auto 0.0 /100WBC (0.0-0.2); Platelet Count 237 X10*3/uL (160-400); Red Blood Count 4.39 X10*6/uL (4.60-5.80); White Blood Count 5.8 X10*3/uL (4.8-10.8)
[2025-08-18 13:38] LABS: Alanine Aminotransferase 56 U/L (0-40); Albumin Level 4.6 g/dL (3.5-5.0); Alkaline Phosphatase 100 U/L (39-117); Anion Gap 7 (12-20); Aspartate Amino Transferase 38 U/L (5-37); Blood Urea Nitrogen 19 mg/dL (9-16); Calcium 9.2 mg/dL (8.4-10.2); Carbon Dioxide 32 mmol/L (22-29); Chloride 107 mmol/L (96-108); Estimated Glomerular Filt Rate > 60; Potassium 4.0 mmol/L (3.3-5.1); Sodium 142 mmol/L (135-145); Total Protein 7.6 g/dL (6.5-8.0)
== END 2025-08-18 10:36 | disposition home or self-care (01) ==
LOC: HO.HKASLDS 10:35
PROVIDERS: PCP Family Medicine; Visit Provider Student in an Organized Health Care Education/Training Program
DX: Z51.81 Encounter for therapeutic drug level monitoring (principal); L40.50 Arthropathic psoriasis, unspecified; M1A.09X0 Idiopathic chronic gout, multiple sites, without tophus (tophi); K75.81 Nonalcoholic steatohepatitis (NASH); M79.7 Fibromyalgia; Z79.899 Other long term (current) drug therapy
CPT/HCPCS: 36415; 80053; 85025; 85652; 86140; 99212

== ENCOUNTER 2025-08-18 10:35 | Outpatient (AMB) | payer MEDICAID, SELFPAY ==
--- NOTE | 2025-08-18 10:36 | MHC.OFFVIS ---
Vital Signs 08/18/25 10:42 Height 5 ft 10 in Weight 236 lb BMI 33.9 BP 124/90 H Blood Pressure Location Lt brachial Position Sitting Pulse 72 Pulse Source Pulse Oximeter Pulse Oximetry (%) 97 Oxygen Delivery Method Room Air Intake Visit Reasons: 3months Intake Note: Patient presents for PSA and gout follow up. Patient stated in the last month at times while grabbing objects his hands get stiff and cramps up. Allergies Penicillins (PENICILLINS) Allergy (Intermediate, Verified 08/18/25 10:40) HIVES sulfasalazine Adverse Reaction (Intermediate, Verified 08/18/25 10:40) transaminitis Medication List - Last Reconciled 08/18/25 by Frannie Ford MD acetaminophen ER 650 mg PO Q8H PRN adalimumab (Humira(CF) Pen) 40 mg (0.4 mL) subcut Q2W albuterol sulfate 90 mcg/actuation (ProAir HFA) 2 puffs inhalation Q6H PRN allopurinol 300 mg PO DAILY bisacodyl (Dulcolax (bisacodyl)) 10 mg (2 x 5 mg) PO BEDTIME buprenorphine-naloxone 8-2 mg (Suboxone) 2 film buccal DAILY cetirizine 10 mg PO BEDTIME colchicine 0.6 mg PO BID 90 days cyclobenzaprine 5 mg PO BEDTIME docusate sodium 200 mg (2 x 100 mg) PO BEDTIME epinephrine (EpiPen) 0.03 mL IM DIRECTED famotidine 40 mg PO BEDTIME Held on 08/19/24. Instructions: Doctor's Order fluticasone propionate 50 mcg/actuation (Flonase Allergy Relief) 1 spray intranasal DAILY fluticasone propionate 110 mcg/actuation (Flovent HFA) 1 puff inhalation BID hydroxyzine HCl 25 mg PO Q6H PRN lansoprazole 30 mg PO DAILY 90 days linaclotide (Linzess) 290 mcg PO QAM sbmifd-cgeztnjd-aprpaky (pork) 36,000-114,000- 180,000 unit (Creon) 1 cap PO QID loratadine 10 mg PO DAILY metformin ER 500 mg PO QPM methylcellulose (laxative) (Citrucel) 500 mg PO DAILY 30 days milnacipran (Savella) 50 mg PO BID naproxen 500 mg PO DAILY PRN sucralfate 1 g PO BEDTIME tamsulosin 0.4 mg PO DAILY triamcinolone acetonide 0.1% 1 appl topical BID valacyclovir 1,000 mg PO QAM HPI Comments Details: Patient is a 49-year-old male with anxiety and depression, asthma, nonalcoholic steatohepatitis, GERD, hypertension, diabetes, non crystal proven chronic gout, psoriasis complicated by psoriatic arthritis and fibromyalgia here today for follow up Interval History: Patient last seen 05/16/25 with me - On Enbrel 50mg weekly SC, Allopurinol 300mg daily, Cyclobenzarine 5mg nightly, naproxen 500mg bid - Has been having a rash affecting bilateral lower extremities (pictures seen on phone - appears to be discrete, ?nodular, erythematous lesions) - Also reports having weekly gout flares affecting his feet - Also complains of numbness involving his hands and feet especially when he wakes up in the AM - Concerned about erythema nodosum, sent to derm and added colchicine Today - On Enbrel 50mg weekly SC, Allopurinol 300mg daily, Cyclobenzarine 5mg nightly, naproxen 500mg bid - Did not start colchicine, they did not have any at the pharmacy - States he went to his primary and was given a lotion : which improved the lesions - Complaining of hand cramping when lifting heavy bags Rheumatologic History: This is a 46-year-old male with a past medical history of anxiety, gout, type 2 diabetes mellitus, degenerative disc disease of his lumbar spine s/p multiple procedures by pain management presents for evaluation of low back pain. Patient was previously evaluated by Dr. Du for low back pain. He had MRI of his sacral iliac joints which were negative for sacroiliitis. MRI lumbar spine also showed no signs of spondyloarthropathy. Patient continues to have low back pain, worse in the morning associated with 2 hours of morning stiffness. Pain is also worse with walking improves with sitting down. He states he was diagnosed with gout in 2011. He has pain and swelling of his feet and his hands, he also has intermittent swelling of his ears in lips that he attributes to gout. He has been on allopurinol 300 mg by his PCP. His most recent gout flare was in the summer with swelling of his hands. Denies any history of kidney stones or family history of gout. He states that the last year of high school he had significant psoriasis affecting his legs and his entire body. He was prescribed creams with resolution. Recently he has been having itchy rashes on his ankles, he is being evaluated by an furnace erector. He also showed me pictures of rashes involving his face, neck and ears.? He is following up with furnace erector Dr. Garcia he was prescribed hydroxyzine and another antihistaminic and he states that those are helping.? States that as a child he spent a lot of time at the hospital for arthritis dx 09/2022 SSZ 12/18 partially effective DC 02/17 due to transaminitis Enbrel 02/17 effective Current Rheumatology Medication(s): Enbrel 50mg SC every week Allopurinol 300mg daily Cyclobenzaprine 5mg nightly Naproxen 500mg bid [facility] Medical History Fibromyalgia H/O head injury Migraines Scoliosis Anxiety and depression Asthma Chest pain, atypical COVID-19 vaccine series completed Osteoarthritis of left knee Chronic pain syndrome Spondylosis of lumbar region without myelopathy or radiculopathy Osteoarthritis of left knee Sleep apnea Varicose vein of leg Diabetes Gastroparesis Surgical History History of back surgery History of colonoscopy Family History Father No problems noted. Mother History of cancer Social History Household Members: Spouse and Children Housing: House Are you a primary wound care nurse to a significant other at home: No Do you presently have visiting nurse or other home services: No Alcohol intake: former Patient Tobacco Use Status: Former Tobacco user Tobacco use type: Cigarette Cigarettes Per Day: 45 Years Smoked: 10 service: No Current occupational status: unemployed Review of Systems Narrative Review of Systems Constitutional: Denies fever, chills, weight loss ENT: Denies vision changes, eye pain or eye redness, dental caries, dry mouth GI: Denies nausea, vomiting, diarrhea, abdominal pain, change in BM Pulm: Denies SOB, ELENA, hemoptysis, wheezing Cards: Denies chest pain, palpitations Skin: Denies Raynaud's, rash, nail changes, photosensitivity, JEWELER APPRENTICE: Denies headaches, weakness, paresthesias, recurrent falls MSK: as per HPI All other systems reviewed and are unremarkable except noted above Physical Exam Exam Exam: Vital signs reviewed Physical Examination CONSTITUITIONAL Patient alert and cooperative. Well appearing and in no apparent painful distress HEENT Conjunctiva and sclera clear. No lymphadenopathy. MSK Hands Right Hand: Able to make a fist. No swelling or tenderness to palpation of these joints. Left Hand: Able to make a fist. No swelling or tenderness to palpation of these joints. Herbedens nodes noted bilaterally Wrists Right Wrist: Full ROM. 70 degrees of wrist flexion, 80 degrees of wrist extension. No swelling or TTP Left Wrist: Full ROM. 70 degrees of wrist flexion, 80 degrees of wrist extension. No swelling or TTP Elbows Right Elbow: Full ROM. No swelling or TTP. No TTP of the medial and lateral epicondyles Left Elbow: Full ROM. No swelling or TTP. No TTP of the medial and lateral epicondyles Shoulders Right shoulder: Full ROM. No swelling noted. No TTP of the AC joint, subacromial bursa Left shoulder: Full ROM. No swelling noted. No TTP of the AC joint, subacromial bursa Knees Right knee: Full ROM. No swelling noted. No TTP of the knee joint lie or pes anserine bursa Left knee: Full ROM. No swelling noted. No TTP of the knee joint lie or pes anserine bursa. Ankles Right ankle: Good ankle dorsiflexion and plantar flexion. No swelling. No TTP of the ankle joint Left ankle: Good ankle dorsiflexion and plantar flexion. No swelling. No TTP of the ankle joint Feet Right foot: Negative squeeze test Left foot: Negative squeeze test Tender points? No tenderness to palpation of the bilateral trapezius, supraspinatus, anterior costochondral junctions, bilateral suboccipital muscle insertions SKIN Post inflammatory rash noted on the legs Vital Signs: Last Vital Signs Pulse 72 08/18/25 10:42 BP 124/90 H 08/18/25 10:42 Pulse Ox 97 08/18/25 10:42 Oxygen Delivery Method Room Air 08/18/25 10:42 BMI result Body Mass Index 33.9 Results Reviewed Results Reviewed: Laboratory Tests 07/23/22 12/16/22 05/12/25 13:10 12:54 16:48 WBC 4.5 L RBC 4.44 L Hgb 12.6 L Hct 39.1 L Plt Count 236 ESR 25 H Sodium 142 Potassium 3.8 Chloride 106 Carbon Dioxide 27 BUN 18 H Creatinine 0.68 Uric Acid 3.3 L GGT 24 AST 36 ALT 53 H Rheumatoid Factor < 13.0 Cycl Citrul Peptide IgG <16 Proteinase 3 (PR3) Ab <1.0 Myeloperoxidase Ab <1.0 HLA-B27 Negative Laboratory Tests 05/12/25 16:48 Hepatitis A IgM Ab Nonreactive Hep Bs Antigen Negative Hep Bs Antibody REACTIVE Hep B Core Total Ab Nonreactive Hepatitis C Ab (EIA) Nonreactive TB Test (T-Spot) Com Negative Assessment & Plan Assessment & Plan (1) Psoriatic arthritis: Comment: dx 09/2022 SSZ 12/18 partially effective DC 02/17 due to transaminitis Enbrel 02/17 effective Code(s): L40.50 - Arthropathic psoriasis, unspecified Category: Medical Plan: #PsA Patient is a 49-year-old male with psoriatic arthritis here today for follow up. Complaining of polyarticular joint pain today Has some mild tenderness to palpation of several joints but no obvious swelling Let's try to see if changing Humira will be helpful Patient having intermittent discrete rashes vs nodules on his legs concerning for EN. This resolved after application of likley topical steroids. Will continue to monitor. Plan - Stop Enbrel - Start Humira 40mg SC every 2 weeks - Continue naproxen 500mg 1-2 times per day - Labs today: CBC, CMP, ESR, CRP - RTC 3 months - Labs before visit: CBC, CMP, ESR, CRP (2) Gout: Code(s): M10.9 - Gout, unspecified Category: Medical Qualifiers: Gout site: multiple sites Gout etiology: unspecified cause Chronicity: chronic Qualified Code(s): M1A.09X0 - Idiopathic chronic gout, multiple sites, without tophus (tophi) Plan: #Gout Patient with non crystal proven gout on allopurinol. Reports that he has been having weekly gout flares UA is 3.3, unsure if this is truly a gout flare Plan - Continue allopurinol 300mg daily - UA goal <6 (3) Fibromyalgia: Code(s): M79.7 - Fibromyalgia Category: Medical Plan: #Fibromyalgia Patient with fibromyalgia. Did not tolerate gabapentin or duloxetine Continue savella (4) MONTES DE OCA (nonalcoholic steatohepatitis): Code(s): K75.81 - Nonalcoholic steatohepatitis (MONTES DE OCA) Category: Medical Plan: #MONTES DE OCA Hx of MONTES DE OCA based on US done in 2021. Continues to have transaminitis. Improved US without any evidence of advanced liver disease (5) Encounter for monitoring of etanercept therapy: Code(s): Z51.81 - Encounter for therapeutic drug level monitoring; Z79.620 - vermin exterminator (current) use of immunosuppressive biologic Plan: #Long-term Use of TNF Inhibitors: Humira Discussed with the patient the benefits and risks of TNF inhibitors for the management of the rheumatic condition Benefits include reduce pain, maintenance of remission and reduction of flares as well as ?progression of the disease Risks include injection sites/infusion reactions, serious infections (such as bacterial infections, opportunistic infections), malignancy, delaminating syndromes, autoimmune phenomena, CHF exacerbations, palmar plantar psoriasis and cytopenias Recommended rotating injection sites, and holding medication during and for up to 1 week after resolution of a febrile illness or open skin wound Plan I spent 36 minutes reviewing the record and labs, taking a history, examining the patient, discussing the treatment plan, ordering diagnostic work up and documenting in the medical record Orders: Orders Complete Blood Count Auto Diff Today Z79.899 - Other middle or intermediate school principal (current) drug therapy Comprehensive Met. Panel Today Z79.899 - Other retirement (current) drug therapy Complete Blood Count Auto Diff 4 Months Z79.899 - Other retirement (current) drug therapy Comprehensive Met. Panel 4 Months Z79.899 - Other retirement (current) drug therapy C Reactive Protein 4 Months Z79.899 - Other middle or intermediate school principal (current) drug therapy Erythrocyte Sedimentation Rate 4 Months Z79.899 - Other retirement (current) drug therapy C Reactive Protein Today Z79.899 - Other middle or intermediate school principal (current) drug therapy Erythrocyte Sedimentation Rate Today Z79.899 - Other middle or intermediate school principal (current) drug therapy Medications: New adalimumab (Humira(CF) Pen) 40 mg (0.4 mL) subcut Q2W 2 ea 5RF L40.50 - Arthropathic psoriasis, unspecified Discontinued etanercept (Enbrel SureClick) Discontinued Reason: Doctor's Order 50 mg subcut QWEEK 4 mL 4RF L40.50 - Arthropathic psoriasis, unspecified Coding Level of Care Code Est Pt Level 4 (81887) Complex visit Add On G2211 Diagnoses Psoriatic arthritis L40.50 Chronic gout of multiple sites, unspecified cause M1A.09X0 Gout site: multiple sites Gout etiology: unspecified cause Chronicity: chronic Fibromyalgia M79.7 MONTES DE OCA (nonalcoholic steatohepatitis) K75.81 Encounter for monitoring of etanercept therapy Z51.81; Z79.620
[2025-08-18 10:42] VITALS: BP 124/90; PULSE 72; O2SAT 97; BMI 33.9
--- OUTSIDE RECORDS SUMMARY | 2025-08-18 11:19 | XMS_ITS | Encounter Summary ---
Author Organization [employer] Address [address] [facility] [address] [place] [address] Care Team Providers Care Supervisor Pre Wave Name Role Phone January Love MD Primary Care Provider [phone] Encounter Details Date Type Department Care Team ([facility] st Contact Info) Description 07/20/2025 Orders Only [facility] [address] [place] [address] Provider, MD Claudia Social History Tobacco Use Types Packs/Day Years Used Date Smoking Tobacco: Former Cigarettes Smokeless Tobacco: Never Alcohol Use Standard Drinks/Week Comments Not Currently 0 (1 standard drink = 0.6 oz pur e alcohol) Depression Answer Date Recorded Patient Health Questionnaire-9 Score 0 07/03/2025 Patient Health Questionnaire-9 Score 0 07/03/2025 Last PHQ-9: Questionnaire Data Not on file 1 Housing Stability Answer Date Recorded What is your housing situation today? I have simone beckwith 03/07/[address] you li ve. Do you have problems with any of the following? None of the above 03/07/2025 Food Insecurity Answer Date Recorded Within the past 12 months, y ou worried that your food would run out before you got money to buy more: Never True 03/07/2025 Within the past 12 months,th e food you bought just didn't last and you didn't have enough money to get more: Never True 06/2025 Transportation Answer Date Recorded In the past 12 months, has l ack of transportation kept you from medical appts, meetings, work or from getting things needed for daily living? No 03/07/2025 Utilities Answer Date Recorded In the past 12 months, has t he electric, gas, oil or water company threatened to shut off services in your home? No 03/07/2025 Depression Answer Date Recorded Patient Health Questionnaire-2 Score 0 07/03/2025 Internet Access Answer Date Recorded Internet Access [...] Care Team (Late st Contact Info) Description 08/23/2025 9:15 AM EST Clinical Support [address] [address] Nora Ayala RN 10/18/2025 9:15 AM EST Clinical Support [address] [address] Lei Hendricks, RN [address] [place] [phone] documented as of this encounter Goals Goal Patient Goal Type Associated Problems Recent Progress Patient-Stated? Author Increase coping skills to promote long-term recovery and improve ability to perform daily activities General On track( 025 9:40 AM EDT) No Lei Hendricks, RN documented as of this encounter Procedures Procedure Name Priority Date/Time Associated Diagnosis Comments DIABETES EYE EXAM Routine 07/18/2025 2:58 PM EDT documented in this encounter Results * Diabetes Eye Exam (07/18/2025 2:58 PM EDT) us Historical Provider HEALTH MAINTENANCE Final Result documented in this encounter Visit Diagnoses Not on filedocumented in this encounter Additional Health Concerns Assessment Noted Time PHQ-9 Depression Total Score: 0 07/03/20 25 3:55 PM EDT documented as of this encounter Care Teams Supervisor Pre Wave Relationship Specialty Start Date End Date January Love MD [address] [place] [id number] PCP - General Family Medicine 03/28/13 documented as of this encounter
--- OUTSIDE RECORDS SUMMARY | 2025-08-18 11:19 | XMS_ITS | Encounter Summary ---
Author Organization [facility] Address [address] [place] [address] 7 [place] [address] Care Team Providers Care Upholstery Mechanic Name Role Phone January Love MD Primary Care Provider [phone] Encounter Details Date Type Department Care Team (Latest Contact Info) Description 01/28/2021 Abstract [facility] CONVERSIONS Dental, Provider, DDS Social History Tobacco [...] Description 08/23/2025 9:15 AM EST Clinical Support [facility] MEDICINE [address] [place] [phone] Nora Ayala, HELIO 10/18/2025 9:15 AM EST Clinical Support [facility] MEDICINE [address] [place] [phone] Lei Hendricks, RN [address] [place] [phone] documented as of this encounter Visit Diagnoses Not on filedocumented in this encounter Care Teams Upholstery Mechanic Relationship Specialty Start Date End Date January Love MD [address] [place] [phone] PCP - General Family Medicine 03/28/13 documented as of this encounter
--- OUTSIDE RECORDS SUMMARY | 2025-08-18 11:19 | XMS_ITS | Encounter Summary ---
Author Organization [facility] Address [address] [place] [address] 7 [place] [address] Care Team Providers Care After School Counselor Name Role Phone January Love MD Primary Care Provider [phone] Encounter Details Date Type Department Care Team (Latest Contact Info) Description 05/02/2019 Abstract [facility] CONVERSIONS Dental, Provider, DDS Social History [...] Description 08/23/2025 9:15 AM EST Clinical Support [facility]ICINE [address] [place] [id number] Nora Ayala, HELIO 10/18/2025 9:15 AM EST Clinical Support [facility] [address] [place] [phone] Lei Hendricks, RN [address] [place] [phone] documented as of this encounter Visit Diagnoses Not on filedocumented in this encounter Care Teams After School Counselor Relationship Specialty Start Date End Date January Love MD [address] [place] [phone] PCP - General Family Medicine 03/28/13 documented as of this encounter
--- OUTSIDE RECORDS SUMMARY | 2025-08-18 11:20 | XMS_ITS | Encounter Summary ---
Author Organization [employer] Address [address] [facility] [address] [place] [address] Care Team Providers Care Brake [address] Freight Name Role Phone January Love MD Primary Care Provider [phone] Encounter Details Date Type Department Care Team (Late st Contact Info) Description 12/14/2024 Abstract [facility] MEDICINE [address] [place], [place] [phone] January Love MD [address] [place], [place] [phone] Social History Tobacco Use Types Packs/Day Years [...] Description 08/23/2025 9:15 AM EST Clinical Support [address] [address] Nora Ayala RN 10/18/2025 9:15 AM EST Clinical Support [address] [address] Lei Hendricks, RN [address] [place] [phone] documented as of this encounter Goals Goal Patient Goal Type Associated Problems Recent Progress Patient-Stated? Author Increase coping skills to promote long-term recovery and improve ability to perform daily activities General On track( 025 9:40 AM EDT) No Lei Hendricks, HELIO documented as of this encounter Procedures Procedure Name Priority Date/Time Associated Diagnosis Comments COLONOSCOPY Routine 06/11/2023 documented in this encounter Results * Colonoscopy (06/11/2023) Colonoscopy Normal Normal Narrative Donna Lewis - 06/11/2023 Recommended 5 year follow up see external hospital admission note on 06/11/2023 Historical Provider HEALTH MAINTENANCE Final Result documented in this encounter Visit Diagnoses Not on filedocumented in this encounter Additional Health Concerns Assessment Noted Time PHQ-9 Depression Total Score: 10 025 10:56 AM EDT documented as of this encounter Care Teams [address] Freight Relationship Specialty Start Date End Date aJnuary Love MD [address] [place] [phone] PCP - General Family Medicine 03/28/13 documented as of this encounter
--- OUTSIDE RECORDS SUMMARY | 2025-08-18 11:20 | XMS_ITS | Encounter Summary ---
Author Organization [facility] Address [address] [place] [address] 7 [place] [address] Care Team Providers Care Environmental Compliance Officer Name Role Phone January Love MD Primary Care Provider [phone] Encounter Details Date Type Department Care Team (Late st Contact Info) Description 09/16/2022 Orders Only [facility] [address] [place] [phone] Bev Snow LPN Social History Tobacco Use [...] Description 08/23/2025 9:15 AM EST Clinical Support [facility] [address] [place] [phone] Nora Ayala, HELIO 10/18/2025 9:15 AM EST Clinical Support [address] [address] Lei Hendricks, RN [address] [place] [phone] documented as of this encounter Procedures Procedure [...] FACTOR Routine 12/16/2022 12: 54 PM EDT [id number] G ENZYME Routine 12/16/2022 12:54 PM EDT [...] 3 PM EDT 06/11/2023 1:14 PM EDT [facility]S - 06/12/2023 2:30 PM EDT ----- ------- Name: Franci Plata Age/Sex: 47/M : 1975 Unit#: [id number] Attend Dr: Saurabh Riggs MD Re06/11/23 Status: [facility] Location: [facility] Disch: ----- ------- SPEC : [id number] RECD: 06/11/23 STATUS: MICHAEL OSUNA NUM: [id number] ELIAS: 06/11/23-[address] [facility] [address]: Saurabh Riggs MD ENTERED: 06/11/23 SP TYPE: Surgical OTHR DR: January Love MD ORDERED: HE Stain/5, Gross Micro L4/5, IHC, H. pylori Diagnosis A. Duodenum, biopsy: Duodenal mucosa within normal limits; preserved villous architecture and no increased intraepithelial lymphocytes seen. B. Stomach, biopsy: Gastric antral mucosa with mild chronic inactive gastritis and features of reactive gastropathy; gastric body mucosa within normal limits; negative for Helicobacter pylori, intestinal metaplasia and dysplasia. C. Gastroesophageal junction, biopsy: Gastric cardia-type mucosa with mild chronic inflammation; no squamous mucosa seen; negative for intestinal metaplasia and dysplasia. D. Esophagus, distal, biopsy: Squamous mucosa within normal limits; detached small fragment of glandular mucosa with goblet cells; negative for inflammation (including intraepithelial eosinophils), fungal organisms, intestinal metaplasia and dysplasia. E. Esophagus, proximal, biopsy: Squamous mucosa within normal limits; negative for inflammation (including intraepithelial eosinophils), fungal organisms, intestinal metaplasia and dysplasia. Clinical History Pre-Op Dx: GERD, Colon cancer screening Post-Op Dx: Grade 2 internal hemorrhoids, lax LES, gastritis Microscopic Description Microscopic sections reviewed. Material Received A. Duodenum bx's B. Stomach bx's C. GE junction bx's D. Distal esophagus bx's E. Proximal esophagus bx's Gross Description Received in 5 parts. Part A: Received in formalin labeled duodenum bx's are 2 glistening, semitranslucent, soft, hyperemic and congested, roldan-pink irregular tissue fragments measuring 0.2 and 0.35 cm in greatest dimension which are submitted in toto in a single cassette labeled A. CONTINUED ON NEXT PAGE ----- ------- Name: Franci Plata Age/Sex: 47/M : 1975 [id number] Unit#: [id number] Attend Dr: Saurabh Riggs MD Re06/11/23 Status: [facility] Location: [facility] Disch: ----- ------- SPEC : [id number] RECD: 06/11/23-1314 STATUS: MICHAEL OSUNA NUM: [id number] ELIAS: 06/11/23-[address] [facility] [address]: Saurabh Riggs MD ENTERED: 06/11/23-1322 SP TYPE: Surgical OTHR DR: January Love MD ORDERED: HE Stain/5, Gross Micro L4/5, IHC, H. pylori Gross Description (Continued) Part B: Received in formalin labeled stomach bx's are 3 glistening, semitranslucent, soft, roldan-pink irregular tissue fragments ranging from less than 0.1-0.3 cm in greatest dimension which are submitted in toto in a single cassette labeled B. Part C: Received in formalin labeled GE junction bx's are 2 glistening, semitranslucent, soft, roldan-pink irregular tissue fragments measuring 0.15 and 0.25 cm in greatest dimension which are submitted in toto in a single cassette labeled C. Part D: Received in formalin labeled distal esophagus bx's are 3 glistening, semitranslucent, torres-white irregular tissue fragments ranging from 0.25-0.3 cm in greatest dimension which are submitted in toto in a single cassette labeled D. Part E: Received in formalin labeled proximal esophagus bx's are 3 glistening, semitranslucent, torres-white irregular tissue fragments ranging from 0.1-0.3 cm in greatest dimension which are submitted in toto in a single cassette labeled E. CEDS Special stains ordered and performed: Immunostain for Helicobacter pylori on B. Copies To: Saurabh Riggs MD [address] [place] [address] [place] [address] January Love MD [address] [place] [address] ----- ------- Signed (signature on file) Yahaira Downey MD 06/12/23 1510 ----- ------- END OF REPORT [facility] External Provider LAB BLO OD ORDERABLES Final Result [facility] [address] [place] [phone] * Glucose, Whole Blood (06/11/2023 10:00 AM EDT) Glucose, Whole Blood 110 60 - 115 mg/dL [facility] Comment:METER #: [id number] 06/11/2023 10:0 0 AM EDT 06/11/2023 10:05 AM EDT [facility] External Provider LAB BLO OD ORDERABLES Final Result Performing Organization Address [facility] Co de Phone Number [facility] [address] [place] [address] [phone] * (ABNORMAL) Sed Rate by Modified Justoren (05/12/2023 3:43 PM EDT) Pathologist [facility] Erythrocyte Sedimentation Rate 16(H) 0 - 15 MM/HR [facility] Comment:Patients with polycy themia and many hemoglobin abnormalitiesmay have depressed sed rates whereas patients with anemiamay have elevated sed rates. 05/12/2023 3:43 PM EDT 05/12/2023 3:43 PM EDT [facility] External Provider LAB BLO OD ORDERABLES Final Result Performing Organization Address [facility] [[email or web address]] de Phone Number [facility] [address] [place] [address] [phone] * (ABNORMAL) C-reactive Protein (05/12/2023 3:43 PM EDT) [facility] C Reactive Protein 1.29(H) < or = 0.50 mg/dL [facility] 05/12/2023 3:43 PM EDT 05/12/2023 3:43 PM EDT [facility] External Data Provider LAB BLOOD ORDERAB LES Final Result Performing Organization Address [facility] Co de Phone Number [facility] [address] [place] [address] [phone] * (ABNORMAL) Comprehensive Metabolic Panel (05/12/2023 3:43 PM EDT) [facility] Sodium 141 135 - 145 mmol/L [facility] Potassium 4.1 3.3 - 5.1 mmol/L [facility] Chloride 106 96 - 108 mmol/L [facility] Carbon Dioxide 29 22 - 29 mmol/L [facility] Anion Gap 10(L) 12 - 20 [facility] Urea Nitrogen (BUN) 17(H) 9 - 16 mg/dL [facility] Creatinine, Serum 0.78 0.5 - 1.4 mg/dL [facility] Estimated Glomerular Filt Rate >60 [facility] Comment:NOTE: For -Am erican individuals, multiply the result by 1.210.Chronic Kidney Disease: Estimated GFR < 60 mL/min/1.66a1Hezglc Kidney Disease: Estimated GFR < 15 mL/min/1.73m2 Glucose 93 60 - 115 mg/dL [facility] Calcium 9.4 8.4 - 10.2 mg/dL [facility] Bilirubin, Total 0.5 0.0 - 1.0 mg/dL [facility] Aspartate Amino Transferase 31 5 - 37 U/L [facility] Alanine Aminotransferase 51(H) 0 - 40 U/L [facility] Total Protein 7.6 6.5 - 8.0 g/dL [facility] Albumin Level 4.3 3.5 - 5.0 g/dL [facility] Alkaline Phosphatase 96 39 - 117 U/L [facility] 05/12/2023 3:43 PM EDT 05/12/2023 3:43 PM EDT [facility] External Provider LAB BLO OD ORDERABLES Final Result [facility] [address] [place] [phone] * (ABNORMAL) CBC auto differential (05/12/2023 3:43 PM EDT) White Blood Count 5.7 4.8 - 10.8 X10*3/uL [facility] Red Blood Count 4.38(L) 4.60 - 5.80 X10*6/uL [facility] Hemoglobin 12.5(L) 14.0 - 18.0 g/dl [facility] Hematocrit 38.8(L) 42.0 - 52.0 % [facility] Mean Corpuscular Volume 88.6 80.0 - 98.0 fL [facility] Mean Corpuscular Hemoglobin 28.5 27.0 - 33.0 pg [facility] Mean Corpuscular HGB Conc 32.2 31.0 - 36.0 g/dl [facility] Red Cell Distribution Width 12.2 11.0 - 16.0 % [facility] Platelet Count 274 160 - 400 X10*3/uL [facility] Mean Platelet Volume 11.0 9.4 - 12.4 fL [facility] Neutrophils Percent Auto 47.0 45 - 73 % [facility] Imm Gran Pct Auto 0.2 0.0 - 0.4 % [facility] Lymphocytes Percent Auto 38.9 20 - 40 % [facility] Monocytes Percent Auto 9.3 2 - 11 % [facility] Eosinophils Percent Auto 3.7 0 - 4 % [facility] Basophils Percent Auto 0.9 0 - 2 % [facility] NRBC Pct Auto 0.0 0.0 - 0.2 /100WBC [facility] Neutrophils Absolute Auto 2.7 2.0 - 8.3 x10*3/uL [facility] Imm Gran Abs Auto 0.01 0.00 - 0.03 X10*3/uL [facility] Lymphocytes Absolute Auto 2.2 1.2 - 4.9 X10*3/uL [facility] Monocytes Absolute Auto 0.5 0.1 - 1.2 X10*3/uL [facility] Eosinophils Absolute Auto 0.2 0.0 - 0.4 X10*3/uL [facility] Basophils Absolute Auto 0.1 0.0 - 0.2 X10*3/uL [facility] NRBC Abs Auto 0.000 0.0 - 0.012 X10*3/uL [facility] 05/12/2023 3:43 PM EDT 05/12/2023 3:43 PM EDT [facility] External Provider LAB BLO OD ORDERABLES Final Result [facility] [address] [place] [address] [phone] * (ABNORMAL) C-reactive Protein (02/10/2023 2:25 PM EDT) C Reactive Protein 0.95(H) < or = 0.50 mg/dL [facility] 02/10/2023 2:25 PM EDT 02/10/2023 2:25 PM EDT [facility] External Provider LAB BLO OD ORDERABLES Final Result [facility] [address] [place] [address] [phone] * (ABNORMAL) Comprehensive Metabolic Panel (02/10/2023 2:25 PM EDT) Pathologist [facility] Sodium 140 135 - 145 mmol/L [facility] Potassium 4.2 3.3 - 5.1 mmol/L [facility] Chloride 105 96 - 108 mmol/L [facility] Carbon Dioxide 28 22 - 29 mmol/L [facility] Anion Gap 11(L) 12 - 20 [facility] Urea Nitrogen (BUN) 13 9 - 16 mg/dL [facility] Creatinine, Serum 0.74 0.5 - 1.4 mg/dL [facility] Estimated Glomerular Filt Rate >60 [facility] Comment:NOTE: For -Am erican individuals, multiply the result by 1.210.Chronic Kidney Disease: Estimated GFR < 60 mL/min/1.69e5Ylcxws Kidney Disease: Estimated GFR < 15 mL/min/1.73m2 Glucose 124(H) 60 - 115 mg/dL [facility] Calcium 9.5 8.4 - 10.2 mg/dL [facility] Bilirubin, Total 0.5 0.0 - 1.0 mg/dL [facility] Aspartate Amino Transferase 42(H) 5 - 37 U/L [facility] Alanine Aminotransferase 72(H) 0 - 40 U/L [facility] Total Protein 7.1 6.5 - 8.0 g/dL [facility] Albumin Level 4.4 3.5 - 5.0 g/dL [facility] Alkaline Phosphatase 101 39 - 117 U/L [facility] 02/10/2023 2:25 PM EDT 02/10/2023 2:25 PM EDT [facility] External Provider LAB BLO OD ORDERABLES Final Result Performing Organization Address [facility] Co de Phone Number [facility] [address] [place] [address] [phone] * (ABNORMAL) Sed Rate by Modified Rodergren (02/10/2023 2:25 PM EDT) Pathologist [facility] Erythrocyte Sedimentation Rate 21(H) 0 - 15 MM/HR [facility] Comment:Patients with polycy themia and many hemoglobin abnormalitiesmay have depressed sed rates whereas patients with anemiamay have elevated sed rates. 02/10/2023 2:25 PM EDT 02/10/2023 2:25 PM EDT [facility] External Provider LAB BLO OD ORDERABLES Final Result Performing Organization Address [facility] Co de Phone Number [facility] [address] [place] [address] [phone] * (ABNORMAL) CBC auto differential (02/10/2023 2:25 PM EDT) Pathologist [facility] White Blood Count 5.3 4.8 - 10.8 X10*3/uL [facility] Red Blood Count 4.23(L) 4.60 - 5.80 X10*6/uL [facility] Hemoglobin 12.3(L) 14.0 - 18.0 g/dl [facility] Hematocrit 37.9(L) 42.0 - 52.0 % [facility] Mean Corpuscular Volume 89.6 80.0 - 98.0 fL [facility] Mean Corpuscular Hemoglobin 29.1 27.0 - 33.0 pg [facility] Mean Corpuscular HGB Conc 32.5 31.0 - 36.0 g/dl [facility] Red Cell Distribution Width 13.5 11.0 - 16.0 % [facility] Platelet Count 273 160 - 400 X10*3/uL [facility] Mean Platelet Volume 10.7 9.4 - 12.4 fL [facility] Neutrophils Percent Auto 54.9 45 - 73 % [facility] Imm Gran Pct Auto 0.2 0.0 - 0.4 % [facility] Lymphocytes Percent Auto 33.1 20 - 40 % [facility] Monocytes Percent Auto 8.3 2 - 11 % [facility] Eosinophils Percent Auto 2.6 0 - 4 % [facility] Basophils Percent Auto 0.9 0 - 2 % [facility] NRBC Pct Auto 0.0 0.0 - 0.2 /100WBC [facility] Neutrophils Absolute Auto 2.9 2.0 - 8.3 x10*3/uL [facility] Imm Gran Abs Auto 0.01 0.00 - 0.03 X10*3/uL [facility] Lymphocytes Absolute Auto 1.8 1.2 - 4.9 X10*3/uL [facility] Monocytes Absolute Auto 0.4 0.1 - 1.2 X10*3/uL [facility] Eosinophils Absolute Auto 0.1 0.0 - 0.4 X10*3/uL [facility] Basophils Absolute Auto 0.1 0.0 - 0.2 X10*3/uL [facility] NRBC Abs Auto 0.000 0.0 - 0.012 X10*3/uL [facility] 02/10/2023 2:25 PM EDT 02/10/2023 2:25 PM EDT us [facility] External Provider LAB BLO OD ORDERABLES Final Result [facility] [address] [place] [address] [phone] * Angiotensin -1- Converting Enzyme (12/16/2022 12:54 PM EDT) Angiotensin Converting Enzyme 48 9 - 67 U/L [facility] Comment:THIS TEST WAS PERFOR MED AT:[employer]/[facility] [place] [address]PHRHMYGKATRIN PETE MD,PHD 12/16/2022 12:5 4 PM EDT 12/16/2022 12:54 PM EDT [facility] External Provider LAB BLO OD ORDERABLES Final Result Performing Organization Address [facility] Co de Phone Number [facility] [address] [place] [phone] * Immunofixation, Serum (12/16/2022 12:54 PM EDT) Pathologist [facility] IMMUNOGLOBULIN G 1112 600 - 1640 mg/dL [facility] IMMUNOGLOBULIN A 298 47 - 310 mg/dL [facility] Immunoglobulin M 67 50 - 300 mg/dL [facility] Comment:THIS TEST WAS PERFOR MED AT:[employer] [address] [id number] ZIMMERMAN MD Immunofixation Result [facility] Comment:No monoclonal protei ns detected. 12/16/2022 12:5 4 PM EDT 12/16/2022 12:54 PM EDT [facility] External Provider LAB BLO OD ORDERABLES Final Result Performing Organization Address [facility] Co de Phone Number [facility] [address] [place] [phone] * Cyclic Citrullinated Peptide (CCP) Antibody (IgG) (12/16/2022 12:54 PM EDT) Pathologist [facility] Cyclic Citrullinated Peptide <16 UNITS [facility] Comment:Reference RangeNegat hema: <20Weak Positive: 20-39Moderate Positive: 40-59Strong Positive: >59THIS TEST WAS PERFORMED AT:[employer] [place] [phone] ZIMMERMAN MD 12/16/2022 12:5 4 PM EDT 12/16/2022 12:54 PM EDT [facility] External Provider LAB BLO OD ORDERABLES Final Result [facility] [address] [place] [phone] * Protein Electrophoresis and Murray/Lambda Light Chains (12/16/2022 12:54 PM EDT) Prot Elec - Total Protein 7.1 6.1 - 8.1 g/dL [facility] Prot Elec - Albumin 4.1 3.8 - 4.8 g/dL [facility] Prot Elec - Alpha1 0.2 0.2 - 0.3 g/dL [facility] Prot Elec - Alpha2 0.8 0.5 - 0.9 g/dL [facility] Prot Elec - Beta 1 0.4 0.4 - 0.6 g/dL [facility] Prot Elec - Beta 2 0.5 0.2 - 0.5 g/dL [facility] Prot Elec - Gamma 1.1 0.8 - 1.7 g/dL [facility] PES - Abn Protein Band 1 TNP [facility] PES-[facility]n Protein Band 2 [facility] PES-Abn Protein Band 3 [facility] Prot Elec - Interpretation SEE NOTE [facility] Comment:Normal Electrophoret ic PatternTHIS TEST WAS PERFORMED AT:[employer] [place] [id number] ZIMMERMAN MD 12/16/2022 12:5 4 PM EDT 12/16/2022 12:54 PM EDT [facility] External Provider LAB BLO OD ORDERABLES Final Result Performing Organization Address City/[facility]/ZIP Co de Phone Number [facility] [address] [place] [address] [phone] * T-SPOT??.TB (12/16/2022 12:54 PM EDT) Pathologist [facility] T Spot TB Negative Negative [facility] Comment:A negative test resu lt [...] as aquantitative test. TS PANEL A 0 [facility] TS PANEL B 0 [facility] Negative Control Passed [facility] Positive Control Passed [facility] Comment:For additional infor jim, please refer [email or web address](This link is being provided for informational/educational purposes only.)THIS TEST WAS PERFORMED AT:[employer] [id number] [place] [address]YPBGWWPKATRIN PETE MD,PHD 12/16/2022 12:5 4 PM EDT 12/16/2022 12:54 PM EDT [facility] External Provider LAB BLO OD ORDERABLES Final Result Performing Organization Address City/[facility]/ZIP Co de Phone Number [facility] [address] [place] [address] [phone] * ANCA Vasculitides (12/16/2022 12:54 PM EDT) Myeloperoxidase Antibody <1.0 [facility] Comment:Value Interpretation ----- <1.0 No Antibody Detected > or = 1.0 Antibody DetectedAutoantibodies to myeloperoxidase (MPO) are commonlyassociated with the following small-vesselvasculitides: microscopic polyangiitis,polyarteritis nodosa, Churg-Elena syndrome,necrotizing and crescentic glomerulonephritis andoccasionally granulomatosis with polyangiitis(GPA, Bartolo's). The perinuclear IFA pattern,(p-ANCA) is based largely on autoantibody tomyeloperoxidase which serves as the primary antigen.These autoantibodies are present in active disease. Proteinase-3 Antibody <1.0 [facility] Comment:Value Interpretation ----- <1.0 No Antibody Detected > or = 1.0 Antibody DetectedAutoantibodies to proteinase-3 (NY-3) are accepted ascharacteristic for granulomatosis with polyangiitis(GPA, Bartolo's), and are detectable in 95% of thehistologically proven cases. The cytoplasmic IFApattern, (c-ANCA), is based largely on autoantibody toPR-3 which serves as the primary antigen.These autoantibodies are present in active disease.THIS TEST WAS PERFORMED AT:[employer] [place] [id number] ZIMMERMAN MD 12/16/2022 12:5 4 PM EDT 12/16/2022 12:54 PM EDT [facility] External Provider LAB BLO OD ORDERABLES Final Result [facility] [address] [place] [phone] * Hepatitis Panel, General (12/16/2022 12:54 PM EDT) Hepatitis A IgM Nonreactive Nonreactive [facility] Comment:IgM antibodies to WALKER V not detected; does not exclude earlyacute or recovered HAV infection. ~Hepatitis B Surface Antibody REACTIVE Nonreactive [facility] Comment:REACTIVE: > 11.99 mI U/mL Hepatitis B Core Antibody Nonreactive Nonreactive [facility] Hepatitis C Antibody Nonreactive Nonreactive [facility] Comment:Antibodies to HCV no t detected; does not exclude early acuteHCV infection. Hepatitis B Surface Ag Negative Negative [facility] 12/16/2022 12:5 4 PM EDT 12/16/2022 12:54 PM EDT [facility] External Provider LAB BLO OD ORDERABLES Final Result Performing Organization Address [facility] Co de Phone Number [facility] [address] [place] [phone] * Hemoglobin A1c (12/16/2022 12:54 PM EDT) Hemoglobin A1c 6.5 % [facility] Comment:Hemoglobin A1C Refer ence Range Adults: 4.8 - 6.0 % Non diabetic: < 6.0 % Goal: < 7.0 %Additional Action Suggested: > 8.0 %Note: Hemoglobin A1c results are invalid for patients with abnormal amounts of HbF. Blood transfusions may impact the HbA1c concentration in the patient sample. Estimated Average Glucose 140 mg/dL [facility] Comment:eAG = Estimated ave rage glucose which is %A1C expressed asaverage glucose, using the formula of the [id number]-[id number] Glucose study (ADAG), Diabetes Care, Vol.31,#8,Apr. 2007 12/16/2022 12:5 4 PM EDT 12/16/2022 12:54 PM EDT [facility] External Provider LAB BLO OD ORDERABLES Final Result Performing Organization Address [facility] Co de Phone Number [facility] [address] [place] [phone] * (ABNORMAL) Sed Rate by Modified Westergren (12/16/2022 12:54 PM EDT) Erythrocyte Sedimentation Rate 21(H) 0 - 15 MM/HR [facility] Comment:Patients with polycy themia and many hemoglobin abnormalitiesmay have depressed sed rates whereas patients with anemiamay have elevated sed rates. 12/16/2022 12:5 4 PM EDT 12/16/2022 12:54 PM EDT [facility] External Provider LAB BLO OD ORDERABLES Final Result Performing Organization Address [facility] Co de Phone Number [facility] [address] [place] [phone] * Rheumatoid Factor (12/16/2022 12:54 PM EDT) Rheumatoid Factor <13.0 <15.0 IU/mL [facility] 12/16/2022 12:5 4 PM EDT 12/16/2022 12:54 PM EDT [facility] External Provider LAB BLO OD ORDERABLES Final Result Performing Organization Address [facility]/ZIP Co de Phone Number [facility] [address] [place] [phone] * (ABNORMAL) C-reactive Protein (12/16/2022 12:54 PM EDT) C Reactive Protein 1.22(H) < or = 0.50 mg/dL [facility] 12/16/2022 12:5 4 PM EDT 12/16/2022 12:54 PM EDT [facility] External Provider LAB BLO OD ORDERABLES Final Result Performing Organization Address City/[facility]/ZIP Co de Phone Number [facility] [address] [place] [phone] * Creatine Kinase, Total (12/16/2022 12:54 PM EDT) Creatine Kinase Total 141 38 - 174 U/L [facility] 12/16/2022 12:5 4 PM EDT 12/16/2022 12:54 PM EDT [facility] External Provider LAB BLO OD ORDERABLES Final Result [facility] [address] [place] [phone] * (ABNORMAL) Uric acid (12/16/2022 12:54 PM EDT) Pathologist [facility] Uric Acid 3.3(L) 3.4 - 7.0 mg/dL [facility] 12/16/2022 12:5 4 PM EDT 12/16/2022 12:54 PM EDT [facility] External Provider LAB BLO OD ORDERABLES Final Result [facility] [address] [place] [phone] * (ABNORMAL) Comprehensive Metabolic Panel (12/16/2022 12:54 PM EDT) Pathologist [facility] Sodium 142 135 - 145 mmol/L [facility] Potassium 4.2 3.3 - 5.1 mmol/L [facility] Chloride 106 96 - 108 mmol/L [facility] Carbon Dioxide 28 22 - 29 mmol/L [facility] Anion Gap 12 12 - 20 [facility] Urea Nitrogen (BUN) 11 9 - 16 mg/dL [facility] Creatinine, Serum 0.75 0.5 - 1.4 mg/dL [facility] Estimated Glomerular Filt Rate >60 [facility] Comment:NOTE: For -Am erican individuals, multiply the result by 1.210.Chronic Kidney Disease: Estimated GFR < 60 mL/min/1.26m9Ukywoz Kidney Disease: Estimated GFR < 15 mL/min/1.73m2 Glucose 117(H) 60 - 115 mg/dL [facility] Calcium 9.4 8.4 - 10.2 mg/dL [facility] Bilirubin, Total 0.3 0.0 - 1.0 mg/dL [facility] Aspartate Amino Transferase 29 5 - 37 U/L [facility] Alanine Aminotransferase 51(H) 0 - 40 U/L [facility] Total Protein 7.0 6.5 - 8.0 g/dL [facility] Albumin Level 4.3 3.5 - 5.0 g/dL [facility] Alkaline Phosphatase 108 39 - 117 U/L [facility] 12/16/2022 12:5 4 PM EDT 12/16/2022 12:54 PM EDT [facility] External Provider LAB BLO OD ORDERABLES Final Result [facility] [address] [place] [phone] * (ABNORMAL) CBC auto differential (12/16/2022 12:54 PM EDT) White Blood Count 6.2 4.8 - 10.8 X10*3/uL [facility] Red Blood Count 4.41(L) 4.60 - 5.80 X10*6/uL [facility] Hemoglobin 12.7(L) 14.0 - 18.0 g/dl [facility] Hematocrit 38.8(L) 42.0 - 52.0 % [facility] Mean Corpuscular Volume 88.0 80.0 - 98.0 fL [facility] Mean Corpuscular Hemoglobin 28.8 27.0 - 33.0 pg [facility] Mean Corpuscular HGB Conc 32.7 31.0 - 36.0 g/dl [facility] Red Cell Distribution Width 13.0 11.0 - 16.0 % [facility] Platelet Count 260 160 - 400 X10*3/uL [facility] Mean Platelet Volume 10.9 9.4 - 12.4 fL [facility] Neutrophils Percent Auto 56.8 45 - 73 % [facility] Imm Gran Pct Auto 0.2 0.0 - 0.4 % [facility] Lymphocytes Percent Auto 30.7 20 - 40 % [facility] Monocytes Percent Auto 8.5 2 - 11 % [facility] Eosinophils Percent Auto 3.1 0 - 4 % [facility] Basophils Percent Auto 0.7 0 - 2 % [facility] NRBC Pct Auto 0.0 0.0 - 0.2 /100WBC [facility] Neutrophils Absolute Auto 3.5 2.0 - 8.3 x10*3/uL [facility] Imm Gran Abs Auto 0.01 0.00 - 0.03 X10*3/uL [facility] Lymphocytes Absolute Auto 1.9 1.2 - 4.9 X10*3/uL [facility] Monocytes Absolute Auto 0.5 0.1 - 1.2 X10*3/uL [facility] Eosinophils Absolute Auto 0.2 0.0 - 0.4 X10*3/uL [facility] Basophils Absolute Auto 0.0 0.0 - 0.2 X10*3/uL [facility] NRBC Abs Auto 0.000 0.0 - 0.012 X10*3/uL [facility] 12/16/2022 12:5 4 PM EDT 12/16/2022 12:54 PM EDT us [facility] External Provider LAB BLO OD ORDERABLES Final Result [facility] [address] [place] [phone] documented in this encounter Visit Diagnoses Not on filedocumented in this encounter Care Teams Environmental Compliance Officer Relationship Specialty Start Date End Date January Love MD [address] [place] [phone] PCP - General Family Medicine 03/28/13 documented as of this encounter
--- OUTSIDE RECORDS SUMMARY | 2025-08-18 11:20 | XMS_ITS | Encounter Summary ---
Author Organization [employer] Address [address] [place] [address] Care Team Providers Care Managing Member Name Role Phone January Love MD Primary Care Provider [phone] Encounter Details Date Type Department Care Team ([facility] st Contact Info) Description 01/10/2025 Orders Only [facility] [address] [place], [place] [phone] Vinod Barrera MD [address] [place], [place] [phone] Social History Tobacco Use Types Packs/Day Years [...] 08/23/2025 9:15 AM EST Clinical Support [address] [address] Nora Ayala RN 10/18/2025 9:15 AM EST Clinical Support [address] [address] Lei Hendricks, RN [address] [place] [phone] documented as of this encounter Goals Goal Patient Goal Type Associated Problems Recent Progress Patient-Stated? Author Increase coping skills to promote long-term recovery and improve ability to perform daily activities General On track( 025 9:40 AM EDT) No Lei Hendricks, RN documented as of this encounter Visit Diagnoses Not on filedocumented in this encounter Additional Health Concerns Assessment Noted Time PHQ-9 Depression Total Score: 10 025 10:56 AM EDT documented as of this encounter Care Teams Managing Member Relationship Specialty Start Date End Date January Love MD [address] [place] [phone] PCP - General Family Medicine 03/28/13 documented as of this encounter
--- OUTSIDE RECORDS SUMMARY | 2025-08-18 11:20 | XMS_ITS | Encounter Summary ---
Author Organization [employer] Address [address] [facility] [address] [place] [address] Care Team Providers Care Brokerage Coordinator Name Role Phone January Love MD Primary Care Provider [phone] Reason for Visit * Reason Onset Date Comments Med Refill 08/17/2025 Encounter Details Date Type Department Care Team (Late st Contact Info) Description 08/17/2025 Refill [facility] [address] [place] [address] Lei Hendricks, RN [address] [place] [address] Uncomplicated opioid dependence (CMS/HCC) (HCC) Social History Tobacco Use Types Packs/Day Years [...] Description 08/23/2025 9:15 AM EST Clinical Support [address] [phone] Nora Ayala RN 10/18/2025 9:15 AM EST Clinical Support [address] [address] Lei Hendricks RN [address] [place] [phone] documented as of this encounter Goals Goal Patient Goal Type Associated Problems Recent Progress Patient-Stated? Author Increase coping skills to promote long-term recovery and improve ability to perform daily activities General On track( 025 9:40 AM EDT) No Lei Hendricks, HELIO Help patients manage their type 2 diabetes Care Plan Help patients manage their type 2 diabetes No Lei Hendricks, HELIO Patient has chronic kidney disease Care Plan Patient has chronic kidney disease No Lei Hendricks RN documented as of this encounter Visit Diagnoses Diagnosis Uncomplicated opioid dependence (CMS/HCC) (HCC) documented in this encounter Additional Health Concerns Active Problems Noted Date Diagnosed Date Help patients manage their type 2 diabetes 08/17 Patient has chronic kidney disease 08/17/2025 Assessment Noted Time PHQ-9 Depression Total Score: 0 07/03/20 25 3:55 PM EDT documented as of this encounter Care Teams Brokerage Coordinator Relationship Specialty Start Date End Date January Love MD [address] [place] [address] PCP - General Family Medicine 03/28/13 documented as of this encounter
--- OUTSIDE RECORDS SUMMARY | 2025-08-18 11:20 | XMS_ITS | Clinical Summary ---
Author Organization [employer] Address [address] [place] [address] Care Team Providers Care Gauger Chief Name Role Phone January Love MD Primary Care Provider [phone] Allergies Active Allergy Reactions Criticality Noted Date Comments Duloxetine Hcl Drowsiness 12/16/2024 Penicillin V Unknown 09/17/2022 Medications Blood Glucose Monitoring Suppl w/Device kitIndications: Type 2 diabetes mellitus without complication, without long-term current use of insulin (HCC) Inject 1 application into the skin 2 times daily. 1 kit 023 Active bacitracin 500 UNIT/GM ointment 022 Active Bisacodyl EC 5 MG EC tablet Take 10 mg by mouth at bedtime. 023 Active docusate sodium (Colace) 100 MG capsule Take 100 mg by mouth at bedtime. 023 Active Trulance tablet tablet Take 1 tablet by mouth Once per day. 022 Active senna (Senokot) 8.6 MG tablet 023 Active Arthritis Pain Relief 650 MG [...] PATIENT RESPONDS. 2 each 1 024 Active Enbrel SureClick 50 MG/ML injection [...] the morning and at bedtime. Active Creon 48039-917970 units capsule delayed-release particles capsule Take 1 capsule by mouth with breakfast, with lunch, with evening meal, and at bedtime. Active triamcinolone (Kenalog) 0.1 % cream Active EPINEPHrine (Epipen) 0.3 MG/0.3ML injection syringe INJECT INTRAMUSCULARLY DIRECTED ON PACKAGE AND GO TO EMERGENCY ROOM 2 each 1 Active SM Fiber Laxative 500 MG tabletIndicatio ns:Drug-induced constipation TAKE 1 TABLET BY MOUTH TWICE DAILY 180 tablet 3 Active sucralfate (Carafate) 1 g tablet Take 1 g by mouth at bedtime. Active Blood Pressure Monitor misc Check BP daily 1 each Active Alcohol Swabs (Alcohol Prep) 70 % padsIndications :Type 2 diabetes mellitus without complication, without long-term current use of insulin ([facility]),Type 2 diabetes mellitus without complications (HCC) USE TWICE DAILY 100 each Active TRUEplus Lancets 33G miscIndications :Type 2 diabetes mellitus without complication, without long-term current use of insulin ([facility]) Check sugar once or twice daily 100 each Active FREESTYLE LITE test stripIndication s:Type 2 diabetes mellitus without complication, without long-term current use of insulin ([facility]) Check sugar once or twice daily 100 each Active milnacipran (Savella) 12.5 MG tablet in the morning and in the evening. Active fluticasone (Flonase) 50 MCG/ACT nasal spray INSTILL 1-2 SPRAYS IN EACH NOSTRIL ONCE DAILY 48 g Active tamsulosin (Flomax) 0.4 MG 24 hr capsule Take 1 capsule (0.4 mg) by mouth Once per day. 90 capsule 3 Active allopurinol (Zyloprim) 300 MG tablet Take 1 tablet (300 mg) by mouth Once per day. 90 tablet 3 Active Ventolin HFA 108 (90 Base) MCG/ACT inhaler INHALE 2 PUFFS BY MOUTH EVERY 4 HOURS NEEDED FOR WHEEZING OR SHORTNESS OF BREATH 18 g 1 Active cetirizine (ZyrTEC) 10 MG tablet Take 1 tablet (10 mg) by mouth at bedtime. 90 tablet 3 Active metFORMIN XR (Glucophage-XR) 500 MG 24 hr tabletIndicatio ns:Type 2 diabetes mellitus without complication, without long-term current use of insulin (HCC) Take 2 tablets (1,000 mg) by mouth with breakfast and with evening meal. Do not crush, chew, or split. 180 tablet 3 Active valACYclovir (Valtrex) 1 g tablet TAKE 1 TABLET BY MOUTH EVERY DAY IN THE MORNING 30 tablet 3 Active Buprenorphine HCl-Naloxone HCl (Suboxone) 8-2 MG SL filmIndications :Uncomplicated opioid dependence (CMS/HCC) ([facility]) Place 1 Film under the tongue every 8 (eight) hours. 84 Film 1 025 2025 Active valACYclovir (Valtrex) 1 g tablet Take 1 tablet (1,000 mg) by mouth in the morning. 30 tablet 3 025 2024 Discontinued Buprenorphine HCl-Naloxone HCl (Suboxone) 8-2 MG SL filmIndications :Uncomplicated opioid dependence (CMS/HCC) ([facility]) Place 1 Film under the tongue every 8 (eight) hours. 84 Film 1 025 2024 Discontinued(R eorder (will not trigger notification to Pharmacy)) Active Problems Problem Noted Date Diagnosed Date IBS (irritable bowel syndrome) 12/16/2024 Assessment & Plan (07/17/2025 5:11 AM EDT): - follow recommendations by GI - discussed about FODMAP diet - Continue linaclotide Assessment & Plan (03/08/2025 10:08 AM EDT): - follow recommendations by GI - discussed about FODMAP diet Assessment & Plan (12/16/2024 12:30 PM EDT): - follow recommendations by NITA Padron of right foot 12/16/2024 Elevated BP without diagnosis of hypertension Assessment & Plan (07/07/2025 10:56 PM EDT): - Goal BP < 130/80 per ACC/AHA guideline - Continue lifestyle modifications - Check BP at home - Return for BP check in 1 month. If persistently elevated, will start Losartan 25 mg daily Assessment & Plan (03/08/2025 10:01 AM EDT): - Goal BP < 130/80 per ACC/AHA guideline - Continue lifestyle modifications - Check BP at home - Return for BP check in 1 month. If persistently elevated, will start Losartan 25 mg daily Assessment & Plan (12/16/2024 12:28 PM EDT): - Goal BP < 130/80 per ACC/AHA guideline - Continue lifestyle modifications - Check BP at home - Return for BP check in 1 month. If persistently elevated, will start Losartan 25 mg daily Right foot pain 05/04/2024 Assessment & Plan (12/16/2024 12:31 PM EDT): - following with ethylbenzene oxidizer - Dx right 5th hammer toe - patient is still undecided about surgery Gout 10/22/2022 Assessment & Plan (07/17/2025 5:13 AM EDT): Continue Allopurinol 300mg/day -per patient's report he had gout flare 5 times in one month -continue low purine diet -Continue colchicine indomethacin Assessment & Plan (03/07/2025 9:14 AM EDT): Continue Allopurinol 300mg/day -per patient's report he had gout flare 5 times in one month -continue low purine diet -Continue colchicine indomethacin Assessment & Plan (12/13/2024 12:27 PM EDT): [...] indomethacin Opioid dependence 10/22/2022 Assessment & Plan (04/05/2025 5:02 AM EDT): -Long-term maintenance stage -Last recurrence [...] and OD/recurrence prevention effort Assessment & Plan (03/08/2025 4:46 AM EDT): -Long-term maintenance stage -Last recurrence [...] and OD/recurrence prevention effort Assessment & Plan (12/13/2024 12:27 PM EDT): [...] prevention effort Fibromyalgia 10/22/2022 Assessment & Plan (07/17/2025 5:14 AM EDT): - following with loan documentation specialist and shipyard painter - Diagnosed with psoriatic arthritis - continue current treatment plan per loan documentation specialist and shipyard painter - tried duloexetine (Cymbalta), but discontinued due to adverse reaction Assessment & Plan (03/07/2025 9:14 AM EDT): - following with loan documentation specialist and shipyard painter - Diagnosed with psoriatic arthritis - continue current treatment plan per loan documentation specialist and shipyard painter - tried duloexetine (Cymbalta), but discontinued due to adverse reaction Assessment & Plan (12/16/2024 12:32 PM EDT): - following with loan documentation specialist and shipyard painter - Diagnosed with psoriatic arthritis - continue current treatment plan per loan documentation specialist and shipyard painter - tried duloexetine (Cymbalta), but discontinued due to adverse reaction Assessment & Plan (10/22/2022 1:02 PM EST): - following with loan documentation specialist and shipyard painter - Diagnosed with psoriatic arthritis - continue current treatment plan per loan documentation specialist and shipyard painter Constipation 10/22/2022 Assessment & Plan (07/17/2025 5:12 AM EDT): - multifactorial - drug-induced, low-fiber diet - continue Trulance, senna, bisacodyl, docusate, Linaclotide, fiber - continue improving dietary fiber intake Assessment & Plan (03/07/2025 9:12 AM EDT): - multifactorial - drug-induced, low-fiber diet - continue Trulance, senna, bisacodyl, docusate, Linaclotide, fiber - continue improving dietary fiber intake Assessment & Plan (12/16/2024 12:30 PM EDT): [...] liver disease (MASLD) 10/22/2022 Assessment & Plan (07/17/2025 5:11 AM EDT): - Patient is followed by [facility], seen in April 2025 - Fib4 index 1.09 - Abdominal US in 02/2025: Hepatic steatosis - Continue lifestyle modifications Assessment & Plan (03/08/2025 10:07 AM EDT): - Patient is followed by [facility], seen in Jul 2024 - Fib4 index 1.09 - Abdominal US in 02/2025: Hepatic steatosis - Continue lifestyle modifications Assessment & Plan (12/16/2024 12:29 PM EDT): Patient is followed by [facility], seen in Jul 2024 Abdominal US in 04/2021: diffuse liver echogenicity consistent with fatty infiltration, no suspicious lesions Continue lifestyle modifications Check the status of abdominal US Assessment & Plan (10/22/2022 12:50 PM EST): Patient is followed by [facility], seen on 02/18/22 Abdominal US in 04/2021: diffuse liver echogenicity consistent with fatty infiltration, no suspicious lesions Continue lifestyle modifications Abdominal US q6m GERD (gastroesophageal reflux disease) Assessment & Plan (07/17/2025 5:12 AM EDT): - following with [facility] - continue lansoprazoe - Continue sucralfate Assessment & Plan (03/07/2025 9:12 AM EDT): - following with [facility] - continue lansoprazoe Assessment & Plan (12/16/2024 12:29 PM EDT): - following with [facility] - continue lansoprazoe Assessment & Plan (10/22/2022 12:52 PM EST): - following with [facility] - continue omeprazole and famotidine Allergic rhinitis 10/22/2022 Assessment & Plan (12/13/2024 12:28 PM EDT): - evaluated and treated by family centered specialist, Dr. Garcia, last appt in 2020 - continue loratadine and fluticasone nasal - previously on montelukast Assessment & Plan (10/22/2022 1:01 PM EST): - evaluated and treated by family centered specialist, Dr. Garcia, last appt in 2020 - continue loratadine and fluticasone nasal - previously on montelukast Chronic back pain 10/22/2022 Assessment & Plan (12/16/2024 12:34 PM EDT): - following with [facility], last seen on 12/25/21 - s/p RFA - F/U with shipyard painter Assessment & Plan (10/22/2022 12:57 PM EST): - following with [facility], last seen on 12/25/21 - s/p RFA - F/U with shipyard painter Chronic pain of left knee 10/22/2022 Assessment & Plan (10/22/2022 12:58 PM EST): - OA -received injection, did not have good response -continue working on weight reduction Psoriatic arthritis ([facility]) 10/22/2022 Assessment & Plan (07/17/2025 5:13 AM EDT): [facility]brel Assessment & Plan (03/07/2025 9:17 AM EDT): - [facility] Enbrel Assessment & Plan (12/13/2024 12:24 PM EDT): - [facility] Continue Enbrel Assessment & Plan (10/22/2022 1:03 PM EST): - [facility] White - continue sulfasalazine Type 2 diabetes mellitus 11/03/2018 Assessment & Plan (07/17/2025 5:09 AM EDT): - A1c 7.5% on 07/03/2025, increased from 7.0% on 03/07/25 - Continue SMBG and lifestyle modifications - Increase metformin 1000 mg bid, - Treatment Hx: 500 mg once daily since Jun 2020 - Last lipid profile: 12/15/24 - Microalbumin test: 07/2024 UACR 4.9 - Foot exam: 03/07/25. Right 5th hammer toe. Seeing ethylbenzene oxidizer. Onychomycosis. - Eye exam: January 2024, [facility]. Next appointment in Jun 2025 Assessment & Plan (03/09/2025 10:39 PM EDT): - A1c 7.0% on 03/07/25, improved from 7.9% on 12/13/24 - Continue SMBG and lifestyle modifications - Increase metformin 500 mg bid, - Treatment Hx: 500 mg once daily since Jun 2020 - Last lipid profile: 12/15/24 - Microalbumin test: 07/2024 UACR 4.9 - Foot exam: 03/07/25. Right 5th hammer toe. Seeing ethylbenzene oxidizer. Onychomycosis. - Eye exam: January 2024, [facility]. Next appointment in Jun 2025 Assessment & Plan (12/13/2024 12:26 PM EDT): [...] sleep apnea syndrome 03/24/2018 Assessment & Plan (07/17/2025 5:15 AM EDT): - Last sleep study in 2018. Full face mask pressure 11 cm H2O - Previously had CPAP but it was discontinued due to non-adherence. - Plan was to re-evaluate with new sleep study; check its status Assessment & Plan (12/16/2024 12:23 PM EDT): [...] septum 06/29/2012 Obesity 03/08/2012 Assessment & Plan (07/17/2025 5:10 AM EDT): Continue working on lifestyle modifications. Generic [...] equivalent combination of moderate- and vigorous-intensity activity Assessment & Plan (12/16/2024 12:33 PM EDT): [...] Encounters Date Type Department Care Team Description 08/17/[address] [facility] [address] [place] [address] Lei Hendricks RN Uncomplicated opioid dependence (CMS/HCC) (HCC) 07/22/[address] [facility] [address], [place] [phone] January Love MD 07/20/2025 Orders Only [facility] [address] [place] [phone] Claudia Branch MD 07/03/2025 3:30 PM EDT Office Visit [facility] [address] [place] [phone] January Love MD Type 2 diabetes mellitus without complication, without long-term current use of insulin (HCC) (Primary Dx); Elevated BP without diagnosis of hypertension; Rash; Diarrhea, unspecified type; Generalized abdominal pain; Encounter for immunization; Hypersensitivity, initial encounter; Class 1 obesity due to excess calories with serious comorbidity and body mass index (BMI) of 33.0 to 33.9 in adult; Transaminitis; Metabolic dysfunction-associated steatotic liver disease (MASLD); Gastroesophageal reflux disease, unspecified whether esophagitis present; Irritable bowel syndrome with constipation; Constipation, unspecified constipation type; Chronic gout without tophus, unspecified cause, unspecified site; Psoriatic arthritis (CMS/HCC) (HCC); Fibromyalgia; Obstructive sleep apnea syndrome 07/03/2025 Travel 06/30/[address] [facility] [address] [place] [phone] Cathy Santiago MA 06/29/2025 Travel 06/28/2025 9:15 AM EDT Clinical Support [facility] [address] [place] [phone] Lei Hendricks RN Uncomplicated opioid dependence (CMS/HCC) (HCC) (Primary Dx) 06/28/2025 Travel 06/27/2025 Travel 06/21/[address] [facility] [address] [place] [phone] Lei Hendricks, HELIO Uncomplicated opioid dependence ([facility]/HCC) 06/13/[address] [facility] [address] [place] [phone] January Love MD Nurse Triage 05/31/2025 9:15 AM EDT Clinical Support [facility] [address] [place] [phone] Lei Hendricks, HELIO Uncomplicated opioid dependence (CMS/HCC) 05/31/2025 Travel 05/24/[address] [facility] [address] [place] [phone] Lei Hendricks, RN Uncomplicated opioid dependence (CMS/HCC) from Last 3 Months Immunizations Immunization Administration Dates Next Due Hep A, Adult 04/20/2019,09/08/2018 HepB-CpG 06/23/2022,05/19/2022 Influenza Injectable Quadriv alant Preservative Free IIV4 MDCK 06/23/2022,06/27/2019,06/18/2017 Influenza injectable quadriv alent IIV4 with preservative 06/19/2015 Influenza injectable quadriv alent preservative free 07/01/2023,07/25/2021,07/30/2020,2019,06/01/2018,05/30/2016 Influenza, IIV3, injectable 06/20/2014 Influenza, Recombinant, inje ctable, preservative free 09/07/2024 Influenza, Split (incl. cinthya fied surface antigen) 07/05/2013,06/29/2012 Influenza, seasonal, injecta ble, preservative free 07/03/2025 Pfizer Covid-19 Vaccine 12+ 12/13/2024, Pfizer Covid-19 [...] Sign Reading Time Taken Comments Blood Pressure 120/74 07/03/2025 3:39 PM EDT Pulse 75 07/03/2025 3:39 PM EDT Temperature 36.1 C (96.9 F) 07/03/2025 3:39 PM EDT Respiratory Rate 20 07/03/2025 3:39 PM EDT Oxygen Saturation 98% 07/03/2025 3:39 PM EDT Inhaled Oxygen Concentration - - Weight 107 kg (235 lb) 07/03/2025 3:39 PM EDT Height 177.8 cm (5' 10 ) 07/03/2025 3:39 PM EDT Body Mass Index 33.72 07/03/2025 3:39 PM EDT Plan of Treatment Upcoming Encounters Date Type Department Care Team (Late st Contact Info) Description 08/23/2025 9:15 AM EST Clinical Support [facility] [address] [place] [phone] Nora Ayala, RN 10/18/2025 9:15 AM EST Clinical Support [facility] [address] [place] [phone] Lei Hendricks, RN [address] [place] [phone] Health Maintenance Due Date Last Done Comments CT Colonography 1977 FIT DNA/Cologuard 1977 FIT 1977 FOBT 1977 Sigmoidoscopy 1977 Family Planning (PISQ) 1992 COVID-19 Vaccine ( season) 2025 12/13/2024, 07/14/2023, 11/14/2022, Additional history exists Diabetes: Urine Protein Screening 08/12/2025 08/12/2024, 08/12/2024, 12/18/2021, Additional history exists Diabetes: Hemoglobin A1C 10/03/2025 025, 03/07/2025, 12/13/2024, Additional history exists Disability Screening 12/13/2025 12/13/2024 Lipid Panel 12/15/2025 12/15/2024, 11/27, 07/31/2020 Alcohol/Substance Use Screening 03/07/2026 03/07/2025 Diabetes: Foot Exam 03/07/2026 03/07/2025, 03/07/2025, 03/07/2025, Additional history exists SDOH Screening 03/07/2026 03/07/2025 Depression Screening 07/03/2026 07/03/2025, 07/03/20 25 DTaP/Tdap/Td Vaccines (2 - Td or Tdap) 07/17/2026 07/17/2016 Tobacco Screening 07/17/2026 07/17/2025 Eye Exam 07/18/2026 07/18/2025, 02/18/2024 Zoster Vaccines (1 of 2) 2027 Colonoscopy 06/11/2028 06/11/2023, 06/11/2023 Colorectal Cancer Screening 06/11/2028 RSV Patients and Patients Aged 60 years or older (1 - 1-dose 75+ series) 2052 Hepatitis A Vaccines Completed 04/20/2019, 09/08/20 18 Pneumococcal Vaccine: Pediatrics (0 to 5 Years) and At-Risk Patients (6 to 49) Years Completed 05/19/2022 Hepatitis B Vaccines Completed 06/23/2022, 05/19/20 22 HIV Screening Completed 04/06/2024, 12/18/2021 Hepatitis C Screening Completed 05/12/2025 , 04/06/2024, 12/16/2022, Additional history exists Influenza Vaccine Completed 07/03/2025, , 07/01/2023, Additional history exists HIB Vaccines Aged Out No longer eligi ble based on patient's age to complete this topic HPV Vaccines Aged Out No longer eligi ble based on patient's age to complete this topic IPV Vaccines Aged Out No longer eligi ble based on patient's age to complete this topic Meningococcal B Vaccine Aged Out No l onger eligible based on patient's age to complete this topic Meningococcal Vaccine Aged Out No genaro johanan eligible based on patient's age to complete [...] Help patients manage their type 2 diabetes Lei Hood, HELIO Patient has chronic kidney disease Care Plan Patient has chronic kidney disease No Lei Hendricks RN Procedures Procedure Name Priority Date/Time Associated Diagnosis Comments DIABETES EYE EXAM Routine 07/18/2025 2:58 PM EDT POCT GLYCATED HEMOGLOBIN, TOTAL Routine 07/03/2025 3:48 PM EDT Type 2 diabetes mellitus without complication, without long-term current use of insulin (HCC) POCT GLUCOSE Routine 07/03/2025 3:48 PM EDT Type 2 diabetes mellitus without complication, without long-term current use of insulin (HCC) POCT ANTHONY-14 URINE DRUG SCREEN Routine 06/28/2025 9:42 AM EDT Uncomplicated opioid dependence (CMS/HCC) (HCC) HEPATITIS PANEL, GENERAL Routine 05/12/2025 4:48 PM EDT LIPID PANEL WITH REFLEX TO DIRECT LDL Routine 12/15/2024 4:50 PM EDT ALBUMIN, RANDOM URINE W/CREATININE Routine 08/12/2024 2:22 PM EST Type 2 diabetes mellitus without complication, without long-term current use of insulin (CMS/HCC) HIV 1/2 ANTIGEN/ANTIBODY, FOURTH GENERATION W/RFL Routine 04/06/2024 10:39 AM EDT Uncomplicated opioid dependence (CMS/HCC) COLONOSCOPY Routine 06/11/2023 from Last 3 Months or Most Recently Relevant to Health Maintenance Results * Diabetes Eye Exam (07/18/2025 2:58 PM EDT) [facility] Provider MD HEALTH MAINTENANCE Final Result * (ABNORMAL) POCT Hgb A1c (07/03/2025 3:48 PM EDT) Hemoglobin A1C 7.5(A) 4.0 - 5.7 % QC Media Lot # [id number] Lot# Expiration Date [id number] Blood 07/03/2025 3:48 PM EDT January Love MD POINT OF CARE TEST ENTER/EDIT OR DERABLES Final Result * POCT Glucose (07/03/2025 3:48 PM EDT) Glucose Blood, POC 179 60 - 200 mg/dL QC Media Lot # [id number] Lot# Expiration Date [id number] Blood Capillary blood specimen / Unknown 07/03/2025 3:48 PM EDT January Love MD POINT OF CARE TEST ENTER/EDIT OR DERABLES Final Result * (ABNORMAL) POCT ANTHONY-14 Urine Drug Screen (06/28/2025 9:42 AM EDT) THC Negative Negative Cocaine Screen, Urine Negative Negative Opiate Screen, Urine Negative Negative Methamphetamine Screen Urine Negative Negative Amphetamine Screen, Urine Negative Negative Benzodiazepines Screen, Urine Negative Negative Barbiturate Screen, Urine Negative Negative Methadone Screen, Urine Negative Negative Buprenophine Screen, Urine Positive(A) Negative TCA, Urine Negative Negative MDMA Urine Negative Negative ng/mL Oxycodone Screen, Urine Negative Negative Phencyclidine (PCP), Urine Negative Negative Fentanyl, Urine Negative Negative Urine Urine specimen obtained by clean catch procedure / Unknown 06/28/2025 9:42 AM EDT January Love MD POINT OF CARE TEST ENTER/EDIT OR DERABLES Final Result * Hepatitis Panel, General (05/12/2025 4:48 PM EDT) Hepatitis A IgM Nonreactive Nonreactive [facility] Comment:IgM antibodies to WALKER V not detected; does not exclude earlyacute or recovered HAV infection. ~Hepatitis B Surface Antibody REACTIVE Nonreactive [facility] Comment:REACTIVE: > 11.99 mI U/mL Hepatitis B Core Antibody Nonreactive Nonreactive [facility] Hepatitis C Antibody Nonreactive Nonreactive [facility] Comment:Antibodies to HCV no t detected; does not exclude early acuteHCV infection. Hepatitis B Surface Ag Negative Negative [facility] 05/12/2025 4:48 PM EDT 05/12/2025 4:51 PM EDT us Generic External Data Provider LAB BLOOD ORDERAB LES Final Result [facility] [address] [place] [phone] * Lipid Panel with Reflex to Direct LDL (12/15/2024 4:50 PM EDT) Triglycerides 64 <150 mg/dL [facility] Comment:Desirable Triglyceri de: less than 150 mg/dLBorderline High Triglyceride 150-199 mg/dLHigh Triglyceride: 200-499 mg/dLVery High Triglyceride: greater than or equal to 5OO mg/dL Cholesterol 137 <200 mg/dL [facility] Comment:Desirable Cholestero l: less than 200 mg/dLBorderline High Cholesterol: 200-239 mg/dLHigh Cholesterol: greater than 239 mg/dL LDL Cholesterol Calculated 73 <100 mg/dL [facility] Comment:Desirable LDL: less than 100 mg/dLNear Optimal/Above Optimal LDL: 110- 129 mg/dLBorderline High LDL: 130-159 mg/dLHigh LDL: 160-189 mg/dLVery High LDL: greater than or equal to 190 mg/dL HDL Cholesterol 52 >40 mg/dL [facility] Comment:Desirable HDL: great er than 40 mg/dL Note: This HDL assay may give artificially low results in patients with liver disease. 12/15/2024 4:50 PM EDT 12/15/2024 4:50 PM EDT us Generic External Data Provider LAB BLOOD ORDERAB LES Final Result Performing Organization Address [facility] Co de Phone Number [facility] [address] [place] [phone] * Albumin, Random Urine W/Creatinine (08/12/2024 2:22 PM EST) Creatinine, Urine 160.54 mg/dL [facility] Microalbumin Urine 8.0 mg/L [facility] Microalbum Creatinine Ratio Ur 4.9 <30 ug/mg cr [facility] Comment:Albumin/Creatinine R atio Reference Ranges: Normal: < 30 ug/mg creatinine Microalbuminuria: 30 - 300 ug/mg creatinineClinical Albuminuria: > 300 ug/mg creatinine Urine 08/12/2024 2:22 PM EST 08/12/2024 2:40 PM EST us January Love MD LAB URINE ORDERABLES Final Resul t Performing Organization Address [facility] Co de Phone Number [facility] [address] [place] [phone] * HIV-1/2 Antigen and Antibodies, Fourth Generation, with Reflexes (04/06/2024 10:39 AM EDT) HIV AB/AG Nonreactive Nonreactive [facility] Comment:HIV-1 p24 Ag and/or HIV-1/HIV-2 Ab not detected.A test result that is nonreactive does not exclude thepossibility of exposure to or infection with HIV-1 and/orHIV-2. Nonreactive results in this assay for individualswith prior exposure to HIV-1 and/or HIV-2 may be due toantigen and antibody levels that are below the limit ofdetection of this assay.The [email or web address] HIV Ag/Ab Combo assay result andsupplemental assay results should be interpreted inconjunction with the patient's clinical presentation,history and other laboratory results. If the results areinconsistent with clinical evidence, additional testing issuggested to confirm the result. Blood Venous blood specimen / Unknown 04/06/2024 10:39 AM EDT 04/06/2024 12:54 PM EDT January Love MD LAB BLOOD ORDERABLES Final Resul t [facility] [address] [place], [place] [phone] * Colonoscopy (06/11/2023) Colonoscopy Normal Normal Narrative Donna Lewis - 06/11/2023 Recommended 5 year follow up see external hospital admission note on 06/11/2023 Historical Provider HEALTH MAINTENANCE Final Result from Last 3 Months or Most Recently Relevant to Health Maintenance Additional Health Concerns Active Problems Noted Date Diagnosed Date Help patients manage their type 2 diabetes 08/17 Patient has chronic kidney disease 08/17/[address] [place] [address] Care Teams Gauger Chief Relationship Specialty Start Date End Date January Love MD [address] [place] [phone] PCP - General Family Medicine 03/28/13
--- OUTSIDE RECORDS SUMMARY | 2025-08-18 11:20 | XMS_ITS | Encounter Summary ---
Author Organization [employer] Address [address] [facility] 7[address] [place] [address] Care Team Providers Care Security Police Name Role Phone January Love MD Primary Care Provider [phone] Encounter Details Date Type Department Care Team ([facility] st Contact Info) Description 03/11/2024 Telephone [facility] [address] [place], [place] [phone] January Love MD [address] [place], [place] [phone] Social History Tobacco Use Types Packs/Day Years [...] Description 08/23/2025 9:15 AM EST Clinical Support [address] [address] Nora Ayala RN 10/18/2025 9:15 AM EST Clinical Support [address] [address] Lei Hendricks, RN [address] [place] [phone] documented as of this encounter Visit Diagnoses Not on filedocumented in this encounter Additional Health Concerns Assessment Noted Time PHQ-9 Depression Total Score: 0 01/13/20 24 9:56 AM EDT documented as of this encounter Care Teams Security Police Relationship Specialty Start Date End Date January Love MD [address] [place] [phone] PCP - General Family Medicine 03/28/13 documented as of this encounter
--- OUTSIDE RECORDS SUMMARY | 2025-08-18 11:20 | XMS_ITS | Encounter Summary ---
Author Organization [facility] [facility] Address [address] [place] [address] [address] [place] [address] Care Team Providers Care Wastewater Project Manager Name Role Phone January Love MD Primary Care Provider [phone] Reason for Visit * Reason Comments Med Refill Encounter Details Date Type Department Care Team (Late st Contact Info) Description 10/21/2023 Refill [facility] [address] [place] [phone] January Love MD [address] [place] [phone] Social History Tobacco Use Types Packs/Day Years [...] Description 08/23/2025 9:15 AM EST Clinical Support [facility] [address] [place] [phone] Nora Ayala, HELIO 10/18/2025 9:15 AM EST Clinical Support [facility] [address] [place] [phone] Lei Hendricks, HELIO [address] [place] [phone] documented as of this encounter Visit Diagnoses Not on filedocumented in this encounter Care Teams Wastewater Project Manager Relationship Specialty Start Date End Date January Love MD [address] [place] [address] PCP - General Family Medicine 03/28/13 documented as of this encounter
--- OUTSIDE RECORDS SUMMARY | 2025-08-18 11:20 | XMS_ITS | Encounter Summary ---
Author Organization [employer] Address [address] [facility] 7[address] [place] [address] Care Team Providers Care Fuse Assembler Name Role Phone January Love MD Primary Care Provider [phone] Reason for Visit * Reason Comments Med Refill Encounter Details Date Type Department Care Team ([facility] Contact Info) Description 08/18/2024 Refill [facility] [address] [place], [place] [phone] January Love MD [address] [place] [address] Social History Tobacco Use Types Packs/Day Years [...] Description 08/23/2025 9:15 AM EST Clinical Support [address] [address] Nora Ayala, HELIO 10/18/2025 9:15 AM EST Clinical Support [address] [address] Lei Hendricks, RN [address] [place] [phone] documented as of this encounter Visit Diagnoses Not on filedocumented in this encounter Additional Health Concerns Assessment Noted Time PHQ-9 Depression Total Score: 0 01/13/20 24 9:56 AM EDT documented as of this encounter Care Teams Fuse Assembler Relationship Specialty Start Date End Date January Love MD [address] [place] [phone] PCP - General Family Medicine 03/28/13 documented as of this encounter
== END 2025-08-18 11:13 | disposition home or self-care (01) ==
LOC: HO.RHES 10:35
PROVIDERS: PCP Family Medicine; Visit Provider Student in an Organized Health Care Education/Training Program
DX: L40.50 Arthropathic psoriasis, unspecified (principal); M1A.09X0 Idiopathic chronic gout, multiple sites, without tophus (tophi); M79.7 Fibromyalgia; K75.81 Nonalcoholic steatohepatitis (NASH); Z51.81 Encounter for therapeutic drug level monitoring; Z79.620 Long term (current) use of immunosuppressive biologic
CPT/HCPCS: 99214